=== PATIENT | female | born 1945 | race Caucasian/White ===

== ENCOUNTER → 2019-02-10 | Outpatient (CLI) | payer MEDICARE, BC ==
[2019-02-10 12:51] LABS: IRON(TIBC) 29.1 ug/dL (37-170); POTASSIUM 5.1 mmol/L (3.6-5.0)
== END ==
LOC: OD 11:41
PROVIDERS: ATTEND Physician Assistant Medical
DX: D64.9 Anemia, unspecified (principal)
CPT/HCPCS: 36415; 82728; 83540; 83550; 83735; 84132

== ENCOUNTER 2019-02-15 19:16 | Emergency (ER) | payer MEDICARE, BC ==
--- NOTE | 2019-02-15 19:48 | ER Document Report ---
ED Medical Screen (RME) - General Chief Complaint: Pain With Urination Stated Complaint: UTI, CHECK POTASSIUM Time Seen by Provider: 02/15/19 19:38 Primary Care Provider: CLARENCE PIERRE PA-C [Primary Care Provider] - Follow up as needed Mode of Arrival: Ambulatory Information source: Patient Notes: 73-year-old meat female presents to ED for abnormal labs as well as a UTI. She states she went to [facility] today to see her doctor because of her increase in symptoms from the UTI. States they kim some blood and before she got home they called and told her to come to the emergency room due to abnormal blood work. She has elevated calcium levels as well as increase UTI. She has a history of a aortic aneurysm with repair back surgeries coronary artery stents she has a history of reflux hypothyroid asthma kidney disease depression cholesterol blood pressure she is also been experiencing dizziness. She is on O2 at this time she does use oxygen at home. She is alert oriented respirations regular and unlabored just times. She does not smoke drink or do any drugs. She is on 3 L nasal cannula. She lives with her . I have greeted and performed a rapid initial assessment of this patient. A comprehensive ED assessment and evaluation of the patient, analysis of test results and completion of medical decision making process will be conducted by an additional ED providers. Dictation of this chart was performed using voice recognition software; therefore, there may be some unintended grammatical errors. TRAVEL OUTSIDE OF THE [place] IN LAST 30 DAYS: No - Related Data Allergies/Adverse Reactions: No Known Allergies Allergy (Unverified 02/15/19 19:20) Physical Exam - Vital signs Vitals: Temp Pulse Resp BP Pulse Ox 98.4 F 75 22 H 149/80 H 96 02/15/19 19:26 02/15/19 19:26 02/15/19 19:26 02/15/19 19:26 02/15/19 19:26 Course - Vital Signs Vital signs: Temp Pulse Resp BP Pulse Ox 98.4 F 75 22 H 149/80 H 96 02/15/19 19:26 02/15/19 19:26 02/15/19 19:26 02/15/19 19:26 02/15/19 19:26 Doctor's Discharge - Discharge Referrals: CLARENCE PIERRE PA-C [Primary Care Provider] - Follow up as needed
[2019-02-15 20:34] LABS: ABSOLUTE BASOPHILS # (AUTO) 0.1 10^3/uL (0.0-0.2); ABSOLUTE EOSINOPHILS # (AUTO) 0.2 10^3/uL (0.0-0.6); ABSOLUTE LYMPHOCYTES (AUTO) 0.8 10^3/uL (0.5-4.7); ABSOLUTE MONOCYTES (AUTO) 0.8 10^3/uL (0.1-1.4); ABSOLUTE NEUT (AUTO) 4.6 10^3/uL (1.7-8.2); BASOPHILS % (AUTO) 0.9 % (0-2); EOSINOPHILS % (AUTO) 3.6 % (0-6); HEMATOCRIT 34.4 % (36.0-47.0); HEMOGLOBIN 11.6 g/dL (12.0-15.5); LYMPHOCYTES % (AUTO) 11.7 % (13-45); MEAN CORPUSCULAR HEMOGLOBIN 33.2 pg (27.0-33.4); MEAN CORPUSCULAR HGB CONC 33.7 g/dL (32.0-36.0); MEAN CORPUSCULAR VOLUME 99 fl (80-97); MONOCYTES % (AUTO) 12.9 % (3-13); PLATELET COUNT 208 10^3/uL (150-450); RED BLOOD COUNT 3.49 10^6/uL (3.72-5.28); RED CELL DISTRIBUTION WIDTH 14.8 % (11.5-14.0); SEGMENTED NEUTROPHILS % (AUTO) 70.9 % (42-78); TOTAL CELLS COUNTED % (AUTO) 100 %; WHITE BLOOD COUNT 6.5 10^3/uL (4.0-10.5)
[2019-02-15 20:44] LABS: APPEARANCE,URINE SLIGHTLY-CLOUDY; BILIRUBIN,URINE NEGATIVE (NEGATIVE); CALCIUM OXALATE CRYSTALS,URINE FEW /HPF; COLOR,URINE YELLOW; GLUCOSE, URINE NEGATIVE (NEGATIVE); KETONES,URINE NEGATIVE (NEGATIVE); LEUKOCYTE ESTERASE,URINE MODERATE (NEGATIVE); NITRITE,URINE NEGATIVE (NEGATIVE); PROTEIN,URINE NEGATIVE (NEGATIVE); URINE SPECIFIC GRAVITY 1.016; UROBILINOGEN,URINE NEGATIVE mg/dL (<2.0)
[2019-02-15 20:47] LABS: ALANINE AMINOTRANSFERASE 26 U/L (9-52); ALBUMIN 3.7 g/dL (3.5-5.0); ALKALINE PHOSPHATASE 43 U/L (38-126); ANION GAP 9 (5-19); ASPARTATE AMINO TRANSFERASE 23 U/L (14-36); BILIRUBIN,DIRECT 0.2 mg/dL (0.0-0.4); BILIRUBIN,TOTAL 0.2 mg/dL (0.2-1.3); BLOOD UREA NITROGEN 44 mg/dL (7-20); CARBON DIOXIDE 31 mmol/L (22-30); CHLORIDE 99 mmol/L (98-107); GLUCOSE 76 mg/dL (75-110); POTASSIUM 4.1 mmol/L (3.6-5.0); SODIUM 138.5 mmol/L (137-145); TOTAL PROTEIN 6.3 g/dL (6.3-8.2)
[2019-02-15 21:09] LABS: CALCIUM 12.6 mg/dL (8.4-10.2)
[2019-02-16] MEDS ORDERED: LIDOCAINE 1% INJ-PF (10 MG/ML) 30 ML SDV INFIL ONE (00:22)
[2019-02-16] MEDS ORDERED: CEFTRIAXONE INJ 1000 MG VIAL IM ONE (00:22)
--- NOTE | 2019-02-16 00:27 | ER Document Report ---
ED General - General Chief Complaint: Pain With Urination Stated Complaint: PAINFUL URINATION Time Seen by Provider: 02/15/19 19:38 Primary Care Provider: ASHLEE ARREDONDO MD [Primary Care Provider] - 02/19/19 Mode of Arrival: Ambulatory Notes: Patient is a pleasant 73-year-old female who was sent here by her traveling plant operator from [facility]. She went to [facility] for her normal routine checkup. Her traveling plant operator: Went home and told her that she need to go to the ER because her calcium level was high and she is a little urine tract infection. Patient does have some history of renal insufficiency. She is followed by a legal specialist and Dr. Choudhury. 6 days ago she was placed on Cipro for UTI. She says since starting the Cipro to make her feel unwell is given her muscle aches and this made her feel unwell. She denies any nausea vomiting. No chest pain. No shortness of breath. She says she continues to have dysuria and urinary frequency despite being on the Cipro. She denies previous history of hypercalcemia. She does take calcium supplementation every day. Cipro is the only new medication. She has no other complaints at this time. TRAVEL OUTSIDE OF THE [place] IN LAST 30 DAYS: No - Related Data Allergies/Adverse Reactions: No Known Allergies Allergy (Unverified 02/15/19 19:20) Past Medical History - General Information source: Patient - Social History Smoking Status: Unknown if Ever Smoked Chew tobacco use (# tins/day): No Frequency of alcohol use: None Drug Abuse: None Family History: Reviewed & Not Pertinent Patient has suicidal ideation: No Patient has homicidal ideation: No - Past Medical History Cardiac Medical History: Reports: Hx Hypercholesterolemia, Hx Hypertension Pulmonary Medical History: Reports: Hx Asthma Renal/ Medical History: Denies: Hx Peritoneal Dialysis Psychiatric Medical History: Reports: Hx Depression Review of Systems - Review of Systems Notes: My Normal Review Basic REVIEW OF SYSTEMS: CONSTITUTIONAL : Denies fever, chills, or sweats. Denies recent illness. EENT: Denies eye, ear, throat, or mouth pain or symptoms. Denies nasal or sinus congestion. CARDIOVASCULAR: Denies chest pain. RESPIRATORY: Denies cough, cold, or chest congestion. Denies shortness of breath, difficulty breathing, or wheezing. GASTROINTESTINAL: Denies abdominal pain. Denies nausea, vomiting, or diarrhea. Denies constipation. Last BM: GENITOURINARY: Burning with urination. Urinary frequency. MUSCULOSKELETAL: Some muscle aches. SKIN: Denies rash or skin lesions. NEUROLOGICAL: Denies altered mental status or loss of consciousness. Denies headache. Denies weakness or paralysis or loss of use of either side. Denies problems with gait or speech. Denies sensory or motor loss. ALL OTHER SYSTEMS REVIEWED AND NEGATIVE. Physical Exam - Vital signs Vitals: Temp Pulse Resp BP Pulse Ox 98.4 F 75 22 H 149/80 H 96 02/15/19 19:26 02/15/19 19:26 02/15/19 19:26 02/15/19 19:02/15/19 19:26 - Notes Notes: General Appearance: Well nourished, alert, cooperative, no acute distress, no obvious discomfort. Vitals: reviewed, See vital signs table. Head: no swelling or tenderness to the head Eyes: PERRL, EOMI, Conjuctiva clear Mouth: No decreasd moisture Lungs: No wheezing, No rales, No rhonci, No accessory muscle use, good air exchange bilaterally. Heart: Normal rate, Regular rythm, No murmur, no rub Abdomen: Normal BS, soft, No rigidity, No abdominal tenderness, No guarding, no rebound, no abdominal masses, no organomegaly Extremities: strength 5/5 in all extremities, good pulses in all extremities, no swelling or tenderness in the extremities, no edema. Skin: warm, dry, appropriate color, no rash Neuro: speech clear, oriented x 3, normal affect, responds appropriately to questions. Cranial nerves II through XII are intact. Distal sensation intact. Patient moves all extremities without difficulty. Normal reflexes in both upper and lower extremities. Normal coordination of movement of fingers and hands. Course - Re-evaluation Re-evalutation: 02/16/19 00:41 Patient continues to have a UTI urinalysis as well as based on her symptoms. Cipro does not appear to be helping and according to her the Cipro is just made her feel worse and that is because body aches and made her feel unwell. Hypercalcemia is not a common reaction to the Cipro however patient says she is never had hypercalcemia in the past. She is on supplemental calcium which will help her stop. We will have her stop the Cipro and will start her on Keflex. I sent a urine for culture. She has no concerning symptoms and associate with hypercalcemia and therefore I feel she is safe to be discharged home however I informed her that she needs of a low threshold to return to ER if she has confusion, discoordination, fevers, or if she feels unwell. I did send off a parathyroid hormone level and informed her that she should talk to Dr. Arredondo and inform him to look at the results of this so he can continue the work-up of her hypercalcemia. Dictation of this chart was performed using voice recognition software; therefore, there may be some unintended grammatical errors. 02/16/19 00:44 - Vital Signs Vital signs: Temp Pulse Resp BP Pulse Ox 98.4 F 75 22 H 149/80 H 96 02/15/19 19:26 02/15/19 19:26 02/15/19 19:26 02/15/19 19:26 02/15/19 19:26 - Laboratory Result Diagrams: 02/15/19 20:00 02/15/19 20:00 Laboratory results interpreted by me: 02/15/19 02/15/19 02/15/19 20:00 20:00 20:00 RBC 3.49 L Hgb 11.6 L Hct 34.4 L MCV 99 H RDW 14.8 H Lymphocytes % 11.7 L Carbon Dioxide 31 H BUN 44 H Creatinine 2.43 H Est GFR ( Amer) 24 L Est GFR (Non-Af Amer) 20 L Calcium 12.6 H* Ur Leukocyte Esterase MODERATE H Discharge - Discharge Clinical Impression: Hypercalcemia UTI (urinary tract infection) Qualifiers: Urinary tract infection type: site unspecified Hematuria presence: without hematuria Qualified Code(s): N39.0 - Urinary tract infection, site not specified Condition: Good Disposition: HOME, SELF-CARE Additional Instructions: You do have a urinary tract infection. We have given you a dose of an antibiotic called Rocephin. We will then prescribe you an antibiotic called Keflex. Please continue take this antibiotic until the prescription is finished. Please stop taking the ciprofloxacin antibiotic. Your calcium level was high. Please stop taking your calcium pill. We are checking a hormone level called a parathyroid hormone level. Please follow-up with Dr. Arredondo this week and informed him that we have checked this level so that he can look up the results. Have him also recheck your calcium level to make sure that it is improving. Please return to the ER immediately if you have severe headache, muscle weakness or pain, tremors, fevers, confusion, or if you feel unwell. Prescriptions: Cephalexin Monohydrate [Keflex 500 mg Capsule] 500 mg PO BID 5 Days #10 capsule Referrals: ASHLEE ARREDONDO MD [Primary Care Provider] - 02/19/19
[2019-02-16 01:03] VITALS: BP 183/74
== END 2019-02-16 01:14 | disposition home or self-care (01) ==
LOC: ER 19:16
DX: N39.0 Urinary tract infection, site not specified (principal); E83.52 Hypercalcemia; Z79.899 Other long term (current) drug therapy; M79.10 Myalgia, unspecified site; I10 Essential (primary) hypertension; J45.909 Unspecified asthma, uncomplicated
CPT/HCPCS: 99283; 96372; 36415; 87086; 83735; 85025; 87088; 80053; 81001; 87186; 83970; J3490; J0696

== ENCOUNTER → 2019-02-24 | Outpatient (CLI) | payer MEDICARE, BC ==
[2019-02-24 13:00] LABS: APPEARANCE,URINE CLEAR; BILIRUBIN,URINE NEGATIVE (NEGATIVE); COLOR,URINE LIGHT YELLOW; GLUCOSE, URINE NEGATIVE (NEGATIVE); KETONES,URINE NEGATIVE (NEGATIVE); URINE SPECIFIC GRAVITY 1.009
[2019-02-24 13:01] LABS: LEUKOCYTE ESTERASE,URINE LARGE (NEGATIVE); NITRITE,URINE NEGATIVE (NEGATIVE); PROTEIN,URINE 30 mg/dL (NEGATIVE); UROBILINOGEN,URINE NEGATIVE mg/dL (<2.0)
[2019-02-24 13:02] LABS: ADD MANUAL MICROSCOPIC YES; BACTERIA,URINE 3+ /HPF
== END ==
LOC: OD 11:44
PROVIDERS: ATTEND Internal Medicine Nephrology
DX: E87.5 Hyperkalemia (principal)
CPT/HCPCS: 36415; 81001; 84132

== ENCOUNTER → 2019-08-06 | Outpatient (CLI) | payer MEDICARE, BC | LOC: OD 12:10 | PROVIDERS: ATTEND Physician Assistant Medical | DX: E87.5 Hyperkalemia (principal) | CPT/HCPCS: 36415; 84132 ==

== ENCOUNTER → 2019-11-08 | Outpatient (CLI) | payer MEDICARE, BC ==
[2019-11-08 12:45] LABS: ABSOLUTE EOSINOPHILS # (AUTO) 0.2 10^3/uL (0.0-0.6); ABSOLUTE LYMPHOCYTES (AUTO) 0.6 10^3/uL (0.5-4.7); ABSOLUTE MONOCYTES (AUTO) 0.5 10^3/uL (0.1-1.4); ABSOLUTE NEUT (AUTO) 5.1 10^3/uL (1.7-8.2); BASOPHILS % (AUTO) 0.7 % (0-2); EOSINOPHILS % (AUTO) 2.8 % (0-6); HEMATOCRIT 35.7 % (36.0-47.0); HEMOGLOBIN 12.1 g/dL (12.0-15.5); LYMPHOCYTES % (AUTO) 9.5 % (13-45); MEAN CORPUSCULAR HEMOGLOBIN 32.6 pg (27.0-33.4); MEAN CORPUSCULAR HGB CONC 33.9 g/dL (32.0-36.0); MEAN CORPUSCULAR VOLUME 96 fl (80-97); MONOCYTES % (AUTO) 7.7 % (3-13); PLATELET COUNT 229 10^3/uL (150-450); RED BLOOD COUNT 3.71 10^6/uL (3.72-5.28); RED CELL DISTRIBUTION WIDTH 14.7 % (11.5-14.0); SEGMENTED NEUTROPHILS % (AUTO) 79.3 % (42-78); TOTAL CELLS COUNTED % (AUTO) 100 %; WHITE BLOOD COUNT 6.4 10^3/uL (4.0-10.5)
[2019-11-08 13:15] LABS: ANION GAP 8 (5-19); BLOOD UREA NITROGEN 33 mg/dL (7-20); CALCIUM 9.8 mg/dL (8.4-10.2); CARBON DIOXIDE 29 mmol/L (22-30); CHLORIDE 102 mmol/L (98-107); GLUCOSE 91 mg/dL (75-110); PHOSPHORUS 4.3 mg/dL (2.5-4.5); POTASSIUM 5.5 mmol/L (3.6-5.0)
[2019-11-08 13:42] LABS: APPEARANCE,URINE CLOUDY; BILIRUBIN,URINE NEGATIVE (NEGATIVE); CALCIUM OXALATE CRYSTALS,URINE FEW /HPF; COLOR,URINE YELLOW; GLUCOSE, URINE NEGATIVE (NEGATIVE); KETONES,URINE NEGATIVE (NEGATIVE); LEUKOCYTE ESTERASE,URINE LARGE (NEGATIVE); NITRITE,URINE NEGATIVE (NEGATIVE); PROTEIN,URINE 30 mg/dL (NEGATIVE); TRIPLE PHOSPHATE CRYSTAL,URINE RARE /HPF; URINE SPECIFIC GRAVITY 1.013; UROBILINOGEN,URINE NEGATIVE mg/dL (<2.0)
== END ==
LOC: OD 12:11
PROVIDERS: ATTEND Physician Assistant Medical
DX: E87.5 Hyperkalemia (principal); E11.22 Type 2 diabetes mellitus with diabetic chronic kidney disease; I12.9 Hypertensive chronic kidney disease with stage 1 through stage 4 chronic kidney disease, or unspecified chronic kidney disease; N18.3 Chronic kidney disease, stage 3 (moderate); D63.1 Anemia in chronic kidney disease; E83.51 Hypocalcemia; N39.0 Urinary tract infection, site not specified
CPT/HCPCS: 36415; 80048; 81001; 83970; 84100; 84132; 85025; 87086; 87088; 87186

== ENCOUNTER 2019-12-27 23:12 | Inpatient (IN) | payer MEDICARE, BC ==
--- NOTE | 2019-12-27 23:24 | ER Document Report ---
ED General - General Stated Complaint: SHORTNESS OF BREATH Primary Care Provider: CLARENCE PIERRE PA-C [Primary Care Provider] - Follow up as needed Mode of Arrival: Medic Information source: Patient, Emergency Med Personnel TRAVEL OUTSIDE OF THE [place] IN LAST 30 DAYS: No - HPI Onset: Just prior to arrival Onset/Duration: Sudden Quality of pain: No pain Severity: Severe Pain Level: Denies Associated symptoms: Productive cough, Shortness of breath Exacerbated by: Denies Relieved by: Denies Similar symptoms previously: Yes - with CHF Recently seen / treated by doctor: No Notes: 74 year old female with a history of CHF on home O2 (3L), HTN, HLD, Asthma brought in by EMS for shortness of breath, hypoxia (sats were in the 60s on EMS arrival), sweating. The patient was placed on bipap by EMS and she was also given Enalapril due to hypertension. The patient felt better on ER arrival but she was still short of breath. The patient apparently had some nausea and vomiting earlier in the day. The patient denies recent fevers. - Related Data Allergies/Adverse Reactions: No Known Allergies Allergy (Unverified 02/15/19 19:20) Past Medical History - Social History Smoking Status: Unknown if Ever Smoked Frequency of alcohol use: None Drug Abuse: None Lives with: Family Family History: Reviewed & Not Pertinent - Past Medical History Cardiac Medical History: Reports: Hx Hypercholesterolemia, Hx Hypertension Pulmonary Medical History: Reports: Hx Asthma Renal/ Medical History: Denies: Hx Peritoneal Dialysis Psychiatric Medical History: Reports: Hx Depression Physical Exam - Vital signs Vitals: Temp Resp Pulse Ox 97.2 F 16 84 L 12/27/19 23:12 12/27/19 23:12 12/27/19 23:12 - Notes Notes: GENERAL: Patient arrived on Bipap, appears diaphoretic but otherwise fairly wel l-appearing, well-nourished. HEAD: Atraumatic, normocephalic. EYES: Pupils equal round and reactive to light, extraocular movements intact, sclera anicteric, conjunctiva are normal. ENT: Nares patent, oropharynx clear without exudates. Moist mucous membranes. NECK: Normal range of motion, supple without lymphadenopathy or JVD. LUNGS: Course breath sounds with mild wheezing. Overall decreased breath sounds. HEART: Regular rate and rhythm without murmurs, rubs or gallops. ABDOMEN: Soft, nontender, normoactive bowel sounds. No guarding, no rebound. No masses appreciated. EXTREMITIES: Normal range of motion, no pitting or edema. No clubbing or cyanosis. NEUROLOGICAL: Cranial nerves II through XII grossly intact. Normal speech, normal gait. PSYCH: Normal mood, normal affect. SKIN: Somewhat pale and diaphoretic. Normal turgor, no rashes or lesions noted. Course - Re-evaluation Re-evalutation: 12/28/19 00:25 The patient arrived by EMS for shortness of breath, hypoxemia, and sweating. Patient appears to be volume overloaded based on her presentation, Xray, and BNP. Patient treated in the ER with bipap, IV lasix, and IV morphine. Patient admitted to IMCU. Patient was feeling much better on ER arrival after having Bip ap and blood pressure medication in the field. Patient was re-evaluated several times in the ER during her stay. Patient understood the need for admission despite the current pandemic. - Vital Signs Vital signs: Temp Pulse Resp BP Pulse Ox 97.2 F 27 H 148/86 H 93 12/27/19 23:12 12/27/19 23:31 12/27/19 23:31 12/27/19 23:31 - Laboratory Result Diagrams: 12/27/19 23:14 12/27/19 23:14 Laboratory results interpreted by me: 12/27/19 12/27/19 12/27/19 23:14 23:14 23:14 WBC 21.1 H MCV 98 H RDW 14.9 H Seg Neuts % (Manual) 94 H Band Neutrophils % 1 L Lymphocytes % (Manual) 1 L Abs Neuts (Manual) 20.0 H Abs Lymphs (Manual) 0.2 L ABG pH ABG pO2 ABG O2 Saturation BUN 35 H Creatinine 1.46 H Est GFR ( Amer) 42 L Est GFR (MDRD) Non-Af 35 L Glucose 152 H Lactic Acid AST 40 H NT-Pro-B Natriuret Pep 63336 H 12/27/19 12/27/19 23:14 23:14 WBC MCV RDW Seg Neuts % (Manual) Band Neutrophils % Lymphocytes % (Manual) Abs Neuts (Manual) Abs Lymphs (Manual) ABG pH 7.34 L ABG pO2 53.7 L ABG O2 Saturation 86.0 L BUN Creatinine Est GFR ( Amer) Est GFR (MDRD) Non-Af Glucose Lactic Acid 3.2 H AST NT-Pro-B Natriuret Pep - Diagnostic Test Radiology reviewed: Image reviewed, Reports reviewed - EKG Interpretation by Me EKG shows normal: Sinus rhythm, [place], Intervals, QRS Complexes, ST-T Waves Rate: Normal Additional EKG results interpreted by me: 12/27/19 23:19 PVCs, T wave inversions in V4-V6 Critical Care Note - Critical Care Note Total time excluding time spent on procedures (mins): 32 Discharge - Discharge Clinical Impression: Hypoxemia Heart failure Qualifiers: Heart failure type: unspecified Heart failure chronicity: acute Qualified Code(s): I50.9 - Heart failure, unspecified Condition: Serious Disposition: ADMITTED INPATIENT Admitting Provider: Byron (Hospitalist) Unit Admitted: IMCU Referrals: CLARENCE PIERRE PA-C [Primary Care Provider] - Follow up as needed
[2019-12-27 23:42] LABS: HEMATOCRIT 42.5 % (36.0-47.0); HEMOGLOBIN 14.2 g/dL (12.0-15.5); MEAN CORPUSCULAR HEMOGLOBIN 32.8 pg (27.0-33.4); MEAN CORPUSCULAR HGB CONC 33.4 g/dL (32.0-36.0); MEAN CORPUSCULAR VOLUME 98 fl (80-97); PLATELET COUNT 199 10^3/uL (150-450); RED BLOOD COUNT 4.34 10^6/uL (3.72-5.28); RED CELL DISTRIBUTION WIDTH 14.9 % (11.5-14.0); WHITE BLOOD COUNT 21.1 10^3/uL (4.0-10.5)
[2019-12-27 23:44] LABS: ARTERIAL BLOOD BASE EXCESS -4.4 mmol/L; ARTERIAL BLOOD FIO2 100%; ARTERIAL BLOOD H2CO3 1.21 mmol/L (1.05-1.35); ARTERIAL BLOOD HCO3 21.1 mmol/L (20-24); ARTERIAL BLOOD PCO2 40.3 mmHg (35-45); ARTERIAL BLOOD PH 7.34 (7.35-7.45); ARTERIAL BLOOD PO2 53.7 mmHg (80-100); ARTERIAL BLOOD TOTAL CO2 22.3 mmol/L (21-25)
--- NOTE | 2019-12-27 23:45 | RADIOLOGY REPORT (SQ) ---
CLINICAL INDICATION: eval for SOB. Shortness of breath TECHNIQUE: A single portable AP view was obtained of the chest at 2326 hours. COMPARISON: None. FINDINGS: The cardiomediastinal silhouette is enlarged with postsurgical change. The lungs demonstrates interstitial changes in a patchy distribution bilaterally. These are seen mostly at the lung apices. No evidence of effusion or pneumothorax. The visualized bones are unremarkable. Neurostimulator projecting over lower thoracic spine IMPRESSION: Patchy interstitial changes particularly at the lung apices..
[2019-12-27 23:52] LABS: ALBUMIN 4.2 g/dL (3.5-5.0); ALKALINE PHOSPHATASE 45 U/L (38-126); ANION GAP 13 (5-19); ASPARTATE AMINO TRANSFERASE 40 U/L (14-36); BILIRUBIN,DIRECT 0.3 mg/dL (0.0-0.4); BILIRUBIN,TOTAL 1.3 mg/dL (0.2-1.3); BLOOD UREA NITROGEN 35 mg/dL (7-20); CALCIUM 9.1 mg/dL (8.4-10.2); CARBON DIOXIDE 25 mmol/L (22-30); CHLORIDE 100 mmol/L (98-107); GLUCOSE 152 mg/dL (75-110); POTASSIUM 4.7 mmol/L (3.6-5.0); TOTAL PROTEIN 7.1 g/dL (6.3-8.2)
[2019-12-28 00:05] LABS: ABSOLUTE LYMPHOCYTES# (MANUAL) 0.2 10^3/uL (0.5-4.7); ABSOLUTE MONOCYTES # (MANUAL) 0.8 10^3/uL (0.1-1.4); BAND NEUTROPHILS % (MANUAL) 1 % (3-5); BASOPHILS % (MANUAL) 0 % (0-2); EOSINOPHILS % (MANUAL) 0 % (0-6); LYMPHOCYTES % (MANUAL) 1 % (13-45); MONOCYTES % (MANUAL) 4 % (3-13); SEGMENTED NEUTROPHILS % (MAN) 94 % (42-78); TOTAL CELLS COUNTED 100
[2019-12-28 00:07] LABS: ANISOCYTOSIS SLIGHT; TOXIC GRANULATION SLIGHT
[2019-12-28 00:08] LABS: TROPONIN I 0.102 ng/mL
[2019-12-28 00:09] LABS: PLATELET COMMENT ADEQUATE
[2019-12-28] MEDS ORDERED: FUROSEMIDE INJ/PF 20 MG/2 ML SDV IV ONE ×2 (00:21→00:27)
[2019-12-28] MEDS ORDERED: MORPHINE SULFATE 10 MG/ML INJ IV ONE (00:28)
[2019-12-28] MEDS ORDERED: MAGNESIUM HYDROXIDE SUSP 30 ML UDCUP PO PRN (01:00)
[2019-12-28] MEDS ORDERED: LORAZEPAM INJ 2 MG/1 ML VIAL IV PRN (01:14)
[2019-12-28] MEDS ORDERED: HYDRALAZINE HCL INJ/PF 20 MG/1 ML SDV IV PRN (01:14)
[2019-12-28] MEDS: NITROGLYCERIN 2% OINTMENT 1 GM PACKET TP SCH ×5 (01:35→23:41)
[2019-12-28] MEDS: MORPHINE SULFATE 10 MG/ML INJ IV PRN ×2 (04:08→06:07)
[2019-12-28] MEDS ORDERED: INFLUENZA QUAD (6MOS+) 2019-20 VAC 0.5 ML SYR IM ONE (04:16)
--- NOTE | 2019-12-28 05:11 | PDOC H&P ---
History of Present Illness Admission Date/PCP: 12/28/2019 00:31 CLARENCE PIERRE PA-C Patient complains of: Dyspnea History of Present Illness: VERENA SILVA is a 74 year old female who presented emergency room with acute dyspnea. She admits developing severe acute dyspnea just prior to her arrival in the emergency room. She was sitting in her chair at home and suddenly developed severe dyspnea, associated with a cough productive of clear phlegm and accompanied by profound diaphoresis and air hunger. Her dyspnea was worsened on exertion or trying to recline (orthopnea). She denies other associated or accompanying signs and symptoms. She admits prior similar episodes with her co ngestive heart failure. She denies identification of any additional aggravating or ameliorating factors for her acute dyspnea. EMS arrived on the scene to find her emergently hypertensive and hypoxic with a O2 saturation of 60%. She was treated with IV enalaprilat and BiPAP by EMS. BiPAP was continued in the ER with a better mask seal. Patient was given morphine sulfate and furosemide IV in the ER at my request. Chest x-ray confirmed acute pulmonary edema and the patient was subsequently admitted to the hospital for further evaluation and treatment. It is noted that the patient is severely dyspneic and on BiPAP at the time my evaluation and is only able to speak in 2-3 word sentences this severely limiting her ability to communicate historical data. Past Medical History Cardiac Medical History: Reports: Congestive Heart Failure, Hyperlipidema, Hypertension Denies: Atrial Fibrillation, Coronary Artery Disease, Myocardial Infarction Pulmonary Medical History: Reports: Asthma, Respiratory Failure Denies: Chronic Obstructive Pulmonary Disease (COPD) EENT Medical History: Denies: Cataracts, Ears - Hearing aids Neurological Medical History: Denies: Hemorrhagic CVA, Ischemic CVA, Seizures Endocrine Medical History: Reports: Other - Male hypogonadism Denies: Diabetes Mellitus Type 1, Diabetes Mellitus Type 2, Hyperthyroidism, Hypothyroidism, Obesity Renal/ Medical History: Denies: Chronic Kidney Disease, Nephrolithiasis Malignancy Medical History: Reports: None GI Medical History: Denies: Cirrhosis, Crohn's Disease, Hepatitis, Ulcerative Colitis Musculoskeltal Medical History: Denies: Fibromyalgia, Gout Skin Medical History: Denies: Eczema, Psoriasis Psychiatric Medical History: Reports: Depression Denies: Alcohol Dependency, Substance Abuse, Tobacco Dependency Traumatic Medical History: Reports: None Hematology: Denies: Anemia, Bleeding Tendencies Infectious Medical History: Reports: None Past Surgical History Past Surgical History: Reports: Appendectomy, Other - Heart surgery Social History Information Source: Patient Lives with: Spouse/Significant other Smoking Status: Never Smoker Electronic Cigarette use?: No Frequency of Alcohol Use: None Hx Recreational Drug Use: No Drugs: None Hx Prescription Drug Abuse: No - Advance Directive Resuscitation Status: Full Code Surrogate healthcare decision maker:: Dipak Silva Family History Family History: CAD, DM, Hypertension. denies: Malignancy Parental Family History Reviewed: Yes Children Family History Reviewed: No Sibling(s) Family History Reviewed.: Yes Medication/Allergy Home Medications: Cephalexin Monohydrate [Keflex 500 mg Capsule] 500 mg PO BID 5 Days #10 capsule 02/16/19 Allergies/Adverse Reactions: No Known Allergies Allergy (Unverified 02/15/19 19:20) Review of Systems Constitutional: ABSENT: chills, fever(s) Eyes: ABSENT: visual disturbances, other - Eye pain Ears: ABSENT: hearing changes, other - Ear pain Nose, Mouth, and Throat: ABSENT: headache(s), sore throat Cardiovascular: PRESENT: as per HPI, dyspnea on exertion, orthropnea. ABSENT: chest pain, edema, palpitations Respiratory: PRESENT: as per HPI, cough, dyspnea, sputum - Clear phlegm Gastrointestinal: ABSENT: abdominal pain, constipation, diarrhea, nausea, vomiting Genitourinary: ABSENT: dysuria, hematuria Musculoskeletal: ABSENT: back pain, joint swelling, muscle weakness Integumentary: PRESENT: as per HPI, diaphoresis. ABSENT: pruritus, rash Neurological: ABSENT: confusion, convulsions, focal weakness, memory loss, syncope Psychiatric: ABSENT: anxiety, depression Endocrine: ABSENT: cold intolerance, heat intolerance Hematologic/Lymphatic: ABSENT: easy bleeding, easy bruising Allergic/Immunologic: ABSENT: seasonal rhinorrhea Physical Exam Vital Signs: Temp Pulse Resp BP Pulse Ox 97.2 F 27 H 148/86 H 93 12/27/19 23:12 12/27/19 23:31 12/27/19 23:31 12/27/19 23:31 Intake & Output 12/26/19 12/27/19 12/28/19 23:59 23:59 23:59 Weight 62.3 kg General appearance: PRESENT: cooperative, mild distress, other - On BiPAP at the time of my exam Head exam: PRESENT: atraumatic, normocephalic Eye exam: PRESENT: conjunctiva pink. ABSENT: conjunctival injection, scleral icterus Ear exam: PRESENT: normal external ear exam. ABSENT: bleeding, drainage Mouth exam: PRESENT: dry mucosa, neck supple Neck exam: PRESENT: JVD - Bilateral at 30 degrees elevation. ABSENT: thyromega ly, tracheal deviation Respiratory exam: PRESENT: rales - Fine rales bilaterally in the lower one half of both lung garcia, symmetrical, other - On BiPAP. ABSENT: wheezes Cardiovascular exam: PRESENT: gallop - S4 gallop, RRR. ABSENT: clicks, rubs, tachycardia Pulses: PRESENT: normal radial pulses, normal dorsalis pedis pul Vascular exam: PRESENT: normal capillary refill. ABSENT: pallor GI/Abdominal exam: PRESENT: normal bowel sounds, soft. ABSENT: tenderness Rectal exam: PRESENT: deferred Extremities exam: ABSENT: joint swelling, pedal edema Musculoskeletal exam: ABSENT: deformity, dislocation Neurological exam: PRESENT: alert, oriented to person, oriented to place, oriented to time, oriented to situation, CN II-XII grossly intact. ABSENT: motor sensory deficit Psychiatric exam: PRESENT: appropriate affect, normal mood Skin exam: PRESENT: dry, intact, warm. ABSENT: jaundice, rash, urticaria Results Laboratory Results: 12/27/19 23:14 12/27/19 23:14 12/27/19 12/27/19 12/27/19 23:14 23:14 23:14 WBC 21.1 H RBC 4.34 Hgb 14.2 Hct 42.5 MCV 98 H MCH 32.8 MCHC 33.4 RDW 14.9 H Plt Count 199 Seg Neutrophils % Not Reportable Carbonic Acid HCO3/H2CO3 Ratio ABG pH ABG pCO2 ABG pO2 ABG HCO3 ABG O2 Saturation ABG Base Excess FiO2 Sodium 137.5 Potassium 4.7 Chloride 100 Carbon Dioxide 25 Anion Gap 13 BUN 35 H Creatinine 1.46 H Est GFR ( Amer) 42 L Glucose 152 H Lactic Acid 3.2 H Calcium 9.1 Magnesium 2.0 Total Bilirubin 1.3 AST 40 H Alkaline Phosphatase 45 Total Protein 7.1 Albumin 4.2 12/27/19 23:14 WBC RBC Hgb Hct MCV MCH MCHC RDW Plt Count Seg Neutrophils % Carbonic Acid 1.21 HCO3/H2CO3 Ratio 17:1 ABG pH 7.34 L ABG pCO2 40.3 ABG pO2 53.7 L ABG HCO3 21.1 ABG O2 Saturation 86.0 L ABG Base Excess -4.4 FiO2 100% Sodium Potassium Chloride Carbon Dioxide Anion Gap BUN Creatinine Est GFR ( Amer) Glucose Lactic Acid Calcium Magnesium Total Bilirubin AST Alkaline Phosphatase Total Protein Albumin 12/27/19 23:14 Troponin I 0.102 NT-Pro-B Natriuret Pep 34049 H Impressions: Chest X-Ray 12/27/19 23:16 IMPRESSION: Patchy interstitial changes particularly at the lung apices.. Assessment and Plan - Diagnosis (1) Acute cardiogenic pulmonary edema Is this a current diagnosis for this admission?: Yes (2) Acute respiratory failure with hypoxia Is this a current diagnosis for this admission?: Yes (3) Acute on chronic congestive heart failure Qualifiers: Heart failure type: unspecified Qualified Code(s): I50.9 - Heart failure, unspecified Is this a current diagnosis for this admission?: Yes (4) Hypertension Qualifiers: Hypertension type: essential hypertension Qualified Code(s): I10 - Essential (primary) hypertension Is this a current diagnosis for this admission?: Yes (5) Hyperlipidemia Qualifiers: Hyperlipidemia type: unspecified Qualified Code(s): E78.5 - Hyperlipidemia, unspecified Is this a current diagnosis for this admission?: Yes (6) Asthma Qualifiers: Asthma severity: unspecified severity Asthma persistence: unspecified Asthma complication type: unspecified Qualified Code(s): J45.909 - Unspecified asthma, uncomplicated Is this a current diagnosis for this admission?: Yes (7) Depression Qualifiers: Depression Type: unspecified Qualified Code(s): F32.9 - Major depressive disorder, single episode, unspecified Is this a current diagnosis for this admission?: Yes - Plan Summary Summary: The patient will be admitted to the congestive heart failure protocol on [facility]. She will receive routine supportive and symptomatic cares. She will be treated with morphine sulfate 2 mg IV every hour as needed severe dyspnea. She will be treated with IV Bumex 1 mg IV every 6 hours x2 doses. 1 g of 2% Nitrol paste will be applied to the patient's chest and changed every 6 hours X 12 hours. Patient will be provided supplemental oxygen via nasal cannula and/or noninvasive airway pressure devices such as BiPAP to maintain an adequate oxygen saturation. Patient will be continued on her usual medical regiment as appropriate in light of her current situation once her medication list has been verified and reconciled. Patient will receive a cardiac diet. CBCs, metabolic profiles and magnesium levels will be obtained as appropriate. Serial troponins I and serial lactic acid levels will be obtained every 4 hours x3. A cardiology consultation with Dr. Underwood will be obtained. Medication and evaluation guidelines of the congestive heart failure profile will be observed. - Time Time Spent with patient: 25-34 minutes Medications reviewed and adjusted accordingly: Yes Anticipated discharge: Home with Homehealth - Inpatient Certification Based on my medical assessment, after consideration of the patient's comorbiditi es, presenting symptoms, or acuity I expect that the services needed warrant INPATIENT care.: Yes I certify that my determination is in accordance with my understanding of [facility]'s requirements for reasonable and necessary INPATIENT services [42 CFR 412.3e].: Yes Medical Necessity: Significant Comorbidiites Make Outpatient Treatment Too Risky, Need Close Monitoring Due to Risk of Patient Decompensation, Need For Continuous Telemetry Monitoring, Risk of Complication if Not Cared For in Hospital, Risk of Diagnosis Which Will Require Inpatient Eval/Care/Monitoring
[2019-12-28] MEDS ORDERED: PANTOPRAZOLE SODIUM 20 MG TABLET.DR PO SCH (06:00)
[2019-12-28] MEDS: BUMETANIDE INJ/PF 1 MG/4 ML SDV IV SCH ×2 (06:01→13:10)
[2019-12-28] MEDS: HEPARIN SOD (PORCINE) 5,000 UNIT/ML 1 ML VIAL SUBCUT SCH ×3 (06:02→23:40)
[2019-12-28 06:32] LABS: HEMATOCRIT 39.9 % (36.0-47.0); HEMOGLOBIN 13.2 g/dL (12.0-15.5); MEAN CORPUSCULAR HEMOGLOBIN 32.5 pg (27.0-33.4); MEAN CORPUSCULAR VOLUME 99 fl (80-97); PLATELET COUNT 172 10^3/uL (150-450); RED BLOOD COUNT 4.05 10^6/uL (3.72-5.28); RED CELL DISTRIBUTION WIDTH 15.4 % (11.5-14.0); WHITE BLOOD COUNT 17.4 10^3/uL (4.0-10.5)
[2019-12-28 06:47] LABS: ANION GAP 11 (5-19); BLOOD UREA NITROGEN 41 mg/dL (7-20); CALCIUM 8.5 mg/dL (8.4-10.2); CARBON DIOXIDE 24 mmol/L (22-30); CHLORIDE 102 mmol/L (98-107); CHOLESTEROL 157.53 mg/dL (0-200); GLUCOSE 148 mg/dL (75-110); TRIGLYCERIDES 89 mg/dL (<150)
[2019-12-28 06:51] LABS: ABSOLUTE LYMPHOCYTES# (MANUAL) 0.7 10^3/uL (0.5-4.7); ABSOLUTE MONOCYTES # (MANUAL) 0.9 10^3/uL (0.1-1.4); BASOPHILS % (MANUAL) 0 % (0-2); EOSINOPHILS % (MANUAL) 0 % (0-6); LYMPHOCYTES % (MANUAL) 4 % (13-45); MONOCYTES % (MANUAL) 5 % (3-13); SEGMENTED NEUTROPHILS % (MAN) 91 % (42-78); TOTAL CELLS COUNTED 100
[2019-12-28 06:56] LABS: ANISOCYTOSIS SLIGHT; PLATELET COMMENT ADEQUATE; POLYCHROMASIA SLIGHT; TOXIC GRANULATION SLIGHT; TOXIC VACUOLATION PRESENT
[2019-12-28 06:59] LABS: DIRECT LDL 64 mg/dL (<100)
--- NOTE | 2019-12-28 07:46 | EKG REPORT ---
SEVERITY:- ABNORMAL ECG - SINUS TACHYCARDIA CONSIDER ANTEROSEPTAL INFARCT NONSPECIFIC REPOL ABNORMALITY, DIFFUSE LEADS BORDERLINE PROLONGED QT INTERVAL PVC : Confirmed by: Holland Bautista MD 28-Dec-2019 07:45:25
[2019-12-28] MEDS: CLOPIDOGREL BISULFATE 75 MG TABLET PO SCH (10:14)
[2019-12-28] MEDS: DOCUSATE SODIUM 100 MG CAPSULE PO SCH (10:14)
[2019-12-28] MEDS: ACETAMINOPHEN 325 MG TABLET PO PRN (13:19)
--- NOTE | 2019-12-28 14:01 | PDOC CONSULTATION ---
Consultation Consult Date: 12/28/19 Provider Consulted: ARIANA JOYCE Consult reason:: Congestive heart failure History of Present Illness Admission Date/PCP: 12/28/19 00:53 CLARENCE PIERRE PA-C Patient complains of: Dyspnea History of Present Illness: VERENA MORRIS is a 74 year old female With the following active problems 1. Aortic dissection type a status post repair 08/25/2014-Dr. Isaias Hooper 2. Systemic hypertension 3. 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 Systemic hypertension 5. Congestive heart [id number] 6. Aortic regurgitation 7. Vocal cord healthy left 8. COPD 74-year-old lady with the above medical problems who presented with acute d ecompensated congestive heart failure. She is known to have moderate aortic insufficiency and probably significant diastolic heart failure for which she is being managed. Since admission to the hospital her respiratory status has improved tremendously. Her troponins have remained flat. She does not endorse any chest pain. Rhythm continues to be sinus. At the time of my evaluation she endorses good improvement in symptoms. Since Past Medical History Cardiac Medical History: Reports: Congestive Heart Failure, Hyperlipidema, Hypertension Denies: Atrial Fibrillation, Coronary Artery Disease, Myocardial Infarction Pulmonary Medical History: Reports: Asthma, Respiratory Failure Denies: Chronic Obstructive Pulmonary Disease (COPD) EENT Medical History: Denies: Cataracts, Ears - Hearing aids Neurological Medical History: Denies: Hemorrhagic CVA, Ischemic CVA, Seizures Endocrine Medical History: Reports: Other - Male hypogonadism Denies: Diabetes Mellitus Type 1, Diabetes Mellitus Type 2, Hyperthyroidism, Hypothyroidism, Obesity Renal/ Medical History: Denies: Chronic Kidney Disease, Nephrolithiasis Malignancy Medical History: Reports: None GI Medical History: Denies: Cirrhosis, Crohn's Disease, Hepatitis, Ulcerative Colitis Musculoskeltal Medical History: Denies: Fibromyalgia, Gout Skin Medical History: Denies: Eczema, Psoriasis Psychiatric Medical History: Reports: Depression Denies: Alcohol Dependency, Substance Abuse, Tobacco Dependency Traumatic Medical History: Reports: None Hematology: Denies: Anemia, Bleeding Tendencies Infectious Medical History: Reports: None Past Surgical History Past Surgical History: Reports: None, Appendectomy, Other - Heart surgery Social History Lives with: Spouse/Significant other Smoking Status: Never Smoker Electronic Cigarette use?: No Frequency of Alcohol Use: None Hx Recreational Drug Use: No Drugs: None Hx Prescription Drug Abuse: No - Advance Directive Resuscitation Status: Full Code Family History Family History: CAD, DM, Hypertension. denies: Malignancy Parental Family History Reviewed: Yes - No familial illnesses reported. Children Family History Reviewed: NA Sibling(s) Family History Reviewed.: NA Medication/Allergy Home Medications: Amlodipine Besylate [Norvasc 10 mg Tablet] 10 mg PO DAILY 12/28/19 Aspirin [Ecotrin 81 mg EC Tablet] 81 mg PO QAM 12/28/19 Atorvastatin Calcium [Lipitor 80 mg Tablet] 80 mg PO DAILY 12/28/19 Azelastine/Fluticasone [Dymista Nasal [place]] 1 spray NS BID 12/28/19 Budesonide/Formoterol Fumarate [Symbicort Hfa 80-4.5 Mcg Inhaler 6.9 gm] 1 puff IH QAM 12/28/19 Bumetanide 0.5 mg PO DAILY@0600 12/28/19 Calcitriol [Rocaltrol 0.25 Mcg Capsule] 0.25 mcg PO MOWEFR@1000 12/28/19 Carvedilol 12.5 mg PO QAM 12/28/19 Clopidogrel Bisulfate [Plavix 75 mg Tablet] 1 tab PO DAILY 12/28/19 Cyanocobalamin (Vitamin B-12) [B-12] 1 tab PO DAILY 12/28/19 Ergocalciferol (Vitamin D2) [Vitamin D2] 1 cap PO DAILY 12/28/19 Ferrous Sulfate [Feosol 325 mg Tablet] 1 tab PO TUTH@1000 12/28/19 Flaxseed Oil [Flaxseed] 1,000 mg PO DAILY 12/28/19 Fluoxetine HCl 1 cap PO DAILY 12/28/19 Fluticasone Propionate [Flovent Diskus] 2 spray NASL BID 12/28/19 Folic Acid 1 mg PO DAILY 12/28/19 Hydralazine HCl 1 tab PO BID 12/28/19 Hydrochlorothiazide 12.5 mg PO DAILY 12/28/19 Isosorbide Mononitrate [Imdur 60 mg Tablet.er] 2 tab PO QAM 12/28/19 Levothyroxine Sodium 137 mcg PO DAILY 12/28/19 Lidocaine [Lidoderm 5% (700 mg) Transdermal Patch] 1 patch TD Q12 12/28/19 Liraglutide [Victoza 2-Kapil] 0.6 mg SQ DAILY 12/28/19 Loratadine [Claritin 10 mg Tablet] 10 mg PO DAILY 12/28/19 Magnesium Oxide [Mag-Ox 400 mg Tablet] 400 mg PO DAILY 12/28/19 [place]-3/Dha/Epa/Fish Oil [Fish Oil 1,200 mg Softgel] 1 each PO DAILY 12/28/19 Omeprazole 1 cap PO QAM 12/28/19 Polyethylene Glycol 3350 [Miralax Powder 17 gm/Packet] 1 packet PO DAILY 12/28/19 Somatropin [Humatrope] 18 units SUBCUT QHS 12/28/19 Spironolactone [Aldactone 25 mg Tablet] 1 tab PO QAM 12/28/19 Tramadol HCl [Ultram 50 mg Tablet] 1 tab PO Q6HP PRN 12/28/19 Allergies/Adverse Reactions: No Known Allergies Allergy (Unverified 02/15/19 19:20) Review of Systems Constitutional: PRESENT: as per HPI Cardiovascular: PRESENT: dyspnea on exertion, orthropnea Respiratory: PRESENT: as per HPI, cough, dyspnea Physical Exam Vital Signs: Temp Pulse Resp BP Pulse Ox 97.4 F 114 H 15 114/55 L 92 12/28/19 11:13 12/28/19 11:13 12/28/19 11:13 12/28/19 11:13 12/28/19 11:13 Intake & Output 12/27/19 12/28/19 12/29/19 06:59 06:59 06:59 Intake Total 222 Output Total 0 Balance 222 Weight 60.5 kg 60.5 kg General appearance: PRESENT: no acute distress, cooperative, well-developed, well-nourished Head exam: PRESENT: atraumatic, normocephalic Eye exam: PRESENT: EOMI Mouth exam: PRESENT: moist Neck exam: PRESENT: JVD Respiratory exam: PRESENT: crackles, prolonged expiratory phas, rales, symmetrical, tachypnea, unlabored Cardiovascular exam: PRESENT: diastolic murmur, RRR, +S1, +S2, systolic murmur Pulses: PRESENT: normal radial pulses Rectal exam: PRESENT: deferred Musculoskeletal exam: PRESENT: normal inspection Neurological exam: PRESENT: alert, awake, oriented to person, oriented to place, oriented to time, oriented to situation Psychiatric exam: PRESENT: appropriate affect Skin exam: PRESENT: dry, intact Results Laboratory Results: 12/28/19 05:47 12/28/19 05:47 12/27/19 12/27/19 12/27/19 23:14 23:14 23:14 WBC 21.1 H RBC 4.34 Hgb 14.2 Hct 42.5 MCV 98 H MCH 32.8 MCHC 33.4 RDW 14.9 H Plt Count 199 Seg Neutrophils % Not Reportable Carbonic Acid HCO3/H2CO3 Ratio ABG pH ABG pCO2 ABG pO2 ABG HCO3 ABG O2 Saturation ABG Base Excess FiO2 Sodium 137.5 Potassium 4.7 Chloride 100 Carbon Dioxide 25 Anion Gap 13 BUN 35 H Creatinine 1.46 H Est GFR ( Amer) 42 L Glucose 152 H Lactic Acid 3.2 H Calcium 9.1 Magnesium 2.0 Total Bilirubin 1.3 AST 40 H Alkaline Phosphatase 45 Total Protein 7.1 Albumin 4.2 Triglycerides Cholesterol LDL Cholesterol Direct VLDL Cholesterol HDL Cholesterol TSH 12/27/19 12/28/19 12/28/19 23:14 00:18 02:10 WBC RBC Hgb Hct MCV MCH MCHC RDW Plt Count Seg Neutrophils % Carbonic Acid 1.21 HCO3/H2CO3 Ratio 17:1 ABG pH 7.34 L ABG pCO2 40.3 ABG pO2 53.7 L ABG HCO3 21.1 ABG O2 Saturation 86.0 L ABG Base Excess -4.4 FiO2 100% Sodium Potassium Chloride Carbon Dioxide Anion Gap BUN Creatinine Est GFR ( Amer) Glucose Lactic Acid 1.5 Calcium Magnesium Total Bilirubin AST Alkaline Phosphatase Total Protein Albumin Triglycerides Cholesterol LDL Cholesterol Direct VLDL Cholesterol HDL Cholesterol TSH 0.69 12/28/19 12/28/19 12/28/19 05:47 05:47 05:47 WBC 17.4 H RBC 4.05 Hgb 13.2 Hct 39.9 MCV 99 H MCH 32.5 MCHC 33.0 RDW 15.4 H Plt Count 172 Seg Neutrophils % Not Reportable Carbonic Acid HCO3/H2CO3 Ratio ABG pH ABG pCO2 ABG pO2 ABG HCO3 ABG O2 Saturation ABG Base Excess FiO2 Sodium 137.1 Potassium 4.0 Chloride 102 Carbon Dioxide 24 Anion Gap 11 BUN 41 H Creatinine 1.57 H Est GFR ( Amer) 39 L Glucose 148 H Lactic Acid 1.6 Calcium 8.5 Magnesium 2.1 Total Bilirubin AST Alkaline Phosphatase Total Protein Albumin Triglycerides 89 Cholesterol 157.53 LDL Cholesterol Direct 64 VLDL Cholesterol 18.0 HDL Cholesterol 58 TSH 12/28/19 11:52 WBC RBC Hgb Hct MCV MCH MCHC RDW Plt Count Seg Neutrophils % Carbonic Acid HCO3/H2CO3 Ratio ABG pH ABG pCO2 ABG pO2 ABG HCO3 ABG O2 Saturation ABG Base Excess FiO2 Sodium Potassium Chloride Carbon Dioxide Anion Gap BUN Creatinine Est GFR ( Amer) Glucose Lactic Acid 1.5 Calcium Magnesium Total Bilirubin AST Alkaline Phosphatase Total Protein Albumin Triglycerides Cholesterol LDL Cholesterol Direct VLDL Cholesterol HDL Cholesterol TSH 12/27/19 12/28/19 12/28/19 23:14 00:18 05:47 Troponin I 0.102 0.110 0.134 NT-Pro-B Natriuret Pep [id number] H 12/28/19 11:52 Troponin I 0.129 NT-Pro-B Natriuret Pep EKG Comments: Twelve-lead EKG. Independently viewed by me. Sinus tachycardia 104 bpm, normal AV conduction, PVCs, nonspecific ST-T abnormalities. Impressions: Chest X-Ray 12/27/19 23:16 IMPRESSION: Patchy interstitial changes particularly at the lung apices.. Assessment & Plan - Diagnosis (1) Acute on chronic congestive heart failure Qualifiers: Heart failure type: unspecified Qualified Code(s): I50.9 - Heart failure, unspecified Is this a current diagnosis for this admission?: Yes Plan: Seems to be improving. Agree with diuretic therapy Patient appears to have significant restrictive physiology on prior echocardiograms Have to avoid added salt in the diet She continues to be mildly volume overloaded and agree with continuing diuretics at the moment Can repeat echocardiogram. (2) Hypertension Qualifiers: Hypertension type: essential hypertension Qualified Code(s): I10 - Essential (primary) hypertension Is this a current diagnosis for this admission?: Yes Plan: Continue medications for hypertension Continue to watch blood pressure as we are diuresing. (3) Hyperlipidemia Qualifiers: Hyperlipidemia type: unspecified Qualified Code(s): E78.5 - Hyperlipidemia, unspecified Is this a current diagnosis for this admission?: Yes Plan: Statin therapy as feasible. - Notes Notes: Congestive heart failure and pulmonary edema. Appears to be improving Troponin level is flat. Unlikely to be acute coronary syndrome Endorses good symptomatic improvement. Persist with diuretic therapy We can repeat echocardiogram Known type B aortic dissection status post repair by Dr. Valentine and is on regular follow-up with them. Aortic insufficiency is also mentioned as well as pulmonary hypertension which may have played a role in her presentation. Will be most optimal to ensure euvolemia. Continue to diuretics.
[2019-12-28 15:35] LABS: ANION GAP 9 (5-19); BLOOD UREA NITROGEN 46 mg/dL (7-20); CALCIUM 8.1 mg/dL (8.4-10.2); CARBON DIOXIDE 26 mmol/L (22-30); CHLORIDE 99 mmol/L (98-107); GLUCOSE 101 mg/dL (75-110); POTASSIUM 4.3 mmol/L (3.6-5.0)
[2019-12-28] MEDS: CARVEDILOL 12.5 MG TABLET PO SCH (17:29)
[2019-12-28] MEDS: PANTOPRAZOLE SODIUM 40 MG TABLET.DR PO SCH (17:30)
[2019-12-28] MEDS: FLUTICASONE NASAL SPRAY 50 MCG/SPRY 120 SPRAY/16 GM NASL SCH (17:39)
[2019-12-28] MEDS: FLUTICASONE/VILANTEROL 100-25 MCG/DOSE IH SCH (17:39)
[2019-12-28] MEDS: FLUOXETINE HCL 20 MG CAPSULE PO SCH (17:41)
[2019-12-28] MEDS ORDERED: TRAMADOL HCL 50 MG TABLET PO SCH (18:00)
[2019-12-28] MEDS ORDERED: HYDRALAZINE HCL PO SCH (18:00)
[2019-12-28] MEDS ORDERED: FLUTICASONE PROPIONATE NASL SCH (18:00)
[2019-12-28] MEDS ORDERED: SOMATROPIN SUBCUT SCH (22:00)
[2019-12-28] MEDS: HYDRALAZINE HCL 50 MG TABLET PO SCH (23:40)
[2019-12-28] MEDS: LIDOCAINE 5% (700 MG) TRANSDERMAL ADH..PATCH TOP SCH (23:41)
[2019-12-29] MEDS: BUMETANIDE 1 MG TABLET PO SCH (05:17)
[2019-12-29] MEDS: LEVOTHYROXINE SODIUM 0.025 MG TABLET PO SCH (05:18)
[2019-12-29] MEDS: LEVOTHYROXINE SODIUM 0.112 MG TABLET PO SCH (05:18)
[2019-12-29] MEDS: HEPARIN SOD (PORCINE) 5,000 UNIT/ML 1 ML VIAL SUBCUT SCH ×3 (05:19→21:34)
[2019-12-29] MEDS: NITROGLYCERIN 2% OINTMENT 1 GM PACKET TP SCH (05:20)
[2019-12-29 05:59] LABS: HEMATOCRIT 31.4 % (36.0-47.0); MEAN CORPUSCULAR HEMOGLOBIN 33.1 pg (27.0-33.4); MEAN CORPUSCULAR HGB CONC 34.2 g/dL (32.0-36.0); MEAN CORPUSCULAR VOLUME 97 fl (80-97); PLATELET COUNT 118 10^3/uL (150-450); RED BLOOD COUNT 3.25 10^6/uL (3.72-5.28); RED CELL DISTRIBUTION WIDTH 15.1 % (11.5-14.0); WHITE BLOOD COUNT 10.4 10^3/uL (4.0-10.5)
[2019-12-29] MEDS ORDERED: BUMETANIDE 0.5 MG PO SCH (06:00)
[2019-12-29 06:18] LABS: ANION GAP 10 (5-19); BLOOD UREA NITROGEN 54 mg/dL (7-20); CALCIUM 8.5 mg/dL (8.4-10.2); CARBON DIOXIDE 25 mmol/L (22-30); CHLORIDE 101 mmol/L (98-107); GLUCOSE 138 mg/dL (75-110); POTASSIUM 4.1 mmol/L (3.6-5.0)
[2019-12-29 06:41] LABS: ABSOLUTE LYMPHOCYTES# (MANUAL) 0.3 10^3/uL (0.5-4.7); ABSOLUTE MONOCYTES # (MANUAL) 0.6 10^3/uL (0.1-1.4); BASOPHILS % (MANUAL) 0 % (0-2); EOSINOPHILS % (MANUAL) 0 % (0-6); LYMPHOCYTES % (MANUAL) 3 % (13-45); MONOCYTES % (MANUAL) 6 % (3-13); SEGMENTED NEUTROPHILS % (MAN) 91 % (42-78); TOTAL CELLS COUNTED 100
[2019-12-29 06:42] LABS: POLYCHROMASIA SLIGHT
[2019-12-29 06:43] LABS: ANISOCYTOSIS SLIGHT; OVALOCYTES SLIGHT; PLATELET COMMENT DECREASED; POIKILOCYTOSIS SLIGHT
[2019-12-29 06:44] LABS: HEMOGLOBIN 10.7 g/dL (12.0-15.5)
[2019-12-29] MEDS ORDERED: (PENDING PHARMACY ID) (Budesonide/Formoterol Fumarate 1 PUFF) IH SCH (08:00)
[2019-12-29] MEDS ORDERED: (PENDING PHARMACY ID) (Carvedilol [Carvedilol] 12.5 MG) PO SCH (08:00)
[2019-12-29] MEDS ORDERED: (PENDING PHARMACY ID) (Omeprazole [Omeprazole] 1 CAP) PO SCH (08:00)
[2019-12-29] MEDS: POLYETHYLENE GLYCOL 3350 POWDER 17 GM/1 PACKET PO SCH (09:25)
[2019-12-29] MEDS: ISOSORBIDE MONONITRATE 60 MG TAB.ER.24H PO SCH (09:25)
[2019-12-29] MEDS: HYDROCHLOROTHIAZIDE 12.5 MG TABLET PO SCH (09:26)
[2019-12-29] MEDS: ASPIRIN 81 MG TABLET, ENT COATED PO SCH (09:26)
[2019-12-29] MEDS: CLOPIDOGREL BISULFATE 75 MG TABLET PO SCH (09:26)
[2019-12-29] MEDS: FOLIC ACID 1 MG TABLET PO SCH (09:27)
[2019-12-29] MEDS: MAGNESIUM OXIDE 400 MG TABLET PO SCH (09:27)
[2019-12-29] MEDS: LIDOCAINE 5% (700 MG) TRANSDERMAL ADH..PATCH TOP SCH ×2 (09:27→23:04)
[2019-12-29] MEDS: ATORVASTATIN CALCIUM 80 MG TABLET PO SCH (09:27)
[2019-12-29] MEDS: FLUTICASONE/VILANTEROL 100-25 MCG/DOSE IH SCH (09:28)
[2019-12-29] MEDS: PANTOPRAZOLE SODIUM 40 MG TABLET.DR PO SCH (09:29)
[2019-12-29] MEDS: CALCITRIOL 0.25 MCG CAPSULE PO SCH (09:29)
[2019-12-29] MEDS: SPIRONOLACTONE 25 MG TABLET PO SCH (09:30)
[2019-12-29] MEDS: CARVEDILOL 12.5 MG TABLET PO SCH (09:31)
[2019-12-29] MEDS ORDERED: DHA PO SCH (10:00)
[2019-12-29] MEDS ORDERED: EPA PO SCH (10:00)
[2019-12-29] MEDS ORDERED: FISH OIL PO SCH (10:00)
[2019-12-29] MEDS ORDERED: FLUOXETINE HCL PO SCH (10:00)
[2019-12-29] MEDS ORDERED: OMEGA PO SCH (10:00)
[2019-12-29] MEDS ORDERED: (PENDING PHARMACY ID) (Levothyroxine Sodium [Levothyroxine Sodium] 137 MCG) PO SCH (10:00)
[2019-12-29] MEDS ORDERED: CYANOCOBALAMIN (VITAMIN B-12) 1,000 MCG TABLET PO SCH (10:00)
[2019-12-29] MEDS ORDERED: (PENDING PHARMACY ID) (Flaxseed Oil [Flaxseed] 1,000 MG) PO SCH (10:00)
[2019-12-29] MEDS ORDERED: CLOPIDOGREL BISULFATE 75 MG TABLET PO SCH (10:00)
--- NOTE | 2019-12-29 11:56 | PDOC PROGRESS REPORT ---
Subjective Progress Note for:: 12/29/19 Subjective:: Patient complains of: Dyspnea History of Present Illness: VERENA MORRIS is a 74 year old female who presented emergency room with acute dyspnea. She admits developing severe acute dyspnea just prior to her arrival in the emergency room. She was sitting in her chair at home and suddenly developed severe dyspnea, associated with a cough productive of clear phlegm and accompanied by profound diaphoresis and air hunger. Her dyspnea was worsened on exertion or trying to recline (orthopnea). She denies other associated or accompanying signs and symptoms. She admits prior similar episodes with her congestive heart failure. She denies identification of any additional aggravating or ameliorating factors for her acute dyspnea. EMS arrived on the scene to find her emergently hypertensive and hypoxic with a O2 saturation of 60%. She was treated with IV enalaprilat and BiPAP by EMS. BiPAP was continued in the ER with a better mask seal. Patient was given morphine sulfate and furosemide IV in the ER at my request. Chest x-ray confirmed acute pulmonary edema and the patient was subsequently admitted to the hospital for further evaluation and treatment. It is noted that the patient is severely dyspneic and on BiPAP at the time my evaluation and is only able to speak in 2-3 word sentences this severely limiting her ability to communicate historical data. Interval history: 12/29/2019: Patient was seen and examined. She states she is doing better today. She just came from x-ray. She is on nonrebreather mask but then switched to nasal cannula oxygen. Chest x-ray shows improvement of pulmonary edema. Official report is still pending. Physical examination: General appearance: cooperative, mild distress Head exam: atraumatic, normocephalic Eye exam: conjunctiva pink. No conjunctival injection, scleral icterus Ear exam: normal external ear exam. No bleeding, drainage Mouth exam: Normal mucosa, neck supple Neck exam: Mild JVD. No thyromegaly, tracheal deviation Respiratory exam: rales - Fine rales bilaterally in the lower one half of both lung gacria, symmetrical. No wheezes Cardiovascular exam: gallop - S4 gallop, RRR. Positive murmur. Pulses: normal radial pulses, normal dorsalis pedis pul Vascular exam: normal capillary refill. No pallor GI/Abdominal exam: normal bowel sounds, soft. No tenderness Rectal exam: deferred Extremities exam: No joint swelling, pedal edema Musculoskeletal exam: No deformity, dislocation Neurological exam: alert, oriented to person, oriented to place, oriented to time, oriented to situation, CN II-XII grossly intact. No motor sensory deficit Psychiatric exam: appropriate affect, normal mood Skin exam: dry, intact, warm. No jaundice, rash, urticaria Reason For Visit: ACUTE CARDIOGENIC PULMONARY EDEMA,ACUTE ON CHRONIC Physical Exam Vital Signs: Temp Pulse Resp BP Pulse Ox 98.1 F 84 22 H 136/84 H 100 12/29/19 07:12 12/29/19 07:12 12/29/19 08:00 12/29/19 07:12 12/29/19 08:00 Intake & Output 12/28/19 12/29/19 12/30/19 06:59 06:59 06:59 Intake Total 222 2400 Output Total 0 Balance 222 2400 Weight 133 lb 6.075 oz 136 lb 0.403 oz Results Laboratory Results: 12/29/19 05:04 12/29/19 05:04 12/28/19 12/28/19 12/29/19 11:52 14:48 05:04 WBC 10.4 RBC 3.25 L Hgb 10.7 L D Hct 31.4 L MCV 97 MCH 33.1 MCHC 34.2 RDW 15.1 H Plt Count 118 L Seg Neutrophils % Not Reportable Sodium 134.2 L Potassium 4.3 Chloride 99 Carbon Dioxide 26 Anion Gap 9 BUN 46 H Creatinine 1.81 H Est GFR ( Amer) 33 L Glucose 101 Lactic Acid 1.5 Calcium 8.1 L Magnesium 12/29/19 05:04 WBC RBC Hgb Hct MCV MCH MCHC RDW Plt Count Seg Neutrophils % Sodium 135.7 L Potassium 4.1 Chloride 101 Carbon Dioxide 25 Anion Gap 10 BUN 54 H Creatinine 1.95 H Est GFR ( Amer) 30 L Glucose 138 H Lactic Acid Calcium 8.5 Magnesium 2.2 12/27/19 12/28/19 12/28/19 23:14 00:18 05:47 Troponin I 0.102 0.110 0.134 NT-Pro-B Natriuret Pep [id number] H 12/28/19 11:52 Troponin I 0.129 NT-Pro-B Natriuret Pep Assessment and Plan - Plan Summary Summary: (1) Acute cardiogenic pulmonary edema Is this a current diagnosis for this admission?: Yes Continue IV Lasix. Strict I&O. Daily weight. Monitor renal function. Echocardiogram per cardiology. Repeat chest x-ray shows improvement. Official reading is pending. (2) Acute respiratory failure with hypoxia Is this a current diagnosis for this admission?: Yes Continue oxygen as needed. Wean down as tolerated. Was initially on BiPAP. Now on nasal cannula oxygen. (3) Acute on chronic congestive heart failure Qualifiers: Heart failure type: unspecified Qualified Code(s): I50.9 - Heart failure, unspecified Is this a current diagnosis for this admission?: Yes As above (4) Hypertension Qualifiers: Hypertension type: essential hypertension Qualified Code(s): I10 - Essential (primary) hypertension Is this a current diagnosis for this admission?: Yes Continue current medications. Monitor blood pressure. (5) Hyperlipidemia Qualifiers: Hyperlipidemia type: unspecified Qualified Code(s): E78.5 - Hyperlipidemia, unspecified Is this a current diagnosis for this admission?: Yes Continue home medications (6) Asthma Qualifiers: Asthma severity: unspecified severity Asthma persistence: unspecified Asthma complication type: unspecified Qualified Code(s): J45.909 - Unspecified asthma, uncomplicated Is this a current diagnosis for this admission?: Yes Continue home medications (7) Depression Qualifiers: Depression Type: unspecified Qualified Code(s): F32.9 - Major depressive disorder, single episode, unspecified Is this a current diagnosis for this admission?: Yes Continue home medications
--- NOTE | 2019-12-29 12:21 | RADIOLOGY REPORT (SQ) ---
EXAM DESCRIPTION: CHEST 2 VIEWS COMPLETED DATE/TIME: 12/29/2019 9:49 am REASON FOR STUDY: chf COMPARISON: 12/27/2019 NUMBER OF VIEWS: Two view TECHNIQUE: Frontal and lateral radiographic images of the chest acquired. LIMITATIONS: None. FINDINGS: LUNGS AND PLEURA: Improved aeration in both lungs with residual interstitial edema, left g reater than right. MEDIASTINUM AND HILAR STRUCTURES: Stable heart size and mediastinal structures. HEART AND VASCULAR STRUCTURES: Stable appearance. BONES: No acute findings. HARDWARE: CABG. Thoracic neurostimulator. OTHER: No other significant finding. IMPRESSION: Improving CHF. TECHNICAL DOCUMENTATION: JOB ID: [id number] 2010 [employer]- All Rights Reserved [place] location - IP/workstation name: [email or web address]
--- NOTE | 2019-12-29 13:00 | PDOC PROGRESS REPORT ---
Subjective Progress Note for:: 12/29/19 Subjective:: Resting better. RN reports good improvement in symptoms Reason For Visit: ACUTE CARDIOGENIC PULMONARY EDEMA,ACUTE ON CHRONIC Physical Exam Vital Signs: Temp Pulse Resp BP Pulse Ox 98.2 F 72 20 112/66 97 12/29/19 11:47 12/29/19 11:47 12/29/19 11:47 12/29/19 11:47 12/29/19 11:47 Intake & Output 12/28/19 12/29/19 12/30/19 06:59 06:59 06:59 Intake Total 222 2400 375 Output Total 0 Balance 222 2400 375 Weight 60.5 kg 61.7 kg General appearance: PRESENT: no acute distress, well-developed, well-nourished Head exam: PRESENT: atraumatic, normocephalic Respiratory exam: PRESENT: symmetrical, unlabored Cardiovascular exam: PRESENT: RRR Rectal exam: PRESENT: deferred Musculoskeletal exam: PRESENT: normal inspection Skin exam: PRESENT: dry, normal color Results Laboratory Results: 12/29/19 05:04 12/29/19 05:04 12/28/19 12/28/19 12/29/19 11:52 14:48 05:04 WBC 10.4 RBC 3.25 L Hgb 10.7 L D Hct 31.4 L MCV 97 MCH 33.1 MCHC 34.2 RDW 15.1 H Plt Count 118 L Seg Neutrophils % Not Reportable Sodium 134.2 L Potassium 4.3 Chloride 99 Carbon Dioxide 26 Anion Gap 9 BUN 46 H Creatinine 1.81 H Est GFR ( Amer) 33 L Glucose 101 Lactic Acid 1.5 Calcium 8.1 L Magnesium 12/29/19 05:04 WBC RBC Hgb Hct MCV MCH MCHC RDW Plt Count Seg Neutrophils % Sodium 135.7 L Potassium 4.1 Chloride 101 Carbon Dioxide 25 Anion Gap 10 BUN 54 H Creatinine 1.95 H Est GFR ( Amer) 30 L Glucose 138 H Lactic Acid Calcium 8.5 Magnesium 2.2 12/27/19 12/28/19 12/28/19 23:14 00:18 05:47 Troponin I 0.102 0.110 0.134 NT-Pro-B Natriuret Pep 91410 H 12/28/19 11:52 Troponin I 0.129 NT-Pro-B Natriuret Pep Impressions: Chest X-Ray 12/29/19 00:00 IMPRESSION: Improving CHF. Assessment & Plan - Diagnosis (1) Acute on chronic congestive heart failure Qualifiers: Heart failure type: unspecified Qualified Code(s): I50.9 - Heart failure, unspecified Is this a current diagnosis for this admission?: Yes Plan: Improved CHF likely diastolic Volume status is improved Have to continue maintenance diuretic No added salt Watch for next 24 hours to decide diuretic dosing (2) Hypertension Qualifiers: Hypertension type: essential hypertension Qualified Code(s): I10 - Essential (primary) hypertension Is this a current diagnosis for this admission?: Yes Plan: Stable Continue present regimen No changes made No salt in diet (3) Hyperlipidemia Qualifiers: Hyperlipidemia type: unspecified Qualified Code(s): E78.5 - Hyperlipidemia, unspecified Is this a current diagnosis for this admission?: Yes
[2019-12-29] MEDS: HYDRALAZINE HCL 50 MG TABLET PO SCH ×2 (13:01→23:15)
[2019-12-29] MEDS: AMLODIPINE BESYLATE 10 MG TABLET PO SCH (13:02)
[2019-12-29] MEDS: ERGOCALCIFEROL (VITAMIN D2) 50000 UNIT (1.25 MG) CAPSULE PO SCH (13:04)
[2019-12-29] MEDS: FLUTICASONE NASAL SPRAY 50 MCG/SPRY 120 SPRAY/16 GM NASL SCH ×2 (13:04→17:31)
[2019-12-29] MEDS: OMEGA-3 ACID ETHYL ESTERS 1 GM CAPSULE PO SCH (13:04)
[2019-12-29] MEDS: LORATADINE 10 MG TABLET PO SCH (13:05)
[2019-12-29] MEDS: DOCUSATE SODIUM 100 MG CAPSULE PO SCH (13:11)
[2019-12-29 13:32] LABS: ANION GAP 8 (5-19); BLOOD UREA NITROGEN 56 mg/dL (7-20); CALCIUM 8.2 mg/dL (8.4-10.2); CARBON DIOXIDE 25 mmol/L (22-30); CHLORIDE 101 mmol/L (98-107); GLUCOSE 108 mg/dL (75-110); POTASSIUM 4.3 mmol/L (3.6-5.0)
--- NOTE | 2019-12-29 14:50 | CDI QUERY ---
CDI Query CDI Review: Dear Provider: To better reflect your patients severity of illness, morbidity, and resource utilization Please specify and document in the Progress Notes and Discharge Summary if you are monitoring / treating / evaluating any of the following conditions: Query Clinical indicators If you agree with the Cardiology Consult, please include the type of CHF in your Progress Note as well as the Discharge Summary: Acute on chronic diastolic Heart Failure Per Cardiology Consult Note: 74-year-old lady with the above medical problems who presented with acute decompensated congestive heart failure. She is known to have moderate aortic insufficiency and probably significant diastolic heart failure for which she is being managed. Per Hospitalist Progress Note: Acute on chronic congestive heart failure Qualifiers: Heart failure type: unspecified Qualified Code(s): I50.9 - Heart failure, unspecified Is this a current diagnosis for this admission?: Yes The terms probable, suspected, likely, possible or still to be ruled out may be used if you are unable to determine the exact nature of a condition. Thank you for your consideration, Clinical Documentation Physician Advisors PLACIDO Tejeda RN, BSN RN Office [phone] Office [phone]
[2019-12-29] MEDS: FLUOXETINE HCL 20 MG CAPSULE PO SCH (17:30)
[2019-12-29] MEDS: MAG HYDROX/AL HYDROX/SIMETH SUSP 30 ML UDCUP PO PRN (17:34)
[2019-12-29] MEDS: ACETAMINOPHEN 325 MG TABLET PO PRN (20:37)
[2019-12-30] MEDS: HEPARIN SOD (PORCINE) 5,000 UNIT/ML 1 ML VIAL SUBCUT SCH ×3 (05:13→21:40)
[2019-12-30 05:26] LABS: HEMATOCRIT 27.8 % (36.0-47.0); HEMOGLOBIN 9.7 g/dL (12.0-15.5); MEAN CORPUSCULAR HEMOGLOBIN 33.7 pg (27.0-33.4); MEAN CORPUSCULAR HGB CONC 34.9 g/dL (32.0-36.0); MEAN CORPUSCULAR VOLUME 97 fl (80-97); PLATELET COUNT 108 10^3/uL (150-450); RED BLOOD COUNT 2.88 10^6/uL (3.72-5.28); WHITE BLOOD COUNT 7.8 10^3/uL (4.0-10.5)
[2019-12-30] MEDS: LEVOTHYROXINE SODIUM 0.112 MG TABLET PO SCH (06:39)
[2019-12-30] MEDS: BUMETANIDE 1 MG TABLET PO SCH (06:39)
[2019-12-30] MEDS: LEVOTHYROXINE SODIUM 0.025 MG TABLET PO SCH (06:39)
--- NOTE | 2019-12-30 08:36 | EKG REPORT ---
SEVERITY:- ABNORMAL ECG - SINUS RHYTHM PROBABLE LVH WITH SECONDARY REPOL ABNRM ANTERIOR Q WAVES, POSSIBLY DUE TO LVH : Confirmed by: Holland Bautista MD 30-Dec-2019 08:34:52
[2019-12-30] MEDS: ERGOCALCIFEROL (VITAMIN D2) 50000 UNIT (1.25 MG) CAPSULE PO SCH (09:16)
[2019-12-30] MEDS: MAGNESIUM OXIDE 400 MG TABLET PO SCH (09:19)
[2019-12-30] MEDS: ASPIRIN 81 MG TABLET, ENT COATED PO SCH (09:19)
[2019-12-30] MEDS: ATORVASTATIN CALCIUM 80 MG TABLET PO SCH (09:19)
[2019-12-30] MEDS: PANTOPRAZOLE SODIUM 40 MG TABLET.DR PO SCH (09:19)
[2019-12-30] MEDS: SPIRONOLACTONE 25 MG TABLET PO SCH (09:19)
[2019-12-30] MEDS: ISOSORBIDE MONONITRATE 60 MG TAB.ER.24H PO SCH (09:19)
[2019-12-30] MEDS: DOCUSATE SODIUM 100 MG CAPSULE PO SCH (09:19)
[2019-12-30] MEDS: OMEGA-3 ACID ETHYL ESTERS 1 GM CAPSULE PO SCH (09:19)
[2019-12-30] MEDS: CLOPIDOGREL BISULFATE 75 MG TABLET PO SCH (09:20)
[2019-12-30] MEDS: FOLIC ACID 1 MG TABLET PO SCH (09:20)
[2019-12-30] MEDS: AMLODIPINE BESYLATE 10 MG TABLET PO SCH (09:20)
[2019-12-30] MEDS: CARVEDILOL 12.5 MG TABLET PO SCH (09:20)
[2019-12-30] MEDS: HYDRALAZINE HCL 50 MG TABLET PO SCH ×2 (09:20→21:45)
[2019-12-30] MEDS: LORATADINE 10 MG TABLET PO SCH (09:21)
[2019-12-30] MEDS: POLYETHYLENE GLYCOL 3350 POWDER 17 GM/1 PACKET PO SCH (09:21)
[2019-12-30] MEDS: HYDROCHLOROTHIAZIDE 12.5 MG TABLET PO SCH (09:22)
[2019-12-30] MEDS: LIDOCAINE 5% (700 MG) TRANSDERMAL ADH..PATCH TOP SCH (09:23)
[2019-12-30] MEDS: FERROUS SULFATE 325 MG TABLET PO SCH (09:24)
[2019-12-30] MEDS: FLUTICASONE/VILANTEROL 100-25 MCG/DOSE IH SCH (09:35)
[2019-12-30] MEDS: FLUTICASONE NASAL SPRAY 50 MCG/SPRY 120 SPRAY/16 GM NASL SCH ×2 (09:35→17:08)
[2019-12-30] MEDS ORDERED: FLUTICASONE NASAL SPRAY 50 MCG/SPRY 120 SPRAY/16 GM NASL SCH (10:00)
--- NOTE | 2019-12-30 10:45 | PDOC PROGRESS REPORT ---
Subjective Progress Note for:: 12/30/19 Subjective:: Patient complains of: Dyspnea History of Present Illness: VERENA MORRIS is a 74 year old female who presented emergency room with acute dyspnea. She admits developing severe acute dyspnea just prior to her arrival in the emergency room. She was sitting in her chair at home and suddenly developed severe dyspnea, associated with a cough productive of clear phlegm and accompanied by profound diaphoresis and air hunger. Her dyspnea was worsened on exertion or trying to recline (orthopnea). She denies other associated or accompanying signs and symptoms. She admits prior similar episodes with her congestive heart failure. She denies identification of any additional aggravating or ameliorating factors for her acute dyspnea. EMS arrived on the scene to find her emergently hypertensive and hypoxic with a O2 saturation of 60%. She was treated with IV enalaprilat and BiPAP by EMS. BiPAP was continued in the ER with a better mask seal. Patient was given morphine sulfate and furosemide IV in the ER at my request. Chest x-ray confirmed acute pulmonary edema and the patient was subsequently admitted to the hospital for further evaluation and treatment. It is noted that the patient is severely dyspneic and on BiPAP at the time my evaluation and is only able to speak in 2-3 word sentences this severely limiting her ability to communicate historical data. Interval history: 12/29/2019: Patient was seen and examined. She states she is doing better today. She just came from x-ray. She is on nonrebreather mask but then switched to nasal cannula oxygen. Chest x-ray shows improvement of pulmonary edema. Official report is still pending. 12/30/2019: Patient seen and examined. She was on BiPAP. She says she is not feeling well. She complains of generalized abdominal pain. Physical examination: General appearance: cooperative, mild distress Head exam: atraumatic, normocephalic Eye exam: conjunctiva pink. No conjunctival injection, scleral icterus Ear exam: normal external ear exam. No bleeding, drainage Mouth exam: Normal mucosa, neck supple Neck exam: Mild JVD. No thyromegaly, tracheal deviation Respiratory exam: rales - Fine rales bilaterally in the lower one half of both lung garcia, symmetrical. No wheezes Cardiovascular exam: gallop - S4 gallop, RRR. Positive murmur. Pulses: normal radial pulses, normal dorsalis pedis pul Vascular exam: normal capillary refill. No pallor GI/Abdominal exam: normal bowel sounds, soft. Mild diffuse tenderness Rectal exam: deferred Extremities exam: No joint swelling, pedal edema Musculoskeletal exam: No deformity, dislocation Neurological exam: alert, oriented to person, oriented to place, oriented to time, oriented to situation, CN II-XII grossly intact. No motor sensory deficit Psychiatric exam: appropriate affect, normal mood Skin exam: dry, intact, warm. No jaundice, rash, urticaria Reason For Visit: ACUTE CARDIOGENIC PULMONARY EDEMA,ACUTE ON CHRONIC Physical Exam Vital Signs: Temp Pulse Resp BP Pulse Ox 98.0 F 75 18 147/79 H 99 12/30/19 07:26 12/30/19 07:26 12/30/19 07:48 12/30/19 07:26 12/30/19 07:48 Intake & Output 12/29/19 12/30/19 12/31/19 06:59 06:59 06:59 Intake Total 2400 2065 Balance 2400 2065 Weight 136 lb 0.403 oz 134 lb 14.766 oz Results Laboratory Results: 12/30/19 04:39 12/29/19 12:47 12/29/19 12/30/19 12:47 04:39 WBC 7.8 RBC 2.88 L Hgb 9.7 L Hct 27.8 L MCV 97 MCH 33.7 H MCHC 34.9 RDW 15.0 H Plt Count 108 L Sodium 133.8 L Potassium 4.3 Chloride 101 Carbon Dioxide 25 Anion Gap 8 BUN 56 H Creatinine 1.81 H Est GFR ( Amer) 33 L Glucose 108 Calcium 8.2 L 12/27/19 12/28/19 12/28/19 23:14 00:18 05:47 Troponin I 0.102 0.110 0.134 NT-Pro-B Natriuret Pep 32266 H 12/28/19 12/29/19 11:52 21:57 Troponin I 0.129 0.190 NT-Pro-B Natriuret Pep Impressions: Chest X-Ray 12/29/19 00:00 IMPRESSION: Improving CHF. Assessment and Plan - Plan Summary Summary: (1) Acute cardiogenic pulmonary edema Is this a current diagnosis for this admission?: Yes Continue IV Lasix. Strict I&O. Daily weight. Monitor renal function. Echocardiogram per cardiology. Repeat chest x-ray shows improvement. (2) Acute respiratory failure with hypoxia Is this a current diagnosis for this admission?: Yes Continue oxygen as needed. Wean down as tolerated. Was initially on BiPAP. Now on nasal cannula oxygen. (3) Acute on chronic congestive heart failure Qualifiers: Heart failure type: unspecified Qualified Code(s): I50.9 - Heart failure, unspecified Is this a current diagnosis for this admission?: Yes As above (4) Hypertension Qualifiers: Hypertension type: essential hypertension Qualified Code(s): I10 - Essential (primary) hypertension Is this a current diagnosis for this admission?: Yes Continue current medications. Monitor blood pressure. (5) Hyperlipidemia Qualifiers: Hyperlipidemia type: unspecified Qualified Code(s): E78.5 - Hyperlipidemia, unspecified Is this a current diagnosis for this admission?: Yes Continue home medications (6) Asthma Qualifiers: Asthma severity: unspecified severity Asthma persistence: unspecified Asthma complication type: unspecified Qualified Code(s): J45.909 - Unspecified asthma, uncomplicated Is this a current diagnosis for this admission?: Yes Continue home medications (7) Depression Qualifiers: Depression Type: unspecified Qualified Code(s): F32.9 - Major depressive disorder, single episode, unspecified Is this a current diagnosis for this admission?: Yes Continue home medications (8) abdominal pain We will get get a CT scan
[2019-12-30] MEDS: TRAMADOL HCL 50 MG TABLET PO PRN ×2 (10:57→21:45)
[2019-12-30 11:13] LABS: ANION GAP 7 (5-19); BLOOD UREA NITROGEN 70 mg/dL (7-20); CALCIUM 9.2 mg/dL (8.4-10.2); CARBON DIOXIDE 29 mmol/L (22-30); CHLORIDE 100 mmol/L (98-107); GLUCOSE 125 mg/dL (75-110); POTASSIUM 4.9 mmol/L (3.6-5.0)
--- NOTE | 2019-12-30 13:58 | RADIOLOGY REPORT (SQ) ---
EXAM DESCRIPTION: CT ABD/PELVIS ORAL ONLY COMPLETED DATE/TIME: 12/30/2019 1:37 pm REASON FOR STUDY: abd pain COMPARISON: None. TECHNIQUE: CT scan of the abdomen and pelvis performed without intravenous or oral contrast. Images reviewed with lung, soft tissue, and bone windows. Reconstructed coronal and sagittal MPR images revi ewed. All images stored on PACS. All CT scanners at this facility use dose modulation, iterative reconstruction, and/or weight based d osing when appropriate to reduce radiation dose to as low as reasonably achievable (ALARA). [facility]: Dose Right [facility]: CareDose [facility]: Dose Right [facility]: Teradose 4D [facility]: [employer] RADIATION DOSE: CT Rad equipment meets quality standard of care and radiation dose reduction techniq ues were employed. CTDIvol: 4.9 mGy. DLP: 280 mGy-cm.mGy. LIMITATIONS: None. FINDINGS: LOWER CHEST: There are patchy bibasilar infiltrates. There is right-sided pleural thicken ing. NON-CONTRASTED LIVER, SPLEEN, ADRENALS: Evaluation limited by lack of IV contrast. No identified sign ificant masses. Biliary stent is in place. PANCREAS: No masses. No peripancreatic inflammatory changes. GALLBLADDER: Surgically absent. RIGHT KIDNEY AND URETER: No suspicious masses. Assessment limited by lack of IV contrast. No signif icant calcifications. No hydronephrosis or hydroureter. LEFT KIDNEY AND URETER: The left kidney is small and atrophic. No significant calcifications. No hydronephrosis or hydroureter. AORTA AND RETROPERITONEUM: No aneurysm. No retroperitoneal masses or adenopathy. BOWEL AND PERITONEAL CAVITY: No obvious masses or inflammatory changes. No free fluid. APPENDIX: Not visualized. PELVIS, BLADDER, AND ABDOMINAL WALL:2.3 cm subcutaneous fluid collection best demonstrated on series 3, image 57. Possibly sebaceous cyst. BONES: Degenerative changes throughout the lumbar spine. Prior T11 kyphoplasty. OTHER: No other significant finding. IMPRESSION: Small right effusion with patchy basilar airspace disease right greater than left. Prior cholecystectomy. Internal biliary drainage catheter is in place. Small atrophic left kidney. COMMENT: Quality ID # [id number]: Final reports with documentation of one or more dose reduction techniques (e.g., Automated exposure control, adjustment of the mA and/or kV according to patient size, use of iterative reconstruction technique) TECHNICAL DOCUMENTATION: JOB ID: [id number] 2010 [employer]- All Rights Reserved [place] location - IP/workstation name: [email or web address]
--- NOTE | 2019-12-30 16:43 | XCELERA REPORT ---
[address] [address] Transthoracic Echocardiogram Report Name: VERENA MORRIS Age: 74 yrs Gender: Female : 1945 Patient Status: Inpatient Patient Location: [address] [place] [address] Study Date: 12/29/2019 07:19 PM History: CHF Height: 64 in Weight: 136 lb BSA: 1.7 m2 Procedure: A complete two-dimensional transthoracic echocardiogram was performed (2D, M-mode, spectral and color flow Doppler). The study was technically difficult with many images being suboptimal in quality. Reason For Study: chf Previous Evaluation: No previous studies were available. History: CHF. CAD. Vascular surgeries/interventions: CABG, Type A Aortic dissection repair. Ordering Physician: CIRILO SHARP Performed By: Jane Bailon Interpretation Summary Left ventricular systolic function is low normal. The Ejection Fraction estimate is 50-55% The right ventricular systolic function is mild to moderately reduced. There is a moderate to severe amount of mitral regurgitation There is a mild to moderate amount of aortic regurgitation There is a mild amount of tricuspid regurgitation There is no pericardial effusion. MMode/2D Measurements & Calculations RVDd: 2.9 cm LVIDd: 5.0 cm FS: 26.3 % Ao root diam: 2.9 cm IVSd: 1.2 cm LVIDs: 3.6 cm EDV(Teich): 115.6 ml Ao root area: 6.7 cm2 LVPWd: 1.1 cm ESV(Teich): 56.2 ml LA dimension: 4.9 cm EF(Teich): 51.4 % LVOT diam: 2.1 cm LVOT area: 3.6 cm2 Doppler Measurements & Calculations MV E max radha: MV V2 max: MV P1/2t max radha: Ao V2 max: 202.0 cm/sec 210.5 cm/sec 220.8 cm/sec 153.6 cm/sec MV A max radha: MV max PG: MV P1/2t: 62.2 msec Ao max P.5 cm/sec 17.7 mmHg MVA(P1/2t): 3.5 cm2 9.4 mmHg MV E/A: 2.3 MV V2 mean: MV dec slope: ORION(V,D): 2.5 cm2 130.4 cm/sec MV mean P cm/sec2 7.9 mmHg MV dec time: MV V2 VTI: 30.3 cm 0.26 sec AI max radha: LV V1 max PG: PA V2 max: PI end-d radha: 314.9 cm/sec 4.6 mmHg 79.2 cm/sec 274.2 cm/sec AI max PG: LV V1 max: PA max P.5 mmHg 39.7 mmHg 106.7 cm/sec AI dec slope: 224.8 cm/sec2 AI P1/2t: 410.3 msec TR max radha: AV P1/2t-pr_phl: MV P1/2t-pr_phl: 310.1 cm/sec 410.3 msec 62.2 msec TR max P.5 mmHg Left Ventricle The left ventricle is borderline dilated. There is moderate concentric left ventricular hypertrophy. The Ejection Fraction estimate is 50-55%. Left ventricular systolic function is low normal. Spectral Doppler of the mitral valve is consistant with restriction, with an E/A wave ratio > 2.0. No regional wall motion abnormalities noted. Right Ventricle The right ventricle is mildly dilated. The right ventricular systolic function is mild to moderately reduced. Atria The right atrium is mildly dilated. The left atrium is borderline dilated. Mitral Valve Calcified mitral apparatus. There is a moderate to severe amount of mitral regurgitation. Aortic Valve The aortic valve is trileaflet. The aortic valve opens well. The aortic valve is sclerotic and shows some degree of functional abnormality. The aortic valve is moderately calcified. There is no aortic valve stenosis. There is a mild to moderate amount of aortic regurgitation. Tricuspid Valve The tricuspid valve is normal in structure and function. There is a mild amount of tricuspid regurgitation. Right ventricular systolic pressure is estimated to be elevated at 40-50mmHg. There is mild to moderate pulmonary hypertension by echo. Pulmonic Valve The pulmonic valve is normal in structure and function. There is a mild to moderate amount of pulmonic regurgitation. Great Vessels The aortic root is normal size. The inferior vena cava appeared normal and decreased < 50% with respiration (RAP 10-15 mmHg). Effusions There is no pericardial effusion. : CIRILO SHARP Anil
[2019-12-30] MEDS: FLUOXETINE HCL 20 MG CAPSULE PO SCH (17:08)
[2019-12-30] MEDS ORDERED: LACTULOSE SYRUP 20 GM/30 ML UDCUP PO ONE (18:30)
[2019-12-30] MEDS: ACETAMINOPHEN 325 MG TABLET PO PRN (18:54)
[2019-12-31 00:40] LABS: CREATINE KINASE MB 0.45 ng/mL (<4.55)
[2019-12-31 00:47] LABS: TROPONIN I 0.154 ng/mL
[2019-12-31] MEDS ORDERED: LIDOCAINE 5% (700 MG) TRANSDERMAL ADH..PATCH ONE (03:14)
[2019-12-31] MEDS: LIDOCAINE 5% (700 MG) TRANSDERMAL ADH..PATCH TOP SCH ×3 (03:19→23:10)
[2019-12-31] MEDS: LEVOTHYROXINE SODIUM 0.112 MG TABLET PO SCH (05:09)
[2019-12-31] MEDS: ACETAMINOPHEN 325 MG TABLET PO PRN (05:10)
[2019-12-31] MEDS: LEVOTHYROXINE SODIUM 0.025 MG TABLET PO SCH (05:10)
[2019-12-31] MEDS: HEPARIN SOD (PORCINE) 5,000 UNIT/ML 1 ML VIAL SUBCUT SCH ×3 (05:11→21:50)
[2019-12-31] MEDS: BUMETANIDE 1 MG TABLET PO SCH (05:20)
[2019-12-31 06:28] LABS: HEMATOCRIT 26.7 % (36.0-47.0); HEMOGLOBIN 9.3 g/dL (12.0-15.5); MEAN CORPUSCULAR HEMOGLOBIN 33.6 pg (27.0-33.4); MEAN CORPUSCULAR HGB CONC 34.8 g/dL (32.0-36.0); MEAN CORPUSCULAR VOLUME 97 fl (80-97); PLATELET COUNT 128 10^3/uL (150-450); RED BLOOD COUNT 2.76 10^6/uL (3.72-5.28); RED CELL DISTRIBUTION WIDTH 14.8 % (11.5-14.0)
[2019-12-31 07:03] LABS: CREATINE KINASE MB 0.47 ng/mL (<4.55); TROPONIN I 0.145 ng/mL
[2019-12-31] MEDS: ASPIRIN 81 MG TABLET, ENT COATED PO SCH (09:21)
[2019-12-31] MEDS: SPIRONOLACTONE 25 MG TABLET PO SCH (09:21)
[2019-12-31] MEDS: ISOSORBIDE MONONITRATE 60 MG TAB.ER.24H PO SCH (09:21)
[2019-12-31] MEDS: CARVEDILOL 12.5 MG TABLET PO SCH (09:21)
[2019-12-31] MEDS ORDERED: MAGNESIUM CITRATE 296 ML BOTTLE PO ONE (11:29)
--- NOTE | 2019-12-31 11:30 | EKG REPORT ---
SEVERITY:- ABNORMAL ECG - SINUS RHYTHM LVH WITH SECONDARY REPOLARIZATION ABNORMALITY ANTERIOR Q WAVES, POSSIBLY DUE TO LVH : Confirmed by: Holland Bautista MD 31-Dec-2019 11:29:41
[2019-12-31] MEDS: ERGOCALCIFEROL (VITAMIN D2) 50000 UNIT (1.25 MG) CAPSULE PO SCH (11:33)
[2019-12-31] MEDS: AMLODIPINE BESYLATE 10 MG TABLET PO SCH (11:33)
[2019-12-31] MEDS: HYDRALAZINE HCL 50 MG TABLET PO SCH ×2 (11:33→21:49)
[2019-12-31] MEDS: LORATADINE 10 MG TABLET PO SCH (11:34)
[2019-12-31] MEDS: CALCITRIOL 0.25 MCG CAPSULE PO SCH (11:34)
[2019-12-31] MEDS: ATORVASTATIN CALCIUM 80 MG TABLET PO SCH (11:34)
[2019-12-31] MEDS: OMEGA-3 ACID ETHYL ESTERS 1 GM CAPSULE PO SCH (11:35)
[2019-12-31] MEDS: POLYETHYLENE GLYCOL 3350 POWDER 17 GM/1 PACKET PO SCH ×3 (11:35→17:45)
[2019-12-31] MEDS: CLOPIDOGREL BISULFATE 75 MG TABLET PO SCH (11:35)
[2019-12-31] MEDS: TRAMADOL HCL 50 MG TABLET PO PRN (11:35)
[2019-12-31] MEDS: HYDROCHLOROTHIAZIDE 12.5 MG TABLET PO SCH (11:35)
[2019-12-31] MEDS: FOLIC ACID 1 MG TABLET PO SCH (11:35)
[2019-12-31] MEDS: MAGNESIUM OXIDE 400 MG TABLET PO SCH (11:42)
--- NOTE | 2019-12-31 11:44 | PDOC PROGRESS REPORT ---
Subjective Progress Note for:: 12/31/19 Subjective:: Patient complains of: Dyspnea History of Present Illness: VERENA MORRIS is a 74 year old female who presented emergency room with acute dyspnea. She admits developing severe acute dyspnea just prior to her arrival in the emergency room. She was sitting in her chair at home and suddenly developed severe dyspnea, associated with a cough productive of clear phlegm and accompanied by profound diaphoresis and air hunger. Her dyspnea was worsened on exertion or trying to recline (orthopnea). She denies other associated or accompanying signs and symptoms. She admits prior similar episodes with her congestive heart failure. She denies identification of any additional aggravating or ameliorating factors for her acute dyspnea. EMS arrived on the scene to find her emergently hypertensive and hypoxic with a O2 saturation of 60%. She was treated with IV enalaprilat and BiPAP by EMS. BiPAP was continued in the ER with a better mask seal. Patient was given morphine sulfate and furosemide IV in the ER at my request. Chest x-ray confirmed acute pulmonary edema and the patient was subsequently admitted to the hospital for further evaluation and treatment. It is noted that the patient is severely dyspneic and on BiPAP at the time my evaluation and is only able to speak in 2-3 word sentences this severely limiting her ability to communicate historical data. Interval history: 12/29/2019: Patient was seen and examined. She states she is doing better today. She just came from x-ray. She is on nonrebreather mask but then switched to nasal cannula oxygen. Chest x-ray shows improvement of pulmonary edema. Official report is still pending. 12/30/2019: Patient seen and examined. She was on BiPAP. She says she is not feeling well. She complains of generalized abdominal pain. 12/31/2019: Patient was seen and examined. She is on nasal cannula oxygen now. She said his her breathing is better but complains of pain inher upper abdomen. She is constipated. She had enema last night with some small stool out. Physical examination: General appearance: cooperative, mild distress Head exam: atraumatic, normocephalic Eye exam: conjunctiva pink. No conjunctival injection, scleral icterus Ear exam: normal external ear exam. No bleeding, drainage Mouth exam: Normal mucosa, neck supple Neck exam: Mild JVD. No thyromegaly, tracheal deviation Respiratory exam: rales - Fine rales bilaterally in the lower one half of both lung garcia, symmetrical. No wheezes Cardiovascular exam: gallop - S4 gallop, RRR. Positive murmur. Pulses: normal radial pulses, normal dorsalis pedis pul Vascular exam: normal capillary refill. No pallor GI/Abdominal exam: normal bowel sounds, soft. Mild diffuse tenderness Rectal exam: deferred Extremities exam: No joint swelling, pedal edema Musculoskeletal exam: No deformity, dislocation Neurological exam: alert, oriented to person, oriented to place, oriented to time, oriented to situation, CN II-XII grossly intact. No motor sensory deficit Psychiatric exam: appropriate affect, normal mood Skin exam: dry, intact, warm. No jaundice, rash, urticaria Reason For Visit: ACUTE CARDIOGENIC PULMONARY EDEMA,ACUTE ON CHRONIC Physical Exam Vital Signs: Temp Pulse Resp BP Pulse Ox 98.0 F 86 18 147/90 H 93 12/31/19 07:42 12/31/19 07:42 12/31/19 07:42 12/31/19 07:42 12/31/19 07:42 Intake & Output 12/30/19 12/31/19 01/01/20 06:59 06:59 06:59 Intake Total 2065 960 Balance 2065 960 Weight 134 lb 14.766 oz 138 lb 0.15 oz Results Laboratory Results: 12/31/19 05:46 12/30/19 04:39 12/31/19 05:46 WBC 8.0 RBC 2.76 L Hgb 9.3 L Hct 26.7 L MCV 97 MCH 33.6 H MCHC 34.8 RDW 14.8 H Plt Count 128 L 12/27/19 12/28/19 12/28/19 23:14 00:18 05:47 Creatine Kinase CK-MB (CK-2) Troponin I 0.102 0.110 0.134 NT-Pro-B Natriuret Pep 40350 H 12/28/19 12/29/19 12/31/19 11:52 21:57 00:00 Creatine Kinase 40 CK-MB (CK-2) Troponin I 0.129 0.190 NT-Pro-B Natriuret Pep 12/31/19 12/31/19 12/31/19 00:00 05:46 05:46 Creatine Kinase 35 CK-MB (CK-2) 0.45 0.47 Troponin I 0.154 0.145 NT-Pro-B Natriuret Pep Impressions: Chest X-Ray 12/29/19 00:00 IMPRESSION: Improving CHF. Abdomen/Pelvis CT 12/30/19 00:00 IMPRESSION: Small right effusion with patchy basilar airspace disease right greater than left. Prior cholecystectomy. Internal biliary drainage catheter is in place. Small atrophic left kidney. Assessment and Plan - Plan Summary Summary: (1) Acute cardiogenic pulmonary edema Is this a current diagnosis for this admission?: Yes Was initially started on IV Lasix. Now she is on oral Bumex. Strict I&O. Daily weight. Monitor renal function. Echocardiogram shows normal EF and moderate to severe MR. Repeat chest x-ray shows improvement. Discussed with Dr. Underwood yesterday. (2) Acute respiratory failure with hypoxia Is this a current diagnosis for this admission?: Yes Continue oxygen as needed. Wean down as tolerated. Was initially on BiPAP. Now on nasal cannula oxygen. (3) Acute on chronic congestive heart failure Qualifiers: Heart failure type: unspecified Qualified Code(s): I50.9 - Heart failure, unspecified Is this a current diagnosis for this admission?: Yes As above (4) Hypertension Qualifiers: Hypertension type: essential hypertension Qualified Code(s): I10 - Essential (primary) hypertension Is this a current diagnosis for this admission?: Yes Continue current medications. Monitor blood pressure. (5) Hyperlipidemia Qualifiers: Hyperlipidemia type: unspecified Qualified Code(s): E78.5 - Hyperlipidemia, unspecified Is this a current diagnosis for this admission?: Yes Continue home medications (6) Asthma Qualifiers: Asthma severity: unspecified severity Asthma persistence: unspecified Asthma complication type: unspecified Qualified Code(s): J45.909 - Unspecified asthma, uncomplicated Is this a current diagnosis for this admission?: Yes Continue home medications (7) Depression Qualifiers: Depression Type: unspecified Qualified Code(s): F32.9 - Major depressive disorder, single episode, unspecified Is this a current diagnosis for this admission?: Yes Continue home medications (8) abdominal pain Low risk CT scan of the abdomen. Will increase Protonix to 40 mg twice daily. We will try glycerin suppository and mag citrate
--- NOTE | 2019-12-31 12:36 | CDI QUERY ---
CDI Query CDI Review: CDI Query CDI Review: Dear Provider: To better reflect your patients severity of illness, morbidity, and resource utilization Please specify and document in the Progress Notes and Discharge Summary if you are monitoring / treating / evaluating any of the following conditions: Query Clinical indicators If you agree with the Cardiology Consult, please include the type of CHF in your Progress Note as well as the Discharge Summary: Acute on chronic diastolic Heart Failure Per Cardiology Consult Note: 74-year-old lady with the above medical problems who presented with acute decompensated congestive heart failure. She is known to have moderate aortic insufficiency and probably significant diastolic heart failure for which she is being managed. Per Hospitalist Progress Note: Acute on chronic congestive heart failure Qualifiers: Heart failure type: unspecified Qualified Code(s): I50.9 - Heart failure, unspecified Is this a current diagnosis for this admission?: Yes The terms probable, suspected, likely, possible or still to be ruled out may be used if you are unable to determine the exact nature of a condition. Thank you for your consideration, Clinical Documentation [facility] PLACIDO Tejeda RN, BSN RN Office [phone] Office [phone]
[2019-12-31] MEDS: FLUTICASONE NASAL SPRAY 50 MCG/SPRY 120 SPRAY/16 GM NASL SCH ×2 (12:40→17:45)
[2019-12-31] MEDS: FLUTICASONE/VILANTEROL 100-25 MCG/DOSE IH SCH (12:40)
[2019-12-31] MEDS ORDERED: GLYCERIN (ADULT) SUPP.RECT PR ONE (13:00)
[2019-12-31 13:08] LABS: ANION GAP 9 (5-19); BLOOD UREA NITROGEN 67 mg/dL (7-20); CALCIUM 9.6 mg/dL (8.4-10.2); CARBON DIOXIDE 29 mmol/L (22-30); CHLORIDE 94 mmol/L (98-107); GLUCOSE 155 mg/dL (75-110); POTASSIUM 4.4 mmol/L (3.6-5.0)
[2019-12-31 13:17] LABS: CREATINE KINASE MB 0.56 ng/mL (<4.55); TROPONIN I 0.125 ng/mL
[2019-12-31] MEDS: DOCUSATE SODIUM 100 MG CAPSULE PO SCH ×2 (16:11→17:45)
[2019-12-31] MEDS: PANTOPRAZOLE SODIUM 40 MG TABLET.DR PO SCH ×2 (16:11→17:45)
[2019-12-31] MEDS: FLUOXETINE HCL 20 MG CAPSULE PO SCH (17:45)
[2020-01-01 05:08] LABS: HEMATOCRIT 28.6 % (36.0-47.0); HEMOGLOBIN 9.9 g/dL (12.0-15.5); MEAN CORPUSCULAR HEMOGLOBIN 33.1 pg (27.0-33.4); MEAN CORPUSCULAR HGB CONC 34.5 g/dL (32.0-36.0); MEAN CORPUSCULAR VOLUME 96 fl (80-97); PLATELET COUNT 154 10^3/uL (150-450); RED BLOOD COUNT 2.98 10^6/uL (3.72-5.28); RED CELL DISTRIBUTION WIDTH 14.7 % (11.5-14.0); WHITE BLOOD COUNT 9.2 10^3/uL (4.0-10.5)
[2020-01-01] MEDS: LEVOTHYROXINE SODIUM 0.025 MG TABLET PO SCH (05:35)
[2020-01-01] MEDS: BUMETANIDE 1 MG TABLET PO SCH (05:35)
[2020-01-01] MEDS: LEVOTHYROXINE SODIUM 0.112 MG TABLET PO SCH (05:35)
[2020-01-01] MEDS: HEPARIN SOD (PORCINE) 5,000 UNIT/ML 1 ML VIAL SUBCUT SCH ×3 (07:11→21:39)
[2020-01-01] MEDS: CARVEDILOL 12.5 MG TABLET PO SCH (08:29)
[2020-01-01] MEDS: ASPIRIN 81 MG TABLET, ENT COATED PO SCH (08:29)
[2020-01-01] MEDS: ISOSORBIDE MONONITRATE 60 MG TAB.ER.24H PO SCH (08:29)
[2020-01-01] MEDS: SPIRONOLACTONE 25 MG TABLET PO SCH (08:29)
[2020-01-01] MEDS: FLUTICASONE NASAL SPRAY 50 MCG/SPRY 120 SPRAY/16 GM NASL SCH ×2 (10:08→18:07)
[2020-01-01] MEDS: POLYETHYLENE GLYCOL 3350 POWDER 17 GM/1 PACKET PO SCH ×3 (10:08→18:06)
[2020-01-01] MEDS: FLUTICASONE/VILANTEROL 100-25 MCG/DOSE IH SCH (10:08)
[2020-01-01] MEDS: LORATADINE 10 MG TABLET PO SCH (10:09)
[2020-01-01] MEDS: ATORVASTATIN CALCIUM 80 MG TABLET PO SCH (10:09)
[2020-01-01] MEDS: HYDRALAZINE HCL 50 MG TABLET PO SCH ×2 (10:09→21:46)
[2020-01-01] MEDS: ERGOCALCIFEROL (VITAMIN D2) 50000 UNIT (1.25 MG) CAPSULE PO SCH (10:09)
[2020-01-01] MEDS: PANTOPRAZOLE SODIUM 40 MG TABLET.DR PO SCH ×2 (10:09→18:06)
[2020-01-01] MEDS: HYDROCHLOROTHIAZIDE 12.5 MG TABLET PO SCH (10:09)
[2020-01-01] MEDS: OMEGA-3 ACID ETHYL ESTERS 1 GM CAPSULE PO SCH (10:09)
[2020-01-01] MEDS: MAGNESIUM OXIDE 400 MG TABLET PO SCH (10:09)
[2020-01-01] MEDS: DOCUSATE SODIUM 100 MG CAPSULE PO SCH ×2 (10:09→18:06)
[2020-01-01] MEDS: CLOPIDOGREL BISULFATE 75 MG TABLET PO SCH (10:09)
[2020-01-01] MEDS: AMLODIPINE BESYLATE 10 MG TABLET PO SCH (10:09)
[2020-01-01] MEDS: FOLIC ACID 1 MG TABLET PO SCH (10:09)
--- NOTE | 2020-01-01 12:06 | PDOC PROGRESS REPORT ---
Subjective Progress Note for:: 01/01/20 Subjective:: Patient complains of: Dyspnea History of Present Illness: VERENA MORRIS is a 74 year old female who presented emergency room with acute dyspnea. She admits developing severe acute dyspnea just prior to her arrival in the emergency room. She was sitting in her chair at home and suddenly developed severe dyspnea, associated with a cough productive of clear phlegm and accompanied by profound diaphoresis and air hunger. Her dyspnea was worsened on exertion or trying to recline (orthopnea). She denies other associated or accompanying signs and symptoms. She admits prior similar episodes with her congestive heart failure. She denies identification of any additional aggravating or ameliorating factors for her acute dyspnea. EMS arrived on the scene to find her emergently hypertensive and hypoxic with a O2 saturation of 60%. She was treated with IV enalaprilat and BiPAP by EMS. BiPAP was continued in the ER with a better mask seal. Patient was given morphine sulfate and furosemide IV in the ER at my request. Chest x-ray confirmed acute pulmonary edema and the patient was subsequently admitted to the hospital for further evaluation and treatment. It is noted that the patient is severely dyspneic and on BiPAP at the time my evaluation and is only able to speak in 2-3 word sentences this severely limiting her ability to communicate historical data. Interval history: 12/29/2019: Patient was seen and examined. She states she is doing better today. She just came from x-ray. She is on nonrebreather mask but then switched to nasal cannula oxygen. Chest x-ray shows improvement of pulmonary edema. Official report is still pending. 12/30/2019: Patient seen and examined. She was on BiPAP. She says she is not feeling well. She complains of generalized abdominal pain. 12/31/2019: Patient was seen and examined. She is on nasal cannula oxygen now. She said his her breathing is better but complains of pain inher upper abdomen. She is constipated. She had enema last night with some small stool out. 01/01/2020: Patient was seen and examined. She is alternating between nasal cannula and BiPAP. She still have some abdominal discomfort. She has small bowel movement yesterday but still thinks she is constipated. Physical examination: General appearance: cooperative, mild distress Head exam: atraumatic, normocephalic Eye exam: conjunctiva pink. No conjunctival injection, scleral icterus Ear exam: normal external ear exam. No bleeding, drainage Mouth exam: Normal mucosa, neck supple Neck exam: Mild JVD. No thyromegaly, tracheal deviation Respiratory exam: rales - Fine rales bilaterally in the lower one half of both lung garcia, symmetrical. No wheezes Cardiovascular exam: gallop - S4 gallop, RRR. Positive murmur. Pulses: normal radial pulses, normal dorsalis pedis pul Vascular exam: normal capillary refill. No pallor GI/Abdominal exam: normal bowel sounds, soft. Mild diffuse tenderness Rectal exam: deferred Extremities exam: No joint swelling, pedal edema Musculoskeletal exam: No deformity, dislocation Neurological exam: alert, oriented to person, oriented to place, oriented to time, oriented to situation, CN II-XII grossly intact. No motor sensory deficit Psychiatric exam: appropriate affect, normal mood Skin exam: dry, intact, warm. No jaundice, rash, urticaria Reason For Visit: ACUTE CARDIOGENIC PULMONARY EDEMA,ACUTE ON CHRONIC Physical Exam Vital Signs: Temp Pulse Resp BP Pulse Ox 98.2 F 93 31 H 135/82 H 95 01/01/20 07:40 01/01/20 07:40 01/01/20 09:15 01/01/20 07:40 01/01/20 09:15 Intake & Output 12/31/19 01/01/20 01/02/20 06:59 06:59 06:59 Intake Total 960 1422 Output Total 200 Balance 960 1222 Weight 138 lb 0.15 oz 138 lb 3.677 oz Results Laboratory Results: 01/01/20 04:35 12/31/19 12:17 12/31/19 01/01/20 12:17 04:35 WBC 9.2 RBC 2.98 L Hgb 9.9 L Hct 28.6 L MCV 96 MCH 33.1 MCHC 34.5 RDW 14.7 H Plt Count 154 Sodium 132.1 L Potassium 4.4 Chloride 94 L Carbon Dioxide 29 Anion Gap 9 BUN 67 H Creatinine 1.77 H Est GFR ( Amer) 34 L Glucose 155 H Calcium 9.6 12/27/19 12/28/19 12/28/19 23:14 00:18 05:47 Creatine Kinase CK-MB (CK-2) Troponin I 0.102 0.110 0.134 NT-Pro-B Natriuret Pep 76009 H 12/28/19 12/29/19 12/31/19 11:52 21:57 00:00 Creatine Kinase 40 CK-MB (CK-2) Troponin I 0.129 0.190 NT-Pro-B Natriuret Pep 12/31/19 12/31/19 12/31/19 00:00 05:46 05:46 Creatine Kinase 35 CK-MB (CK-2) 0.45 0.47 Troponin I 0.154 0.145 NT-Pro-B Natriuret Pep 12/31/19 12/31/19 12:17 12:17 Creatine Kinase 39 CK-MB (CK-2) 0.56 Troponin I 0.125 NT-Pro-B Natriuret Pep Impressions: Chest X-Ray 12/29/19 00:00 IMPRESSION: Improving CHF. Abdomen/Pelvis CT 12/30/19 00:00 IMPRESSION: Small right effusion with patchy basilar airspace disease right greater than left. Prior cholecystectomy. Internal biliary drainage catheter is in place. Small atrophic left kidney. Assessment and Plan - Plan Summary Summary: (1) Acute cardiogenic pulmonary edema Is this a current diagnosis for this admission?: Yes Was initially started on IV Lasix. Now she is on oral Bumex. Strict I&O. Daily weight. Monitor renal function. Echocardiogram shows normal EF and moderate to severe MR. Repeat chest x-ray shows improvement. Discussed with Dr. Underwood yesterday. (2) Acute respiratory failure with hypoxia Is this a current diagnosis for this admission?: Yes Continue oxygen as needed. Wean down as tolerated. Was initially on BiPAP. Now on nasal cannula oxygen. (3) Acute on chronic congestive heart failure Qualifiers: Heart failure type: unspecified Qualified Code(s): I50.9 - Heart failure, unspecified Is this a current diagnosis for this admission?: Yes As above (4) Hypertension Qualifiers: Hypertension type: essential hypertension Qualified Code(s): I10 - Essential (primary) hypertension Is this a current diagnosis for this admission?: Yes Continue current medications. Monitor blood pressure. (5) Hyperlipidemia Qualifiers: Hyperlipidemia type: unspecified Qualified Code(s): E78.5 - Hyperlipidemia, unspecified Is this a current diagnosis for this admission?: Yes Continue home medications (6) Asthma Qualifiers: Asthma severity: unspecified severity Asthma persistence: unspecified Asthma complication type: unspecified Qualified Code(s): J45.909 - Unspecified asthma, uncomplicated Is this a current diagnosis for this admission?: Yes Continue home medications (7) Depression Qualifiers: Depression Type: unspecified Qualified Code(s): F32.9 - Major depressive disorder, single episode, unspecified Is this a current diagnosis for this admission?: Yes Continue home medications (8) abdominal pain Low risk CT scan of the abdomen. Continue Protonix to 40 mg twice daily. We will try again glycerin suppository and mag citrate
[2020-01-01] MEDS: LIDOCAINE 5% (700 MG) TRANSDERMAL ADH..PATCH TOP SCH ×2 (12:19→21:45)
[2020-01-01] MEDS ORDERED: GLYCERIN (ADULT) SUPP.RECT PR ONE (13:00)
[2020-01-01] MEDS ORDERED: MAGNESIUM CITRATE 296 ML BOTTLE PO ONE (13:00)
[2020-01-01 13:01] LABS: ANION GAP 6 (5-19); BLOOD UREA NITROGEN 76 mg/dL (7-20); CALCIUM 10.8 mg/dL (8.4-10.2); CARBON DIOXIDE 32 mmol/L (22-30); CHLORIDE 94 mmol/L (98-107); GLUCOSE 136 mg/dL (75-110)
[2020-01-01] MEDS: ACETAMINOPHEN 325 MG TABLET PO PRN (14:00)
[2020-01-01] MEDS: FLUOXETINE HCL 20 MG CAPSULE PO SCH (18:06)
[2020-01-01] MEDS: TRAMADOL HCL 50 MG TABLET PO PRN (20:48)
[2020-01-02] MEDS: HEPARIN SOD (PORCINE) 5,000 UNIT/ML 1 ML VIAL SUBCUT SCH ×3 (06:07→22:15)
[2020-01-02] MEDS: LEVOTHYROXINE SODIUM 0.112 MG TABLET PO SCH (06:19)
[2020-01-02] MEDS: LEVOTHYROXINE SODIUM 0.025 MG TABLET PO SCH (06:19)
[2020-01-02] MEDS: BUMETANIDE 1 MG TABLET PO SCH (06:19)
[2020-01-02] MEDS: SPIRONOLACTONE 25 MG TABLET PO SCH (08:11)
[2020-01-02] MEDS: ASPIRIN 81 MG TABLET, ENT COATED PO SCH (08:11)
[2020-01-02] MEDS: ISOSORBIDE MONONITRATE 60 MG TAB.ER.24H PO SCH (08:11)
[2020-01-02] MEDS: CARVEDILOL 12.5 MG TABLET PO SCH (08:11)
--- NOTE | 2020-01-02 10:09 | PDOC PROGRESS REPORT ---
Subjective Progress Note for:: 01/02/20 Subjective:: Patient complains of: Dyspnea History of Present Illness: VERENA MORRIS is a 74 year old female who presented emergency room with acute dyspnea. She admits developing severe acute dyspnea just prior to her arrival in the emergency room. She was sitting in her chair at home and suddenly developed severe dyspnea, associated with a cough productive of clear phlegm and accompanied by profound diaphoresis and air hunger. Her dyspnea was worsened on exertion or trying to recline (orthopnea). She denies other associated or accompanying signs and symptoms. She admits prior similar episodes with her congestive heart failure. She denies identification of any additional aggravating or ameliorating factors for her acute dyspnea. EMS arrived on the scene to find her emergently hypertensive and hypoxic with a O2 saturation of 60%. She was treated with IV enalaprilat and BiPAP by EMS. BiPAP was continued in the ER with a better mask seal. Patient was given morphine sulfate and furosemide IV in the ER at my request. Chest x-ray confirmed acute pulmonary edema and the patient was subsequently admitted to the hospital for further evaluation and treatment. It is noted that the patient is severely dyspneic and on BiPAP at the time my evaluation and is only able to speak in 2-3 word sentences this severely limiting her ability to communicate historical data. Interval history: 12/29/2019: Patient was seen and examined. She states she is doing better today. She just came from x-ray. She is on nonrebreather mask but then switched to nasal cannula oxygen. Chest x-ray shows improvement of pulmonary edema. Official report is still pending. 12/30/2019: Patient seen and examined. She was on BiPAP. She says she is not feeling well. She complains of generalized abdominal pain. 12/31/2019: Patient was seen and examined. She is on nasal cannula oxygen now. She said his her breathing is better but complains of pain inher upper abdomen. She is constipated. She had enema last night with some small stool out. 01/01/2020: Patient was seen and examined. She is alternating between nasal cannula and BiPAP. She still have some abdominal discomfort. She has small bowel movement yesterday but still thinks she is constipated. 01/02/2020: Patient seen and examined. She is to alternate between nasal cannula and BiPAP. She had a bowel movement yesterday and denies any abdominal pain. She is weak and deconditioned. Physical examination: General appearance: cooperative, mild distress Head exam: atraumatic, normocephalic Eye exam: conjunctiva pink. No conjunctival injection, scleral icterus Ear exam: normal external ear exam. No bleeding, drainage Mouth exam: Normal mucosa, neck supple Neck exam: Mild JVD. No thyromegaly, tracheal deviation Respiratory exam: rales - Fine rales bilaterally in the lower one half of both lung garcia, symmetrical. No wheezes Cardiovascular exam: gallop - S4 gallop, RRR. Positive murmur. Pulses: normal radial pulses, normal dorsalis pedis pul Vascular exam: normal capillary refill. No pallor GI/Abdominal exam: normal bowel sounds, soft. No tenderness Rectal exam: deferred Extremities exam: No joint swelling, pedal edema Musculoskeletal exam: No deformity, dislocation Neurological exam: alert, oriented to person, oriented to place, oriented to time, oriented to situation, CN II-XII grossly intact. No motor sensory deficit Psychiatric exam: appropriate affect, normal mood Skin exam: dry, intact, warm. No jaundice, rash, urticaria Reason For Visit: ACUTE CARDIOGENIC PULMONARY EDEMA,ACUTE ON CHRONIC Physical Exam Vital Signs: Temp Pulse Resp BP Pulse Ox 98.3 F 81 19 137/72 H 100 01/02/20 07:27 01/02/20 07:27 01/02/20 08:31 01/02/20 07:27 01/02/20 08:31 Intake & Output 01/01/20 01/02/20 01/03/20 06:59 06:59 06:59 Intake Total 1422 480 Output Total 200 400 Balance 1222 80 Weight 138 lb 3.677 oz 135 lb 12.876 oz Results Laboratory Results: 01/01/20 04:35 01/01/20 04:35 01/01/20 04:35 Sodium 131.5 L Potassium 5.0 Chloride 94 L Carbon Dioxide 32 H Anion Gap 6 BUN 76 H Creatinine 1.67 H Est GFR ( Amer) 36 L Glucose 136 H Calcium 10.8 H 12/28/19 00:18 Blood Blood Culture - Final NO GROWTH IN 5 DAYS 12/27/19 23:14 Blood Blood Culture - Final NO GROWTH IN 5 DAYS 12/27/19 12/28/19 12/28/19 23:14 00:18 05:47 Creatine Kinase CK-MB (CK-2) Troponin I 0.102 0.110 0.134 NT-Pro-B Natriuret Pep 49034 H 12/28/19 12/29/19 12/31/19 11:52 21:57 00:00 Creatine Kinase 40 CK-MB (CK-2) Troponin I 0.129 0.190 NT-Pro-B Natriuret Pep 12/31/19 12/31/19 12/31/19 00:00 05:46 05:46 Creatine Kinase 35 CK-MB (CK-2) 0.45 0.47 Troponin I 0.154 0.145 NT-Pro-B Natriuret Pep 12/31/19 12/31/19 12:17 12:17 Creatine Kinase 39 CK-MB (CK-2) 0.56 Troponin I 0.125 NT-Pro-B Natriuret Pep Impressions: Chest X-Ray 12/29/19 00:00 IMPRESSION: Improving CHF. Abdomen/Pelvis CT 12/30/19 00:00 IMPRESSION: Small right effusion with patchy basilar airspace disease right greater than left. Prior cholecystectomy. Internal biliary drainage catheter is in place. Small atrophic left kidney. Assessment and Plan - Plan Summary Summary: (1) Acute cardiogenic pulmonary edema Is this a current diagnosis for this admission?: Yes Was initially started on IV Lasix. Now she is on oral Bumex. Strict I&O. Daily weight. Monitor renal function. Echocardiogram shows normal EF and moderate to severe MR. Repeat chest x-ray shows improvement. (2) Acute respiratory failure with hypoxia Is this a current diagnosis for this admission?: Yes Continue oxygen as needed. Wean down as tolerated. Was initially on BiPAP. Now on nasal cannula oxygen. (3) Acute on chronic congestive heart failure Qualifiers: Heart failure type: unspecified Qualified Code(s): I50.9 - Heart failure, unspecified Is this a current diagnosis for this admission?: Yes As above (4) Hypertension Qualifiers: Hypertension type: essential hypertension Qualified Code(s): I10 - Essential (primary) hypertension Is this a current diagnosis for this admission?: Yes Continue current medications. Monitor blood pressure. (5) Hyperlipidemia Qualifiers: Hyperlipidemia type: unspecified Qualified Code(s): E78.5 - Hyperlipidemia, unspecified Is this a current diagnosis for this admission?: Yes Continue home medications (6) Asthma Qualifiers: Asthma severity: unspecified severity Asthma persistence: unspecified Asthma complication type: unspecified Qualified Code(s): J45.909 - Unspecified asthma, uncomplicated Is this a current diagnosis for this admission?: Yes Continue home medications (7) Depression Qualifiers: Depression Type: unspecified Qualified Code(s): F32.9 - Major depressive disorder, single episode, unspecified Is this a current diagnosis for this admission?: Yes Continue home medications (8) abdominal pain Low risk CT scan of the abdomen. Continue Protonix daily. Improved since constipation resolved. PT/OT evaluation. Possible discharge tomorrow.
[2020-01-02] MEDS: ERGOCALCIFEROL (VITAMIN D2) 50000 UNIT (1.25 MG) CAPSULE PO SCH (10:57)
[2020-01-02] MEDS: OMEGA-3 ACID ETHYL ESTERS 1 GM CAPSULE PO SCH (10:57)
[2020-01-02] MEDS: HYDRALAZINE HCL 50 MG TABLET PO SCH ×2 (10:57→22:17)
[2020-01-02] MEDS: FOLIC ACID 1 MG TABLET PO SCH (10:58)
[2020-01-02] MEDS: POLYETHYLENE GLYCOL 3350 POWDER 17 GM/1 PACKET PO SCH ×3 (10:58→17:53)
[2020-01-02] MEDS: LORATADINE 10 MG TABLET PO SCH (10:58)
[2020-01-02] MEDS: ATORVASTATIN CALCIUM 80 MG TABLET PO SCH (10:58)
[2020-01-02] MEDS: HYDROCHLOROTHIAZIDE 12.5 MG TABLET PO SCH (10:58)
[2020-01-02] MEDS: DOCUSATE SODIUM 100 MG CAPSULE PO SCH ×2 (10:58→17:53)
[2020-01-02] MEDS: MAGNESIUM OXIDE 400 MG TABLET PO SCH (10:58)
[2020-01-02] MEDS: LIDOCAINE 5% (700 MG) TRANSDERMAL ADH..PATCH TOP SCH ×2 (10:58→22:17)
[2020-01-02] MEDS: AMLODIPINE BESYLATE 10 MG TABLET PO SCH (10:58)
[2020-01-02] MEDS: FLUTICASONE/VILANTEROL 100-25 MCG/DOSE IH SCH (10:58)
[2020-01-02] MEDS: CLOPIDOGREL BISULFATE 75 MG TABLET PO SCH (10:58)
[2020-01-02] MEDS: FLUTICASONE NASAL SPRAY 50 MCG/SPRY 120 SPRAY/16 GM NASL SCH ×2 (10:59→17:53)
[2020-01-02] MEDS: PANTOPRAZOLE SODIUM 40 MG TABLET.DR PO SCH (14:46)
[2020-01-02] MEDS: FLUOXETINE HCL 20 MG CAPSULE PO SCH (17:53)
[2020-01-02] MEDS: TRAMADOL HCL 50 MG TABLET PO PRN (20:46)
[2020-01-03] MEDS: HEPARIN SOD (PORCINE) 5,000 UNIT/ML 1 ML VIAL SUBCUT SCH ×3 (05:32→21:25)
[2020-01-03] MEDS: BUMETANIDE 1 MG TABLET PO SCH (06:03)
[2020-01-03] MEDS: LEVOTHYROXINE SODIUM 0.112 MG TABLET PO SCH (06:04)
[2020-01-03] MEDS: LEVOTHYROXINE SODIUM 0.025 MG TABLET PO SCH (06:04)
[2020-01-03 07:54] LABS: ABSOLUTE EOSINOPHILS # (AUTO) 0.3 10^3/uL (0.0-0.6); ABSOLUTE LYMPHOCYTES (AUTO) 0.6 10^3/uL (0.5-4.7); ABSOLUTE MONOCYTES (AUTO) 0.6 10^3/uL (0.1-1.4); ABSOLUTE NEUT (AUTO) 6.3 10^3/uL (1.7-8.2); BASOPHILS % (AUTO) 0.6 % (0-2); EOSINOPHILS % (AUTO) 4.3 % (0-6); HEMATOCRIT 26.4 % (36.0-47.0); HEMOGLOBIN 9.1 g/dL (12.0-15.5); LYMPHOCYTES % (AUTO) 8.2 % (13-45); MEAN CORPUSCULAR HEMOGLOBIN 33.2 pg (27.0-33.4); MEAN CORPUSCULAR HGB CONC 34.7 g/dL (32.0-36.0); MEAN CORPUSCULAR VOLUME 96 fl (80-97); MONOCYTES % (AUTO) 7.3 % (3-13); PLATELET COUNT 194 10^3/uL (150-450); RED BLOOD COUNT 2.75 10^6/uL (3.72-5.28); RED CELL DISTRIBUTION WIDTH 14.5 % (11.5-14.0); SEGMENTED NEUTROPHILS % (AUTO) 79.6 % (42-78); TOTAL CELLS COUNTED % (AUTO) 100 %; WHITE BLOOD COUNT 7.9 10^3/uL (4.0-10.5)
[2020-01-03] MEDS: ASPIRIN 81 MG TABLET, ENT COATED PO SCH (08:02)
[2020-01-03] MEDS: SPIRONOLACTONE 25 MG TABLET PO SCH (08:02)
[2020-01-03] MEDS: CARVEDILOL 12.5 MG TABLET PO SCH (08:02)
[2020-01-03] MEDS: ISOSORBIDE MONONITRATE 60 MG TAB.ER.24H PO SCH (08:03)
[2020-01-03 08:08] LABS: ALBUMIN 3.5 g/dL (3.5-5.0); ALKALINE PHOSPHATASE 44 U/L (38-126); ANION GAP 9 (5-19); ASPARTATE AMINO TRANSFERASE 21 U/L (14-36); BILIRUBIN,TOTAL 0.9 mg/dL (0.2-1.3); BLOOD UREA NITROGEN 70 mg/dL (7-20); CALCIUM 9.9 mg/dL (8.4-10.2); CARBON DIOXIDE 33 mmol/L (22-30); CHLORIDE 93 mmol/L (98-107); GLUCOSE 108 mg/dL (75-110); POTASSIUM 4.8 mmol/L (3.6-5.0); TOTAL PROTEIN 6.1 g/dL (6.3-8.2)
--- NOTE | 2020-01-03 08:51 | PDOC PROGRESS REPORT ---
Subjective Progress Note for:: 01/03/20 Subjective:: 74 year old female who presented emergency room with acute dyspnea. She admits developing severe acute dyspnea just prior to her arrival in the emergency room. She was sitting in her chair at home and suddenly developed severe dyspnea, associated with a cough productive of clear phlegm and accompanied by profound diaphoresis and air hunger. Her dyspnea was worsened on exertion or trying to recline (orthopnea). She denies other associated or accompanying signs and symptoms. She admits prior similar episodes with her congestive heart failure. She denies identification of any additional aggravating or ameliorating factors for her acute dyspnea. EMS arrived on the scene to find her emergently hypertensive and hypoxic with a O2 saturation of 60%. She was treated with IV enalaprilat and BiPAP by EMS. BiPAP was continued in the ER with a better mask seal. Patient was given morphine sulfate and furosemide IV in the ER at my request. Chest x-ray confirmed acute pulmonary edema and the patient was subsequently admitted to the hospital for further evaluation and treatment. It is noted that the patient is severely dyspneic and on BiPAP at the time my evaluation and is only able to speak in 2-3 word sentences this severely limiting her ability to communicate historical data. Interval history: 12/29/2019: Patient was seen and examined. She states she is doing better today. She just came from x-ray. She is on nonrebreather mask but then switched to nasal cannula oxygen. Chest x-ray shows improvement of pulmonary edema. Official report is still pending. 12/30/2019: Patient seen and examined. She was on BiPAP. She says she is not feeling well. She complains of generalized abdominal pain. 12/31/2019: Patient was seen and examined. She is on nasal cannula oxygen now. She said his her breathing is better but complains of pain inher upper abdomen. She is constipated. She had enema last night with some small stool out. 01/01/2020: Patient was seen and examined. She is alternating between nasal cannula and BiPAP. She still have some abdominal discomfort. She has small bowel movement yesterday but still thinks she is constipated. 01/02/2020: Patient seen and examined. She is to alternate between nasal cannula and BiPAP. She had a bowel movement yesterday and denies any abdominal pain. She is weak and deconditioned. 01/03/2020-no acute events in the last 24 hours. Afebrile. Pulse ox is 91% on 3.5 L. Patient is receiving BiPAP on and off. Plan is to keep her another day for close monitoring. Reason For Visit: ACUTE CARDIOGENIC PULMONARY EDEMA,ACUTE ON CHRONIC Physical Exam Vital Signs: Temp Pulse Resp BP Pulse Ox 98.1 F 84 19 138/66 H 91 L 01/03/20 07:47 01/03/20 07:47 01/03/20 07:47 01/03/20 07:47 01/03/20 07:47 Intake & Output 01/02/20 01/03/20 01/04/20 06:59 06:59 06:59 Intake Total 480 1096 Output Total 400 Balance 80 1096 Weight 61.6 kg 61.2 kg General appearance: PRESENT: no acute distress Head exam: PRESENT: atraumatic Eye exam: PRESENT: PERRLA Mouth exam: PRESENT: neck supple Teeth exam: PRESENT: poor dentation Neck exam: ABSENT: carotid bruit, JVD, lymphadenopathy, thyromegaly Respiratory exam: PRESENT: decreased breath sounds Cardiovascular exam: PRESENT: RRR. ABSENT: diastolic murmur, rubs, systolic murmur Pulses: PRESENT: normal dorsalis pedis pul GI/Abdominal exam: PRESENT: normal bowel sounds, soft. ABSENT: distended, guarding, mass, organolmegaly, rebound, tenderness Rectal exam: PRESENT: deferred Extremities exam: PRESENT: full ROM. ABSENT: calf tenderness, clubbing, pedal edema Neurological exam: PRESENT: alert, awake, oriented to person, oriented to place, oriented to time, oriented to situation, CN II-XII grossly intact. ABSENT: motor sensory deficit Psychiatric exam: PRESENT: appropriate affect, normal mood. ABSENT: homicidal ideation, suicidal ideation Results Laboratory Results: 01/03/20 07:41 01/03/20 07:41 01/03/20 01/03/20 07:41 07:41 WBC 7.9 RBC 2.75 L Hgb 9.1 L Hct 26.4 L MCV 96 MCH 33.2 MCHC 34.7 RDW 14.5 H Plt Count 194 Seg Neutrophils % 79.6 H Sodium 134.8 L Potassium 4.8 Chloride 93 L Carbon Dioxide 33 H Anion Gap 9 BUN 70 H Creatinine 2.02 H Est GFR ( Amer) 29 L Glucose 108 Calcium 9.9 Magnesium 2.9 H Total Bilirubin 0.9 AST 21 Alkaline Phosphatase 44 Total Protein 6.1 L Albumin 3.5 12/27/19 12/28/19 12/28/19 23:14 00:18 05:47 Creatine Kinase CK-MB (CK-2) Troponin I 0.102 0.110 0.134 NT-Pro-B Natriuret Pep 28879 H 12/28/19 12/29/19 12/31/19 11:52 21:57 00:00 Creatine Kinase 40 CK-MB (CK-2) Troponin I 0.129 0.190 NT-Pro-B Natriuret Pep 12/31/19 12/31/19 12/31/19 00:00 05:46 05:46 Creatine Kinase 35 CK-MB (CK-2) 0.45 0.47 Troponin I 0.154 0.145 NT-Pro-B Natriuret Pep 12/31/19 12/31/19 12:17 12:17 Creatine Kinase 39 CK-MB (CK-2) 0.56 Troponin I 0.125 NT-Pro-B Natriuret Pep Impressions: Chest X-Ray 12/29/19 00:00 IMPRESSION: Improving CHF. Abdomen/Pelvis CT 12/30/19 00:00 IMPRESSION: Small right effusion with patchy basilar airspace disease right greater than left. Prior cholecystectomy. Internal biliary drainage catheter is in place. Small atrophic left kidney. Assessment and Plan - Diagnosis (1) Acute cardiogenic pulmonary edema Is this a current diagnosis for this admission?: Yes Plan: Was initially started on IV Lasix. Now she is on oral Bumex. Strict I&O. Da cheo weight. Monitor renal function. Echocardiogram shows normal EF and moderate to severe MR. Repeat chest x-ray shows improvement. 01/03/2020-patient is presently on p.o. Bumex. Test creatinine is 2.02 with GFR of 29. Patient is presently on p.o. Bumex. Echocardiogram shows normal EF with moderate to severe mitral regurgitation. Patient is presently on Bumex 0.5 mg in the morning, spironolactone 25 mg in the morning. Patient is also on Coreg 12.5 mg p.o. in the morning, isosorbide mononitrate 120 mg daily, amlodipine 10 mg daily. And is to discontinue spironolactone from today. To recheck the labs tomorrow. (2) Acute on chronic congestive heart failure Qualifiers: Heart failure type: unspecified Qualified Code(s): I50.9 - Heart failure, unspecified Is this a current diagnosis for this admission?: Yes Plan: 01/03/2020-echocardiogram shows normal EF with moderate to severe MR. Presently on Bumex 0.5 mg in the morning plan is to continue the present management. To repeat the chest x-ray. On examination patient is euvolemic. Creatinine bumped up from 1.6 to 2.02 today. (3) Hypertension Qualifiers: Hypertension type: essential hypertension Qualified Code(s): I10 - Essent ial (primary) hypertension Is this a current diagnosis for this admission?: No Plan: 01/03/2020-patient has history of chronic essential hypertension blood pressure today is 110/88. Patient is presently on amlodipine, isosorbide, Bumex, Coreg. (4) Depression Qualifiers: Depression Type: unspecified Qualified Code(s): F32.9 - Major depressive disorder, single episode, unspecified Is this a current diagnosis for this admission?: No Plan: Denies any depression issues this morning. Plan is to continue the present management. (5) Abdominal pain Is this a current diagnosis for this admission?: Yes Plan: 01/03/20-patient denies any abdominal pain today. Examination abdomen is soft nontender. (6) Asthma Qualifiers: Asthma severity: unspecified severity Asthma persistence: unspecified Asthma complication type: unspecified Qualified Code(s): J45.909 - Unspecified asthma, uncomplicated Is this a current diagnosis for this admission?: No Plan: 01/03/2020 on examination chest bilateral entry was decreased no wheezing present. Plan is to continue home medications. - Plan Summary Summary: (1) Acute cardiogenic pulmonary edema Is this a current diagnosis for this admission?: Yes Was initially started on IV Lasix. Now she is on oral Bumex. Strict I&O. Daily weight. Monitor renal function. Echocardiogram shows normal EF and moderate to severe MR. Repeat chest x-ray shows improvement. (2) Acute respiratory failure with hypoxia Is this a current diagnosis for this admission?: Yes Continue oxygen as needed. Wean down as tolerated. Was initially on BiPAP. Now on nasal cannula oxygen. (3) Acute on chronic congestive heart failure Qualifiers: Heart failure type: unspecified Qualified Code(s): I50.9 - Heart failure, unspecified Is this a current diagnosis for this admission?: Yes As above (4) Hypertension Qualifiers: Hypertension type: essential hypertension Qualified Code(s): I10 - Essential (primary) hypertension Is this a current diagnosis for this admission?: Yes Continue current medications. Monitor blood pressure. (5) Hyperlipidemia Qualifiers: Hyperlipidemia type: unspecified Qualified Code(s): E78.5 - Hyperlipidemia, unspecified Is this a current diagnosis for this admission?: Yes Continue home medications (6) Asthma Qualifiers: Asthma severity: unspecified severity Asthma persistence: unspecified Asthma complication type: unspecified Qualified Code(s): J45.909 - Unspecified asthma, uncomplicated Is this a current diagnosis for this admission?: Yes Continue home medications (7) Depression Qualifiers: Depression Type: unspecified Qualified Code(s): F32.9 - Major depressive disorder, single episode, unspecified Is this a current diagnosis for this admission?: Yes Continue home medications (8) abdominal pain Low risk CT scan of the abdomen. Continue Protonix daily. Improved since constipation resolved. PT/OT evaluation. Possible discharge tomorrow.
[2020-01-03] MEDS ORDERED: TRAMADOL HCL 50 MG TABLET PO PRN (09:00)
[2020-01-03] MEDS: OMEGA-3 ACID ETHYL ESTERS 1 GM CAPSULE PO SCH (10:14)
[2020-01-03] MEDS: CALCITRIOL 0.25 MCG CAPSULE PO SCH (10:14)
[2020-01-03] MEDS: AMLODIPINE BESYLATE 10 MG TABLET PO SCH (10:14)
[2020-01-03] MEDS: ATORVASTATIN CALCIUM 80 MG TABLET PO SCH (10:15)
[2020-01-03] MEDS: HYDROCHLOROTHIAZIDE 12.5 MG TABLET PO SCH (10:15)
[2020-01-03] MEDS: DOCUSATE SODIUM 100 MG CAPSULE PO SCH ×2 (10:16→17:15)
[2020-01-03] MEDS: HYDRALAZINE HCL 50 MG TABLET PO SCH ×2 (10:16→21:24)
[2020-01-03] MEDS: LORATADINE 10 MG TABLET PO SCH (10:16)
[2020-01-03] MEDS: FOLIC ACID 1 MG TABLET PO SCH (10:16)
[2020-01-03] MEDS: MAGNESIUM OXIDE 400 MG TABLET PO SCH (10:17)
[2020-01-03] MEDS: CLOPIDOGREL BISULFATE 75 MG TABLET PO SCH (10:17)
[2020-01-03] MEDS: POLYETHYLENE GLYCOL 3350 POWDER 17 GM/1 PACKET PO SCH ×3 (10:24→17:16)
[2020-01-03] MEDS: FLUTICASONE NASAL SPRAY 50 MCG/SPRY 120 SPRAY/16 GM NASL SCH ×2 (10:24→17:16)
[2020-01-03] MEDS: LIDOCAINE 5% (700 MG) TRANSDERMAL ADH..PATCH TOP SCH ×2 (10:25→21:26)
[2020-01-03] MEDS: FLUTICASONE/VILANTEROL 100-25 MCG/DOSE IH SCH (10:25)
[2020-01-03] MEDS: PANTOPRAZOLE SODIUM 40 MG TABLET.DR PO SCH (10:48)
--- NOTE | 2020-01-03 11:37 | RADIOLOGY REPORT (SQ) ---
EXAM DESCRIPTION: CHEST 2 VIEWS IMAGES COMPLETED DATE/TIME: 01/03/2020 9:39 am REASON FOR STUDY: chf COMPARISON: 12/29/2019 NUMBER OF VIEWS: Two views. TECHNIQUE: Frontal and lateral radiographic views of the chest acquired. LIMITATIONS: None. FINDINGS: LUNGS AND PLEURA: Worsening mixed interstitial and alveolar pattern in both lungs. No eff usions. MEDIASTINUM AND HILAR STRUCTURES: Stable. HEART AND VASCULAR STRUCTURES: Cardiac enlargement. Vascular congestion. BONES: No acute findings. HARDWARE: CABG. Thoracic neurostimulator. OTHER: No other significant finding. IMPRESSION: Worsening CHF. TECHNICAL DOCUMENTATION: JOB ID: [id number] 2010 [employer]- All Rights Reserved Reading location - IP/workstation name: [email or web address]
[2020-01-03] MEDS: ACETAMINOPHEN 325 MG TABLET PO PRN (16:08)
[2020-01-03] MEDS: FLUOXETINE HCL 20 MG CAPSULE PO SCH (17:15)
[2020-01-04 05:09] LABS: ABSOLUTE EOSINOPHILS # (AUTO) 0.3 10^3/uL (0.0-0.6); ABSOLUTE LYMPHOCYTES (AUTO) 0.7 10^3/uL (0.5-4.7); ABSOLUTE MONOCYTES (AUTO) 0.6 10^3/uL (0.1-1.4); ABSOLUTE NEUT (AUTO) 8.2 10^3/uL (1.7-8.2); BASOPHILS % (AUTO) 0.4 % (0-2); EOSINOPHILS % (AUTO) 2.7 % (0-6); HEMATOCRIT 26.5 % (36.0-47.0); LYMPHOCYTES % (AUTO) 7.5 % (13-45); MEAN CORPUSCULAR HEMOGLOBIN 32.6 pg (27.0-33.4); MEAN CORPUSCULAR HGB CONC 34.2 g/dL (32.0-36.0); MEAN CORPUSCULAR VOLUME 96 fl (80-97); MONOCYTES % (AUTO) 6.5 % (3-13); PLATELET COUNT 239 10^3/uL (150-450); RED BLOOD COUNT 2.77 10^6/uL (3.72-5.28); RED CELL DISTRIBUTION WIDTH 14.7 % (11.5-14.0); SEGMENTED NEUTROPHILS % (AUTO) 82.9 % (42-78); TOTAL CELLS COUNTED % (AUTO) 100 %; WHITE BLOOD COUNT 9.9 10^3/uL (4.0-10.5)
[2020-01-04] MEDS: HEPARIN SOD (PORCINE) 5,000 UNIT/ML 1 ML VIAL SUBCUT SCH ×3 (05:25→22:14)
[2020-01-04] MEDS: LEVOTHYROXINE SODIUM 0.112 MG TABLET PO SCH (05:25)
[2020-01-04] MEDS: LEVOTHYROXINE SODIUM 0.025 MG TABLET PO SCH (05:25)
[2020-01-04] MEDS: BUMETANIDE 1 MG TABLET PO SCH (05:25)
[2020-01-04 05:38] LABS: ALBUMIN 3.4 g/dL (3.5-5.0); ALKALINE PHOSPHATASE 44 U/L (38-126); ANION GAP 10 (5-19); ASPARTATE AMINO TRANSFERASE 20 U/L (14-36); BILIRUBIN,TOTAL 0.9 mg/dL (0.2-1.3); BLOOD UREA NITROGEN 74 mg/dL (7-20); CALCIUM 9.9 mg/dL (8.4-10.2); CARBON DIOXIDE 30 mmol/L (22-30); CHLORIDE 93 mmol/L (98-107); GLUCOSE 121 mg/dL (75-110); POTASSIUM 4.6 mmol/L (3.6-5.0); TOTAL PROTEIN 5.9 g/dL (6.3-8.2)
[2020-01-04] MEDS: ATORVASTATIN CALCIUM 80 MG TABLET PO SCH (10:32)
[2020-01-04] MEDS: CARVEDILOL 12.5 MG TABLET PO SCH (10:32)
[2020-01-04] MEDS: CLOPIDOGREL BISULFATE 75 MG TABLET PO SCH (10:32)
[2020-01-04] MEDS: ISOSORBIDE MONONITRATE 60 MG TAB.ER.24H PO SCH (10:32)
[2020-01-04] MEDS: AMLODIPINE BESYLATE 10 MG TABLET PO SCH (10:32)
[2020-01-04] MEDS: ASPIRIN 81 MG TABLET, ENT COATED PO SCH (10:33)
[2020-01-04] MEDS: MAGNESIUM OXIDE 400 MG TABLET PO SCH (11:13)
[2020-01-04] MEDS: HYDRALAZINE HCL 50 MG TABLET PO SCH ×2 (11:13→22:13)
[2020-01-04] MEDS: HYDROCHLOROTHIAZIDE 12.5 MG TABLET PO SCH (11:13)
[2020-01-04] MEDS: OMEGA-3 ACID ETHYL ESTERS 1 GM CAPSULE PO SCH (11:13)
[2020-01-04] MEDS: PANTOPRAZOLE SODIUM 40 MG TABLET.DR PO SCH (11:13)
[2020-01-04] MEDS: LORATADINE 10 MG TABLET PO SCH (11:13)
[2020-01-04] MEDS: FOLIC ACID 1 MG TABLET PO SCH (11:13)
[2020-01-04] MEDS: POLYETHYLENE GLYCOL 3350 POWDER 17 GM/1 PACKET PO SCH ×3 (11:13→17:22)
[2020-01-04] MEDS: DOCUSATE SODIUM 100 MG CAPSULE PO SCH ×2 (11:13→17:21)
--- NOTE | 2020-01-04 11:13 | RADIOLOGY REPORT (SQ) ---
EXAM DESCRIPTION: CT CHEST WITHOUT IMAGES COMPLETED DATE/TIME: 01/04/2020 10:47 am REASON FOR STUDY: WORSENING CHF COMPARISON: Chest x-ray dated 01/03/2020 TECHNIQUE: CT scan performed of the chest without intravenous contrast. Images reviewed with lung, soft tissue and bone windows. Reconstructed coronal and sagittal MPR images reviewed. All images st ored on PACS. All CT scanners at this facility use dose modulation, iterative reconstruction, and/or weight based d osing when appropriate to reduce radiation dose to as low as reasonably achievable (ALARA). [facility]: Dose Right [facility]: CareDose [facility]: Dose Right [facility]: Teradose 4D [facility]: [employer] RADIATION DOSE: CT Rad equipment meets quality standard of care and radiation dose reduction techniq ues were employed. CTDIvol: 4.1 mGy. DLP: 172 mGy-cm. mGy. LIMITATIONS: No technical limitations. FINDINGS: LUNGS AND PLEURA: There are small symmetric bilateral pleural effusions. Bilateral ground -glass opacities with focal areas of consolidation. Findings are consistent with a history of conges tive heart failure. HILAR AND MEDIASTINAL STRUCTURES: Small pretracheal nodes most likely reactive. HEART AND VASCULAR STRUCTURES: No aneurysm. No pericardial effusion. UPPER ABDOMEN: No significant findings. Limited exam. THYROID AND OTHER SOFT TISSUES: No masses. No adenopathy. BONES: No significant finding. HARDWARE: Sternotomy wires are in place. OTHER: No other significant findings. IMPRESSION: Bilateral ground-glass opacities with focal areas of consolidation findings are consiste nt with a history of congestive heart failure. There are small bilateral pleural effusions. Probabl e reactive mediastinal adenopathy. Findings can be seen with infectious or inflammatory processes as well. Clinical correlation is needed. TECHNICAL DOCUMENTATION: JOB ID: [id number] Quality ID # [id number]: Final reports with documentation of one or more dose reduction techniques (e.g., Au tomated exposure control, adjustment of the mA and/or kV according to patient size, use of iterative reconstruction technique) 2010 [employer]- All Rights Reserved Reading location - IP/workstation name: [email or web address]-
[2020-01-04] MEDS: FLUTICASONE NASAL SPRAY 50 MCG/SPRY 120 SPRAY/16 GM NASL SCH ×2 (11:14→17:48)
[2020-01-04] MEDS: FLUTICASONE/VILANTEROL 100-25 MCG/DOSE IH SCH (11:15)
[2020-01-04] MEDS: FERROUS SULFATE 325 MG TABLET PO SCH (11:16)
[2020-01-04] MEDS: LIDOCAINE 5% (700 MG) TRANSDERMAL ADH..PATCH TOP SCH ×2 (11:20→22:13)
--- NOTE | 2020-01-04 12:44 | PDOC PROGRESS REPORT ---
Subjective Progress Note for:: 01/04/20 Reason For Visit: ACUTE CARDIOGENIC PULMONARY EDEMA,ACUTE ON CHRONIC 01/04/2020 She was admitted with CHF, hypertensive. Physical Exam Vital Signs: Temp Pulse Resp BP Pulse Ox 98.0 F 74 21 H 135/72 H 93 01/04/20 11:22 01/04/20 11:22 01/04/20 11:22 01/04/20 11:22 01/04/20 11:22 Intake & Output 01/03/20 01/04/20 01/05/20 06:59 06:59 06:59 Intake Total 1096 1689 Output Total 350 Balance 1096 1339 Weight 61.2 kg 61.9 kg General appearance: PRESENT: mild distress Respiratory exam: PRESENT: rales Cardiovascular exam: PRESENT: RRR. ABSENT: diastolic murmur, rubs, systolic murmur Neurological exam: PRESENT: alert, awake, oriented to person, oriented to place, oriented to time, oriented to situation, CN II-XII grossly intact. ABSENT: motor sensory deficit Psychiatric exam: PRESENT: appropriate affect, normal mood. ABSENT: homicidal ideation, suicidal ideation Results Laboratory Results: 01/04/20 04:55 01/04/20 04:55 01/04/20 01/04/20 04:55 04:55 WBC 9.9 RBC 2.77 L Hgb 9.0 L Hct 26.5 L MCV 96 MCH 32.6 MCHC 34.2 RDW 14.7 H Plt Count 239 Seg Neutrophils % 82.9 H Sodium 132.8 L Potassium 4.6 Chloride 93 L Carbon Dioxide 30 Anion Gap 10 BUN 74 H Creatinine 1.98 H Est GFR ( Amer) 30 L Glucose 121 H Calcium 9.9 Magnesium 2.7 H Total Bilirubin 0.9 AST 20 Alkaline Phosphatase 44 Total Protein 5.9 L Albumin 3.4 L 12/27/19 12/28/19 12/28/19 23:14 00:18 05:47 Creatine Kinase CK-MB (CK-2) Troponin I 0.102 0.110 0.134 NT-Pro-B Natriuret Pep 13318 H 12/28/19 12/29/19 12/31/19 11:52 21:57 00:00 Creatine Kinase 40 CK-MB (CK-2) Troponin I 0.129 0.190 NT-Pro-B Natriuret Pep 12/31/19 12/31/19 12/31/19 00:00 05:46 05:46 Creatine Kinase 35 CK-MB (CK-2) 0.45 0.47 Troponin I 0.154 0.145 NT-Pro-B Natriuret Pep 12/31/19 12/31/19 12:17 12:17 Creatine Kinase 39 CK-MB (CK-2) 0.56 Troponin I 0.125 NT-Pro-B Natriuret Pep Impressions: Abdomen/Pelvis CT 12/30/19 00:00 IMPRESSION: Small right effusion with patchy basilar airspace disease right greater than left. Prior cholecystectomy. Internal biliary drainage catheter is in place. Small atrophic left kidney. Chest X-Ray 01/03/20 00:00 IMPRESSION: Worsening CHF. Chest CT 01/04/20 00:00 IMPRESSION: Bilateral ground-glass opacities with focal areas of consolidation findings are consistent with a history of congestive heart failure. There are small bilateral pleural effusions. Probable reactive mediastinal adenopathy. Findings can be seen with infectious or inflammatory processes as well. Clinical correlation is needed. Assessment and Plan - Diagnosis (1) Diastolic heart failure Is this a current diagnosis for this admission?: Yes (2) Acute cardiogenic pulmonary edema Is this a current diagnosis for this admission?: Yes (3) Hypertension Qualifiers: Hypertension type: essential hypertension Qualified Code(s): I10 - Essential (primary) hypertension Is this a current diagnosis for this admission?: Yes (4) Hypoxemia Is this a current diagnosis for this admission?: Yes - Plan Summary Summary: (1) Acute cardiogenic pulmonary edema Is this a current diagnosis for this admission?: Yes Was initially started on IV Lasix. Now she is on oral Bumex. Strict I&O. Daily weight. Monitor renal function. Echocardiogram shows normal EF and moderate to severe MR. Repeat chest x-ray shows improvement. (2) Acute respiratory failure with hypoxia Is this a current diagnosis for this admission?: Yes Continue oxygen as needed. Wean down as tolerated. Was initially on BiPAP. Now on nasal cannula oxygen. (3) Acute on chronic congestive heart failure Qualifiers: Heart failure type: unspecified Qualified Code(s): I50.9 - Heart failure, unspecified Is this a current diagnosis for this admission?: Yes As above (4) Hypertension Qualifiers: Hypertension type: essential hypertension Qualified Code(s): I10 - Essential (primary) hypertension Is this a current diagnosis for this admission?: Yes Continue current medications. Monitor blood pressure. (5) Hyperlipidemia Qualifiers: Hyperlipidemia type: unspecified Qualified Code(s): E78.5 - Hyperlipidemia, unspecified Is this a current diagnosis for this admission?: Yes Continue home medications (6) Asthma Qualifiers: Asthma severity: unspecified severity Asthma persistence: unspecified Asthma complication type: unspecified Qualified Code(s): J45.909 - Unspecified asthma, uncomplicated Is this a current diagnosis for this admission?: Yes Continue home medications (7) Depression Qualifiers: Depression Type: unspecified Qualified Code(s): F32.9 - Major depressive disorder, single episode, unspecified Is this a current diagnosis for this admission?: Yes Continue home medications (8) abdominal pain Low risk CT scan of the abdomen. Continue Protonix daily. Improved since constipation resolved. PT/OT evaluation. Possible discharge tomorrow. 01/04/2020 Per cardiology's original note patient was admitted with acute decompensated congestive heart failure probably diastolic. Ashleigh patient's renal functions are going up BUN is now 74, creatinine is up to 2 Held patient's Bumex 0.5 mg and HCTZ 12.5 mg for tomorrow morning. Patient's Aldactone 25 mg was held this morning already CT scan of the chest today showed probable CHF. Will repeat chest x-ray again 48 hours. Continue to monitor daily labs This morning temperature is 98 pulse 83 and regular blood pressure 140/67 and O2 sat is between 90 and 100% on 3-1/2 L Patient tells me she does use oxygen at home usually 3 L Patient also tells me that she is much less short of breath now than on admission I have discussed patient with Dr. Bryant. - Time Time Spent with patient: 25-34 minutes
[2020-01-04] MEDS: FLUOXETINE HCL 20 MG CAPSULE PO SCH (17:48)
[2020-01-05 05:50] LABS: ABSOLUTE EOSINOPHILS # (AUTO) 0.2 10^3/uL (0.0-0.6); ABSOLUTE LYMPHOCYTES (AUTO) 0.7 10^3/uL (0.5-4.7); ABSOLUTE MONOCYTES (AUTO) 0.8 10^3/uL (0.1-1.4); BASOPHILS % (AUTO) 0.4 % (0-2); EOSINOPHILS % (AUTO) 1.7 % (0-6); HEMATOCRIT 25.7 % (36.0-47.0); HEMOGLOBIN 8.7 g/dL (12.0-15.5); LYMPHOCYTES % (AUTO) 5.2 % (13-45); MEAN CORPUSCULAR HEMOGLOBIN 32.3 pg (27.0-33.4); MEAN CORPUSCULAR VOLUME 95 fl (80-97); MONOCYTES % (AUTO) 6.5 % (3-13); PLATELET COUNT 279 10^3/uL (150-450); RED CELL DISTRIBUTION WIDTH 14.5 % (11.5-14.0); SEGMENTED NEUTROPHILS % (AUTO) 86.2 % (42-78); TOTAL CELLS COUNTED % (AUTO) 100 %; WHITE BLOOD COUNT 12.7 10^3/uL (4.0-10.5)
[2020-01-05 06:07] LABS: ALBUMIN 3.5 g/dL (3.5-5.0); ALKALINE PHOSPHATASE 47 U/L (38-126); ANION GAP 9 (5-19); ASPARTATE AMINO TRANSFERASE 21 U/L (14-36); BILIRUBIN,TOTAL 1.1 mg/dL (0.2-1.3); BLOOD UREA NITROGEN 69 mg/dL (7-20); CALCIUM 9.9 mg/dL (8.4-10.2); CARBON DIOXIDE 30 mmol/L (22-30); CHLORIDE 94 mmol/L (98-107); GLUCOSE 106 mg/dL (75-110); POTASSIUM 4.7 mmol/L (3.6-5.0)
[2020-01-05] MEDS: HEPARIN SOD (PORCINE) 5,000 UNIT/ML 1 ML VIAL SUBCUT SCH ×3 (07:05→21:50)
[2020-01-05] MEDS: LEVOTHYROXINE SODIUM 0.112 MG TABLET PO SCH (07:05)
[2020-01-05] MEDS: LEVOTHYROXINE SODIUM 0.025 MG TABLET PO SCH (07:07)
[2020-01-05] MEDS: MAGNESIUM OXIDE 400 MG TABLET PO SCH (10:08)
[2020-01-05] MEDS: CALCITRIOL 0.25 MCG CAPSULE PO SCH (10:08)
[2020-01-05] MEDS: ASPIRIN 81 MG TABLET, ENT COATED PO SCH (10:09)
[2020-01-05] MEDS: HYDRALAZINE HCL 50 MG TABLET PO SCH ×2 (10:09→21:49)
[2020-01-05] MEDS: PANTOPRAZOLE SODIUM 40 MG TABLET.DR PO SCH (10:09)
[2020-01-05] MEDS: ATORVASTATIN CALCIUM 80 MG TABLET PO SCH (10:09)
[2020-01-05] MEDS: DOCUSATE SODIUM 100 MG CAPSULE PO SCH ×2 (10:09→17:25)
[2020-01-05] MEDS: CARVEDILOL 12.5 MG TABLET PO SCH (10:09)
[2020-01-05] MEDS: LORATADINE 10 MG TABLET PO SCH (10:09)
[2020-01-05] MEDS: POLYETHYLENE GLYCOL 3350 POWDER 17 GM/1 PACKET PO SCH ×3 (10:09→17:25)
[2020-01-05] MEDS: FOLIC ACID 1 MG TABLET PO SCH (10:09)
[2020-01-05] MEDS: OMEGA-3 ACID ETHYL ESTERS 1 GM CAPSULE PO SCH (10:09)
[2020-01-05] MEDS: AMLODIPINE BESYLATE 10 MG TABLET PO SCH (10:09)
[2020-01-05] MEDS: CLOPIDOGREL BISULFATE 75 MG TABLET PO SCH (10:09)
[2020-01-05] MEDS: FLUTICASONE NASAL SPRAY 50 MCG/SPRY 120 SPRAY/16 GM NASL SCH ×2 (10:10→17:27)
[2020-01-05] MEDS: FLUTICASONE/VILANTEROL 100-25 MCG/DOSE IH SCH (10:11)
[2020-01-05] MEDS: LIDOCAINE 5% (700 MG) TRANSDERMAL ADH..PATCH TOP SCH ×2 (10:11→21:50)
[2020-01-05] MEDS: ISOSORBIDE MONONITRATE 60 MG TAB.ER.24H PO SCH (10:11)
--- NOTE | 2020-01-05 11:14 | PDOC PROGRESS REPORT ---
Subjective Progress Note for:: 01/05/20 Reason For Visit: ACUTE CARDIOGENIC PULMONARY EDEMA,ACUTE ON CHRONIC January 04 Admitted with CHF, hypertension acute decompensated congestive heart failure probably diastolic Physical Exam Vital Signs: Temp Pulse Resp BP Pulse Ox 98.8 F 92 12 153/83 H 100 01/05/20 07:12 01/05/20 07:12 01/05/20 07:12 01/05/20 07:12 01/05/20 07:12 Intake & Output 01/04/20 01/05/20 01/06/20 06:59 06:59 06:59 Intake Total 1689 938 Output Total 350 Balance 1339 938 Weight 61.9 kg 61 kg General appearance: PRESENT: mild distress, other - Respiratory Respiratory exam: PRESENT: rales Cardiovascular exam: PRESENT: diastolic murmur, systolic murmur Neurological exam: PRESENT: alert, awake, oriented to person, oriented to place, oriented to time, oriented to situation, CN II-XII grossly intact. ABSENT: motor sensory deficit Psychiatric exam: PRESENT: appropriate affect, normal mood. ABSENT: homicidal ideation, suicidal ideation Results Laboratory Results: 01/05/20 05:00 01/05/20 05:00 01/05/20 01/05/20 05:00 05:00 WBC 12.7 H RBC 2.70 L Hgb 8.7 L Hct 25.7 L MCV 95 MCH 32.3 MCHC 34.0 RDW 14.5 H Plt Count 279 Seg Neutrophils % 86.2 H Sodium 133.3 L Potassium 4.7 Chloride 94 L Carbon Dioxide 30 Anion Gap 9 BUN 69 H Creatinine 2.29 H Est GFR ( Amer) 25 L Glucose 106 Calcium 9.9 Total Bilirubin 1.1 AST 21 Alkaline Phosphatase 47 Total Protein 6.0 L Albumin 3.5 12/27/19 12/28/19 12/28/19 23:14 00:18 05:47 Creatine Kinase CK-MB (CK-2) Troponin I 0.102 0.110 0.134 NT-Pro-B Natriuret Pep 03404 H 12/28/19 12/29/19 12/31/19 11:52 21:57 00:00 Creatine Kinase 40 CK-MB (CK-2) Troponin I 0.129 0.190 NT-Pro-B Natriuret Pep 12/31/19 12/31/19 12/31/19 00:00 05:46 05:46 Creatine Kinase 35 CK-MB (CK-2) 0.45 0.47 Troponin I 0.154 0.145 NT-Pro-B Natriuret Pep 12/31/19 12/31/19 01/05/20 12:17 12:17 05:00 Creatine Kinase 39 CK-MB (CK-2) 0.56 Troponin I 0.125 NT-Pro-B Natriuret Pep 5790 H Impressions: Abdomen/Pelvis CT 12/30/19 00:00 IMPRESSION: Small right effusion with patchy basilar airspace disease right greater than left. Prior cholecystectomy. Internal biliary drainage catheter is in place. Small atrophic left kidney. Chest X-Ray 01/03/20 00:00 IMPRESSION: Worsening CHF. Chest CT 01/04/20 00:00 IMPRESSION: Bilateral ground-glass opacities with focal areas of consolidation findings are consistent with a history of congestive heart failure. There are small bilateral pleural effusions. Probable reactive mediastinal adenopathy. Findings can be seen with infectious or inflammatory processes as well. Clinical correlation is needed. Assessment and Plan - Diagnosis (1) Diastolic heart failure Is this a current diagnosis for this admission?: Yes (2) Acute cardiogenic pulmonary edema Is this a current diagnosis for this admission?: Yes (3) Hypertension Qualifiers: Hypertension type: essential hypertension Qualified Code(s): I10 - Essential (primary) hypertension Is this a current diagnosis for this admission?: Yes (4) Hypoxemia Is this a current diagnosis for this admission?: Yes - Plan Summary Summary: (1) Acute cardiogenic pulmonary edema Is this a current diagnosis for this admission?: Yes Was initially started on IV Lasix. Now she is on oral Bumex. Strict I&O. Daily weight. Monitor renal function. Echocardiogram shows normal EF and moderate to severe MR. Repeat chest x-ray shows improvement. (2) Acute respiratory failure with hypoxia Is this a current diagnosis for this admission?: Yes Continue oxygen as needed. Wean down as tolerated. Was initially on BiPAP. Now on nasal cannula oxygen. (3) Acute on chronic congestive heart failure Qualifiers: Heart failure type: unspecified Qualified Code(s): I50.9 - Heart failure, unspecified Is this a current diagnosis for this admission?: Yes As above (4) Hypertension Qualifiers: Hypertension type: essential hypertension Qualified Code(s): I10 - Essential (primary) hypertension Is this a current diagnosis for this admission?: Yes Continue current medications. Monitor blood pressure. (5) Hyperlipidemia Qualifiers: Hyperlipidemia type: unspecified Qualified Code(s): E78.5 - Hyperlipidemia, unspecified Is this a current diagnosis for this admission?: Yes Continue home medications (6) Asthma Qualifiers: Asthma severity: unspecified severity Asthma persistence: unspecified Asthma complication type: unspecified Qualified Code(s): J45.909 - Unspecified asthma, uncomplicated Is this a current diagnosis for this admission?: Yes Continue home medications (7) Depression Qualifiers: Depression Type: unspecified Qualified Code(s): F32.9 - Major depressive disorder, single episode, unspecified Is this a current diagnosis for this admission?: Yes Continue home medications (8) abdominal pain Low risk CT scan of the abdomen. Continue Protonix daily. Improved since constipation resolved. PT/OT evaluation. Possible discharge tomorrow. 01/04/2020 Per cardiology's original note patient was admitted with acute decompensated congestive heart failure probably diastolic. Ashleigh patient's renal functions are going up BUN is now 74, creatinine is up to 2 Held patient's Bumex 0.5 mg and HCTZ 12.5 mg for tomorrow morning. Patient's Aldactone 25 mg was held this morning already CT scan of the chest today showed probable CHF. Will repeat chest x-ray again 48 hours. Continue to monitor daily labs This morning temperature is 98 pulse 83 and regular blood pressure 140/67 and O2 sat is between 90 and 100% on 3-1/2 L Patient tells me she does use oxygen at home usually 3 L Patient also tells me that she is much less short of breath now than on admission I have discussed patient with Dr. Bryant. January 05, 2020 Temperature 98.4 pulse 90 blood pressure 144/70 respirations are anywhere from 17-27 and averaging about 22 Oxygen saturations are between 90 and 94% either on BiPAP or nasal cannula with a flow of 5 to 6 L and FiO2 of 40% BUN and creatinine continue to slowly rise. I have held her diuretics today for this reason, rather than give her fluids Patient was originally admitted for CHF.. She is currently on no steroids and no antibiotics Have gone down to radiology today and gone over her chest x-rays and CT scans with the radiologist. He states that he thinks this is a combination of some sort of infection or inflammation on top of her CHF. She does have a somewhat groundglass appearance on CT. Risk and suspicion of Covid 19 is low I am going to reconsult cardiology. BNP is 5790 today, whereas on admission it was 06728. Patient has rales scattered about as well as loud murmurs. She tells me at home she uses 3 L of oxygen, and I get the impression she is very limited even on a good day and she is not sick. I will resume her diuretics tomorrow, going to add antibiotics today as well as a short course of Solu-Medrol. I have told patient we are looking at a couple more days at least. She has currently been here 8 days so far - Time Time Spent with patient: 35 or more minutes
[2020-01-05] MEDS ORDERED: LEVOFLOXACIN 750 MG/D5W RTU 750 MG/150 ML RTUPB IV SCH (12:00)
[2020-01-05] MEDS: METHYLPREDNISOLONE INJ 40 MG/1 ML SDV IV SCH ×2 (14:36→21:49)
[2020-01-05] MEDS: FLUOXETINE HCL 20 MG CAPSULE PO SCH (17:25)
[2020-01-06] MEDS: HEPARIN SOD (PORCINE) 5,000 UNIT/ML 1 ML VIAL SUBCUT SCH ×3 (06:36→22:05)
[2020-01-06] MEDS: LEVOTHYROXINE SODIUM 0.112 MG TABLET PO SCH (06:36)
[2020-01-06] MEDS: LEVOTHYROXINE SODIUM 0.025 MG TABLET PO SCH (06:36)
[2020-01-06 08:01] LABS: HEMATOCRIT 24.9 % (36.0-47.0); HEMOGLOBIN 8.6 g/dL (12.0-15.5); MEAN CORPUSCULAR HEMOGLOBIN 32.9 pg (27.0-33.4); MEAN CORPUSCULAR HGB CONC 34.7 g/dL (32.0-36.0); MEAN CORPUSCULAR VOLUME 95 fl (80-97); PLATELET COUNT 325 10^3/uL (150-450); RED BLOOD COUNT 2.63 10^6/uL (3.72-5.28); RED CELL DISTRIBUTION WIDTH 14.6 % (11.5-14.0); WHITE BLOOD COUNT 18.9 10^3/uL (4.0-10.5)
[2020-01-06 08:20] LABS: ABSOLUTE MONOCYTES # (MANUAL) 0.4 10^3/uL (0.1-1.4); BAND NEUTROPHILS % (MANUAL) 2 % (3-5); BASOPHILS % (MANUAL) 0 % (0-2); EOSINOPHILS % (MANUAL) 0 % (0-6); LYMPHOCYTES % (MANUAL) 0 % (13-45); MONOCYTES % (MANUAL) 2 % (3-13); SEGMENTED NEUTROPHILS % (MAN) 96 % (42-78); TOTAL CELLS COUNTED 100
[2020-01-06 08:21] LABS: PLATELET COMMENT ADEQUATE; RBC MORPHOLOGY COMMENT NORMO-CYTIC/CHROMIC; TOXIC GRANULATION SLIGHT
[2020-01-06 09:55] LABS: ARTERIAL BLOOD H2CO3 1.16 mmol/L (1.05-1.35); ARTERIAL BLOOD HCO3 28.7 mmol/L (20-24); ARTERIAL BLOOD O2 SATURATION 95.8 % (94-98); ARTERIAL BLOOD PCO2 38.7 mmHg (35-45); ARTERIAL BLOOD PH 7.49 (7.35-7.45); ARTERIAL BLOOD PO2 73.5 mmHg (80-100); ARTERIAL BLOOD TOTAL CO2 29.9 mmol/L (21-25)
[2020-01-06 09:58] LABS: ARTERIAL BLOOD FIO2 40%
[2020-01-06] MEDS: ACETAMINOPHEN 325 MG TABLET PO PRN (12:32)
[2020-01-06] MEDS: METHYLPREDNISOLONE INJ 40 MG/1 ML SDV IV SCH ×2 (12:32→22:01)
--- NOTE | 2020-01-06 14:59 | PDOC PROGRESS REPORT ---
Subjective Progress Note for:: 01/06/20 Subjective:: Reconsulted on account of persistent oxygen requirement and increased work of breathing. Continues to require noninvasive respiratory support. Has been adequately diuresed over the past few days with bump in renal function as well. Reason For Visit: ACUTE CARDIOGENIC PULMONARY EDEMA,ACUTE ON CHRONIC Physical Exam Vital Signs: Temp Pulse Resp BP Pulse Ox 97.9 F 100 17 149/96 H 96 01/06/20 07:17 01/06/20 07:17 01/06/20 09:19 01/06/20 07:17 01/06/20 09:19 Intake & Output 01/05/20 01/06/20 01/07/20 06:59 06:59 06:59 Intake Total 938 510 0 Output Total 2 Balance 938 510 -2 Weight 61 kg 60.7 kg 60.7 kg General appearance: PRESENT: no acute distress, cooperative Head exam: PRESENT: atraumatic, normocephalic Eye exam: PRESENT: conjunctiva pink, EOMI Mouth exam: PRESENT: moist Respiratory exam: PRESENT: crackles, decreased breath sounds, prolonged expiratory phas, symmetrical, unlabored Cardiovascular exam: PRESENT: RRR, +S1, +S2 GI/Abdominal exam: PRESENT: soft Rectal exam: PRESENT: deferred Neurological exam: PRESENT: alert, awake, oriented to person, oriented to place, oriented to time, oriented to situation Skin exam: PRESENT: dry, intact, normal color Results Laboratory Results: 01/06/20 07:32 01/05/20 05:00 01/06/20 01/06/20 07:32 09:31 WBC 18.9 H RBC 2.63 L Hgb 8.6 L Hct 24.9 L MCV 95 MCH 32.9 MCHC 34.7 RDW 14.6 H Plt Count 325 Seg Neutrophils % Not Reportable Carbonic Acid 1.16 HCO3/H2CO3 Ratio 24:1 ABG pH 7.49 H ABG pCO2 38.7 ABG pO2 73.5 L ABG HCO3 28.7 H ABG O2 Saturation 95.8 ABG Base Excess 5.0 FiO2 40% 12/27/19 12/28/19 12/28/19 23:14 00:18 05:47 Creatine Kinase CK-MB (CK-2) Troponin I 0.102 0.110 0.134 NT-Pro-B Natriuret Pep 61345 H 12/28/19 12/29/19 12/31/19 11:52 21:57 00:00 Creatine Kinase 40 CK-MB (CK-2) Troponin I 0.129 0.190 NT-Pro-B Natriuret Pep 12/31/19 12/31/19 12/31/19 00:00 05:46 05:46 Creatine Kinase 35 CK-MB (CK-2) 0.45 0.47 Troponin I 0.154 0.145 NT-Pro-B Natriuret Pep 12/31/19 12/31/19 01/05/20 12:17 12:17 05:00 Creatine Kinase 39 CK-MB (CK-2) 0.56 Troponin I 0.125 NT-Pro-B Natriuret Pep 5790 H 01/06/20 07:32 Creatine Kinase CK-MB (CK-2) Troponin I NT-Pro-B Natriuret Pep 6760 H Impressions: Abdomen/Pelvis CT 12/30/19 00:00 IMPRESSION: Small right effusion with patchy basilar airspace disease right gr eater than left. Prior cholecystectomy. Internal biliary drainage catheter is in place. Small atrophic left kidney. Chest X-Ray 01/03/20 00:00 IMPRESSION: Worsening CHF. Chest CT 01/04/20 00:00 IMPRESSION: Bilateral ground-glass opacities with focal areas of consolidation findings are consistent with a history of congestive heart failure. There are small bilateral pleural effusions. Probable reactive mediastinal adenopathy. Findings can be seen with infectious or inflammatory processes as well. Clinical correlation is needed. Assessment & Plan - Diagnosis (1) Acute on chronic congestive heart failure Qualifiers: Heart failure type: unspecified Qualified Code(s): I50.9 - Heart failure, unspecified Is this a current diagnosis for this admission?: Yes Plan: Overall heart failure symptoms have improved. There has been elevation in renal function indicating adequate diuresis. There has been drop in BNP as well. CT scan of the chest shows minimal pleural effusion probably reactive changes for the most part. Overall she has improved tremendously in terms of heart failure but continues to have an oxygen requirement which may be chronic. Would recommend continue maintenance diuretic perhaps at higher dose to decrease her filling pressures. Can alternate on full dose with half dose every other day. Can continue to use bumetanide. (2) Hypertension Qualifiers: Hypertension type: essential hypertension Qualified Code(s): I10 - Essential (primary) hypertension Is this a current diagnosis for this admission?: Yes Plan: Stable Continue amlodipine Continue carvedilol No dose changes Watch blood pressure as we diurese. (3) Hyperlipidemia Qualifiers: Hyperlipidemia type: unspecified Qualified Code(s): E78.5 - Hyperlipidemia, unspecified Is this a current diagnosis for this admission?: Yes Plan: Continue atorvastatin - Notes Notes: From a heart failure standpoint she is improved. Recommend continuing maintenance diuretic. Slow wean in terms of oxygen and respiratory support which complicates care. Echocardiogram done this admission shows low normal ejection fraction estimated at 50 to 55% with significant diastolic dysfunction.
[2020-01-06] MEDS: CARVEDILOL 12.5 MG TABLET PO SCH (15:42)
[2020-01-06] MEDS: ASPIRIN 81 MG TABLET, ENT COATED PO SCH (15:42)
[2020-01-06] MEDS: ISOSORBIDE MONONITRATE 60 MG TAB.ER.24H PO SCH (15:47)
[2020-01-06] MEDS: HYDRALAZINE HCL 50 MG TABLET PO SCH ×2 (15:49→22:01)
[2020-01-06] MEDS: FLUTICASONE/VILANTEROL 100-25 MCG/DOSE IH SCH (15:50)
[2020-01-06] MEDS: LORATADINE 10 MG TABLET PO SCH (15:53)
[2020-01-06] MEDS: DOCUSATE SODIUM 100 MG CAPSULE PO SCH (15:56)
[2020-01-06] MEDS: FERROUS SULFATE 325 MG TABLET PO SCH (15:57)
[2020-01-06] MEDS: FLUTICASONE NASAL SPRAY 50 MCG/SPRY 120 SPRAY/16 GM NASL SCH ×2 (15:59→22:01)
[2020-01-06] MEDS: FOLIC ACID 1 MG TABLET PO SCH (15:59)
[2020-01-06] MEDS: ATORVASTATIN CALCIUM 80 MG TABLET PO SCH (16:07)
[2020-01-06] MEDS: LIDOCAINE 5% (700 MG) TRANSDERMAL ADH..PATCH TOP SCH ×2 (16:07→22:05)
[2020-01-06] MEDS: OMEGA-3 ACID ETHYL ESTERS 1 GM CAPSULE PO SCH (16:09)
[2020-01-06] MEDS: POLYETHYLENE GLYCOL 3350 POWDER 17 GM/1 PACKET PO SCH ×2 (16:09→16:30)
[2020-01-06] MEDS: AMLODIPINE BESYLATE 10 MG TABLET PO SCH (16:09)
[2020-01-06] MEDS: MAGNESIUM OXIDE 400 MG TABLET PO SCH (16:09)
[2020-01-06] MEDS: PANTOPRAZOLE SODIUM 40 MG TABLET.DR PO SCH (16:10)
[2020-01-06] MEDS: CLOPIDOGREL BISULFATE 75 MG TABLET PO SCH (16:10)
[2020-01-06] MEDS: ONDANSETRON HCL INJ/PF 4 MG/2 ML SDV IV PRN (16:23)
[2020-01-06] MEDS ORDERED: BUMETANIDE 1 MG TABLET PO ONE (17:41)
--- NOTE | 2020-01-06 17:54 | PDOC PROGRESS REPORT ---
Subjective Progress Note for:: 01/06/20 Reason For Visit: ACUTE CARDIOGENIC PULMONARY EDEMA,ACUTE ON CHRONIC January Patient was admitted to the hospital acute CHF with decompensated congestive heart failure probably diastolic, and hypertension Physical Exam Vital Signs: Temp Pulse Resp BP Pulse Ox 97.9 F 88 17 149/96 H 96 01/06/20 07:17 01/06/20 14:00 01/06/20 09:19 01/06/20 07:17 01/06/20 09:19 Intake & Output 01/05/20 01/06/20 01/07/20 06:59 06:59 06:59 Intake Total 938 510 0 Output Total 2 Balance 938 510 -2 Weight 61 kg 60.7 kg 60.7 kg General appearance: PRESENT: mild distress - As per Gay Respiratory exam: PRESENT: decreased breath sounds, wheezes Cardiovascular exam: PRESENT: diastolic murmur, RRR, systolic murmur. ABSENT: rubs Neurological exam: PRESENT: alert, awake, oriented to person, oriented to place, oriented to time, oriented to situation, CN II-XII grossly intact. ABSENT: motor sensory deficit Psychiatric exam: PRESENT: anxious, depressed, unusual affect - Patient feels as though she is not improving and seems depressed over this Results Laboratory Results: 01/06/20 07:32 01/05/20 05:00 01/06/20 01/06/20 07:32 09:31 WBC 18.9 H RBC 2.63 L Hgb 8.6 L Hct 24.9 L MCV 95 MCH 32.9 MCHC 34.7 RDW 14.6 H Plt Count 325 Seg Neutrophils % Not Reportable Carbonic Acid 1.16 HCO3/H2CO3 Ratio 24:1 ABG pH 7.49 H ABG pCO2 38.7 ABG pO2 73.5 L ABG HCO3 28.7 H ABG O2 Saturation 95.8 ABG Base Excess 5.0 FiO2 40% 12/27/19 12/28/19 12/28/19 23:14 00:18 05:47 Creatine Kinase CK-MB (CK-2) Troponin I 0.102 0.110 0.134 NT-Pro-B Natriuret Pep 35094 H 12/28/19 12/29/19 12/31/19 11:52 21:57 00:00 Creatine Kinase 40 CK-MB (CK-2) Troponin I 0.129 0.190 NT-Pro-B Natriuret Pep 12/31/19 12/31/19 12/31/19 00:00 05:46 05:46 Creatine Kinase 35 CK-MB (CK-2) 0.45 0.47 Troponin I 0.154 0.145 NT-Pro-B Natriuret Pep 12/31/19 12/31/19 01/05/20 12:17 12:17 05:00 Creatine Kinase 39 CK-MB (CK-2) 0.56 Troponin I 0.125 NT-Pro-B Natriuret Pep 5790 H 01/06/20 07:32 Creatine Kinase CK-MB (CK-2) Troponin I NT-Pro-B Natriuret Pep 6760 H Impressions: Abdomen/Pelvis CT 12/30/19 00:00 IMPRESSION: Small right effusion with patchy basilar airspace disease right greater than left. Prior cholecystectomy. Internal biliary drainage catheter is in place. Small atrophic left kidney. Chest X-Ray 01/03/20 00:00 IMPRESSION: Worsening CHF. Chest CT 01/04/20 00:00 IMPRESSION: Bilateral ground-glass opacities with focal areas of consolidation findings are consistent with a history of congestive heart failure. There are small bilateral pleural effusions. Probable reactive mediastinal adenopathy. Findings can be seen with infectious or inflammatory processes as well. Clinical correlation is needed. Assessment and Plan - Diagnosis (1) Diastolic heart failure Is this a current diagnosis for this admission?: Yes (2) Acute cardiogenic pulmonary edema Is this a current diagnosis for this admission?: Yes (3) Hypertension Qualifiers: Hypertension type: essential hypertension Qualified Code(s): I10 - Essen tial (primary) hypertension Is this a current diagnosis for this admission?: Yes (4) Hypoxemia Is this a current diagnosis for this admission?: Yes (5) Chronic asthmatic changes Is this a current diagnosis for this admission?: Yes (6) Oxygen dependency at home Is this a current diagnosis for this admission?: Yes - Plan Summary Summary: (1) Acute cardiogenic pulmonary edema Is this a current diagnosis for this admission?: Yes Was initially started on IV Lasix. Now she is on oral Bumex. Strict I&O. Daily weight. Monitor renal function. Echocardiogram shows normal EF and moderate to severe MR. Repeat chest x-ray shows improvement. (2) Acute respiratory failure with hypoxia Is this a current diagnosis for this admission?: Yes Continue oxygen as needed. Wean down as tolerated. Was initially on BiPAP. Now on nasal cannula oxygen. (3) Acute on chronic congestive heart failure Qualifiers: Heart failure type: unspecified Qualified Code(s): I50.9 - Heart failure, unspecified Is this a current diagnosis for this admission?: Yes As above (4) Hypertension Qualifiers: Hypertension type: essential hypertension Qualified Code(s): I10 - Essential (primary) hypertension Is this a current diagnosis for this admission?: Yes Continue current medications. Monitor blood pressure. (5) Hyperlipidemia Qualifiers: Hyperlipidemia type: unspecified Qualified Code(s): E78.5 - Hyperlipidemia, unspecified Is this a current diagnosis for this admission?: Yes Continue home medications (6) Asthma Qualifiers: Asthma severity: unspecified severity Asthma persistence: unspecified Asthma complication type: unspecified Qualified Code(s): J45.909 - Unspecified asthma, uncomplicated Is this a current diagnosis for this admission?: Yes Continue home medications (7) Depression Qualifiers: Depression Type: unspecified Qualified Code(s): F32.9 - Major depressive disorder, single episode, unspecified Is this a current diagnosis for this admission?: Yes Continue home medications (8) abdominal pain Low risk CT scan of the abdomen. Continue Protonix daily. Improved since constipation resolved. PT/OT evaluation. Possible discharge tomorrow. 01/04/2020 Per cardiology's original note patient was admitted with acute decompensated congestive heart failure probably diastolic. Ashleigh patient's renal functions are going up BUN is now 74, creatinine is up to 2 Held patient's Bumex 0.5 mg and HCTZ 12.5 mg for tomorrow morning. Patient's Aldactone 25 mg was held this morning already CT scan of the chest today showed probable CHF. Will repeat chest x-ray again 48 hours. Continue to monitor daily labs This morning temperature is 98 pulse 83 and regular blood pressure 140/67 and O2 sat is between 90 and 100% on 3-1/2 L Patient tells me she does use oxygen at home usually 3 L Patient also tells me that she is much less short of breath now than on admission I have discussed patient with Dr. Bryant. January 05, 2020 Temperature 98.4 pulse 90 blood pressure 144/70 respirations are anywhere from 17-27 and averaging about 22 Oxygen saturations are between 90 and 94% either on BiPAP or nasal cannula with a flow of 5 to 6 L and FiO2 of 40% BUN and creatinine continue to slowly rise. I have held her diuretics today for this reason, rather than give her fluids Patient was originally admitted for CHF.. She is currently on no steroids and no antibiotics Have gone down to radiology today and gone over her chest x-rays and CT scans with the radiologist. He states that he thinks this is a combination of some sort of infection or inflammation on top of her CHF. She does have a somewhat groundglass appearance on CT. Risk and suspicion of Covid 19 is low I am going to reconsult cardiology. BNP is 5790 today, whereas on admission it was 55613. Patient has rales scattered about as well as loud murmurs. She tells me at home she uses 3 L of oxygen, and I get the impression she is very limited even on a good day and she is not sick. I will resume her diuretics tomorrow, going to add antibiotics today as well as a short course of Solu-Medrol. I have told patient we are looking at a couple more days at least. She has currently been here 8 days so far Patient's slow improvement could also be based on her poor cardiac function. 01/06/2020 I have spoken to her on the phone since there is no visitation rights. Tells me that she has had this "groundglass appearance" on her x-rays for 20 years. 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 Patient tells me that she uses 3 L of oxygen at home always, that most of the time she is able to walk to the bathroom or the other side of the house without getting short of breath but no further than that. Patient has seen excellent faucets assembler in the past including Edgar, has maxed out on her surgical options and is now only a medicine treatment only. Patient originally came to the hospital for florid pulmonary edema however this is been corrected and patient is probably back at her baseline from a cardiac standpoint. Cardiology reconsulted on the patient today and pretty much agreed with this and did make us few suggestions concerning possibly diuretics either every other day, basically as a maintenance therapy. This would be so we do not hurt her kidneys any worse than they already are. Also one has to keep in mind that patient is a set up for pulmonary emboli she has been at bedrest now here in the hospital for 9 days, however she is on prophylactic heparin therapy. Yesterday I started her on IV Levaquin and IV steroids with the hopes that this may improve her pulmonary functions. I have consulted pulmonology today for their advice and opinion concerning treatment options. This morning her temperature was 97.9 her pulse rate was 100 her blood pressure was 149/96 respiratory rate was 21 and oxygen saturation was 99% on BiPAP, the flow of 5 L and FiO2 of 40%. Patient becomes anxious when the BiPAP is removed. Morning's blood gas shows pH 7.49 PCO2 down slightly at 38 PO2 up slightly at 73 bicarb 28 total CO2 of 29. Did ask for her flow to be decreased to 4 L foll owing ABG which I think would help with her retaining CO2. - Time Time Spent with patient: 35 or more minutes
[2020-01-06] MEDS: MONTELUKAST SODIUM 10 MG TABLET PO SCH (22:02)
[2020-01-06] MEDS: FLUOXETINE HCL 20 MG CAPSULE PO SCH (22:05)
[2020-01-07] MEDS: POLYETHYLENE GLYCOL 3350 POWDER 17 GM/1 PACKET PO SCH ×4 (00:57→18:57)
[2020-01-07] MEDS: DOCUSATE SODIUM 100 MG CAPSULE PO SCH ×3 (00:59→18:50)
[2020-01-07] MEDS: LEVOTHYROXINE SODIUM 0.025 MG TABLET PO SCH (06:18)
[2020-01-07] MEDS: HEPARIN SOD (PORCINE) 5,000 UNIT/ML 1 ML VIAL SUBCUT SCH ×3 (06:19→21:15)
[2020-01-07] MEDS: LEVOTHYROXINE SODIUM 0.112 MG TABLET PO SCH (06:19)
[2020-01-07] MEDS: METHYLPREDNISOLONE INJ 40 MG/1 ML SDV IV SCH ×3 (06:22→21:15)
[2020-01-07 08:54] LABS: HEMATOCRIT 19.6 % (36.0-47.0); MEAN CORPUSCULAR HEMOGLOBIN 32.2 pg (27.0-33.4); MEAN CORPUSCULAR HGB CONC 33.7 g/dL (32.0-36.0); MEAN CORPUSCULAR VOLUME 96 fl (80-97); PLATELET COUNT 386 10^3/uL (150-450); RED BLOOD COUNT 2.05 10^6/uL (3.72-5.28); RED CELL DISTRIBUTION WIDTH 14.7 % (11.5-14.0); WHITE BLOOD COUNT 18.3 10^3/uL (4.0-10.5)
[2020-01-07 08:57] LABS: ANION GAP 8 (5-19); BLOOD UREA NITROGEN 79 mg/dL (7-20); CALCIUM 9.3 mg/dL (8.4-10.2); CARBON DIOXIDE 30 mmol/L (22-30); CHLORIDE 99 mmol/L (98-107); GLUCOSE 144 mg/dL (75-110)
[2020-01-07 09:03] LABS: HEMOGLOBIN 6.6 g/dL (12.0-15.5)
[2020-01-07 09:07] LABS: ABSOLUTE LYMPHOCYTES# (MANUAL) 0.4 10^3/uL (0.5-4.7); ABSOLUTE MONOCYTES # (MANUAL) 0.7 10^3/uL (0.1-1.4); BASOPHILS % (MANUAL) 0 % (0-2); EOSINOPHILS % (MANUAL) 0 % (0-6); LYMPHOCYTES % (MANUAL) 2 % (13-45); MONOCYTES % (MANUAL) 4 % (3-13); PLATELET COMMENT ADEQUATE; SEGMENTED NEUTROPHILS % (MAN) 94 % (42-78); TOTAL CELLS COUNTED 100
[2020-01-07 09:09] LABS: HYPOCHROMASIA SLIGHT; POLYCHROMASIA SLIGHT
[2020-01-07] MEDS ORDERED: FUROSEMIDE 20 MG TABLET PO PRN (09:28)
[2020-01-07] MEDS ORDERED: NORMAL SALINE 250 ML IV PRN ×2 (09:28)
--- NOTE | 2020-01-07 10:00 | PDOC PROGRESS REPORT ---
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 January 07, 2020 Patient originally admitted for congestive heart failure, hypoxia, respiratory distress, hypertension Physical Exam Vital Signs: Temp Pulse Resp BP Pulse Ox 98.4 F 71 16 130/68 H 95 01/07/20 07:41 01/07/20 07:41 01/07/20 08:00 01/07/20 07:41 01/07/20 08:00 Intake & Output 01/06/20 01/07/20 01/08/20 06:59 06:59 06:59 Intake Total 510 0 Output Total 752 Balance 510 -752 Weight 60.7 kg 59.2 kg General appearance: PRESENT: mild distress Respiratory exam: PRESENT: rhonchi Cardiovascular exam: PRESENT: diastolic murmur, systolic murmur Neurological exam: PRESENT: alert, awake, oriented to person, oriented to place, oriented to time, oriented to situation, CN II-XII grossly intact, other - Patient much more talkative this morning and more alert. ABSENT: motor sensory deficit Psychiatric exam: PRESENT: appropriate affect, normal mood. ABSENT: homicidal ideation, suicidal ideation Results Laboratory Results: 01/07/20 08:27 01/07/20 08:27 01/06/20 01/07/20 01/07/20 09:31 08:27 08:27 WBC 18.3 H RBC 2.05 L Hgb 6.6 L Hct 19.6 L MCV 96 MCH 32.2 MCHC 33.7 RDW 14.7 H Plt Count 386 Seg Neutrophils % Not Reportable Carbonic Acid 1.16 HCO3/H2CO3 Ratio 24:1 ABG pH 7.49 H ABG pCO2 38.7 ABG pO2 73.5 L ABG HCO3 28.7 H ABG O2 Saturation 95.8 ABG Base Excess 5.0 FiO2 40% Sodium 137.2 Potassium 5.0 Chloride 99 Carbon Dioxide 30 Anion Gap 8 BUN 79 H Creatinine 2.18 H Est GFR ( Amer) 27 L Glucose 144 H Calcium 9.3 12/27/19 12/28/19 12/28/19 23:14 00:18 05:47 Creatine Kinase CK-MB (CK-2) Troponin I 0.102 0.110 0.134 NT-Pro-B Natriuret Pep 88727 H 12/28/19 12/29/19 12/31/19 11:52 21:57 00:00 Creatine Kinase 40 CK-MB (CK-2) Troponin I 0.129 0.190 NT-Pro-B Natriuret Pep 12/31/19 12/31/19 12/31/19 00:00 05:46 05:46 Creatine Kinase 35 CK-MB (CK-2) 0.45 0.47 Troponin I 0.154 0.145 NT-Pro-B Natriuret Pep 12/31/19 12/31/19 01/05/20 12:17 12:17 05:00 Creatine Kinase 39 CK-MB (CK-2) 0.56 Troponin I 0.125 NT-Pro-B Natriuret Pep 5790 H 01/06/20 07:32 Creatine Kinase CK-MB (CK-2) Troponin I NT-Pro-B Natriuret Pep 6760 H Impressions: Abdomen/Pelvis CT 12/30/19 00:00 IMPRESSION: Small right effusion with patchy basilar airspace disease right greater than left. Prior cholecystectomy. Internal biliary drainage catheter is in place. Small atrophic left kidney. Chest X-Ray 01/03/20 00:00 IMPRESSION: Worsening CHF. Chest CT 01/04/20 00:00 IMPRESSION: Bilateral ground-glass opacities with focal areas of consolidation findings are consistent with a history of congestive heart failure. There are small bilateral pleural effusions. Probable reactive mediastinal adenopathy. Findings can be seen with infectious or inflammatory processes as well. Clinical correlation is needed. Assessment and Plan - Diagnosis (1) Diastolic heart failure Is this a current diagnosis for this admission?: Yes (2) Acute cardiogenic pulmonary edema Is this a current diagnosis for this admission?: Yes (3) Hypertension Qualifiers: Hypertension type: essential hypertension Qualified Code(s): I10 - Essential (primary) hypertension Is this a current diagnosis for this admission?: Yes (4) Hypoxemia Is this a current diagnosis for this admission?: Yes (5) Chronic asthmatic changes Is this a current diagnosis for this admission?: Yes (6) Oxygen dependency at home Is this a current diagnosis for this admission?: Yes - Plan Summary Summary: (1) Acute cardiogenic pulmonary edema Is this a current diagnosis for this admission?: Yes Was initially started on IV Lasix. Now she is on oral Bumex. Strict I&O. Daily weight. Monitor renal function. Echocardiogram shows normal EF and moderate to severe MR. Repeat chest x-ray shows improvement. (2) Acute respiratory failure with hypoxia Is this a current diagnosis for this admission?: Yes Continue oxygen as needed. Wean down as tolerated. Was initially on BiPAP. Now on nasal cannula oxygen. (3) Acute on chronic congestive heart failure Qualifiers: Heart failure type: unspecified Qualified Code(s): I50.9 - Heart failure, unspecified Is this a current diagnosis for this admission?: Yes As above (4) Hypertension Qualifiers: Hypertension type: essential hypertension Qualified Code(s): I10 - Essential (primary) hypertension Is this a current diagnosis for this admission?: Yes Continue current medications. Monitor blood pressure. (5) Hyperlipidemia Qualifiers: Hyperlipidemia type: unspecified Qualified Code(s): E78.5 - Hyperlipidemia, unspecified Is this a current diagnosis for this admission?: Yes Continue home medications (6) Asthma Qualifiers: Asthma severity: unspecified severity Asthma persistence: unspecified Asthma complication type: unspecified Qualified Code(s): J45.909 - Unspecified asthma, uncomplicated Is this a current diagnosis for this admission?: Yes Continue home medications (7) Depression Qualifiers: Depression Type: unspecified Qualified Code(s): F32.9 - Major depressive disorder, single episode, unspecified Is this a current diagnosis for this admission?: Yes Continue home medications (8) abdominal pain Low risk CT scan of the abdomen. Continue Protonix daily. Improved since con stipation resolved. PT/OT evaluation. Possible discharge tomorrow. 01/04/2020 Per cardiology's original note patient was admitted with acute decompensated congestive heart failure probably diastolic. Ashleigh patient's renal functions are going up BUN is now 74, creatinine is up to 2 Held patient's Bumex 0.5 mg and HCTZ 12.5 mg for tomorrow morning. Patient's Aldactone 25 mg was held this morning already CT scan of the chest today showed probable CHF. Will repeat chest x-ray again 48 hours. Continue to monitor daily labs This morning temperature is 98 pulse 83 and regular blood pressure 140/67 and O2 sat is between 90 and 100% on 3-1/2 L Patient tells me she does use oxygen at home usually 3 L Patient also tells me that she is much less short of breath now than on admission I have discussed patient with Dr. Bryant. January 05, 2020 Temperature 98.4 pulse 90 blood pressure 144/70 respirations are anywhere from 17-27 and averaging about 22 Oxygen saturations are between 90 and 94% either on BiPAP or nasal cannula with a flow of 5 to 6 L and FiO2 of 40% BUN and creatinine continue to slowly rise. I have held her diuretics today for this reason, rather than give her fluids Patient was originally admitted for CHF.. She is currently on no steroids and no antibiotics Have gone down to radiology today and gone over her chest x-rays and CT scans with the radiologist. He states that he thinks this is a combination of some sort of infection or inflammation on top of her CHF. She does have a somewhat groundglass appearance on CT. Risk and suspicion of Covid 19 is low I am going to reconsult cardiology. BNP is 5790 today, whereas on admission it was 25469. Patient has rales scattered about as well as loud murmurs. She tells me at home she uses 3 L of oxygen, and I get the impression she is very limited even on a good day and she is not sick. I will resume her diuretics tomorrow, going to add antibiotics today as well as a short course of Solu-Medrol. I have told patient we are looking at a couple more days at least. She has currently been here 8 days so far Patient's slow improvement could also be based on her poor cardiac function. 01/06/2020 I have spoken to her on the phone since there is no visitation rights. Tells me that she has had this "groundglass appearance" on her x-rays for 20 years. Also tells me that they have been to see for 5 different graphite disk assembler and seemed to get a different story each time. Patient tells me that she uses 3 L of oxygen at home always, that most of the time she is able to walk to the bathroom or the other side of the house without getting short of breath but no further than that. 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 Patient originally came to the hospital for florid pulmonary edema however this is been corrected and patient is probably back at her baseline from a cardiac standpoint. Cardiology reconsulted on the patient today and pretty much agreed with this and did make us few suggestions concerning possibly diuretics either every other day, basically as a maintenance therapy. This would be so we do not hurt her kidneys any worse than they already are. Also one has to keep in mind that patient is a set up for pulmonary emboli she has been at bedrest now here in the hospital for 9 days, however she is on prophylactic heparin therapy. Yesterday I started her on IV Levaquin and IV steroids with the hopes that this may improve her pulmonary functions. I have consulted pulmonology today for their advice and opinion concerning treatment options. This morning her temperature was 97.9 her pulse rate was 100 her blood pressure was 149/96 respiratory rate was 21 and oxygen saturation was 99% on BiPAP, the flow of 5 L and FiO2 of 40%. Patient becomes anxious when the BiPAP is removed. Morning's blood gas shows pH 7.49 PCO2 down slightly at 38 PO2 up slightly at 73 bicarb 28 total CO2 of 29. Did ask for her flow to be decreased to 4 L following ABG which I think would help with her retaining CO2. 01/07/2020 Patient remains afebrile 98 4, blood pressure 130/68, pulse 71 patient's oxygen saturation is between 96 and 100% FiO2 40% 5 L flow BiPAP settings have been slightly increased by pulmonary, also steroids have gone from every 12 to every 8, Singulair has been added Audiology states that the patient does not appear to be in congestive heart failure, edema. Will need to monitor renal functions closely concerning diuretics I spoke to patient's yesterday and today to bring him up-to-date. Patient does not appear to need to be transferred due to acuity and even if this was necessary it would probably be very difficult to get anyone to accept her in the midst of this pandemic. Cardiology did not make this recommendation. Did put patient back on a low-dose of Bumex 0.5 mg daily Yesterday patient's hemoglobin was 8.6 today it is 6.6. Will transfuse 2 units to guaiac stool check. This is probably anemia due to chronic disease and hospitalization. No obvious active signs of bleeding. White count is up slightly secondary to steroids Arterial blood gas done yesterday is actually improved Creatinine appears stable at 2.18 I have told patient she needs to get up out of bed some today sitting in a chair and we need to try to take her off the BiPAP at least temporarily. Patient was supposed to be using BiPAP at home for some time now and is evidently noncompliant. Patient appears medically stable will monitor her H&H, try to encourage her to be out of bed more and off of BiPAP more often - Time Time Spent with patient: 35 or more minutes
[2020-01-07] MEDS: FLUTICASONE NASAL SPRAY 50 MCG/SPRY 120 SPRAY/16 GM NASL SCH ×2 (11:49→18:50)
[2020-01-07] MEDS: ISOSORBIDE MONONITRATE 60 MG TAB.ER.24H PO SCH (11:52)
[2020-01-07] MEDS: FLUTICASONE/VILANTEROL 100-25 MCG/DOSE IH SCH (11:53)
[2020-01-07] MEDS: ATORVASTATIN CALCIUM 80 MG TABLET PO SCH (11:53)
[2020-01-07] MEDS: FOLIC ACID 1 MG TABLET PO SCH (11:54)
[2020-01-07] MEDS: CARVEDILOL 12.5 MG TABLET PO SCH (11:54)
[2020-01-07] MEDS: CALCITRIOL 0.25 MCG CAPSULE PO SCH (11:54)
[2020-01-07] MEDS: OMEGA-3 ACID ETHYL ESTERS 1 GM CAPSULE PO SCH (11:54)
[2020-01-07] MEDS: MAGNESIUM OXIDE 400 MG TABLET PO SCH (11:55)
[2020-01-07] MEDS: HYDRALAZINE HCL 50 MG TABLET PO SCH ×2 (11:55→21:35)
[2020-01-07] MEDS: LORATADINE 10 MG TABLET PO SCH (11:56)
[2020-01-07] MEDS: ASPIRIN 81 MG TABLET, ENT COATED PO SCH (11:56)
[2020-01-07] MEDS: PANTOPRAZOLE SODIUM 40 MG TABLET.DR PO SCH (11:56)
[2020-01-07] MEDS: AMLODIPINE BESYLATE 10 MG TABLET PO SCH (11:57)
[2020-01-07] MEDS: LIDOCAINE 5% (700 MG) TRANSDERMAL ADH..PATCH TOP SCH ×2 (11:57→21:56)
[2020-01-07] MEDS: CLOPIDOGREL BISULFATE 75 MG TABLET PO SCH (11:57)
--- NOTE | 2020-01-07 15:41 | Progress Note ---
Provider Note Provider Note: 01/07/2020 1500 hrs. I decrease patient's oxygen flow down from 5 L to 4 L. At 5 L patient was running between 98 and 100% O2 saturation. After 15 minutes at 4 L patient was still running between 96 and 98 saturation. Blood pressure 103/58. Patient is receiving her first unit of packed red cells, to receive 20 of Lasix between first and second unit. Rotation of her lungs reveals some coarse rhonchi in the right lung base. She is awake and alert tells me that she has had 6 previous back operations. Myself and the nurse that she takes Ultram for her back pain. explained to me this morning on the phone that she has "chronic pain" and always hurts. Try to keep patient's oxygen flow at 4 to keep her from retaining CO2. Long as patient maintains a oxygen saturation in the low 90s or higher she will do fine.
[2020-01-07 18:17] LABS: HEMATOCRIT 23.9 % (36.0-47.0); HEMOGLOBIN 8.2 g/dL (12.0-15.5); MEAN CORPUSCULAR HEMOGLOBIN 31.9 pg (27.0-33.4); MEAN CORPUSCULAR HGB CONC 34.2 g/dL (32.0-36.0); MEAN CORPUSCULAR VOLUME 93 fl (80-97); PLATELET COUNT 318 10^3/uL (150-450); RED BLOOD COUNT 2.57 10^6/uL (3.72-5.28); RED CELL DISTRIBUTION WIDTH 17.3 % (11.5-14.0); WHITE BLOOD COUNT 15.7 10^3/uL (4.0-10.5)
[2020-01-07 18:49] LABS: ABSOLUTE LYMPHOCYTES# (MANUAL) 0.9 10^3/uL (0.5-4.7); ABSOLUTE MONOCYTES # (MANUAL) 0.6 10^3/uL (0.1-1.4); ANISOCYTOSIS 1+; BAND NEUTROPHILS % (MANUAL) 1 % (3-5); BASOPHILS % (MANUAL) 0 % (0-2); EOSINOPHILS % (MANUAL) 0 % (0-6); LYMPHOCYTES % (MANUAL) 6 % (13-45); METAMYELOCYTES % (MANUAL) 1 % (0-1); MONOCYTES % (MANUAL) 4 % (3-13); OVALOCYTES SLIGHT; PLATELET COMMENT ADEQUATE; POIKILOCYTOSIS SLIGHT; POLYCHROMASIA SLIGHT; SEGMENTED NEUTROPHILS % (MAN) 88 % (42-78); TOTAL CELLS COUNTED 100
[2020-01-07] MEDS: FLUOXETINE HCL 20 MG CAPSULE PO SCH (19:36)
[2020-01-07] MEDS: LEVOFLOXACIN 750 MG TABLET PO SCH (19:36)
[2020-01-07] MEDS: ACETAMINOPHEN 325 MG TABLET PO PRN (21:14)
[2020-01-07] MEDS: MONTELUKAST SODIUM 10 MG TABLET PO SCH (21:15)
[2020-01-08] MEDS ORDERED: LORAZEPAM INJ 2 MG/1 ML VIAL IV ONE (03:15)
[2020-01-08 05:05] LABS: HEMATOCRIT 24.7 % (36.0-47.0); HEMOGLOBIN 8.5 g/dL (12.0-15.5); MEAN CORPUSCULAR HEMOGLOBIN 31.5 pg (27.0-33.4); MEAN CORPUSCULAR HGB CONC 34.5 g/dL (32.0-36.0); MEAN CORPUSCULAR VOLUME 91 fl (80-97); PLATELET COUNT 319 10^3/uL (150-450); RED CELL DISTRIBUTION WIDTH 17.5 % (11.5-14.0); WHITE BLOOD COUNT 17.5 10^3/uL (4.0-10.5)
[2020-01-08] MEDS: HEPARIN SOD (PORCINE) 5,000 UNIT/ML 1 ML VIAL SUBCUT SCH ×3 (05:20→21:20)
[2020-01-08 05:27] LABS: ABSOLUTE LYMPHOCYTES# (MANUAL) 0.4 10^3/uL (0.5-4.7); ABSOLUTE MONOCYTES # (MANUAL) 0.2 10^3/uL (0.1-1.4); BASOPHILS % (MANUAL) 0 % (0-2); EOSINOPHILS % (MANUAL) 0 % (0-6); LYMPHOCYTES % (MANUAL) 2 % (13-45); MONOCYTES % (MANUAL) 1 % (3-13); NUCLEATED RED BLOOD CELLS 1 /100 WBC (0); SEGMENTED NEUTROPHILS % (MAN) 97 % (42-78); TOTAL CELLS COUNTED 100
[2020-01-08 05:28] LABS: ANISOCYTOSIS 2+; PLATELET COMMENT ADEQUATE; POLYCHROMASIA 1+; TOXIC GRANULATION 1+
[2020-01-08] MEDS: LEVOTHYROXINE SODIUM 0.025 MG TABLET PO SCH (05:44)
[2020-01-08] MEDS: METHYLPREDNISOLONE INJ 40 MG/1 ML SDV IV SCH ×3 (05:44→21:20)
[2020-01-08] MEDS: LEVOTHYROXINE SODIUM 0.112 MG TABLET PO SCH (05:44)
[2020-01-08] MEDS: ISOSORBIDE MONONITRATE 60 MG TAB.ER.24H PO SCH (08:36)
[2020-01-08] MEDS: CARVEDILOL 12.5 MG TABLET PO SCH (08:36)
[2020-01-08] MEDS: ASPIRIN 81 MG TABLET, ENT COATED PO SCH ×2 (08:47→10:18)
[2020-01-08 09:40] LABS: ANION GAP 9 (5-19); BLOOD UREA NITROGEN 91 mg/dL (7-20); CALCIUM 9.3 mg/dL (8.4-10.2); CARBON DIOXIDE 29 mmol/L (22-30); CHLORIDE 97 mmol/L (98-107); GLUCOSE 152 mg/dL (75-110); POTASSIUM 5.2 mmol/L (3.6-5.0)
[2020-01-08] MEDS: POLYETHYLENE GLYCOL 3350 POWDER 17 GM/1 PACKET PO SCH ×3 (10:13→17:58)
[2020-01-08] MEDS: OMEGA-3 ACID ETHYL ESTERS 1 GM CAPSULE PO SCH (10:14)
[2020-01-08] MEDS: HYDRALAZINE HCL 50 MG TABLET PO SCH ×2 (10:14→21:20)
[2020-01-08] MEDS: ATORVASTATIN CALCIUM 80 MG TABLET PO SCH (10:14)
[2020-01-08] MEDS: DOCUSATE SODIUM 100 MG CAPSULE PO SCH ×2 (10:14→17:58)
[2020-01-08] MEDS: LORATADINE 10 MG TABLET PO SCH (10:14)
[2020-01-08] MEDS: FOLIC ACID 1 MG TABLET PO SCH (10:14)
[2020-01-08] MEDS: PANTOPRAZOLE SODIUM 40 MG TABLET.DR PO SCH (10:14)
[2020-01-08] MEDS: AMLODIPINE BESYLATE 10 MG TABLET PO SCH (10:15)
[2020-01-08] MEDS: CLOPIDOGREL BISULFATE 75 MG TABLET PO SCH (10:15)
[2020-01-08] MEDS: MAGNESIUM OXIDE 400 MG TABLET PO SCH (10:16)
[2020-01-08] MEDS: FLUTICASONE/VILANTEROL 100-25 MCG/DOSE IH SCH (10:16)
[2020-01-08] MEDS: FLUTICASONE NASAL SPRAY 50 MCG/SPRY 120 SPRAY/16 GM NASL SCH ×2 (10:16→17:59)
[2020-01-08] MEDS: LIDOCAINE 5% (700 MG) TRANSDERMAL ADH..PATCH TOP SCH ×2 (10:17→21:25)
[2020-01-08] MEDS: ONDANSETRON HCL INJ/PF 4 MG/2 ML SDV IV PRN (13:15)
--- NOTE | 2020-01-08 14:15 | PDOC PROGRESS REPORT ---
Subjective Progress Note for:: 01/08/20 Reason For Visit: ACUTE CARDIOGENIC PULMONARY EDEMA,ACUTE ON CHRONIC 01/08/2020 Congestive heart failure, hypoxia, respiratory distress, hypertension Physical Exam Vital Signs: Temp Pulse Resp BP Pulse Ox 97.7 F 101 H 17 131/83 H 94 01/08/20 10:56 01/08/20 10:56 01/08/20 10:56 01/08/20 10:56 01/08/20 10:56 Intake & Output 01/07/20 01/08/20 01/09/20 06:59 06:59 06:59 Intake Total 0 1574 357 Output Total 752 800 200 Balance -752 774 157 Weight 59.2 kg 57.8 kg General appearance: PRESENT: mild distress Respiratory exam: PRESENT: rhonchi - Right lower lobe Cardiovascular exam: PRESENT: RRR. ABSENT: diastolic murmur, rubs, systolic murmur Neurological exam: PRESENT: alert, awake, oriented to person, oriented to place, oriented to time, oriented to situation, CN II-XII grossly intact. ABSENT: motor sensory deficit Psychiatric exam: PRESENT: appropriate affect, normal mood, other - Patient asking to go home. States she feels better. ABSENT: homicidal ideation, suicidal ideation Results Laboratory Results: 01/08/20 04:32 01/08/20 08:54 01/07/20 01/08/20 01/08/20 18:04 04:32 08:54 WBC 15.7 H 17.5 H RBC 2.57 L 2.70 L Hgb 8.2 L 8.5 L Hct 23.9 L 24.7 L MCV 93 91 MCH 31.9 31.5 MCHC 34.2 34.5 RDW 17.3 H 17.5 H Plt Count 318 319 Seg Neutrophils % Not Reportable Not Reportable Sodium 135.0 L Potassium 5.2 H Chloride 97 L Carbon Dioxide 29 Anion Gap 9 BUN 91 H Creatinine 2.40 H Est GFR ( Amer) 24 L Glucose 152 H Calcium 9.3 12/27/19 12/28/19 12/28/19 23:14 00:18 05:47 Creatine Kinase CK-MB (CK-2) Troponin I 0.102 0.110 0.134 NT-Pro-B Natriuret Pep 66601 H 12/28/19 12/29/19 12/31/19 11:52 21:57 00:00 Creatine Kinase 40 CK-MB (CK-2) Troponin I 0.129 0.190 NT-Pro-B Natriuret Pep 12/31/19 12/31/19 12/31/19 00:00 05:46 05:46 Creatine Kinase 35 CK-MB (CK-2) 0.45 0.47 Troponin I 0.154 0.145 NT-Pro-B Natriuret Pep 12/31/19 12/31/19 01/05/20 12:17 12:17 05:00 Creatine Kinase 39 CK-MB (CK-2) 0.56 Troponin I 0.125 NT-Pro-B Natriuret Pep 5790 H 01/06/20 01/07/20 01/08/20 07:32 08:27 08:54 Creatine Kinase CK-MB (CK-2) Troponin I NT-Pro-B Natriuret Pep 6760 H 6690 H 6090 H Impressions: Abdomen/Pelvis CT 12/30/19 00:00 IMPRESSION: Small right effusion with patchy basilar airspace disease right greater than left. Prior cholecystectomy. Internal biliary drainage catheter is in place. Small atrophic left kidney. Chest X-Ray 01/03/20 00:00 IMPRESSION: Worsening CHF. Chest CT 01/04/20 00:00 IMPRESSION: Bilateral ground-glass opacities with focal areas of consolidation findings are consistent with a history of congestive heart failure. There are small bilateral pleural effusions. Probable reactive mediastinal adenopathy. Findings can be seen with infectious or inflammatory processes as well. Clinical correlation is needed. Assessment and Plan - Diagnosis (1) Diastolic heart failure Is this a current diagnosis for this admission?: Yes (2) Acute cardiogenic pulmonary edema Is this a current diagnosis for this admission?: Yes (3) Hypertension Qualifiers: Hypertension type: essential hypertension Qualified Code(s): I10 - Essential (primary) hypertension Is this a current diagnosis for this admission?: Yes (4) Hypoxemia Is this a current diagnosis for this admission?: Yes (5) Chronic asthmatic changes Is this a current diagnosis for this admission?: Yes (6) Oxygen dependency at home Is this a current diagnosis for this admission?: Yes (7) Anemia Is this a current diagnosis for this admission?: Yes - Plan Summary Summary: (1) Acute cardiogenic pulmonary edema Is this a current diagnosis for this admission?: Yes Was initially started on IV Lasix. Now she is on oral Bumex. Strict I&O. Daily weight. Monitor renal function. Echocardiogram shows normal EF and moderate to severe MR. Repeat chest x-ray shows improvement. (2) Acute respiratory failure with hypoxia Is this a current diagnosis for this admission?: Yes Continue oxygen as needed. Wean down as tolerated. Was initially on BiPAP. Now on nasal cannula oxygen. (3) Acute on chronic congestive heart failure Qualifiers: Heart failure type: unspecified Qualified Code(s): I50.9 - Heart failure, unspecified Is this a current diagnosis for this admission?: Yes As above (4) Hypertension Qualifiers: Hypertension type: essential hypertension Qualified Code(s): I10 - Essential (primary) hypertension Is this a current diagnosis for this admission?: Yes Continue current medications. Monitor blood pressure. (5) Hyperlipidemia Qualifiers: Hyperlipidemia type: unspecified Qualified Code(s): E78.5 - Hyperlipidemia, unspecified Is this a current diagnosis for this admission?: Yes Continue home medications (6) Asthma Qualifiers: Asthma severity: unspecified severity Asthma persistence: unspecified Asthma complication type: unspecified Qualified Code(s): J45.909 - Unspecified asthma, uncomplicated Is this a current diagnosis for this admission?: Yes Continue home medications (7) Depression Qualifiers: Depression Type: unspecified Qualified Code(s): F32.9 - Major depressive disorder, single episode, unspecified Is this a current diagnosis for this admission?: Yes Continue home medications (8) abdominal pain Low risk CT scan of the abdomen. Continue Protonix daily. Improved since constipation resolved. PT/OT evaluation. Possible discharge tomorrow. 01/04/2020 Per cardiology's original note patient was admitted with acute decompensated congestive heart failure probably diastolic. Ashleigh patient's renal functions are going up BUN is now 74, creatinine is up to 2 Held patient's Bumex 0.5 mg and HCTZ 12.5 mg for tomorrow morning. Patient's Aldactone 25 mg was held this morning already CT scan of the chest today showed probable CHF. Will repeat chest x-ray again 48 hours. Continue to monitor daily labs This morning temperature is 98 pulse 83 and regular blood pressure 140/67 and O2 sat is between 90 and 100% on 3 L Patient tells me she does use oxygen at home usually 3 L Patient also tells me that she is much less short of breath now than on admission I have discussed patient with Dr. Bryant. January 05, 2020 Temperature 98.4 pulse 90 blood pressure 144/70 respirations are anywhere from 17-27 and averaging about 22 Oxygen saturations are between 90 and 94% either on BiPAP or nasal cannula with a flow of 5 to 6 L and FiO2 of 40% BUN and creatinine continue to slowly rise. I have held her diuretics today for this reason, rather than give her fluids Patient was originally admitted for CHF.. She is currently on no steroids and no antibiotics Have gone down to radiology today and gone over her chest x-rays and CT scans with the radiologist. He states that he thinks this is a combination of some sort of infection or inflammation on top of her CHF. She does have a somewhat groundglass appearance on CT. Risk and suspicion of Covid 19 is low I am going to reconsult cardiology. BNP is 5790 today, whereas on admission it was 12495. Patient has rales scattered about as well as loud murmurs. She tells me at home she uses 3 L of oxygen, and I get the impression she is very limited even on a good day and she is not sick. I will resume her diuretics tomorrow, going to add antibiotics today as well as a short course of Solu-Medrol. I have told patient we are looking at a couple more days at least. She has currently been here 8 days so far Patient's slow improvement could also be based on her poor cardiac function. 01/06/2020 I have spoken to her on the phone since there is no visitation rights. Tells me that she has had this "groundglass appearance" on her x-rays for 20 years. Also tells me that they have been to see for 5 different digital strategist senior manager and seemed to get a different story each time. Patient tells me that she uses 3 L of oxygen at home always, that most of the time she is able to walk to the bathroom or the other side of the house without getting short of breath but no further than that. 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 Patient originally came to the hospital for florid pulmonary edema however this is been corrected and patient is probably back at her baseline from a cardiac standpoint. Cardiology reconsulted on the patient today and pretty much agreed with this and did make us few suggestions concerning possibly diuretics either every other day, basically as a maintenance therapy. This would be so we do not hurt her kidneys any worse than they already are. Also one has to keep in mind that patient is a set up for pulmonary emboli she has been at bedrest now here in the hospital for 9 days, however she is on prophylactic heparin therapy. Yesterday I started her on IV Levaquin and IV steroids with the hopes that this may improve her pulmonary functions. I have consulted pulmonology today for their advice and opinion concerning treatment options. This morning her temperature was 97.9 her pulse rate was 100 her blood pressure was 149/96 respiratory rate was 21 and oxygen saturation was 99% on BiPAP, the flow of 5 L and FiO2 of 40%. Patient becomes anxious when the BiPAP is removed. Morning's blood gas shows pH 7.49 PCO2 down slightly at 38 PO2 up slightly at 73 bicarb 28 total CO2 of 29. Did ask for her flow to be decreased to 4 L following ABG which I think would help with her retaining CO2. 01/07/2020 Patient remains afebrile 98 4, blood pressure 130/68, pulse 71 patient's oxygen saturation is between 96 and 100% FiO2 40% 5 L flow BiPAP settings have been slightly increased by pulmonary, also steroids have gone from every 12 to every 8, Singulair has been added Audiology states that the patient does not appear to be in congestive heart failure, edema. Will need to monitor renal functions closely concerning diuretics I spoke to patient's yesterday and today to bring him up-to-date. Patient does not appear to need to be transferred due to acuity and even if this was necessary it would probably be very difficult to get anyone to accept her in the midst of this pandemic. Cardiology did not make this recommendation. Did put patient back on a low-dose of Bumex 0.5 mg daily Yesterday patient's hemoglobin was 8.6 today it is 6.6. Will transfuse 2 units to guaiac stool check. This is probably anemia due to chronic disease and hospitalization. No obvious active signs of bleeding. White count is up slightly secondary to steroids Arterial blood gas done yesterday is actually improved Creatinine appears stable at 2.18 I have told patient she needs to get up out of bed some today sitting in a chair and we need to try to take her off the BiPAP at least temporarily. Patient was supposed to be using BiPAP at home for some time now and is evidently noncompliant. Patient appears medically stable will monitor her H&H, try to encourage her to be out of bed more and off of BiPAP more often 01/08/2020 Called patient's today and gave him a briefing. Told him that she was doing better clinically Temperature 98.2 pulse 74 blood pressure 124/67 O2 sat 95% but either on 4 or 5 L of BiPAP White count 17,500 hemoglobin has gone up to 8.5 from 1 L transfusion at 6.6 Blood culture negative x5 days BNP stable at 6090 BUN is up slightly at 91 creatinine up slightly 2.4. Patient is on no diuretics at this time Currently on Solu-Medrol 40 IV every 8 and Levaquin 750 daily Patient is also on Protonix 40 mg p.o. daily - Time Time Spent with patient: 35 or more minutes
[2020-01-08] MEDS: MAG HYDROX/AL HYDROX/SIMETH SUSP 30 ML UDCUP PO PRN (15:54)
[2020-01-08] MEDS: FLUOXETINE HCL 20 MG CAPSULE PO SCH (17:58)
[2020-01-08] MEDS: MONTELUKAST SODIUM 10 MG TABLET PO SCH (21:20)
[2020-01-08] MEDS ORDERED: DIPHENHYDRAMINE HCL 50 MG/ML VIAL IV PRN (23:08)
[2020-01-09] MEDS: LORAZEPAM INJ 2 MG/1 ML VIAL IV PRN ×2 (03:00→23:56)
[2020-01-09] MEDS: HEPARIN SOD (PORCINE) 5,000 UNIT/ML 1 ML VIAL SUBCUT SCH ×3 (08:28→21:29)
[2020-01-09] MEDS: ISOSORBIDE MONONITRATE 60 MG TAB.ER.24H PO SCH (08:28)
[2020-01-09] MEDS: LEVOTHYROXINE SODIUM 0.025 MG TABLET PO SCH (08:29)
[2020-01-09] MEDS: METHYLPREDNISOLONE INJ 40 MG/1 ML SDV IV SCH ×3 (08:29→21:31)
[2020-01-09] MEDS: CARVEDILOL 12.5 MG TABLET PO SCH (08:29)
[2020-01-09] MEDS: LEVOTHYROXINE SODIUM 0.112 MG TABLET PO SCH (08:30)
[2020-01-09] MEDS: ASPIRIN 81 MG TABLET, ENT COATED PO SCH (08:30)
--- NOTE | 2020-01-09 09:05 | RADIOLOGY REPORT (SQ) ---
EXAM DESCRIPTION: CHEST SINGLE VIEW IMAGES COMPLETED DATE/TIME: 01/09/2020 8:15 am REASON FOR STUDY: pneumonia COMPARISON: Chest films 01/03/2020, 12/29/2019, 12/27/2019 EXAM PARAMETERS: NUMBER OF VIEWS: One view. TECHNIQUE: Single frontal radiographic view of the chest acquired. RADIATION DOSE: NA LIMITATIONS: None. FINDINGS: LUNGS AND PLEURA: Diffuse bilateral alveolar and interstitial infiltrates are present, wit h partial clearing since 01/03/2020. No pleural effusion. No pneumothorax. MEDIASTINUM AND HILAR STRUCTURES: No masses. Contour normal. HEART AND VASCULAR STRUCTURES: Borderline cardiomegaly. Old sternotomy for CABG BONES: No acute findings. HARDWARE: Neurostimulator leads over the thoracic spine OTHER: No other significant finding. IMPRESSION: Partial clearing of the diffuse bilateral alveolar and interstitial infiltrates compared to 01/03/2020 TECHNICAL DOCUMENTATION: JOB ID: [id number] 2010 [employer]- All Rights Reserved Reading location - IP/workstation name: [email or web address]
[2020-01-09 09:27] LABS: ANION GAP 9 (5-19); BLOOD UREA NITROGEN 92 mg/dL (7-20); CALCIUM 8.5 mg/dL (8.4-10.2); CARBON DIOXIDE 26 mmol/L (22-30); CHLORIDE 97 mmol/L (98-107); GLUCOSE 205 mg/dL (75-110); POTASSIUM 4.6 mmol/L (3.6-5.0)
[2020-01-09 09:59] LABS: HEMATOCRIT 23.4 % (36.0-47.0); MEAN CORPUSCULAR HEMOGLOBIN 31.9 pg (27.0-33.4); MEAN CORPUSCULAR HGB CONC 34.4 g/dL (32.0-36.0); MEAN CORPUSCULAR VOLUME 93 fl (80-97); PLATELET COUNT 336 10^3/uL (150-450); RED BLOOD COUNT 2.52 10^6/uL (3.72-5.28); RED CELL DISTRIBUTION WIDTH 17.4 % (11.5-14.0); WHITE BLOOD COUNT 18.5 10^3/uL (4.0-10.5)
[2020-01-09 10:19] LABS: ABSOLUTE LYMPHOCYTES# (MANUAL) 0.4 10^3/uL (0.5-4.7); ABSOLUTE MONOCYTES # (MANUAL) 0.4 10^3/uL (0.1-1.4); BASOPHILS % (MANUAL) 0 % (0-2); EOSINOPHILS % (MANUAL) 0 % (0-6); LYMPHOCYTES % (MANUAL) 2 % (13-45); MONOCYTES % (MANUAL) 2 % (3-13); SEGMENTED NEUTROPHILS % (MAN) 96 % (42-78); TOTAL CELLS COUNTED 100
[2020-01-09 10:20] LABS: ANISOCYTOSIS 1+; PLATELET COMMENT ADEQUATE; PLATELET LARGE PRESENT; POLYCHROMASIA SLIGHT
[2020-01-09] MEDS: PANTOPRAZOLE SODIUM 40 MG TABLET.DR PO SCH (10:39)
[2020-01-09] MEDS: ATORVASTATIN CALCIUM 80 MG TABLET PO SCH (10:39)
[2020-01-09] MEDS: LIDOCAINE 5% (700 MG) TRANSDERMAL ADH..PATCH TOP SCH ×2 (10:39→21:31)
[2020-01-09] MEDS: FLUTICASONE/VILANTEROL 100-25 MCG/DOSE IH SCH (10:39)
[2020-01-09] MEDS: OMEGA-3 ACID ETHYL ESTERS 1 GM CAPSULE PO SCH (10:39)
[2020-01-09] MEDS: AMLODIPINE BESYLATE 10 MG TABLET PO SCH (10:39)
[2020-01-09] MEDS: FLUTICASONE NASAL SPRAY 50 MCG/SPRY 120 SPRAY/16 GM NASL SCH ×2 (10:39→17:38)
[2020-01-09] MEDS: POLYETHYLENE GLYCOL 3350 POWDER 17 GM/1 PACKET PO SCH ×3 (10:39→17:30)
[2020-01-09] MEDS: MAGNESIUM OXIDE 400 MG TABLET PO SCH (10:39)
[2020-01-09] MEDS: CLOPIDOGREL BISULFATE 75 MG TABLET PO SCH (10:39)
[2020-01-09] MEDS: DOCUSATE SODIUM 100 MG CAPSULE PO SCH ×2 (10:40→17:30)
[2020-01-09] MEDS: FOLIC ACID 1 MG TABLET PO SCH (10:40)
[2020-01-09] MEDS: LORATADINE 10 MG TABLET PO SCH (10:40)
[2020-01-09] MEDS: HYDRALAZINE HCL 50 MG TABLET PO SCH ×2 (10:40→21:30)
--- NOTE | 2020-01-09 11:46 | PDOC PROGRESS REPORT ---
Subjective Progress Note for:: 01/09/20 Reason For Visit: ACUTE CARDIOGENIC PULMONARY EDEMA,ACUTE ON CHRONIC 01/09/2020 Patient was admitted with congestive heart failure, respiratory distress, hypoxia, hypertension Physical Exam Vital Signs: Temp Pulse Resp BP Pulse Ox 98.7 F 98 22 H 134/68 H 96 01/09/20 09:04 01/09/20 09:04 01/09/20 09:04 01/09/20 09:04 01/09/20 09:04 Intake & Output 01/08/20 01/09/20 01/10/20 06:59 06:59 06:59 Intake Total 1574 757 Output Total 800 1000 Balance 774 -243 Weight 57.8 kg 58.1 kg General appearance: PRESENT: mild distress, other - Patient was actually sleeping without the BiPAP on this morning during rounds Respiratory exam: PRESENT: decreased breath sounds Cardiovascular exam: PRESENT: diastolic murmur, systolic murmur Neurological exam: PRESENT: alert, awake, oriented to person, oriented to place, oriented to time, oriented to situation, CN II-XII grossly intact. ABSENT: motor sensory deficit Psychiatric exam: PRESENT: anxious - Less anxious than usual, other - Patient is asking to go home Results Laboratory Results: 01/09/20 09:00 01/09/20 09:00 01/09/20 01/09/20 09:00 09:00 WBC 18.5 H RBC 2.52 L Hgb 8.0 L Hct 23.4 L MCV 93 MCH 31.9 MCHC 34.4 RDW 17.4 H Plt Count 336 Seg Neutrophils % Not Reportable Sodium 132.2 L Potassium 4.6 Chloride 97 L Carbon Dioxide 26 Anion Gap 9 BUN 92 H Creatinine 2.24 H Est GFR ( Amer) 26 L Glucose 205 H Calcium 8.5 12/27/19 12/28/19 12/28/19 23:14 00:18 05:47 Creatine Kinase CK-MB (CK-2) Troponin I 0.102 0.110 0.134 NT-Pro-B Natriuret Pep 30783 H 12/28/19 12/29/19 12/31/19 11:52 21:57 00:00 Creatine Kinase 40 CK-MB (CK-2) Troponin I 0.129 0.190 NT-Pro-B Natriuret Pep 12/31/19 12/31/19 12/31/19 00:00 05:46 05:46 Creatine Kinase 35 CK-MB (CK-2) 0.45 0.47 Troponin I 0.154 0.145 NT-Pro-B Natriuret Pep 12/31/19 12/31/19 01/05/20 12:17 12:17 05:00 Creatine Kinase 39 CK-MB (CK-2) 0.56 Troponin I 0.125 NT-Pro-B Natriuret Pep 5790 H 01/06/20 01/07/20 01/08/20 07:32 08:27 08:54 Creatine Kinase CK-MB (CK-2) Troponin I NT-Pro-B Natriuret Pep 6760 H 6690 H 6090 H Impressions: Abdomen/Pelvis CT 12/30/19 00:00 IMPRESSION: Small right effusion with patchy basilar airspace disease right greater than left. Prior cholecystectomy. Internal biliary drainage catheter is in place. Small atrophic left kidney. Chest CT 01/04/20 00:00 IMPRESSION: Bilateral ground-glass opacities with focal areas of consolidation findings are consistent with a history of congestive heart failure. There are small bilateral pleural effusions. Probable reactive mediastinal adenopathy. Findings can be seen with infectious or inflammatory processes as well. Clinical correlation is needed. Chest X-Ray 01/09/20 00:00 IMPRESSION: Partial clearing of the diffuse bilateral alveolar and interstitial infiltrates compared to 01/03/2020 Assessment and Plan - Diagnosis (1) Diastolic heart failure Is this a current diagnosis for this admission?: Yes (2) Acute cardiogenic pulmonary edema Is this a current diagnosis for this admission?: Yes (3) Hypertension Qualifiers: Hypertension type: essential hypertension Qualified Code(s): I10 - Essential (primary) hypertension Is this a current diagnosis for this admission?: Yes (4) Hypoxemia Is this a current diagnosis for this admission?: Yes (5) Chronic asthmatic changes Is this a current diagnosis for this admission?: Yes (6) Oxygen dependency at home Is this a current diagnosis for this admission?: Yes (7) Anemia Is this a current diagnosis for this admission?: Yes - Plan Summary Summary: (1) Acute cardiogenic pulmonary edema Is this a current diagnosis for this admission?: Yes Was initially started on IV Lasix. Now she is on oral Bumex. Strict I&O. Daily weight. Monitor renal function. Echocardiogram shows normal EF and moderate to severe MR. Repeat chest x-ray shows improvement. (2) Acute respiratory failure with hypoxia Is this a current diagnosis for this admission?: Yes Continue oxygen as needed. Wean down as tolerated. Was initially on BiPAP. Now on nasal cannula oxygen. (3) Acute on chronic congestive heart failure Qualifiers: Heart failure type: unspecified Qualified Code(s): I50.9 - Heart failure, unspecified Is this a current diagnosis for this admission?: Yes As above (4) Hypertension Qualifiers: Hypertension type: essential hypertension Qualified Code(s): I10 - Essential (primary) hypertension Is this a current diagnosis for this admission?: Yes Continue current medications. Monitor blood pressure. (5) Hyperlipidemia Qualifiers: Hyperlipidemia type: unspecified Qualified Code(s): E78.5 - Hyperlipidemia, unspecified Is this a current diagnosis for this admission?: Yes Continue home medications (6) Asthma Qualifiers: Asthma severity: unspecified severity Asthma persistence: unspecified Asthma complication type: unspecified Qualified Code(s): J45.909 - Unspecified asthma, uncomplicated Is this a current diagnosis for this admission?: Yes Continue home medications (7) Depression Qualifiers: Depression Type: unspecified Qualified Code(s): F32.9 - Major depressive disorder, single episode, unspecified Is this a current diagnosis for this admission?: Yes Continue home medications (8) abdominal pain Low risk CT scan of the abdomen. Continue Protonix daily. Improved since constipation resolved. PT/OT evaluation. Possible discharge tomorrow. 01/04/2020 Per cardiology's original note patient was admitted with acute decompensated congestive heart failure probably diastolic. Ashleigh patient's renal functions are going up BUN is now 74, creatinine is up to 2 Held patient's Bumex 0.5 mg and HCTZ 12.5 mg for tomorrow morning. Patient's Aldactone 25 mg was held this morning already CT scan of the chest today showed probable CHF. Will repeat chest x-ray again 48 hours. Continue to monitor daily labs This morning temperature is 98 pulse 83 and regular blood pressure 140/67 and O2 sat is between 90 and 100% on 3-1/2 L Patient tells me she does use oxygen at home usually 3 L Patient also tells me that she is much less short of breath now than on admission I have discussed patient with Dr. Bryant. January 05, 2020 Temperature 98.4 pulse 90 blood pressure 144/70 respirations are anywhere from 17-27 and averaging about 22 Oxygen saturations are between 90 and 94% either on BiPAP or nasal cannula with a flow of 5 to 6 L and FiO2 of 40% BUN and creatinine continue to slowly rise. I have held her diuretics today for this reason, rather than give her fluids Patient was originally admitted for CHF.. She is currently on no steroids and no antibiotics Have gone down to radiology today and gone over her chest x-rays and CT scans with the radiologist. He states that he thinks this is a combination of some sort of infection or inflammation on top of her CHF. She does have a somewhat groundglass appearance on CT. Risk and suspicion of Covid 19 is low I am going to reconsult cardiology. BNP is 5790 today, whereas on admission it was 51944. Patient has rales scattered about as well as loud murmurs. She tells me at home she uses 3 L of oxygen, and I get the impression she is very limited even on a good day and she is not sick. I will resume her diuretics tomorrow, going to add antibiotics today as well as a short course of Solu-Medrol. I have told patient we are looking at a couple more days at least. She has currently been here 8 days so far Patient's slow improvement could also be based on her poor cardiac function. 01/06/2020 I have spoken to her on the phone since there is no visitation rights. Tells me that she has had this "groundglass appearance" on her x-rays for 20 years. Also tells me that they have been to see for 5 different flag car driver and seemed to get a different story each time. Patient tells me that she uses 3 L of oxygen at home always, that most of the time she is able to walk to the bathroom or the other side of the house without getting short of breath but no further than that. Patient has seen excellent side door worker in the past including Edgar, has maxed out on her surgical options and is now only a medicine treatment only. Patient originally came to the hospital for florid pulmonary edema however this is been corrected and patient is probably back at her baseline from a cardiac standpoint. Cardiology reconsulted on the patient today and pretty much agreed with this and did make us few suggestions concerning possibly diuretics either every other day, basically as a maintenance therapy. This would be so we do not hurt her kidneys any worse than they already are. Also one has to keep in mind that patient is a set up for pulmonary emboli she has been at bedrest now here in the hospital for 9 days, however she is on prophylactic heparin therapy. Yesterday I started her on IV Levaquin and IV steroids with the hopes that this may improve her pulmonary functions. I have consulted pulmonology today for their advice and opinion concerning treatment options. This morning her temperature was 97.9 her pulse rate was 100 her blood pressure was 149/96 respiratory rate was 21 and oxygen saturation was 99% on BiPAP, the flow of 5 L and FiO2 of 40%. Patient becomes anxious when the BiPAP is removed. Morning's blood gas shows pH 7.49 PCO2 down slightly at 38 PO2 up slightly at 73 bicarb 28 total CO2 of 29. Did ask for her flow to be decreased to 4 L following ABG which I think would help with her retaining CO2. 01/07/2020 Patient remains afebrile 98 4, blood pressure 130/68, pulse 71 patient's oxygen saturation is between 96 and 100% FiO2 40% 5 L flow BiPAP settings have been slightly increased by pulmonary, also steroids have go ne from every 12 to every 8, Singulair has been added Audiology states that the patient does not appear to be in congestive heart failure, edema. Will need to monitor renal functions closely concerning diuretics I spoke to patient's yesterday and today to bring him up-to-date. Patient does not appear to need to be transferred due to acuity and even if this was necessary it would probably be very difficult to get anyone to accept her in the midst of this pandemic. Cardiology did not make this recommendation. Did put patient back on a low-dose of Bumex 0.5 mg daily Yesterday patient's hemoglobin was 8.6 today it is 6.6. Will transfuse 2 units to guaiac stool check. This is probably anemia due to chronic disease and hospitalization. No obvious active signs of bleeding. White count is up slightly secondary to steroids Arterial blood gas done yesterday is actually improved Creatinine appears stable at 2.18 I have told patient she needs to get up out of bed some today sitting in a chair and we need to try to take her off the BiPAP at least temporarily. Patient was supposed to be using BiPAP at home for some time now and is evidently noncompliant. Patient appears medically stable will monitor her H&H, try to encourage her to be out of bed more and off of BiPAP more often 01/08/2020 Called patient's today and gave him a briefing. Told him that she was doing better clinically Temperature 98.2 pulse 74 blood pressure 124/67 O2 sat 95% but either on 4 or 5 L of BiPAP White count 17,500 hemoglobin has gone up to 8.5 from 1 L transfusion at 6.6 Blood culture negative x5 days BNP stable at 6090 BUN is up slightly at 91 creatinine up slightly 2.4. Patient is on no diuretics at this time Currently on Solu-Medrol 40 IV every 8 and Levaquin 750 daily Patient is also on Protonix 40 mg p.o. daily 01/09/2020 Patient's BiPAP was off this morning and her O2 sats were being maintained in the low 90s but then after about 30 minutes when she was asleep her saturations dropped down into the 70s. This seems to be a recurrent theme where she will desaturate with sleeping. Chest x-ray done today shows clearing and resolution of her CHF. However looking back at previous films and even her admission chest x-ray She has chronic pulmonary radiographic changes which will not clear even at the time of discharge or ever. Her tells me that for 20 years she has had a "groundglass" appearance on her radiographs. She is on 3 L of nasal cannula oxygen at home. I am going to have a discussion concerning reality and her pulmonary function, with both the patient and her Zoë her CHF that was a factor when she came in has resolved and this is something that we can treat on a as needed basis but her pulmonary status per se is never going to be normal. White count is stable 18,500 elevated due to steroids Hemoglobin has drifted down slightly from 8.5-8.0 Electrolytes also reveal sodium 132, potassium 4.6 BUN 92 creatinine 2.24 We will hold off on any diuretics at this time I think patient is going to be disabled from a pulmonary function status - Time Time Spent with patient: 35 or more minutes
[2020-01-09] MEDS: FLUOXETINE HCL 20 MG CAPSULE PO SCH (17:30)
[2020-01-09] MEDS: LEVOFLOXACIN 750 MG TABLET PO SCH (17:33)
[2020-01-09] MEDS: MONTELUKAST SODIUM 10 MG TABLET PO SCH (21:30)
[2020-01-10 01:53] LABS: APPEARANCE,URINE SLIGHTLY-CLOUDY; BILIRUBIN,URINE NEGATIVE (NEGATIVE); COLOR,URINE YELLOW; GLUCOSE, URINE NEGATIVE (NEGATIVE); KETONES,URINE NEGATIVE (NEGATIVE); LEUKOCYTE ESTERASE,URINE MODERATE (NEGATIVE); NITRITE,URINE NEGATIVE (NEGATIVE); PROTEIN,URINE NEGATIVE (NEGATIVE); URINE SPECIFIC GRAVITY 1.014; UROBILINOGEN,URINE NEGATIVE mg/dL (<2.0)
[2020-01-10] MEDS: LORAZEPAM INJ 2 MG/1 ML VIAL IV PRN (04:33)
[2020-01-10] MEDS: METHYLPREDNISOLONE INJ 40 MG/1 ML SDV IV SCH ×3 (05:29→22:02)
[2020-01-10] MEDS: LEVOTHYROXINE SODIUM 0.112 MG TABLET PO SCH (05:30)
[2020-01-10] MEDS: LEVOTHYROXINE SODIUM 0.025 MG TABLET PO SCH (05:30)
[2020-01-10] MEDS: HEPARIN SOD (PORCINE) 5,000 UNIT/ML 1 ML VIAL SUBCUT SCH ×3 (05:30→22:02)
[2020-01-10] MEDS: ASPIRIN 81 MG TABLET, ENT COATED PO SCH (08:23)
[2020-01-10] MEDS: ISOSORBIDE MONONITRATE 60 MG TAB.ER.24H PO SCH (08:23)
[2020-01-10] MEDS: ACETAMINOPHEN 325 MG TABLET PO PRN ×2 (08:24→17:58)
[2020-01-10] MEDS: CARVEDILOL 12.5 MG TABLET PO SCH (08:25)
[2020-01-10] MEDS: ONDANSETRON HCL INJ/PF 4 MG/2 ML SDV IV PRN (08:40)
[2020-01-10 10:35] LABS: ABSOLUTE RETICS # 0.104 10^6/uL (0.028-0.122); HEMATOCRIT 20.3 % (36.0-47.0); MEAN CORPUSCULAR HEMOGLOBIN 31.4 pg (27.0-33.4); MEAN CORPUSCULAR HGB CONC 34.1 g/dL (32.0-36.0); MEAN CORPUSCULAR VOLUME 92 fl (80-97); PLATELET COUNT 322 10^3/uL (150-450); RED CELL DISTRIBUTION WIDTH 16.7 % (11.5-14.0); RETICULOCYTE COUNT (AUTO) 4.72 % (0.66-2.85); WHITE BLOOD COUNT 22.3 10^3/uL (4.0-10.5)
--- NOTE | 2020-01-10 10:41 | PDOC PROGRESS REPORT ---
Subjective Progress Note for:: 01/10/20 Reason For Visit: ACUTE CARDIOGENIC PULMONARY EDEMA,ACUTE ON CHRONIC January 10, 2020 Patient was admitted to the hospital almost 2 weeks ago for acute on chronic CHF, end-stage COPD, respiratory distress, hypoxia, hypertension Physical Exam Vital Signs: Temp Pulse Resp BP Pulse Ox 97.6 F 76 32 H 140/63 H 89 L 01/10/20 07:14 01/10/20 07:14 01/10/20 07:14 01/10/20 07:14 01/10/20 07:14 Intake & Output 01/09/20 01/10/20 01/11/20 06:59 06:59 06:59 Intake Total 757 1164 Output Total 1000 1070 Balance -243 94 Weight 58.1 kg 61.6 kg General appearance: PRESENT: mild distress, other - Patient seems to be almost immediately anxious when discontinuing BiPAP Respiratory exam: PRESENT: rhonchi Cardiovascular exam: PRESENT: RRR. ABSENT: diastolic murmur, rubs, systolic murmur Neurological exam: PRESENT: alert, awake, oriented to person, oriented to place, oriented to time, oriented to situation, CN II-XII grossly intact. ABSENT: motor sensory deficit Psychiatric exam: PRESENT: anxious, other - Asking to go home Results Laboratory Results: 01/09/20 23:53 Urine Color YELLOW Urine Appearance SLIGHTLY-CLOUDY Urine pH 6.0 Ur Specific [place] 1.014 Urine Protein NEGATIVE Urine Glucose (UA) NEGATIVE Urine Ketones NEGATIVE Urine Blood NEGATIVE Urine Nitrite NEGATIVE Ur Leukocyte Esterase MODERATE H Urine WBC (Auto) 36 Urine RBC (Auto) 3 12/27/19 12/28/19 12/28/19 23:14 00:18 05:47 Creatine Kinase CK-MB (CK-2) Troponin I 0.102 0.110 0.134 NT-Pro-B Natriuret Pep 23796 H 12/28/19 12/29/19 12/31/19 11:52 21:57 00:00 Creatine Kinase 40 CK-MB (CK-2) Troponin I 0.129 0.190 NT-Pro-B Natriuret Pep 12/31/19 12/31/19 12/31/19 00:00 05:46 05:46 Creatine Kinase 35 CK-MB (CK-2) 0.45 0.47 Troponin I 0.154 0.145 NT-Pro-B Natriuret Pep 12/31/19 12/31/19 01/05/20 12:17 12:17 05:00 Creatine Kinase 39 CK-MB (CK-2) 0.56 Troponin I 0.125 NT-Pro-B Natriuret Pep 5790 H 01/06/20 01/07/20 01/08/20 07:32 08:27 08:54 Creatine Kinase CK-MB (CK-2) Troponin I NT-Pro-B Natriuret Pep 6760 H 6690 H 6090 H Impressions: Abdomen/Pelvis CT 12/30/19 00:00 IMPRESSION: Small right effusion with patchy basilar airspace disease right greater than left. Prior cholecystectomy. Internal biliary drainage catheter is in place. Small atrophic left kidney. Chest CT 01/04/20 00:00 IMPRESSION: Bilateral ground-glass opacities with focal areas of consolidation findings are consistent with a history of congestive heart failure. There are small bilateral pleural effusions. Probable reactive mediastinal adenopathy. Findings can be seen with infectious or inflammatory processes as well. Clinical correlation is needed. Chest X-Ray 01/09/20 00:00 IMPRESSION: Partial clearing of the diffuse bilateral alveolar and interstitial infiltrates compared to 01/03/2020 Assessment and Plan - Diagnosis (1) Diastolic heart failure Is this a current diagnosis for this admission?: Yes (2) Acute cardiogenic pulmonary edema Is this a current diagnosis for this admission?: Yes (3) Hypertension Qualifiers: Qualified Code(s): I10 - Essential (primary) hypertension Is this a current diagnosis for this admission?: Yes (4) Hypoxemia Is this a current diagnosis for this admission?: Yes (5) Chronic asthmatic changes Is this a current diagnosis for this admission?: Yes (6) Oxygen dependency at home Is this a current diagnosis for this admission?: Yes (7) Anemia Is this a current diagnosis for this admission?: Yes - Plan Summary Summary: (1) Acute cardiogenic pulmonary edema Is this a current diagnosis for this admission?: Yes Was initially started on IV Lasix. Now she is on oral Bumex. Strict I&O. Daily weight. Monitor renal function. Echocardiogram shows normal EF and moderate to severe MR. Repeat chest x-ray shows improvement. (2) Acute respiratory failure with hypoxia Is this a current diagnosis for this admission?: Yes Continue oxygen as needed. Wean down as tolerated. Was initially on BiPAP. Now on nasal cannula oxygen. (3) Acute on chronic congestive heart failure Qualifiers: Heart failure type: unspecified Qualified Code(s): I50.9 - Heart failure, unspecified Is this a current diagnosis for this admission?: Yes As above (4) Hypertension Qualifiers: Hypertension type: essential hypertension Qualified Code(s): I10 - Essential (primary) hypertension Is this a current diagnosis for this admission?: Yes Continue current medications. Monitor blood pressure. (5) Hyperlipidemia Qualifiers: Hyperlipidemia type: unspecified Qualified Code(s): E78.5 - Hyperlipidemia, unspecified Is this a current diagnosis for this admission?: Yes Continue home medications (6) Asthma Qualifiers: Asthma severity: unspecified severity Asthma persistence: unspecified Asthma complication type: unspecified Qualified Code(s): J45.909 - Unspecified asthma, uncomplicated Is this a current diagnosis for this admission?: Yes Continue home medications (7) Depression Qualifiers: Depression Type: unspecified Qualified Code(s): F32.9 - Major depressive disorder, single episode, unspecified Is this a current diagnosis for this admission?: Yes Continue home medications (8) abdominal pain Low risk CT scan of the abdomen. Continue Protonix daily. Improved since constipation resolved. PT/OT evaluation. Possible discharge tomorrow. 01/04/2020 Per cardiology's original note patient was admitted with acute decompensated congestive heart failure probably diastolic. Ashleigh patient's renal functions are going up BUN is now 74, creatinine is up to 2 Held patient's Bumex 0.5 mg and HCTZ 12.5 mg for tomorrow morning. Patient's Aldactone 25 mg was held this morning already CT scan of the chest today showed probable CHF. Will repeat chest x-ray again 48 hours. Continue to monitor daily labs This morning temperature is 98 pulse 83 and regular blood pressure 140/67 and O2 sat is between 90 and 100% on 3-1/2 L Patient tells me she does use oxygen at home usually 3 L Patient also tells me that she is much less short of breath now than on admission I have discussed patient with Dr. Bryant. January 05, 2020 Temperature 98.4 pulse 90 blood pressure 144/70 respirations are anywhere from 17-27 and averaging about 22 Oxygen saturations are between 90 and 94% either on BiPAP or nasal cannula with a flow of 5 to 6 L and FiO2 of 40% BUN and creatinine continue to slowly rise. I have held her diuretics today for this reason, rather than give her fluids Patient was originally admitted for CHF.. She is currently on no steroids and no antibiotics Have gone down to radiology today and gone over her chest x-rays and CT scans with the radiologist. He states that he thinks this is a combination of some sort of infection or inflammation on top of her CHF. She does have a somewhat groundglass appearance on CT. Risk and suspicion of Covid 19 is low I am going to reconsult cardiology. BNP is 5790 today, whereas on admission it was 48518. Patient has rales scattered about as well as loud murmurs. She tells me at home she uses 3 L of oxygen, and I get the impression she is very limited even on a good day and she is not sick. I will resume her diuretics tomorrow, going to add antibiotics today as well as a short course of Solu-Medrol. I have told patient we are looking at a couple more days at least. She has currently been here 8 days so far Patient's slow improvement could also be based on her poor cardiac function. 01/06/2020 I have spoken to her on the phone since there is no visitation rights. Tells me that she has had this "groundglass appearance" on her x-rays for 20 years. Also tells me that they have been to see for 5 different canceling and cutting control clerk and seemed to get a different story each time. Patient tells me that she uses 3 L of oxygen at home always, that most of the time she is able to walk to the bathroom or the other side of the house without getting short of breath but no further than that. Patient has seen excellent executive personal assistant in the past including Edgar, has maxed out on her surgical options and is now only a medicine treatment only. Patient originally came to the hospital for florid pulmonary edema however this is been corrected and patient is probably back at her baseline from a cardiac standpoint. Cardiology reconsulted on the patient today and pretty much agreed with this and did make us few suggestions concerning possibly diuretics either every other day, basically as a maintenance therapy. This would be so we do not hurt her kidneys any worse than they already are. Also one has to keep in mind that patient is a set up for pulmonary emboli she has been at bedrest now here in the hospital for 9 days, however she is on prophylactic heparin therapy. Yesterday I started her on IV Levaquin and IV steroids with the hopes that this may improve her pulmonary functions. I have consulted pulmonology today for their advice and opinion concerning treatment options. This morning her temperature was 97.9 her pulse rate was 100 her blood pressure was 149/96 respiratory rate was 21 and oxygen saturation was 99% on BiPAP, the flow of 5 L and FiO2 of 40%. Patient becomes anxious when the BiPAP is removed. Morning's blood gas shows pH 7.49 PCO2 down slightly at 38 PO2 up slightly at 73 bicarb 28 total CO2 of 29. Did ask for her flow to be decreased to 4 L following ABG which I think would help with her retaining CO2. 01/07/2020 Patient remains afebrile 98 4, blood pressure 130/68, pulse 71 patient's oxygen saturation is between 96 and 100% FiO2 40% 5 L flow BiPAP settings have been slightly increased by pulmonary, also steroids have gone from every 12 to every 8, Singulair has been added Audiology states that the patient does not appear to be in congestive heart fail ure, edema. Will need to monitor renal functions closely concerning diuretics I spoke to patient's yesterday and today to bring him up-to-date. Patient does not appear to need to be transferred due to acuity and even if this was necessary it would probably be very difficult to get anyone to accept her in the midst of this pandemic. Cardiology did not make this recommendation. Did put patient back on a low-dose of Bumex 0.5 mg daily Yesterday patient's hemoglobin was 8.6 today it is 6.6. Will transfuse 2 units to guaiac stool check. This is probably anemia due to chronic disease and hospitalization. No obvious active signs of bleeding. White count is up slightly secondary to steroids Arterial blood gas done yesterday is actually improved Creatinine appears stable at 2.18 I have told patient she needs to get up out of bed some today sitting in a chair and we need to try to take her off the BiPAP at least temporarily. Patient was supposed to be using BiPAP at home for some time now and is evidently noncompliant. Patient appears medically stable will monitor her H&H, try to encourage her to be out of bed more and off of BiPAP more often 01/08/2020 Called patient's today and gave him a briefing. Told him that she was doing better clinically Temperature 98.2 pulse 74 blood pressure 124/67 O2 sat 95% but either on 4 or 5 L of BiPAP White count 17,500 hemoglobin has gone up to 8.5 from 1 L transfusion at 6.6 Blood culture negative x5 days BNP stable at 6090 BUN is up slightly at 91 creatinine up slightly 2.4. Patient is on no diuretics at this time Currently on Solu-Medrol 40 IV every 8 and Levaquin 750 daily Patient is also on Protonix 40 mg p.o. daily 01/09/2020 Patient's BiPAP was off this morning and her O2 sats were being maintained in the low 90s but then after about 30 minutes when she was asleep her saturations dropped down into the 70s. This seems to be a recurrent theme where she will desaturate with sleeping. Chest x-ray done today shows clearing and resolution of her CHF. However looking back at previous films and even her admission chest x-ray She has chronic pulmonary radiographic changes which will not clear even at the time of discharge or ever. Her tells me that for 20 years she has had a "groundglass" appearance on her radiographs. She is on 3 L of nasal cannula oxygen at home. I am going to have a discussion concerning reality and her pulmonary function, with both the patient and her Concerning her CHF that was a factor when she came in has resolved and this is something that we can treat on a as needed basis but her pulmonary status per se is never going to be normal. White count is stable 18,500 elevated due to steroids Hemoglobin has drifted down slightly from 8.5-8.0 Electrolytes also reveal sodium 132, potassium 4.6 BUN 92 creatinine 2.24 We will hold off on any diuretics at this time I think patient is disabled from a pulmonary function status 01/10/2020 Temperature 97.8 pulse is between 70 and 90 blood pressure 127/67 oxygen saturation is anywhere from 93 to 96% on 5 to 6 L and BiPAP Patient is mostly on BiPAP but occasionally goes on nasal cannula or room air. During that time patient seems to desat into the upper 90s Patient appears to be anxious Blood cultures negative x5 days X-ray done yesterday shows actual clearing of lateral alveolar and interstitial infiltrates compared to previous chest x-ray Labs from today are pending I had a long discussion with the yesterday about her poor pulmonary status. I have corrected her pulmonary edema, cardiology and pulmonology have no further suggestions. Continue Singulair 10 mg nightly, Solu-Medrol 40 mg IV every 8 hours, Levaquin 750 mg Patient may be a candidate for palliative care and/or hospice at home I did add a low-dose of Ativan today 0.25 mg every 6 hours scheduled - Time Time Spent with patient: 35 or more minutes
[2020-01-10 11:03] LABS: ALBUMIN 2.8 g/dL (3.5-5.0); ALKALINE PHOSPHATASE 34 U/L (38-126); ANION GAP 5 (5-19); ASPARTATE AMINO TRANSFERASE 21 U/L (14-36); BILIRUBIN,TOTAL 0.7 mg/dL (0.2-1.3); BLOOD UREA NITROGEN 94 mg/dL (7-20); CALCIUM 8.2 mg/dL (8.4-10.2); CARBON DIOXIDE 31 mmol/L (22-30); CHLORIDE 97 mmol/L (98-107); GLUCOSE 129 mg/dL (75-110); IRON(TIBC) 51.5 ug/dL (37-170); POTASSIUM 4.6 mmol/L (3.6-5.0); TOTAL PROTEIN 5.1 g/dL (6.3-8.2)
[2020-01-10 11:13] LABS: HEMOGLOBIN 6.9 g/dL (12.0-15.5)
--- NOTE | 2020-01-10 11:19 | PDOC CONSULTATION ---
Consultation Consult Date: 01/10/20 Attending physician:: Margarito PHILLIPS Provider Consulted: CLARENCE PIERRE Consult reason:: renal failure History of Present Illness Admission Date/PCP: 12/28/19 00:53 CLARENCE PIERRE PA-C History of Present Illness: VERENA MORRIS is a 74 year old female with a history of diastolic CHF, COPD, CAD, CKD3 came to the hospital for increased sob and clear sputum production. She was sitting at home when her breathing started to worsen. It had been worsen with exertion and she was having orthopnea. EMS arrived to her house to find that her O2 sats were in the 60s. She was placed on bipap and transported to the ER. In the ER she remained on bipap, was given IV furosemide and morphine. Creatinine at the time was with in her baseline. She was diagnosed with CHF, which was confirmed on chest x-ray and she admitted for further evaluation. In the hospital cardiology was consulted and they preformed an echocardiogram. LV EF was at the low end of normal at 55% with some diastolic dysfunction likely. RV showed mild to moderate decrease function. Mild to moderate pulmonary HTN. She was continued on IV furosemide and normal home medications for her COPD. On 12/[address] of her abdomen was due to abdominal pain. CT showed pulmonary edema and a left atrophic kidney (which was previously seen on ultrasound in 2018). On 12/30 she was switched to PO bumex and has remained off bipap. Due to persistently elevated creatinine and BUN her diuretics were held. He chest x-ray showed that the fluid had cleared up more. On 01/04 she was placed on IV Levofloxacin and IV steroids for concern of infection and inflammation in the lungs. On 01/05 she was started back on PO bumex at a low dose of 0.5mg a day. 01/06 she required to be transfused two units of blood. Chest x-ray on 01/08 showed mild cardiomegaly, other downs fluid overload had just about resolved. Diuretics were held. At that time sodium was 132, creatinine was 2.24, bun of 92. Today she is requiring continuous bipap. When taken off she de-sats and requires to be placed back on bipap. She claims to have improved SOB when on bipap. She denies any chest pain. She denies s/s of uremia. Denies decreased appetite, nausea/vomiting. Past Medical History Cardiac Medical History: Reports: Hyperlipidemia Denies: Atrial Fibrillation, Coronary Artery Disease, Myocardial Infarction Pulmonary Medical History: Reports: Asthma, Respiratory Failure Denies: Chronic Obstructive Pulmonary Disease (COPD) EENT Medical History: Denies: Cataracts, Ears - Hearing aids Neurological Medical History: Denies: Hemorrhagic CVA, Ischemic CVA, Seizures Endocrine Medical History: Reports: Other - Male hypogonadism Denies: Diabetes Mellitus Type 1, Diabetes Mellitus Type 2, Hyperthyroidism, Hypothyroidism, Obesity Complications of Diabetes: Reports: None Renal/ Medical History: Denies: Nephrolithiasis Malignancy Medical History: Reports: None GI Medical History: Denies: Cirrhosis, Crohn's Disease, Hepatitis, Ulcerative Colitis Musculoskeltal Medical History: Denies: Fibromyalgia, Gout Skin Medical History: Denies: Eczema, Psoriasis Psychiatric Medical History: Reports: Depression Denies: Alcohol Dependency, Substance Abuse, Tobacco Dependency Traumatic Medical History: Reports: None Infectious Medical History: Reports: None Past Surgical History Past Surgical History: Reports: None, Appendectomy, Other - Heart surgery Social History Lives with: Spouse/Significant other Smoking Status: Never Smoker Electronic Cigarette use?: No Frequency of Alcohol Use: None Hx Recreational Drug Use: No Drugs: None Hx Prescription Drug Abuse: No - Advance Directive Resuscitation Status: Full Code Family History Parental Family History Reviewed: Yes Children Family History Reviewed: Unknown Sibling(s) Family History Reviewed.: Unknown Medication/Allergy Home Medications: Amlodipine Besylate [Norvasc 10 mg Tablet] 10 mg PO DAILY 12/28/19 Aspirin [Ecotrin 81 mg EC Tablet] 81 mg PO QAM 12/28/19 Atorvastatin Calcium [Lipitor 80 mg Tablet] 80 mg PO DAILY 12/28/19 Azelastine/Fluticasone [Dymista Nasal [place]] 1 spray NS BID 12/28/19 Budesonide/Formoterol Fumarate [Symbicort Hfa 80-4.5 Mcg Inhaler 6.9 gm] 1 puff IH QAM 12/28/19 Bumetanide 0.5 mg PO DAILY@0600 12/28/19 Calcitriol [Rocaltrol 0.25 Mcg Capsule] 0.25 mcg PO MOWEFR@1000 12/28/19 Carvedilol 12.5 mg PO QAM 12/28/19 Clopidogrel Bisulfate [Plavix 75 mg Tablet] 1 tab PO DAILY 12/28/19 Cyanocobalamin (Vitamin B-12) [B-12] 1 tab PO DAILY 12/28/19 Ergocalciferol (Vitamin D2) [Vitamin D2] 1 cap PO [id number] 12/28/19 Ferrous Sulfate [Feosol 325 mg Tablet] 1 tab PO TUTH@1000 12/28/19 Flaxseed Oil [Flaxseed] 1,000 mg PO DAILY 12/28/19 Fluoxetine HCl 1 cap PO DAILY 12/28/19 Fluticasone Propionate [Flovent Diskus] 2 spray NASL BID 12/28/19 Folic Acid 1 mg PO DAILY 12/28/19 Hydralazine HCl 1 tab PO BID 12/28/19 Hydrochlorothiazide 12.5 mg PO DAILY 12/28/19 Isosorbide Mononitrate [Imdur 60 mg Tablet.er] 2 tab PO QAM 12/28/19 Levothyroxine Sodium 137 mcg PO DAILY 12/28/19 Lidocaine [Lidoderm 5% (700 mg) Transdermal Patch] 1 patch TD Q12 12/28/19 Liraglutide [Victoza 2-Kapil] 0.6 mg SQ DAILY 12/28/19 Loratadine [Claritin 10 mg Tablet] 10 mg PO DAILY 12/28/19 Magnesium Oxide [Mag-Ox 400 mg Tablet] 400 mg PO DAILY 12/28/19 Erbacon-3/Dha/Epa/Fish Oil [Fish Oil 1,200 mg Softgel] 1 each PO DAILY 12/28/19 Omeprazole 1 cap PO QAM 12/28/19 Polyethylene Glycol 3350 [Miralax Powder 17 gm/Packet] 1 packet PO DAILY 12/28/19 Somatropin [Humatrope] 18 units SUBCUT QHS 12/28/19 Spironolactone [Aldactone 25 mg Tablet] 1 tab PO QAM 12/28/19 Tramadol HCl [Ultram 50 mg Tablet] 1 tab PO Q6HP PRN 12/28/19 Allergies/Adverse Reactions: No Known Allergies Allergy (Unverified 02/15/19 19:20) Review of Systems Constitutional: PRESENT: fatigue, weakness. ABSENT: anorexia, chills, fever(s) Eyes: ABSENT: visual disturbances Ears: ABSENT: hearing changes Cardiovascular: PRESENT: dyspnea on exertion, edema - -prior to admission, orthropnea Respiratory: PRESENT: cough, dyspnea, sputum. ABSENT: hemoptysis Gastrointestinal: PRESENT: abdominal pain, constipation. ABSENT: diarrhea, nausea, vomiting Genitourinary: ABSENT: difficulty urinating, dysuria Integumentary: PRESENT: diaphoresis - -prior to admission Neurological: PRESENT: weakness. ABSENT: confusion, dizziness, focal weakness Endocrine: ABSENT: polydipsia Physical Exam Vital Signs: Temp Pulse Resp BP Pulse Ox 97.6 F 76 32 H 140/63 H 89 L 01/10/20 07:14 01/10/20 07:14 01/10/20 07:14 01/10/20 07:14 01/10/20 07:14 Intake & Output 01/09/20 01/10/20 01/11/20 06:59 06:59 06:59 Intake Total 757 1164 Output Total 1000 1070 Balance -243 94 Weight 58.1 kg 61.6 kg General appearance: PRESENT: no acute distress - -on bipap, cooperative, well-developed, well-nourished. ABSENT: disheveled Mouth exam: PRESENT: neck supple. ABSENT: dry mucosa Respiratory exam: PRESENT: crackles - -diffuse through out. ABSENT: accessory muscle use, clear to auscultation rodney, wheezes Cardiovascular exam: PRESENT: +S1, +S2 GI/Abdominal exam: PRESENT: soft. ABSENT: tenderness Extremities exam: ABSENT: pedal edema, tenderness, +1 edema, +2 edema Musculoskeletal exam: PRESENT: normal inspection. ABSENT: tenderness Neurological exam: PRESENT: alert, awake, oriented to person, oriented to place, oriented to time, oriented to situation Psychiatric exam: ABSENT: anxious, depressed Skin exam: PRESENT: dry, intact, warm. ABSENT: cyanosis Results Laboratory Results: 01/09/20 09:00 01/09/20 09:00 01/09/20 01/09/20 09:00 23:53 WBC 18.5 H RBC 2.52 L Hgb 8.0 L Hct 23.4 L MCV 93 MCH 31.9 MCHC 34.4 RDW 17.4 H Plt Count 336 Seg Neutrophils % Not Reportable Urine Color YELLOW Urine Appearance SLIGHTLY-CLOUDY Urine pH 6.0 Ur Specific [place] 1.014 Urine Protein NEGATIVE Urine Glucose (UA) NEGATIVE Urine Ketones NEGATIVE Urine Blood NEGATIVE Urine Nitrite NEGATIVE Ur Leukocyte Esterase MODERATE H Urine WBC (Auto) 36 Urine RBC (Auto) 3 12/27/19 12/28/19 12/28/19 23:14 00:18 05:47 Creatine Kinase CK-MB (CK-2) Troponin I 0.102 0.110 0.134 NT-Pro-B Natriuret Pep [id number] H 12/28/19 12/29/19 12/31/19 11:52 21:57 00:00 Creatine Kinase 40 CK-MB (CK-2) Troponin I 0.129 0.190 NT-Pro-B Natriuret Pep 12/31/19 12/31/19 12/31/19 00:00 05:46 05:46 Creatine Kinase 35 CK-MB (CK-2) 0.45 0.47 Troponin I 0.154 0.145 NT-Pro-B Natriuret Pep 12/31/19 12/31/19 01/05/20 12:17 12:17 05:00 Creatine Kinase 39 CK-MB (CK-2) 0.56 Troponin I 0.125 NT-Pro-B Natriuret Pep 5790 H 01/06/20 01/07/20 01/08/20 07:32 08:27 08:54 Creatine Kinase CK-MB (CK-2) Troponin I NT-Pro-B Natriuret Pep 6760 H 6690 H 6090 H Impressions: Abdomen/Pelvis CT 12/30/19 00:00 IMPRESSION: Small right effusion with patchy basilar airspace disease right greater than left. Prior cholecystectomy. Internal biliary drainage catheter is in place. Small atrophic left kidney. Chest CT 01/04/20 00:00 IMPRESSION: Bilateral ground-glass opacities with focal areas of consolidation findings are consistent with a history of congestive heart failure. There are small bilateral pleural effusions. Probable reactive mediastinal adenopathy. Findings can be seen with infectious or inflammatory processes as well. Clinical correlation is needed. Chest X-Ray 01/09/20 00:00 IMPRESSION: Partial clearing of the diffuse bilateral alveolar and interstitial infiltrates compared to 01/03/2020 Assessment & Plan - Diagnosis (1) Acute kidney injury superimposed on chronic kidney disease Plan: Nonoliguric, looks to be prerenal from possible overdiuresis. Other factors include possible ATN from recent infection and antibiotic use. Getting updated bmp, continue to hold bumex. Will look to give her a light amount of saline to help rehydrate but not push her back into CHF. Starting normal saline at 50mL per an hour, no more than 500mL for right now. Will look to then reassess. (2) CKD (chronic kidney disease) stage 3, GFR 30-59 ml/min Plan: base line is 1.4 to 1.7 (3) Acute on chronic congestive heart failure Qualifiers: Heart failure type: unspecified Qualified Code(s): I50.9 - Heart failure, unspecified Is this a current diagnosis for this admission?: Yes Plan: holding bumex for now, will follow up with labs and gentle hydration. (4) Acute respiratory failure with hypoxia Is this a current diagnosis for this admission?: Yes Plan: combination of COPD, recent pneumonia, anemia and CHF, which has resolved. (5) Anemia Is this a current diagnosis for this admission?: Yes Plan: getting labs, pending labs patient may need retacrit. Discussed IV injectofer and retacrit. Will decide which is needed pending labs. Hemoglobin came back at 6.9, will look to transfuse one unit of packed red blood cells and give a low dose of furosemide to 10mg to help prevent from fluid overloading her. Also looking to start retacrit 20,000 units weekly for now. (6) Asthma Qualifiers: Asthma severity: unspecified severity Asthma persistence: unspecified Asthma complication type: unspecified Qualified Code(s): J45.909 - Unspecified asthma, uncomplicated Is this a current diagnosis for this admission?: No Plan: per hopsitalist (7) Hypertension Qualifiers: Hypertension type: essential hypertension Qualified Code(s): I10 - Essential (primary) hypertension Is this a current diagnosis for this admission?: Yes Plan: mostly controlled - Notes Notes: case was discussed with Dr. Phillips
[2020-01-10] MEDS: DOCUSATE SODIUM 100 MG CAPSULE PO SCH ×2 (11:20→17:57)
[2020-01-10] MEDS: HYDRALAZINE HCL 50 MG TABLET PO SCH ×2 (11:20→22:02)
[2020-01-10] MEDS: CLOPIDOGREL BISULFATE 75 MG TABLET PO SCH (11:20)
[2020-01-10] MEDS: CALCITRIOL 0.25 MCG CAPSULE PO SCH (11:20)
[2020-01-10] MEDS: FOLIC ACID 1 MG TABLET PO SCH (11:20)
[2020-01-10] MEDS: ATORVASTATIN CALCIUM 80 MG TABLET PO SCH (11:20)
[2020-01-10] MEDS: MAGNESIUM OXIDE 400 MG TABLET PO SCH (11:21)
[2020-01-10] MEDS: LORATADINE 10 MG TABLET PO SCH (11:21)
[2020-01-10] MEDS: LORAZEPAM 0.5 MG TABLET PO SCH ×3 (11:21→23:03)
[2020-01-10] MEDS: OMEGA-3 ACID ETHYL ESTERS 1 GM CAPSULE PO SCH (11:21)
[2020-01-10] MEDS: AMLODIPINE BESYLATE 10 MG TABLET PO SCH (11:21)
[2020-01-10] MEDS: FLUTICASONE/VILANTEROL 100-25 MCG/DOSE IH SCH (11:24)
[2020-01-10] MEDS: FLUTICASONE NASAL SPRAY 50 MCG/SPRY 120 SPRAY/16 GM NASL SCH ×2 (11:24→18:04)
[2020-01-10] MEDS: LIDOCAINE 5% (700 MG) TRANSDERMAL ADH..PATCH TOP SCH (11:24)
[2020-01-10 11:25] LABS: ABSOLUTE MONOCYTES # (MANUAL) 1.8 10^3/uL (0.1-1.4); BASOPHILS % (MANUAL) 0 % (0-2); EOSINOPHILS % (MANUAL) 0 % (0-6); LYMPHOCYTES % (MANUAL) 0 % (13-45); MONOCYTES % (MANUAL) 8 % (3-13); SEGMENTED NEUTROPHILS % (MAN) 92 % (42-78); TOTAL CELLS COUNTED 100
[2020-01-10] MEDS: POLYETHYLENE GLYCOL 3350 POWDER 17 GM/1 PACKET PO SCH ×3 (11:25→17:57)
[2020-01-10] MEDS: PANTOPRAZOLE SODIUM 40 MG TABLET.DR PO SCH (11:28)
[2020-01-10 11:35] LABS: ANISOCYTOSIS 1+
[2020-01-10 11:36] LABS: PLATELET COMMENT ADEQUATE
[2020-01-10 11:42] LABS: BURR CELLS SLIGHT; OVALOCYTES SLIGHT; POIKILOCYTOSIS 1+; POLYCHROMASIA SLIGHT; SCHISTOCYTES SLIGHT; STOMATOCYTES SLIGHT; TEAR DROP CELLS SLIGHT
[2020-01-10 12:27] LABS: FOLATE > 20.00 ng/mL (>2.76)
[2020-01-10] MEDS ORDERED: NORMAL SALINE 1000 ML 500 ML IV PRN (12:39)
--- NOTE | 2020-01-10 12:49 | PDOC PROGRESS REPORT ---
Subjective Progress Note for:: 01/10/20 Subjective:: Continues to require noninvasive ventilation. Does not appear to be in heart failure. Endorses dyspnea. Reason For Visit: ACUTE CARDIOGENIC PULMONARY EDEMA,ACUTE ON CHRONIC Physical Exam Vital Signs: Temp Pulse Resp BP Pulse Ox 97.6 F 76 32 H 140/63 H 89 L 01/10/20 07:14 01/10/20 07:14 01/10/20 07:14 01/10/20 07:14 01/10/20 07:14 Intake & Output 01/09/20 01/10/20 01/11/20 06:59 06:59 06:59 Intake Total 757 1164 Output Total 1000 1070 Balance -243 94 Weight 58.1 kg 61.6 kg General appearance: PRESENT: no acute distress, cooperative, thin, well- developed, well-nourished Head exam: PRESENT: atraumatic, normocephalic Eye exam: PRESENT: conjunctiva pink, EOMI Mouth exam: PRESENT: dry mucosa Rectal exam: PRESENT: deferred Musculoskeletal exam: PRESENT: normal inspection Neurological exam: PRESENT: alert, awake, oriented to person Results Laboratory Results: 01/09/20 09:00 01/09/20 09:00 01/09/20 01/09/20 09:00 23:53 WBC 18.5 H RBC 2.52 L Hgb 8.0 L Hct 23.4 L MCV 93 MCH 31.9 MCHC 34.4 RDW 17.4 H Plt Count 336 Seg Neutrophils % Not Reportable Urine Color YELLOW Urine Appearance SLIGHTLY-CLOUDY Urine pH 6.0 Ur Specific [place] 1.014 Urine Protein NEGATIVE Urine Glucose (UA) NEGATIVE Urine Ketones NEGATIVE Urine Blood NEGATIVE Urine Nitrite NEGATIVE Ur Leukocyte Esterase MODERATE H Urine WBC (Auto) 36 Urine RBC (Auto) 3 12/27/19 12/28/19 12/28/19 23:14 00:18 05:47 Creatine Kinase CK-MB (CK-2) Troponin I 0.102 0.110 0.134 NT-Pro-B Natriuret Pep [id number] H 12/28/19 12/29/19 12/31/19 11:52 21:57 00:00 Creatine Kinase 40 CK-MB (CK-2) Troponin I 0.129 0.190 NT-Pro-B Natriuret Pep 12/31/19 12/31/19 12/31/19 00:00 05:46 05:46 Creatine Kinase 35 CK-MB (CK-2) 0.45 0.47 Troponin I 0.154 0.145 NT-Pro-B Natriuret Pep 12/31/19 12/31/19 01/05/20 12:17 12:17 05:00 Creatine Kinase 39 CK-MB (CK-2) 0.56 Troponin I 0.125 NT-Pro-B Natriuret Pep 5790 H 01/06/20 01/07/20 01/08/20 07:32 08:27 08:54 Creatine Kinase CK-MB (CK-2) Troponin I NT-Pro-B Natriuret Pep 6760 H 6690 H 6090 H Impressions: Abdomen/Pelvis CT 12/30/19 00:00 IMPRESSION: Small right effusion with patchy basilar airspace disease right greater than left. Prior cholecystectomy. Internal biliary drainage catheter is in place. Small atrophic left kidney. Chest CT 01/04/20 00:00 IMPRESSION: Bilateral ground-glass opacities with focal areas of consolidation findings are consistent with a history of congestive heart failure. There are small bilateral pleural effusions. Probable reactive mediastinal adenopathy. Findings can be seen with infectious or inflammatory processes as well. Clinical correlation is needed. Chest X-Ray 01/09/20 00:00 IMPRESSION: Partial clearing of the diffuse bilateral alveolar and interstitial infiltrates compared to 01/03/2020 Assessment & Plan - Diagnosis (1) Acute on chronic congestive heart failure Qualifiers: Heart failure type: unspecified Qualified Code(s): I50.9 - Heart failure, unspecified Is this a current diagnosis for this admission?: Yes Plan: Overall heart failure symptoms have improved. There has been elevation in renal function indicating adequate diuresis. There has been drop in BNP as well. CT scan of the chest shows minimal pleural effusion probably reactive changes for the most part. Probably chronic lung changes. May require maintenance diuretic (2) Hypertension Qualifiers: Hypertension type: essential hypertension Qualified Code(s): I10 - Essential (primary) hypertension Is this a current diagnosis for this admission?: Yes Plan: Stable Continue amlodipine Continue carvedilol No dose changes Watch blood pressure as we diurese. (3) Hyperlipidemia Qualifiers: Hyperlipidemia type: unspecified Qualified Code(s): E78.5 - Hyperlipidemia, unspecified Is this a current diagnosis for this admission?: Yes Plan: Continue atorvastatin - Notes Notes: In her present state she does not appear to be volume overloaded. She may have a pulmonary component that is driving her dyspnea and oxygen requirement. Appreciate nephrology consultation
[2020-01-10] MEDS ORDERED: NORMAL SALINE 250 ML IV PRN (12:51)
[2020-01-10] MEDS ORDERED: FUROSEMIDE INJ/PF 20 MG/2 ML SDV IV ONE ×2 (12:54→20:30)
[2020-01-10] MEDS ORDERED: ACETAMINOPHEN 325 MG TABLET PO ONE (12:55)
[2020-01-10] MEDS ORDERED: EPOETIN ALFA-EPBX 10,000 UNIT/ML VIAL (NON-ESRD) SUBCUT ONE ×2 (14:00)
[2020-01-10] MEDS: FLUOXETINE HCL 20 MG CAPSULE PO SCH (17:57)
[2020-01-10] MEDS ORDERED: FUROSEMIDE INJ/PF 20 MG/2 ML SDV ONE (18:56)
[2020-01-10] MEDS: MONTELUKAST SODIUM 10 MG TABLET PO SCH (22:05)
[2020-01-10] MEDS: PHARMACY COMMUNICATION ORDER MC SCH (22:05)
[2020-01-10 22:37] LABS: HEMATOCRIT 23.8 % (36.0-47.0); HEMOGLOBIN 8.2 g/dL (12.0-15.5); MEAN CORPUSCULAR HEMOGLOBIN 30.9 pg (27.0-33.4); MEAN CORPUSCULAR HGB CONC 34.4 g/dL (32.0-36.0); MEAN CORPUSCULAR VOLUME 90 fl (80-97); PLATELET COUNT 291 10^3/uL (150-450); RED BLOOD COUNT 2.65 10^6/uL (3.72-5.28); WHITE BLOOD COUNT 20.3 10^3/uL (4.0-10.5)
[2020-01-10 23:00] LABS: ABSOLUTE LYMPHOCYTES# (MANUAL) 1.2 10^3/uL (0.5-4.7); ABSOLUTE MONOCYTES # (MANUAL) 1.4 10^3/uL (0.1-1.4); BASOPHILS % (MANUAL) 0 % (0-2); EOSINOPHILS % (MANUAL) 0 % (0-6); LYMPHOCYTES % (MANUAL) 3 % (13-45); METAMYELOCYTES % (MANUAL) 1 % (0-1); MONOCYTES % (MANUAL) 7 % (3-13); SEGMENTED NEUTROPHILS % (MAN) 86 % (42-78); TOTAL CELLS COUNTED 100
[2020-01-10 23:02] LABS: ANISOCYTOSIS 1+; PLATELET COMMENT ADEQUATE; POLYCHROMASIA SLIGHT
[2020-01-10 23:03] LABS: OVALOCYTES SLIGHT; POIKILOCYTOSIS SLIGHT; TEAR DROP CELLS SLIGHT
[2020-01-11] MEDS: LORAZEPAM INJ 2 MG/1 ML VIAL IV PRN (03:13)
[2020-01-11] MEDS: HEPARIN SOD (PORCINE) 5,000 UNIT/ML 1 ML VIAL SUBCUT SCH ×3 (05:34→21:51)
[2020-01-11] MEDS: LEVOTHYROXINE SODIUM 0.112 MG TABLET PO SCH (05:34)
[2020-01-11] MEDS: LEVOTHYROXINE SODIUM 0.025 MG TABLET PO SCH (05:35)
[2020-01-11] MEDS: METHYLPREDNISOLONE INJ 40 MG/1 ML SDV IV SCH (05:35)
[2020-01-11] MEDS: LORAZEPAM 0.5 MG TABLET PO SCH (05:35)
[2020-01-11] MEDS: PANTOPRAZOLE SODIUM 40 MG TABLET.DR PO SCH (05:36)
[2020-01-11 06:49] LABS: HEMATOCRIT 24.3 % (36.0-47.0); HEMOGLOBIN 8.4 g/dL (12.0-15.5); MEAN CORPUSCULAR HEMOGLOBIN 31.2 pg (27.0-33.4); MEAN CORPUSCULAR HGB CONC 34.6 g/dL (32.0-36.0); MEAN CORPUSCULAR VOLUME 90 fl (80-97); PLATELET COUNT 302 10^3/uL (150-450); RED CELL DISTRIBUTION WIDTH 17.8 % (11.5-14.0)
[2020-01-11 06:57] LABS: ANION GAP 8 (5-19); BLOOD UREA NITROGEN 94 mg/dL (7-20); CALCIUM 7.8 mg/dL (8.4-10.2); CARBON DIOXIDE 27 mmol/L (22-30); CHLORIDE 99 mmol/L (98-107); GLUCOSE 139 mg/dL (75-110); POTASSIUM 4.5 mmol/L (3.6-5.0)
[2020-01-11 07:06] LABS: ABSOLUTE LYMPHOCYTES# (MANUAL) 0.2 10^3/uL (0.5-4.7); ABSOLUTE MONOCYTES # (MANUAL) 0.6 10^3/uL (0.1-1.4); BASOPHILS % (MANUAL) 0 % (0-2); EOSINOPHILS % (MANUAL) 0 % (0-6); LYMPHOCYTES % (MANUAL) 1 % (13-45); MONOCYTES % (MANUAL) 3 % (3-13); SEGMENTED NEUTROPHILS % (MAN) 96 % (42-78); TOTAL CELLS COUNTED 100
[2020-01-11 07:09] LABS: ANISOCYTOSIS 1+
[2020-01-11 07:10] LABS: OVALOCYTES SLIGHT; PLATELET COMMENT ADEQUATE; POLYCHROMASIA SLIGHT; TEAR DROP CELLS SLIGHT
[2020-01-11] MEDS: ACETAMINOPHEN 325 MG TABLET PO PRN (08:52)
--- NOTE | 2020-01-11 09:43 | RADIOLOGY REPORT (SQ) ---
EXAM DESCRIPTION: CHEST SINGLE VIEW IMAGES COMPLETED DATE/TIME: 01/11/2020 9:15 am REASON FOR STUDY: increased sob COMPARISON: 01/09/2020 EXAM PARAMETERS: NUMBER OF VIEWS: One view. TECHNIQUE: Single frontal radiographic view of the chest acquired. RADIATION DOSE: NA LIMITATIONS: None. FINDINGS: LUNGS AND PLEURA: Diffuse bilateral alveolar airspace disease which is increased from prio r study. MEDIASTINUM AND HILAR STRUCTURES: No masses. Contour normal. HEART AND VASCULAR STRUCTURES: Heart normal in size. Normal vasculature. BONES: No acute findings. HARDWARE: Sternotomy wires are in place. OTHER: No other significant finding. IMPRESSION: There is been a significant increase in bilateral alveolar airspace disease involving laura th the upper and lower lobes. TECHNICAL DOCUMENTATION: JOB ID: [id number] 2010 [employer]- All Rights Reserved Reading location - IP/workstation name: [email or web address]
[2020-01-11] MEDS: DOCUSATE SODIUM 100 MG CAPSULE PO SCH ×2 (10:26→18:27)
[2020-01-11] MEDS: ASPIRIN 81 MG TABLET, ENT COATED PO SCH (10:26)
[2020-01-11] MEDS: FOLIC ACID 1 MG TABLET PO SCH (10:26)
[2020-01-11] MEDS: AMLODIPINE BESYLATE 10 MG TABLET PO SCH (10:26)
[2020-01-11] MEDS: OMEGA-3 ACID ETHYL ESTERS 1 GM CAPSULE PO SCH (10:27)
[2020-01-11] MEDS: LORATADINE 10 MG TABLET PO SCH (10:27)
[2020-01-11] MEDS: CARVEDILOL 12.5 MG TABLET PO SCH (10:27)
[2020-01-11] MEDS: MAGNESIUM OXIDE 400 MG TABLET PO SCH (10:27)
[2020-01-11] MEDS: ISOSORBIDE MONONITRATE 60 MG TAB.ER.24H PO SCH (10:27)
[2020-01-11] MEDS: CLOPIDOGREL BISULFATE 75 MG TABLET PO SCH (10:27)
--- NOTE | 2020-01-11 10:30 | PDOC PROGRESS REPORT ---
Subjective Progress Note for:: 01/11/20 Subjective:: Patient was laying in bed with the bipap on at the time. Apparently FiO2 had to be increased from 50 to 65%. Chest x-ray showed worsening airspace disease diffusely all over. She had no fluid on her at the time. She was also transfused 1 unit of blood yesterday and received a retocrit shot. Reason For Visit: ACUTE CARDIOGENIC PULMONARY EDEMA,ACUTE ON CHRONIC Physical Exam Vital Signs: Temp Pulse Resp BP Pulse Ox 97.8 F 74 28 H 138/73 H 90 L 01/11/20 07:28 01/11/20 07:28 01/11/20 08:05 01/11/20 07:28 01/11/20 08:05 Intake & Output 01/10/20 01/11/20 01/12/20 06:59 06:59 06:59 Intake Total 1164 1032 Output Total 1070 1450 Balance 94 -418 Weight 61.6 kg 61.8 kg General appearance: PRESENT: no acute distress - -on bipap, cooperative, well- developed. ABSENT: well-nourished Mouth exam: PRESENT: dry mucosa, neck supple Neck exam: ABSENT: JVD, tracheal deviation Respiratory exam: PRESENT: crackles - -through out the lungs. ABSENT: accessory muscle use, clear to auscultation rodney, wheezes Cardiovascular exam: PRESENT: +S1, +S2 GI/Abdominal exam: PRESENT: soft. ABSENT: tenderness Extremities exam: ABSENT: pedal edema, +1 edema, +2 edema Musculoskeletal exam: PRESENT: normal inspection. ABSENT: tenderness Neurological exam: PRESENT: alert, awake, oriented to person, oriented to place, oriented to time, oriented to situation Skin exam: PRESENT: dry, intact, rash. ABSENT: cyanosis Results Laboratory Results: 01/11/20 06:24 01/11/20 06:24 01/10/20 01/10/20 01/10/20 10:15 10:15 12:58 WBC 22.3 H RBC 2.20 L Hgb 6.9 L Hct 20.3 L MCV 92 MCH 31.4 MCHC 34.1 RDW 16.7 H Plt Count 322 Seg Neutrophils % Not Reportable Retic Count (auto) 4.72 H Sodium 133.0 L Potassium 4.6 Chloride 97 L Carbon Dioxide 31 H Anion Gap 5 BUN 94 H Creatinine 2.22 H Est GFR ( Amer) 26 L Glucose 129 H Calcium 8.2 L Iron 51.5 TIBC 254 % Saturation 20 Ferritin 578.00 H Total Bilirubin 0.7 AST 21 Alkaline Phosphatase 34 L Total Protein 5.1 L Albumin 2.8 L Vitamin B12 908.0 Folate > 20.00 Blood Type A POSITIVE Antibody Screen NEGATIVE 01/10/20 01/11/20 01/11/20 22:16 06:24 06:24 WBC 20.3 H 21.0 H RBC 2.65 L 2.70 L Hgb 8.2 L 8.4 L Hct 23.8 L 24.3 L MCV 90 90 MCH 30.9 31.2 MCHC 34.4 34.6 RDW 18.0 H 17.8 H Plt Count 291 302 Seg Neutrophils % Not Reportable Not Reportable Retic Count (auto) Sodium 134.0 L Potassium 4.5 Chloride 99 Carbon Dioxide 27 Anion Gap 8 BUN 94 H Creatinine 1.92 H Est GFR ( Amer) 31 L Glucose 139 H Calcium 7.8 L Iron TIBC % Saturation Ferritin Total Bilirubin AST Alkaline Phosphatase Total Protein Albumin Vitamin B12 Folate Blood Type Antibody Screen 12/27/19 12/28/19 12/28/19 23:14 00:18 05:47 Creatine Kinase CK-MB (CK-2) Troponin I 0.102 0.110 0.134 NT-Pro-B Natriuret Pep 69118 H 12/28/19 12/29/19 12/31/19 11:52 21:57 00:00 Creatine Kinase 40 CK-MB (CK-2) Troponin I 0.129 0.190 NT-Pro-B Natriuret Pep 12/31/19 12/31/19 12/31/19 00:00 05:46 05:46 Creatine Kinase 35 CK-MB (CK-2) 0.45 0.47 Troponin I 0.154 0.145 NT-Pro-B Natriuret Pep 12/31/19 12/31/19 01/05/20 12:17 12:17 05:00 Creatine Kinase 39 CK-MB (CK-2) 0.56 Troponin I 0.125 NT-Pro-B Natriuret Pep 5790 H 01/06/20 01/07/20 01/08/20 07:32 08:27 08:54 Creatine Kinase CK-MB (CK-2) Troponin I NT-Pro-B Natriuret Pep 6760 H 6690 H 6090 H Impressions: Abdomen/Pelvis CT 12/30/19 00:00 IMPRESSION: Small right effusion with patchy basilar airspace disease right greater than left. Prior cholecystectomy. Internal biliary drainage catheter is in place. Small atrophic left kidney. Chest CT 01/04/20 00:00 IMPRESSION: Bilateral ground-glass opacities with focal areas of consolidation findings are consistent with a history of congestive heart failure. There are small bilateral pleural effusions. Probable reactive mediastinal adenopathy. Findings can be seen with infectious or inflammatory processes as well. Clinical correlation is needed. Chest X-Ray 01/11/20 08:26 IMPRESSION: There is been a significant increase in bilateral alveolar airspace disease involving both the upper and lower lobes. Assessment & Plan - Diagnosis (1) Acute kidney injury superimposed on chronic kidney disease Plan: creatinine slightly improved but BUN did not. With recent chest x-ray, stopping normal saline. Possible flash pulmonary edema from the blood given yesterday. Normal saline was stopped. Will look to give furosemide. no s/s of uremia, no indication for OUTBOUND SALES REPRESENTATIVE. (2) CKD (chronic kidney disease) stage 3, GFR 30-59 ml/min Plan: baseline is 1.4 to 1.7 (3) Acute on chronic congestive heart failure Qualifiers: Heart failure type: unspecified Qualified Code(s): I50.9 - Heart failure, unspecified Is this a current diagnosis for this admission?: Yes Plan: will look to start furosemide (4) Acute respiratory failure with hypoxia Is this a current diagnosis for this admission?: Yes Plan: looks to be getting worse, at this point pulmonology needs to be involved. Possible intubation needed. Chest x-ray is atypical of CHF. (5) Anemia Is this a current diagnosis for this admission?: Yes Plan: received a unit of blood and was given a retacrit shot yesterday. (6) Asthma Qualifiers: Asthma severity: unspecified severity Asthma persistence: unspecified Asthma complication type: unspecified Qualified Code(s): J45.909 - Unspecified asthma, uncomplicated Is this a current diagnosis for this admission?: No (7) Hypertension Qualifiers: Hypertension type: essential hypertension Qualified Code(s): I10 - Essential (primary) hypertension Is this a current diagnosis for this admission?: Yes Plan: controlled
[2020-01-11] MEDS: HYDRALAZINE HCL 50 MG TABLET PO SCH (10:38)
[2020-01-11] MEDS: ATORVASTATIN CALCIUM 80 MG TABLET PO SCH (10:38)
[2020-01-11] MEDS: FERROUS SULFATE 325 MG TABLET PO SCH (10:39)
[2020-01-11] MEDS ORDERED: ETOMIDATE INJ/PF 20 MG/10 ML SDV IV ONE ×2 (11:00→14:33)
[2020-01-11] MEDS ORDERED: ROCURONIUM BROMIDE INJ 50 MG/5 ML VIAL IV ONE (11:00)
[2020-01-11] MEDS ORDERED: FENTANYL CITRATE INJ/PF 100 MCG/2 ML AMPUL IV ONE (11:00)
[2020-01-11] MEDS ORDERED: PHARMACY COMMUNICATION ORDER MC NR (11:15)
[2020-01-11] MEDS: POLYETHYLENE GLYCOL 3350 POWDER 17 GM/1 PACKET PO SCH ×3 (11:35→18:27)
[2020-01-11 11:43] LABS: ARTERIAL BLOOD BASE EXCESS 1.6 mmol/L; ARTERIAL BLOOD HCO3 25.3 mmol/L (20-24); ARTERIAL BLOOD O2 SATURATION 91.6 % (94-98); ARTERIAL BLOOD PCO2 36.4 mmHg (35-45); ARTERIAL BLOOD PH 7.46 (7.35-7.45); ARTERIAL BLOOD PO2 57.8 mmHg (80-100); ARTERIAL BLOOD TOTAL CO2 26.4 mmol/L (21-25)
[2020-01-11 11:44] LABS: ARTERIAL BLOOD FIO2 70%
--- NOTE | 2020-01-11 12:09 | PDOC PROGRESS REPORT ---
Subjective Progress Note for:: 01/11/20 Subjective:: This morning patient noted increased difficulty breathing. Became more hypoxic into the low 80s on 50% FiO2 required increase of FiO2 to 70%. Denies any chest pain. Noted that patient did receive 1 unit of PRBCs yesterday. However notably patient has been net negative. Still requiring BiPAP therapy. Reason For Visit: ACUTE CARDIOGENIC PULMONARY EDEMA,ACUTE ON CHRONIC Physical Exam Vital Signs: Temp Pulse Resp BP Pulse Ox 97.8 F 74 28 H 138/73 H 90 L 01/11/20 07:28 01/11/20 07:28 01/11/20 08:05 01/11/20 07:28 01/11/20 08:05 Intake & Output 01/10/20 01/11/20 01/12/20 06:59 06:59 06:59 Intake Total 1164 1032 Output Total 1070 1450 Balance 94 -418 Weight 61.6 kg 61.8 kg General appearance: PRESENT: cooperative, mild distress Neck exam: ABSENT: JVD Respiratory exam: PRESENT: crackles, rhonchi, unlabored. ABSENT: tachypnea, wheezes Cardiovascular exam: PRESENT: +S1, +S2. ABSENT: RRR, tachycardia GI/Abdominal exam: PRESENT: soft. ABSENT: rebound, rigid, tenderness Extremities exam: ABSENT: pedal edema Neurological exam: PRESENT: alert, awake Psychiatric exam: ABSENT: agitated, anxious Focused psych exam: ABSENT: pressured speech Skin exam: ABSENT: jaundice Results Laboratory Results: 01/11/20 06:24 01/11/20 06:24 01/10/20 01/10/20 01/10/20 10:15 12:58 22:16 WBC 20.3 H RBC 2.65 L Hgb 8.2 L Hct 23.8 L MCV 90 MCH 30.9 MCHC 34.4 RDW 18.0 H Plt Count 291 Seg Neutrophils % Not Reportable Carbonic Acid HCO3/H2CO3 Ratio ABG pH ABG pCO2 ABG pO2 ABG HCO3 ABG O2 Saturation ABG Base Excess FiO2 Sodium 133.0 L Potassium 4.6 Chloride 97 L Carbon Dioxide 31 H Anion Gap 5 BUN 94 H Creatinine 2.22 H Est GFR ( Amer) 26 L Glucose 129 H Calcium 8.2 L Iron 51.5 TIBC 254 % Saturation 20 Ferritin 578.00 H Total Bilirubin 0.7 AST 21 Alkaline Phosphatase 34 L Total Protein 5.1 L Albumin 2.8 L Vitamin B12 908.0 Folate > 20.00 Blood Type A POSITIVE Antibody Screen NEGATIVE 01/11/20 01/11/20 01/11/20 06:24 06:24 10:30 WBC 21.0 H RBC 2.70 L Hgb 8.4 L Hct 24.3 L MCV 90 MCH 31.2 MCHC 34.6 RDW 17.8 H Plt Count 302 Seg Neutrophils % Not Reportable Carbonic Acid 1.10 HCO3/H2CO3 Ratio 23:1 ABG pH 7.46 H ABG pCO2 36.4 ABG pO2 57.8 L ABG HCO3 25.3 H ABG O2 Saturation 91.6 L ABG Base Excess 1.6 FiO2 70% Sodium 134.0 L Potassium 4.5 Chloride 99 Carbon Dioxide 27 Anion Gap 8 BUN 94 H Creatinine 1.92 H Est GFR ( Amer) 31 L Glucose 139 H Calcium 7.8 L Iron TIBC % Saturation Ferritin Total Bilirubin AST Alkaline Phosphatase Total Protein Albumin Vitamin B12 Folate Blood Type Antibody Screen 12/27/19 12/28/19 12/28/19 23:14 00:18 05:47 Creatine Kinase CK-MB (CK-2) Troponin I 0.102 0.110 0.134 NT-Pro-B Natriuret Pep 85591 H 12/28/19 12/29/19 12/31/19 11:52 21:57 00:00 Creatine Kinase 40 CK-MB (CK-2) Troponin I 0.129 0.190 NT-Pro-B Natriuret Pep 12/31/19 12/31/19 12/31/19 00:00 05:46 05:46 Creatine Kinase 35 CK-MB (CK-2) 0.45 0.47 Troponin I 0.154 0.145 NT-Pro-B Natriuret Pep 12/31/19 12/31/19 01/05/20 12:17 12:17 05:00 Creatine Kinase 39 CK-MB (CK-2) 0.56 Troponin I 0.125 NT-Pro-B Natriuret Pep 5790 H 01/06/20 01/07/20 01/08/20 07:32 08:27 08:54 Creatine Kinase CK-MB (CK-2) Troponin I NT-Pro-B Natriuret Pep 6760 H 6690 H 6090 H Impressions: Abdomen/Pelvis CT 12/30/19 00:00 IMPRESSION: Small right effusion with patchy basilar airspace disease right greater than left. Prior cholecystectomy. Internal biliary drainage catheter is in place. Small atrophic left kidney. Chest CT 01/04/20 00:00 IMPRESSION: Bilateral ground-glass opacities with focal areas of consolidation findings are consistent with a history of congestive heart failure. There are small bilateral pleural effusions. Probable reactive mediastinal adenopathy. Findings can be seen with infectious or inflammatory processes as well. Clinical correlation is needed. Chest X-Ray 01/11/20 08:26 IMPRESSION: There is been a significant increase in bilateral alveolar airspace disease involving both the upper and lower lobes. Assessment and Plan - Diagnosis (1) Acute respiratory failure with hypoxia Is this a current diagnosis for this admission?: Yes (2) Pulmonary edema, acute Is this a current diagnosis for this admission?: Yes (3) Acute kidney injury superimposed on chronic kidney disease Is this a current diagnosis for this admission?: Yes (4) Diastolic heart failure Qualifiers: Heart failure chronicity: acute on chronic Qualified Code(s): I50.33 - Acute on chronic diastolic (congestive) heart failure Is this a current diagnosis for this admission?: Yes (5) Suspected COVID-19 virus infection Is this a current diagnosis for this admission?: Yes - Plan Summary Summary: Patient continues to remain hypoxic severely. Today her chest x-ray showing significantly worsened bilateral airspace disease with fluffy appearance. Patient did notably receive only 1 unit of PRBC yesterday but however stayed net negative in terms of fluid balance. Also BNP has been dropping since admission but patient still having worsening airspace disease and hypoxia. ABG on 70% FiO2 on BiPAP shows PO2 of 57 mmHg suggesting significant Aa gradient. Echo done on this hospitalization shows moderate to severe MR, moderate AR, 50 to 55% EF, RVSP 40 to 50 mmHg on admission Given that patient's hypoxia and chest x-ray findings have severely worsened since admission despite diuresis and improvement of BNP, I am not fully convinced that CHF is the only factor playing a role in patient's respiratory symptoms. Possible this could be of noncardiogenic pulmonary edema from ARDS Patient receiving Levaquin Continue diuresis Will swab for influenza and COVID-19. Lab documentation filled by me. Discussed with customer project manager and patient will be upgraded to the ICU for further care. - Time Time Spent with patient: 25-34 minutes
[2020-01-11 12:10] LABS: A TYPE INFLUENZA AG NEGATIVE (NEGATIVE); B INFLUENZA AG NEGATIVE (NEGATIVE)
[2020-01-11 12:43] LABS: CREATINE KINASE < 20 U/L (30-135)
[2020-01-11] MEDS: FUROSEMIDE INJ/PF 20 MG/2 ML SDV IV SCH ×2 (13:16→21:52)
[2020-01-11] MEDS ORDERED: FENTANYL CITRATE INJ/PF 100 MCG/2 ML AMPUL ONE (14:39)
[2020-01-11] MEDS ORDERED: NOREPINEPHRINE BITARTRATE INJ/PF 4 MG/4 ML SDV IV ONE (14:57)
[2020-01-11] MEDS: PROPOFOL 1,000 MG/100 ML INFUS..BTL IV PRN (15:15)
[2020-01-11] MEDS: MEROPENEM 1 GM in NORMAL SALINE 50 ML IV SCH ×2 (16:19→21:51)
[2020-01-11] MEDS: MINERAL OIL/PETROLATUM,WHITE OPH OINT 3.5 GM OU SCH ×2 (16:20→21:57)
[2020-01-11] MEDS: LINEZOLID 600 MG/300 ML RTUPB IV SCH ×2 (16:20→21:51)
--- NOTE | 2020-01-11 17:29 | RADIOLOGY REPORT (SQ) ---
EXAM DESCRIPTION: CHEST SINGLE VIEW IMAGES COMPLETED DATE/TIME: 01/11/2020 4:58 pm REASON FOR STUDY: ET Tube Placement and Central Line Placement COMPARISON: Multiple chest films since 12/27/2019, most recently 01/11/2020 EXAM PARAMETERS: NUMBER OF VIEWS: One view. TECHNIQUE: Single frontal radiographic view of the chest acquired. RADIATION DOSE: NA LIMITATIONS: None. FINDINGS: LUNGS AND PLEURA: Unchanged diffuse alveolar infiltrates. No pleural effusions. No pneumothorax MEDIASTINUM AND HILAR STRUCTURES: No masses. Contour normal. HEART AND VASCULAR STRUCTURES: Old sternotomy for CABG. No cardiomegaly BONES: No acute findings. HARDWARE: Right jugular central line tip superior vena cava. Right PICC line in the right subclavian vein. Endotracheal tube tip 3 cm above the lindsay. Nasogastric tube tip and side port stomach. Ri ght heart pressure monitor from inferior vena cava approach in the right atrium. Nasogastric tube ti p and side port in the stomach. OTHER: No other significant finding. IMPRESSION: Tubes and lines in good positioning. No change in appearance of the lungs. No pleural effusion or pneumothorax. TECHNICAL DOCUMENTATION: JOB ID: [id number] [employer]- All Rights Reserved Reading location - IP/workstation name: [email or web address]
--- NOTE | 2020-01-11 18:07 | Operative Report ---
Bedside Procedure - History of Present Illness History of Present Illness: VERENA MORRIS is a 74 year old female with a history of diastolic CHF, COPD, CAD, CKD3 came to the hospital for increased sob and clear sputum production. She was sitting at home when her breathing started to worsen. It had been worsen with exertion and she was having orthopnea. EMS arrived to her house to find that her O2 sats were in the 60s. She was placed on bipap and transported to the ER. She had been treated for heart failure but has continued to worsen. She is required BiPAP. CT scan of chest x-ray show interstitial changes that are concerning for SARS, 2-CoViD19. Requiring escalating FiO2 requirements she was transferred to the ICU. Indication for Procedure: Acute respiratory failure with possible SARS, 2- CoViD19 Date: 01/11/20 Provider: JUNIOR MICHAELS - Central Line Right Internal jugular Time completed: 15:50 Central line pre-insertion: Sterile PPE donned, Chloraprep applied, Sterile drapes applied Central line lumen type: Triple Ultrasound guided: Yes CM at insertion site: 15 Line secured with sutures: Yes Central line post-insertion: Blood return from lumens, Biopatch applied, Sutured, Sterile dressing applied, Position confirmed w/ CXR, Other - Wire seen in the lumen of the internal jugular. Central line placed to 15 cm. Chest x- ray shows tip at the RA SVC junction no pneumothorax. Number of attempts: 1 Complications: No Notes: 01/11/20 18:07 Done under urgent conditions secondary to the suspicion for SARS, 2-CoViD19. No pneumothorax on ultrasound of the lungs.
--- NOTE | 2020-01-11 18:12 | Operative Report ---
Bedside Procedure - History of Present Illness History of Present Illness: VERENA MORRIS is a 74 year old female with a history of diastolic CHF, COPD, CAD, CKD3 came to the hospital for increased sob and clear sputum production. She was sitting at home when her breathing started to worsen. It had been worsen with exertion and she was having orthopnea. EMS arrived to her house to find that her O2 sats were in the 60s. She was placed on bipap and transported to the ER. She had been treated for heart failure but has continued to worsen. She is required BiPAP. CT scan of chest x-ray show interstitial changes that are concerning for SARS, 2-CoViD19. Requiring escalating FiO2 requirements she was transferred to the ICU. Indication for Procedure: Acute hypoxic respiratory failure with concern for SARS, 2-CoViD19 Date: 01/11/20 Provider: JUNIOR MICHAELS - Additional Procedures Arterial Line Time performed: 16:50 Notes: Consent was waived secondary to patient's urgent situation. The right axillary region was prepped and draped in sterile fashion with chlorhexidine and allowed to dry. Using full sterile Regalia and precautions attempts were made with ultrasound but were unsuccessful. The arm was repositioned by abducting more and the artery was able to be both access and palpated using anatomical landmarks and ultrasound guidance. The pulsatile blood flow was noted and a wire was placed through the needle at this point using typical Seldinger technique. The needle was removed and a long 18-gauge catheter was placed without difficulty. Pulsatile blood flow was noted and was allowed to occur to clear any debris. Next in extension transducer tubing was applied catheter was sutured in place. A final transducer tubing was then inserted into the extension tubing. There is reprepped with chlorhexidine allowed to dry and a sterile dressing was applied. Patient tolerated procedure well there were no complications this procedure excludes critical care time
--- NOTE | 2020-01-11 18:19 | Operative Report ---
Bedside Procedure - History of Present Illness History of Present Illness: VERENA MORRIS is a 74 year old female with a history of diastolic CHF, COPD, CAD, CKD3 came to the hospital for increased sob and clear sputum production. She was sitting at home when her breathing started to worsen. It had been worsen with exertion and she was having orthopnea. EMS arrived to her house to find that her O2 sats were in the 60s. She was placed on bipap and transported to the ER. She had been treated for heart failure but has continued to worsen. She is required BiPAP. CT scan of chest x-ray show interstitial changes that are concerning for SARS, 2-CoViD19. Requiring escalating FiO2 requirements she was transferred to the ICU. Procedure Procedure: Emergent intubation Preprocedure diagnosis: Acute hypoxic respiratory failure with concern for SARS, 2-CoViD19 Postprocedure diagnosis: Same Findings: Grade 1 airway using glide scope; dry mucous membranes with slight swelling of aryetenoids. Loss none Complications: None Patient was identified secondary to critical care admission, chart check and name bracelet. She was in moderate respiratory distress but did agree to intubation. Concern for SARS, 2-CoViD19 required the use of extensive PPE and glide scope. All available equipment patient was given rapid sequence intubation using rocuronium.(Fentanyl 100 mcg followed by etomidate 20 mg followed by rocuronium 75 mg) Using glide scope the intubating bougie was placed first. After this was placed the ET tube was placed over the bougie and the balloon was seen going through the tracheal airway. The ET tube was secured at 24 cm. In accordance with SARS, 2-CoViD19 technique guidelines the balloon was dilated first. The first insufflation of bag mask valve showed end-tidal CO2 exchange. Ballottement of the ET tube was able to be felt at the sternal junction. Auscul tation was difficult using a disposable stethoscope. Patient had hypoxia during the preprocedure period which was the reason for her intubation. This improved when she was intubated. She did have approximately 2 to 3 minutes of hypoxia but not as bad as her presentation prior to intubation. Because this was a potential SARS, 2-CoViD19 patient bag mask valve was not used in accordance with guidelines Patient tolerated the procedure well there were no complications. Seizure excludes critical care time Indication for Procedure: Acute hypoxic respiratory failure concern for SARS, 2- CoViD19 Date: 01/11/20 Provider: JUNIOR MICHAELS
[2020-01-11] MEDS: THIAMINE HCL 250 MG in NORMAL SALINE 250 ML IV SCH (18:45)
--- NOTE | 2020-01-11 20:43 | CRITICAL CARE ADMISSION REPORT ---
HPI Date:: 01/11/20 Time:: 15:00 Reason for ICU Reason:: Hypoxic respiratory failure HPI: VERENA MORRIS is a 74 year old female with a history of diastolic CHF, COPD, CAD, CKD3 came to the hospital for increased sob and clear sputum production. She was sitting at home when her breathing started to worsen. It had been worsen with exertion and she was having orthopnea. EMS arrived to her house to find that her O2 sats were in the 60s. She was placed on bipap and transported to the ER. She had been treated for heart failure but has continued to worsen. She requir ed BiPAP. CT scan of chest x-ray show interstitial changes that are concerning for SARS, 2-CoViD19. Requiring escalating FiO2 requirements she was transferred to the ICU. I was unable to obtain any significant information from the patient given her extreme respiratory compromise. In chronological perusal since her admission she has had chest x-rays which have continually shown groundglass appearance and today's chest x-ray is far more advanced. She has leukocytosis and renal failure. There has been no evidence for fever. No history or noted evidence of hemoptysis. She has what appears to be chronic lung disease and is on home oxygen therapy. Echocardiogram admission showed an intact ejection fraction with what appears to be moderate mitral regurgitation. Despite vigilant diuresis patient situation has worsened. She was given 1 unit of packed red blood cells for hemoglobin of 8.9. Notably her neutrophil to lymphocyte ratio is 101. Age 74 History obtained from:: EHR, Hospitalist staff, - Diagnosis/Plan (1) Acute respiratory failure with hypoxia Is this a current diagnosis for this admission?: Yes (2) Suspected COVID-19 virus infection Is this a current diagnosis for this admission?: Yes (3) Acute kidney injury superimposed on chronic kidney disease Is this a current diagnosis for this admission?: Yes (4) CKD (chronic kidney disease) stage 3, GFR 30-59 ml/min Is this a current diagnosis for this admission?: Yes (5) Oxygen dependency at home Is this a current diagnosis for this admission?: Yes (6) Mitral valve regurgitation Qualifiers: Cardiac valve disease etiology: etiology unspecified Qualified Code(s): I34.0 - Nonrheumatic mitral (valve) insufficiency Is this a current diagnosis for this admission?: Yes - . Plan Summary: Patient's chest x-ray shows abnormal interstitial changes with mixed alveolar pattern. Her ultrasound shows significant B-lines with an ejection fraction that is not diminished. Although mitral regurgitation can present like this this appears to be an infectious source. Have sent SARS, 2-CoViD19 panel as well as respiratory viral panel. Influenza screen is negative however these tests are extremely insensitive. I have placed her on broad-spectrum antibiotics. Continue to follow indirect parameters such as ferritin, d-dimer and CRP. Have sent procalcitonin but the levels are not returning in a timely fashion to de- escalate therapy. His hypoxia necessitated prone positioning. Due diligence was maintained to protect pressure areas as well as to protect the confines of the ET tube with a surgical based head cushion. We will start Plaquenil and have started meropenem and Linezolid in case this is an infectious etiology from bacteria. We will need to follow QT interval. 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 Given the pandemic's unknown lab characteristics as far as ANCA I am not sure how testing will help. That being said she may be a candidate for steroid therapy. Supportively, her ferritin is not excessively elevated which I would expect at this point. We will follow the trend. The elevation albeit not significantly high may portend a better prognosis. We will need to provide vigilance for protection during pronating. Is been ineffective treatment for SARS, 2-CoViD19. I also had a discussion with the patient regarding her goals of care. She did agree to intubation but declined resuscitation if she had a cardiac arrest. Has been was updated and notified as well. Unfortunately he is unable to be here secondary to the confines of the SARS, 2-CoViD19 pandemic. Significant amount time was spent with the patient because of her hypoxia after intubation. She was placed on 100% FiO2 and PEEP increased to 16 to recruit. This was quite successful and FiO2 has been now weaning. Given the complex nature of her case and the constant requirement for airway management during pronating patient's care required a significant amount of critical care time. Bedside ultrasound of her heart lungs were done as well Past Medical History Cardiac Medical History: Reports: Congestive Heart Failure, Hyperlipidema, Hypertension Denies: Atrial Fibrillation, Coronary Artery Disease, Myocardial Infarction Pulmonary Medical History: Reports: Asthma, Respiratory Failure Denies: Chronic Obstructive Pulmonary Disease (COPD) EENT Medical History: Denies: Cataracts, Ears - Hearing aids Neurological Medical History: Denies: Hemorrhagic CVA, Ischemic CVA, Seizures Endocrine Medical History: Reports: Other - Male hypogonadism Denies: Diabetes Mellitus Type 1, Diabetes Mellitus Type 2, Hyperthyroidism, Hypothyroidism, Obesity Renal/ Medical History: Denies: Chronic Kidney Disease, Nephrolithiasis Malignancy Medical History: Reports: None GI Medical History: Denies: Cirrhosis, Crohn's Disease, Hepatitis, Ulcerative Colitis Musculoskeltal Medical History: Denies: Fibromyalgia, Gout Skin Medical History: Denies: Eczema, Psoriasis Psychiatric Medical History: Reports: Depression Denies: Alcohol Dependency, Substance Abuse, Tobacco Dependency Traumatic Medical History: Reports: None Hematology: Denies: Anemia, Bleeding Tendencies Infectious Medical History: Reports: None Past Surgical History Past Surgical History: Reports: None, Appendectomy, Other - Heart surgery Social/Family History - Social History Lives with: Spouse/Significant other Smoking Status: Never Smoker Frequency of Alcohol Use: None Hx Recreational Drug Use: No Drugs: None Hx Prescription Drug Abuse: No - Medication/Allergies Home Medications: Amlodipine Besylate [Norvasc 10 mg Tablet] 10 mg PO DAILY 12/28/19 Aspirin [Ecotrin 81 mg EC Tablet] 81 mg PO QAM 12/28/19 Atorvastatin Calcium [Lipitor 80 mg Tablet] 80 mg PO DAILY 12/28/19 Azelastine/Fluticasone [Dymista Nasal [place]] 1 spray NS BID 12/28/19 Budesonide/Formoterol Fumarate [Symbicort Hfa 80-4.5 Mcg Inhaler 6.9 gm] 1 puff IH QA 12/28/19 Bumetanide 0.5 mg PO DAILY@0600 12/28/19 Calcitriol [Rocaltrol 0.25 Mcg Capsule] 0.25 mcg PO MOWEFR@1000 12/28/19 Carvedilol 12.5 mg PO QAM 12/28/19 Clopidogrel Bisulfate [Plavix 75 mg Tablet] 1 tab PO DAILY 12/28/19 Cyanocobalamin (Vitamin B-12) [B-12] 1 tab PO DAILY 12/28/19 Ergocalciferol (Vitamin D2) [Vitamin D2] 1 cap PO [id number] 12/28/19 Ferrous Sulfate [Feosol 325 mg Tablet] 1 tab PO TUTH@1000 12/28/19 Flaxseed Oil [Flaxseed] 1,000 mg PO DAILY 12/28/19 Fluoxetine HCl 1 cap PO DAILY 12/28/19 Fluticasone Propionate [Flovent Diskus] 2 spray NASL BID 12/28/19 Folic Acid 1 mg PO DAILY 12/28/19 Hydralazine HCl 1 tab PO BID 12/28/19 Hydrochlorothiazide 12.5 mg PO DAILY 12/28/19 Isosorbide Mononitrate [Imdur 60 mg Tablet.er] 2 tab PO QAM 12/28/19 Levothyroxine Sodium 137 mcg PO DAILY 12/28/19 Lidocaine [Lidoderm 5% (700 mg) Transdermal Patch] 1 patch TD Q12 12/28/19 Liraglutide [Victoza 2-Kapil] 0.6 mg SQ DAILY 12/28/19 Loratadine [Claritin 10 mg Tablet] 10 mg PO DAILY 12/28/19 Magnesium Oxide [Mag-Ox 400 mg Tablet] 400 mg PO DAILY 12/28/19 Vermilion-3/Dha/Epa/Fish Oil [Fish Oil 1,200 mg Softgel] 1 each PO DAILY 12/28/19 Omeprazole 1 cap PO QAM 12/28/19 Polyethylene Glycol 3350 [Miralax Powder 17 gm/Packet] 1 packet PO DAILY 12/28/19 Somatropin [Humatrope] 18 units SUBCUT QHS 12/28/19 Spironolactone [Aldactone 25 mg Tablet] 1 tab PO QAM 12/28/19 Tramadol HCl [Ultram 50 mg Tablet] 1 tab PO Q6HP PRN 12/28/19 Allergies/Adverse Reactions: No Known Allergies Allergy (Unverified 02/15/19 19:20) Review of Systems ROS unobtainable: Due to mental status, Other - Extreme respiratory distress Physical Exam Vital Signs: Temp Pulse Resp BP Pulse Ox 97.8 F 82 20 106/78 100 01/11/20 07:28 01/11/20 18:00 01/11/20 18:00 01/11/20 18:00 01/11/20 18:00 Intake & Output 01/10/20 01/11/20 01/12/20 06:59 06:59 06:59 Intake Total 1164 1032 24 Output Total 1070 1450 600 Balance 94 -418 -576 Weight 61.6 kg 61.8 kg 61.8 kg Weight/Height Weight 61.8 kg Height 4 ft 6 in General appearance: PRESENT: severe distress, thin Exam: Ill toxic appearing 74-year-old female in severe respiratory distress barely able to speak 1-2 words. Head exam: PRESENT: atraumatic, normocephalic Eye exam: PRESENT: conjunctival injection, conjunctiva pink, EOMI, PERRLA. ABSENT: nystagmus, scleral icterus Ear exam: PRESENT: normal external ear exam Mouth exam: PRESENT: dry mucosa, neck supple Neck exam: ABSENT: JVD, lymphadenopathy, tenderness, thyromegaly, tracheal deviation Respiratory exam: PRESENT: accessory muscle use, tachypnea, other - Lung sounds not auscultated secondary to the confines of PPE and poor auditory capability of disposable stethoscope.. ABSENT: unlabored Cardiovascular exam: PRESENT: RRR, tachycardia. ABSENT: irregular rhythm Pulses: PRESENT: +1 pedal pulses bilateral Vascular exam: PRESENT: other - Capillary refill increased to 3 to 4 seconds. ABSENT: normal capillary refill GI/Abdominal exam: PRESENT: soft, tenderness, other - Gastric sounds auscultated during OGT placement. Sounds heard in stomach. ABSENT: ascites, distended, firm, guarding, rigid Rectal exam: PRESENT: deferred Gentrourinary exam: PRESENT: indwelling catheter Extremities exam: ABSENT: pedal edema Musculoskeletal exam: ABSENT: deformity, dislocation Neurological exam: PRESENT: altered, other - Patient extremely restless and acute respiratory distress. She was awake enough to be oriented to person and place.. ABSENT: motor sensory deficit Focused psych exam: PRESENT: psychomotor agitation, restlessness Skin exam: PRESENT: dry, pallor. ABSENT: erythema, jaundice, mottled, petechiae Tubes/Lines: PRESENT: Other - Urinary catheter Laboratory/Radiographs Laboratory Results: 01/11/20 06:24 01/11/20 06:24 01/10/20 01/11/20 01/11/20 22:16 06:24 06:24 WBC 20.3 H 21.0 H RBC 2.65 L 2.70 L Hgb 8.2 L 8.4 L Hct 23.8 L 24.3 L MCV 90 90 MCH 30.9 31.2 MCHC 34.4 34.6 RDW 18.0 H 17.8 H Plt Count 291 302 Seg Neutrophils % Not Reportable Not Reportable Carbonic Acid HCO3/H2CO3 Ratio ABG pH ABG pCO2 ABG pO2 ABG HCO3 ABG O2 Saturation ABG Base Excess FiO2 Sodium 134.0 L Potassium 4.5 Chloride 99 Carbon Dioxide 27 Anion Gap 8 BUN 94 H Creatinine 1.92 H Est GFR ( Amer) 31 L Glucose 139 H Lactic Acid Calcium 7.8 L Ferritin Triglycerides 01/11/20 01/11/20 01/11/20 06:24 06:24 10:30 WBC RBC Hgb Hct MCV MCH MCHC RDW Plt Count Seg Neutrophils % Carbonic Acid 1.10 HCO3/H2CO3 Ratio 23:1 ABG pH 7.46 H ABG pCO2 36.4 ABG pO2 57.8 L ABG HCO3 25.3 H ABG O2 Saturation 91.6 L ABG Base Excess 1.6 FiO2 70% Sodium Potassium Chloride Carbon Dioxide Anion Gap BUN Creatinine Est GFR ( Amer) Glucose Lactic Acid Calcium Ferritin 787.00 H Triglycerides 95 01/11/20 12:06 WBC RBC Hgb Hct MCV MCH MCHC RDW Plt Count Seg Neutrophils % Carbonic Acid HCO3/H2CO3 Ratio ABG pH ABG pCO2 ABG pO2 ABG HCO3 ABG O2 Saturation ABG Base Excess FiO2 Sodium Potassium Chloride Carbon Dioxide Anion Gap BUN Creatinine Est GFR ( Amer) Glucose Lactic Acid 1.4 Calcium Ferritin Triglycerides 12/27/19 12/28/19 12/28/19 23:14 00:18 05:47 Creatine Kinase CK-MB (CK-2) Troponin I 0.102 0.110 0.134 NT-Pro-B Natriuret Pep 15112 H 12/28/19 12/29/19 12/31/19 11:52 21:57 00:00 Creatine Kinase 40 CK-MB (CK-2) Troponin I 0.129 0.190 NT-Pro-B Natriuret Pep 12/31/19 12/31/19 12/31/19 00:00 05:46 05:46 Creatine Kinase 35 CK-MB (CK-2) 0.45 0.47 Troponin I 0.154 0.145 NT-Pro-B Natriuret Pep 12/31/19 12/31/19 01/05/20 12:17 12:17 05:00 Creatine Kinase 39 CK-MB (CK-2) 0.56 Troponin I 0.125 NT-Pro-B Natriuret Pep 5790 H 01/06/20 01/07/20 01/08/20 07:32 08:27 08:54 Creatine Kinase CK-MB (CK-2) Troponin I NT-Pro-B Natriuret Pep 6760 H 6690 H 6090 H 01/11/20 06:24 Creatine Kinase < 20 L CK-MB (CK-2) Troponin I NT-Pro-B Natriuret Pep Impressions: Abdomen/Pelvis CT 12/30/19 00:00 IMPRESSION: Small right effusion with patchy basilar airspace disease right greater than left. Prior cholecystectomy. Internal biliary drainage catheter is in place. Small atrophic left kidney. Chest CT 01/04/20 00:00 IMPRESSION: Bilateral ground-glass opacities with focal areas of consolidation findings are consistent with a history of congestive heart failure. There are small bilateral pleural effusions. Probable reactive mediastinal adenopathy. Findings can be seen with infectious or inflammatory processes as well. Clin ical correlation is needed. Chest X-Ray 01/11/20 16:33 IMPRESSION: Tubes and lines in good positioning. No change in appearance of the lungs. No pleural effusion or pneumothorax. All labs, radiographs, diagnostic studies and EKGs were personally reviewed: Yes In addition, reports of radiographic and diagnostic studies were read: Yes Critical Time Critical Time (minutes): 180 - Excludes procedures -: The care of a critically ill patient is dynamic. This note represents a static moment in the admission process. Orders and treatments may be given simultaneously and urgently, and time is not personnel representative of the treatment process. This patient requires Critical Care secondary to life threatening organ or limb dysfunction. Without Critical Care services, the patient is at risk for increased mortality and morbidity.
[2020-01-11] MEDS ORDERED: NORMAL SALINE INJ/PF 0.9% 10 ML SDV IV PRN (21:32)
[2020-01-11] MEDS: MONTELUKAST SODIUM 10 MG TABLET PO SCH (21:52)
[2020-01-11] MEDS: PHARMACY COMMUNICATION ORDER MC SCH (21:57)
[2020-01-12] MEDS: PROPOFOL 1,000 MG/100 ML INFUS..BTL IV PRN ×4 (02:23→22:30)
[2020-01-12 04:26] LABS: INTERNATIONAL RATION (INR) 1.52; PROTHROMBIN TIME 18.4 SEC (11.4-15.4)
[2020-01-12 04:26] LABS: HEMATOCRIT 22.6 % (36.0-47.0); MEAN CORPUSCULAR HEMOGLOBIN 30.9 pg (27.0-33.4); MEAN CORPUSCULAR VOLUME 91 fl (80-97); PLATELET COUNT 292 10^3/uL (150-450); RED BLOOD COUNT 2.48 10^6/uL (3.72-5.28); RED CELL DISTRIBUTION WIDTH 18.7 % (11.5-14.0); WHITE BLOOD COUNT 21.7 10^3/uL (4.0-10.5)
[2020-01-12 04:28] LABS: D-DIMER 3.46 ug/mL (0.00-0.50)
[2020-01-12 04:37] LABS: ARTERIAL BLOOD BASE EXCESS 2.6 mmol/L; ARTERIAL BLOOD H2CO3 1.12 mmol/L (1.05-1.35); ARTERIAL BLOOD HCO3 26.2 mmol/L (20-24); ARTERIAL BLOOD O2 SATURATION 97.6 % (94-98); ARTERIAL BLOOD PCO2 37.3 mmHg (35-45); ARTERIAL BLOOD PH 7.46 (7.35-7.45); ARTERIAL BLOOD PO2 94.9 mmHg (80-100); ARTERIAL BLOOD TOTAL CO2 27.3 mmol/L (21-25)
[2020-01-12 04:39] LABS: ARTERIAL BLOOD FIO2 50%; PHOSPHORUS 4.5 mg/dL (2.5-4.5)
[2020-01-12 04:46] LABS: ABSOLUTE LYMPHOCYTES# (MANUAL) 0.2 10^3/uL (0.5-4.7); ABSOLUTE MONOCYTES # (MANUAL) 0.9 10^3/uL (0.1-1.4); ANISOCYTOSIS 2+; BASOPHILS % (MANUAL) 0 % (0-2); EOSINOPHILS % (MANUAL) 0 % (0-6); LYMPHOCYTES % (MANUAL) 1 % (13-45); MONOCYTES % (MANUAL) 4 % (3-13); PLATELET COMMENT ADEQUATE; SEGMENTED NEUTROPHILS % (MAN) 95 % (42-78); TOTAL CELLS COUNTED 100
[2020-01-12 04:48] LABS: HEMOGLOBIN 7.7 g/dL (12.0-15.5)
[2020-01-12] MEDS: MINERAL OIL/PETROLATUM,WHITE OPH OINT 3.5 GM OU SCH ×2 (05:09→18:20)
[2020-01-12] MEDS: LEVOTHYROXINE SODIUM 0.025 MG TABLET PO SCH (05:26)
[2020-01-12] MEDS: THIAMINE HCL 250 MG in NORMAL SALINE 250 ML IV SCH ×2 (05:26→18:19)
[2020-01-12] MEDS ORDERED: LEVOTHYROXINE SODIUM 0.112 MG TABLET ONE (05:40)
[2020-01-12] MEDS ORDERED: HEPARIN SOD (PORCINE) 5,000 UNIT/ML 1 ML VIAL ONE (05:43)
[2020-01-12] MEDS: LEVOTHYROXINE SODIUM 0.112 MG TABLET PO SCH (05:50)
[2020-01-12] MEDS: HEPARIN SOD (PORCINE) 5,000 UNIT/ML 1 ML VIAL SUBCUT SCH ×3 (05:50→23:45)
[2020-01-12 08:28] LABS: ALKALINE PHOSPHATASE 39 U/L (38-126); ANION GAP 10 (5-19); ASPARTATE AMINO TRANSFERASE 23 U/L (14-36); BILIRUBIN,DIRECT 0.3 mg/dL (0.0-0.4); BILIRUBIN,TOTAL 0.8 mg/dL (0.2-1.3); BLOOD UREA NITROGEN 97 mg/dL (7-20); CALCIUM 7.6 mg/dL (8.4-10.2); CARBON DIOXIDE 24 mmol/L (22-30); CHLORIDE 103 mmol/L (98-107); GLUCOSE 151 mg/dL (75-110); POTASSIUM 4.2 mmol/L (3.6-5.0); TOTAL PROTEIN 5.1 g/dL (6.3-8.2)
[2020-01-12] MEDS ORDERED: ROCURONIUM BROMIDE INJ 50 MG/5 ML VIAL IV ONE (09:58)
[2020-01-12] MEDS: ASPIRIN 81 MG TABLET, ENT COATED PO SCH (13:24)
[2020-01-12] MEDS: FOLIC ACID 1 MG TABLET PO SCH (13:25)
[2020-01-12] MEDS: FUROSEMIDE INJ/PF 20 MG/2 ML SDV IV SCH (13:25)
[2020-01-12] MEDS: MEROPENEM 1 GM in NORMAL SALINE 50 ML IV SCH ×2 (13:25→23:45)
[2020-01-12] MEDS: DOCUSATE SODIUM 100 MG CAPSULE PO SCH ×2 (13:25→18:21)
[2020-01-12] MEDS: CLOPIDOGREL BISULFATE 75 MG TABLET PO SCH (13:26)
[2020-01-12] MEDS: CALCITRIOL 0.25 MCG CAPSULE PO SCH (13:26)
[2020-01-12] MEDS: POLYETHYLENE GLYCOL 3350 POWDER 17 GM/1 PACKET PO SCH ×3 (13:26→18:21)
[2020-01-12] MEDS: LINEZOLID 600 MG/300 ML RTUPB IV SCH ×2 (13:48→23:45)
[2020-01-12] MEDS ORDERED: DEXMEDETOMIDINE IN 0.9 % NACL 0 MCG/0 ML RTUPB IV ONE (18:49)
--- NOTE | 2020-01-12 21:29 | PDOC CRITICAL CARE PROG REPORT ---
General Date:: 01/12/20 ICU Day:: 2 Ventilator Day:: 2 Hospital Day:: 15 Resuscitation Status: Do Not Resuscitate Medical Power of Branding Specialist: Events in the past 12 to 24 Hours:: 01.12.2020: Patient was admitted yesterday and had significant hypoxia. She was placed in prone position with significant improvement in her overall condition. Urgent elevation has not been significantly elevated but it is high. She was placed in supine position this afternoon with mild hypoxia. Review of systems relevant to events:: 01.12.2020: Patient's hemodynamics have stabilized and she is not on vasopressor therapy. She is appropriately sedated. He had frequent bowel movements yesterday but has improved. A bowel management tube had been placed. No significant peak or plateau pressure elevations. She currently is on 50% and 10 of PEEP. Reason for ICU Addmission:: Hypoxic respiratory failure - Medications: Medications reviewed and adjusted accordingly: Yes Physical Exam Vital Signs: Temp Pulse Resp BP Pulse Ox 99.3 F 91 26 H 154/67 H 94 01/12/20 20:00 01/12/20 16:00 01/12/20 16:00 01/12/20 16:00 01/12/20 16:00 Intake & Output 01/11/20 01/12/20 01/13/20 06:59 06:59 06:59 Intake Total 1032 849.5 702.5 Output Total 1450 1325 947 Balance -418 -475.5 -244.5 Weight 61.8 kg 59.4 kg Weight/Height Weight 59.4 kg Height 4 ft 6 in General appearance: PRESENT: no acute distress, obese Exam: Intubated proned 74-year-old female appropriately sedated. All pressure points regions have active skin covering. She will area is intact and on a soft cushion. She is maintained in neutral position. Head exam: PRESENT: atraumatic, normocephalic Eye exam: PRESENT: conjunctival injection Mouth exam: PRESENT: dry mucosa Teeth exam: PRESENT: edentulous Neck exam: ABSENT: JVD, lymphadenopathy, tracheal deviation Respiratory exam: PRESENT: unlabored, other - lung sounds not auscultated secondary to the confines of PPE and poor auditory capability of disposable stethoscope. ABSENT: accessory muscle use, tachypnea Cardiovascular exam: PRESENT: RRR. ABSENT: bradycardia, irregular rhythm, tachycardia Pulses: PRESENT: +1 pedal pulses bilateral Vascular exam: PRESENT: normal capillary refill. ABSENT: pallor GI/Abdominal exam: PRESENT: soft. ABSENT: ascites, distended, guarding, rebound, rigid Rectal exam: PRESENT: other - No sacral decubiti. ABSENT: black stool, bloody stool Gentrourinary exam: PRESENT: indwelling catheter Extremities exam: ABSENT: pedal edema Musculoskeletal exam: PRESENT: normal inspection. ABSENT: deformity, dislocation Neurological exam: PRESENT: altered - Sedated heavily secondary to prone position Psychiatric exam: ABSENT: agitated Skin exam: PRESENT: dry, intact, warm. ABSENT: cyanosis, mottled, rash Tubes/Lines: PRESENT: Endotracheal Tube, Central Line, Arterial Catheter - Taylor type urinary catheter, Oral gastric Tube Laboratory/Radiographs Laboratory Results: 01/12/20 04:02 01/12/20 03:42 01/11/20 01/12/20 01/12/20 22:40 03:42 03:42 WBC RBC Hgb Hct MCV MCH MCHC RDW Plt Count Seg Neutrophils % Carbonic Acid HCO3/H2CO3 Ratio ABG pH ABG pCO2 ABG pO2 ABG HCO3 ABG O2 Saturation ABG Base Excess FiO2 Sodium Potassium Chloride Carbon Dioxide Anion Gap BUN Creatinine Est GFR ( Amer) Glucose Calcium Phosphorus 4.5 Magnesium 3.4 H Ferritin 936.00 H Total Bilirubin AST Alkaline Phosphatase Ammonia 11.4 Total Protein Albumin Triglycerides Stool Occult Blood NEGATIVE 01/12/20 01/12/20 01/12/20 03:42 03:42 04:02 WBC 21.7 H RBC 2.48 L Hgb 7.7 L Hct 22.6 L MCV 91 MCH 30.9 MCHC 34.0 RDW 18.7 H Plt Count 292 Seg Neutrophils % Not Reportable Carbonic Acid 1.12 HCO3/H2CO3 Ratio 23:1 ABG pH 7.46 H ABG pCO2 37.3 ABG pO2 94.9 ABG HCO3 26.2 H ABG O2 Saturation 97.6 ABG Base Excess 2.6 FiO2 50% Sodium 136.8 L Potassium 4.2 Chloride 103 Carbon Dioxide 24 Anion Gap 10 BUN 97 H Creatinine 2.23 H Est GFR ( Amer) 26 L Glucose 151 H Calcium 7.6 L Phosphorus Magnesium Ferritin Total Bilirubin 0.8 AST 23 Alkaline Phosphatase 39 Ammonia Total Protein 5.1 L Albumin 3.0 L Triglycerides Stool Occult Blood 04/08/20 04:16 WBC RBC Hgb Hct MCV MCH MCHC RDW Plt Count Seg Neutrophils % Carbonic Acid HCO3/H2CO3 Ratio ABG pH ABG pCO2 ABG pO2 ABG HCO3 ABG O2 Saturation ABG Base Excess FiO2 Sodium Potassium Chloride Carbon Dioxide Anion Gap BUN Creatinine Est GFR ( Amer) Glucose Calcium Phosphorus Magnesium Ferritin Total Bilirubin AST Alkaline Phosphatase Ammonia Total Protein Albumin Triglycerides 156 H Stool Occult Blood 12/27/19 12/28/19 12/28/19 23:14 00:18 05:47 Creatine Kinase CK-MB (CK-2) Troponin I 0.102 0.110 0.134 NT-Pro-B Natriuret Pep 17093 H 12/28/19 12/29/19 12/31/19 11:52 21:57 00:00 Creatine Kinase 40 CK-MB (CK-2) Troponin I 0.129 0.190 NT-Pro-B Natriuret Pep 12/31/19 12/31/19 12/31/19 00:00 05:46 05:46 Creatine Kinase 35 CK-MB (CK-2) 0.45 0.47 Troponin I 0.154 0.145 NT-Pro-B Natriuret Pep 12/31/19 12/31/19 01/05/20 12:17 12:17 05:00 Creatine Kinase 39 CK-MB (CK-2) 0.56 Troponin I 0.125 NT-Pro-B Natriuret Pep 5790 H 01/06/20 01/07/20 01/08/20 07:32 08:27 08:54 Creatine Kinase CK-MB (CK-2) Troponin I NT-Pro-B Natriuret Pep 6760 H 6690 H 6090 H 01/11/20 06:24 Creatine Kinase < 20 L CK-MB (CK-2) Troponin I NT-Pro-B Natriuret Pep Impressions: Abdomen/Pelvis CT 12/30/19 00:00 IMPRESSION: Small right effusion with patchy basilar airspace disease right greater than left. Prior cholecystectomy. Internal biliary drainage catheter is in place. Small atrophic left kidney. Chest CT 01/04/20 00:00 IMPRESSION: Bilateral ground-glass opacities with focal areas of consolidation findings are consistent with a history of congestive heart failure. There are small bilateral pleural effusions. Probable reactive mediastinal adenopathy. Findings can be seen with infectious or inflammatory processes as well. Clinical correlation is needed. Chest X-Ray 01/11/20 16:33 IMPRESSION: Tubes and lines in good positioning. No change in appearance of the lungs. No pleural effusion or pneumothorax. All labs, radiographs, diagnostic studies and EKGs were personally reviewed: Yes In addition, reports of radiographic and diagnostic studies were read: Yes Assessment and Plan - Diagnosis (1) Acute respiratory failure with hypoxia Is this a current diagnosis for this admission?: Yes (2) Suspected COVID-19 virus infection Is this a current diagnosis for this admission?: Yes (3) Acute kidney injury superimposed on chronic kidney disease Is this a current diagnosis for this admission?: Yes (4) CKD (chronic kidney disease) stage 3, GFR 30-59 ml/min Is this a current diagnosis for this admission?: Yes (5) Oxygen dependency at home Is this a current diagnosis for this admission?: Yes (6) Mitral valve regurgitation Qualifiers: Cardiac valve disease etiology: etiology unspecified Qualified Code(s): I34.0 - Nonrheumatic mitral (valve) insufficiency Is this a current diagnosis for this admission?: Yes Plan Summary: 01.12.2020: Patient has had no bleeding from her endotracheal tube. We will continue subcutaneous heparin. If her d-dimer continues to increase then we will be forced to strongly consider anticoagulation. We will place the patient supine and if she continues to worsen will need to re- pronate her. We will continue supportive care including nutritional support. Continue to follow ferritin, CRP and d-dimer. Follow vent settings to prevent elevated alveolar pressures Appears to have responded to PEEP recruitment making her a "H" type genotype for this lung disease. Still awaiting respiratory pathogen profile and SARS, 2-CoViD19 Patient continues to be DNR but intubation acceptable. To new antibiotics we are unable to de-escalate therapy secondary to the inability to obtain procalcitonin Will review chest x-rays as needed but for the time being are limiting chest x- ray secondary to reducing exposure to healthcare providers 01.11.2020:Patient's chest x-ray shows abnormal interstitial changes with mixed alveolar pattern. Her ultrasound shows significant B-lines with an ejection fraction that is not diminished. Although mitral regurgitation can present like this this appears to be an infectious source. Have sent SARS, 2-CoViD19 panel as well as respiratory viral panel. Influenza screen is negative however these tests are extremely insensitive. I have placed her on broad-spectrum antibiotics. Continue to follow indirect parameters such as ferritin, d-dimer and CRP. Have sent procalcitonin but the levels are not returning in a timely fashion to de- escalate therapy. His hypoxia necessitated prone positioning. Due diligence was maintained to protect pressure areas as well as to protect the confines of the ET tube with a surgical based head cushion. We will start Plaquenil and have started meropenem and Linezolid in case this is an infectious etiology from bacteria. We will need to follow QT interval. 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 Given the pandemic's unknown lab characteristics as far as ANCA I am not sure how testing will help. That being said she may be a candidate for steroid therapy. Supportively, her ferritin is not excessively elevated which I would expect at this point. We will follow the trend. The elevation albeit not significantly high may portend a better prognosis. We will need to provide vigilance for protection during pronating. Is been ineffective treatment for SARS, 2-CoViD19. I also had a discussion with the patient regarding her goals of care. She did agree to intubation but declined resuscitation if she had a cardiac arrest. Has been was updated and notified as well. Unfortunately he is unable to be here secondary to the confines of the SARS, 2-CoViD19 pandemic. Significant amount time was spent with the patient because of her hypoxia after intubation. She was placed on 100% FiO2 and PEEP increased to 16 to recruit. This was quite successful and FiO2 has been now weaning. Given the complex nature of her case and the constant requirement for airway management during pronating patient's care required a significant amount of critical care time. Bedside ultrasound of her heart lungs were done as well Critical Time Critical Time (minutes): 60 - includes prone to supine positioning Level of Care: ICU -: 1. The care of a critical patient is a dynamic process. This note is a telephone sales representative synopsis but static in nature. The timeframe for treatments given in order is not necessarily the actual time these treatments may have been done. 2. This patient requires critical care secondary to ongoing requirements for therapy not offered or safe outside the critical care environment. Transfer to a lower level of care will result in altered life or limb morbidity and mortality. 3. Multidisciplinary rounds completed. 4. ABCDE bundle addressed.
[2020-01-12] MEDS: MONTELUKAST SODIUM 10 MG TABLET PO SCH (23:45)
[2020-01-12] MEDS: PHARMACY COMMUNICATION ORDER MC SCH (23:45)
[2020-01-13] MEDS: MINERAL OIL/PETROLATUM,WHITE OPH OINT 3.5 GM OU SCH ×4 (02:03→21:39)
[2020-01-13] MEDS: LEVOTHYROXINE SODIUM 0.112 MG TABLET PO SCH (06:33)
[2020-01-13] MEDS: HEPARIN SOD (PORCINE) 5,000 UNIT/ML 1 ML VIAL SUBCUT SCH ×3 (06:33→21:39)
[2020-01-13] MEDS: LEVOTHYROXINE SODIUM 0.025 MG TABLET PO SCH (06:33)
[2020-01-13] MEDS: THIAMINE HCL 250 MG in NORMAL SALINE 250 ML IV SCH ×2 (06:34→18:12)
[2020-01-13 07:15] LABS: ARTERIAL BLOOD BASE EXCESS -0.1 mmol/L; ARTERIAL BLOOD FIO2 60%; ARTERIAL BLOOD H2CO3 1.06 mmol/L (1.05-1.35); ARTERIAL BLOOD HCO3 23.7 mmol/L (20-24); ARTERIAL BLOOD O2 SATURATION 96.7 % (94-98); ARTERIAL BLOOD PCO2 35.1 mmHg (35-45); ARTERIAL BLOOD PH 7.45 (7.35-7.45); ARTERIAL BLOOD PO2 83.5 mmHg (80-100); ARTERIAL BLOOD TOTAL CO2 24.8 mmol/L (21-25); HEMATOCRIT 22.3 % (36.0-47.0); MEAN CORPUSCULAR HEMOGLOBIN 31.4 pg (27.0-33.4); MEAN CORPUSCULAR HGB CONC 33.7 g/dL (32.0-36.0); MEAN CORPUSCULAR VOLUME 93 fl (80-97); PLATELET COUNT 262 10^3/uL (150-450); RED BLOOD COUNT 2.39 10^6/uL (3.72-5.28); RED CELL DISTRIBUTION WIDTH 19.5 % (11.5-14.0); WHITE BLOOD COUNT 24.3 10^3/uL (4.0-10.5)
[2020-01-13 07:18] LABS: HEMOGLOBIN 7.5 g/dL (12.0-15.5)
[2020-01-13 07:22] LABS: ALBUMIN 2.8 g/dL (3.5-5.0); ALKALINE PHOSPHATASE 47 U/L (38-126); ANION GAP 6 (5-19); ASPARTATE AMINO TRANSFERASE 26 U/L (14-36); BILIRUBIN,DIRECT 0.5 mg/dL (0.0-0.4); BILIRUBIN,TOTAL 1.1 mg/dL (0.2-1.3); BLOOD UREA NITROGEN 97 mg/dL (7-20); CALCIUM 7.2 mg/dL (8.4-10.2); CARBON DIOXIDE 29 mmol/L (22-30); CHLORIDE 108 mmol/L (98-107); GLUCOSE 140 mg/dL (75-110)
[2020-01-13 08:04] LABS: ABSOLUTE LYMPHOCYTES# (MANUAL) 0.2 10^3/uL (0.5-4.7); ABSOLUTE MONOCYTES # (MANUAL) 1.7 10^3/uL (0.1-1.4); BASOPHILS % (MANUAL) 0 % (0-2); EOSINOPHILS % (MANUAL) 0 % (0-6); LYMPHOCYTES % (MANUAL) 1 % (13-45); MONOCYTES % (MANUAL) 7 % (3-13); NUCLEATED RED BLOOD CELLS 2 /100 WBC (0); SEGMENTED NEUTROPHILS % (MAN) 92 % (42-78); TOTAL CELLS COUNTED 100
[2020-01-13 08:10] LABS: POLYCHROMASIA 1+
[2020-01-13 08:17] LABS: ANISOCYTOSIS 1+
[2020-01-13 08:18] LABS: PLATELET COMMENT ADEQUATE
[2020-01-13] MEDS ORDERED: FAMOTIDINE 20 MG TABLET PO SCH (10:15)
[2020-01-13] MEDS: FOLIC ACID 1 MG TABLET PO SCH (11:39)
[2020-01-13] MEDS: ASPIRIN 81 MG TABLET, ENT COATED PO SCH (11:39)
[2020-01-13] MEDS: LINEZOLID 600 MG/300 ML RTUPB IV SCH ×2 (11:39→22:55)
[2020-01-13] MEDS: POLYETHYLENE GLYCOL 3350 POWDER 17 GM/1 PACKET PO SCH ×3 (11:39→18:12)
[2020-01-13] MEDS: MEROPENEM 1 GM in NORMAL SALINE 50 ML IV SCH ×2 (11:39→22:15)
[2020-01-13] MEDS: CLOPIDOGREL BISULFATE 75 MG TABLET PO SCH (11:39)
[2020-01-13] MEDS: DOCUSATE SODIUM 100 MG CAPSULE PO SCH ×2 (11:40→18:12)
[2020-01-13] MEDS: PROPOFOL 1,000 MG/100 ML INFUS..BTL IV PRN ×2 (11:48→21:44)
[2020-01-13] MEDS ORDERED: HYDROMORPHONE HCL 30 MG/60 ML RTUINJ IV PRN (16:23)
--- NOTE | 2020-01-13 19:02 | PDOC CRITICAL CARE PROG REPORT ---
General Date:: 01/13/20 ICU Day:: 3 Ventilator Day:: 3 Hospital Day:: 16 Resuscitation Status: Do Not Resuscitate Medical Power of Stock Sheets Cleaner Inspector: Events in the past 12 to 24 Hours:: 01.13.2020: Patient continues to improve and FiO2 has been reduced to 50%. PEEP is now at 10. He is mildly tachycardic but much improved. Color is improved. 01.12.2020: Patient was admitted yesterday and had significant hypoxia. She was placed in prone position with significant improvement in her overall condition. Urgent elevation has not been significantly elevated but it is high. She was placed in supine position this afternoon with mild hypoxia. Review of systems relevant to events:: 01.13.2020: SARS, 2-CoViD19 testing is still pending. Inflammatory markers: Neutrophil lymphocyte ratio is air at 112 from 103. D-dimer higher at 3.73, fortunately ferritin has improved. 01.12.2020: Patient's hemodynamics have stabilized and she is not on vasopressor therapy. She is appropriately sedated. He had frequent bowel movements yesterday but has improved. A bowel management tube had been placed. No significant peak or plateau pressure elevations. She currently is on 50% and 10 of PEEP. Reason for ICU Addmission:: Hypoxic respiratory failure - Medications: Medications reviewed and adjusted accordingly: Yes Physical Exam Vital Signs: Temp Pulse Resp BP Pulse Ox 97.8 F 91 15 151/70 H 100 01/13/20 16:00 01/12/20 16:00 01/13/20 18:00 01/13/20 09:29 01/13/20 18:00 Intake & Output 01/12/20 01/13/20 01/14/20 06:59 06:59 06:59 Intake Total 849.5 1405.0 742.5 Output Total 1325 1752 635 Balance -475.5 -347.0 107.5 Weight 59.4 kg 59.3 kg 59.3 kg Weight/Height Weight 59.3 kg Height 5 ft 4 in General appearance: PRESENT: no acute distress, thin Exam: Intubated ill but less toxic appearing 74-year-old female no active distress Eye exam: PRESENT: conjunctiva pink, PERRLA, other - No pressure sores or skin changes. ABSENT: conjunctival injection, nystagmus Ear exam: PRESENT: normal external ear exam Mouth exam: PRESENT: moist, neck supple Neck exam: ABSENT: JVD, lymphadenopathy, thyromegaly, tracheal deviation Respiratory exam: PRESENT: unlabored, other - Lung sounds not auscultated secondary to the confines of PPE and poor auditory capability of disposable stethoscope. ABSENT: accessory muscle use, tachypnea Cardiovascular exam: PRESENT: tachycardia, other - Heart sounds not auscultated secondary to the confines of PPE and poor auditory capability of disposable stethoscope. ABSENT: irregular rhythm Pulses: PRESENT: +1 pedal pulses bilateral Vascular exam: PRESENT: normal capillary refill. ABSENT: pallor GI/Abdominal exam: PRESENT: soft, other - Gastric sounds not auscultated secondary to the confines of PPE and poor auditory capability of disposable stethoscope. ABSENT: ascites, guarding, organolmegaly, rebound, rigid, tenderness Rectal exam: PRESENT: deferred Gentrourinary exam: PRESENT: indwelling catheter Extremities exam: ABSENT: pedal edema Musculoskeletal exam: ABSENT: deformity, dislocation Neurological exam: PRESENT: altered - Fully sedated secondary to intubated state Psychiatric exam: PRESENT: appropriate affect Focused psych exam: ABSENT: restlessness Skin exam: PRESENT: dry, intact, normal color, warm. ABSENT: cyanosis, mottled, pallor, rash Tubes/Lines: PRESENT: Endotracheal Tube, Central Line, Arterial Catheter - Orogastric tube, Taylor type urinary catheter Laboratory/Radiographs Laboratory Results: 01/13/20 06:00 01/13/20 06:00 01/13/20 01/13/20 01/13/20 06:00 06:00 06:00 WBC 24.3 H RBC 2.39 L Hgb 7.5 L Hct 22.3 L MCV 93 MCH 31.4 MCHC 33.7 RDW 19.5 H Plt Count 262 Seg Neutrophils % Not Reportable Carbonic Acid 1.06 HCO3/H2CO3 Ratio 22:1 ABG pH 7.45 ABG pCO2 35.1 ABG pO2 83.5 ABG HCO3 23.7 ABG O2 Saturation 96.7 ABG Base Excess -0.1 FiO2 60% Sodium 143.0 Potassium 4.0 Chloride 108 H Carbon Dioxide 29 Anion Gap 6 BUN 97 H Creatinine 2.14 H Est GFR ( Amer) 27 L Glucose 140 H Calcium 7.2 L Phosphorus 4.0 Magnesium 3.7 H Ferritin 752.00 H Total Bilirubin 1.1 AST 26 Alkaline Phosphatase 47 Total Protein 5.0 L Albumin 2.8 L 12/27/19 12/28/19 12/28/19 23:14 00:18 05:47 Creatine Kinase CK-MB (CK-2) Troponin I 0.102 0.110 0.134 NT-Pro-B Natriuret Pep 77576 H 12/28/19 12/29/19 12/31/19 11:52 21:57 00:00 Creatine Kinase 40 CK-MB (CK-2) Troponin I 0.129 0.190 NT-Pro-B Natriuret Pep 12/31/19 12/31/19 12/31/19 00:00 05:46 05:46 Creatine Kinase 35 CK-MB (CK-2) 0.45 0.47 Troponin I 0.154 0.145 NT-Pro-B Natriuret Pep 12/31/19 12/31/19 01/05/20 12:17 12:17 05:00 Creatine Kinase 39 CK-MB (CK-2) 0.56 Troponin I 0.125 NT-Pro-B Natriuret Pep 5790 H 01/06/20 01/07/20 01/08/20 07:32 08:27 08:54 Creatine Kinase CK-MB (CK-2) Troponin I NT-Pro-B Natriuret Pep 6760 H 6690 H 6090 H 01/11/20 06:24 Creatine Kinase < 20 L CK-MB (CK-2) Troponin I NT-Pro-B Natriuret Pep Impressions: Abdomen/Pelvis CT 12/30/19 00:00 IMPRESSION: Small right effusion with patchy basilar airspace disease right greater than left. Prior cholecystectomy. Internal biliary drainage catheter is in place. Small atrophic left kidney. Chest CT 01/04/20 00:00 IMPRESSION: Bilateral ground-glass opacities with focal areas of consolidation findings are consistent with a history of congestive heart failure. There are s mall bilateral pleural effusions. Probable reactive mediastinal adenopathy. Findings can be seen with infectious or inflammatory processes as well. Clinical correlation is needed. Chest X-Ray 01/11/20 16:33 IMPRESSION: Tubes and lines in good positioning. No change in appearance of the lungs. No pleural effusion or pneumothorax. All labs, radiographs, diagnostic studies and EKGs were personally reviewed: Yes In addition, reports of radiographic and diagnostic studies were read: Yes Assessment and Plan - Diagnosis (1) Acute respiratory failure with hypoxia Is this a current diagnosis for this admission?: Yes (2) Suspected COVID-19 virus infection Is this a current diagnosis for this admission?: Yes (3) Acute kidney injury superimposed on chronic kidney disease Is this a current diagnosis for this admission?: Yes (4) CKD (chronic kidney disease) stage 3, GFR 30-59 ml/min Is this a current diagnosis for this admission?: Yes (5) Oxygen dependency at home Is this a current diagnosis for this admission?: Yes (6) Mitral valve regurgitation Qualifiers: Cardiac valve disease etiology: etiology unspecified Qualified Code(s): I34.0 - Nonrheumatic mitral (valve) insufficiency Is this a current diagnosis for this admission?: Yes Plan Summary: 01.13.2020: Patient is improving in an acceptable trajectory. She has been prone for approximately 18 hours and in the supine state has remained stable. We will slowly wean PEEP as well as FiO2. Given her d-dimer elevation the new standard is for full anticoagulation however patient has been on Plavix. Given the possibility of bleeding and diffuse alveolar hemorrhage I am reticent to place her on this. At this time, we await her SARS, 2-CoViD19 results. If they are positive we may be forced to at least start IV heparin on the off chance that she bleeds on Plavix. Of import, her SARS, 2-CoViD19 status is essential to be determined. She may not be a candidate for Plaquenil given her react status but will need to consider it based on inflammatory parameters. Started enteral nutrition Given her improve renal status will start low-dose vitamin C and added zinc Will follow her renal function. If creatinine improves without fluid and will continue that process. Have added free water to flushes. 01.12.2020: Patient has had no bleeding from her endotracheal tube. We will continue subcutaneous heparin. If her d-dimer continues to increase then we will be forced to strongly consider anticoagulation. We will place the patient supine and if she continues to worsen will need to re- pronate her. We will continue supportive care including nutritional support. Continue to follow ferritin, CRP and d-dimer. Follow vent settings to prevent elevated alveolar pressures Appears to have responded to PEEP recruitment making her a "H" type genotype for this lung disease. Still awaiting respiratory pathogen profile and SARS, 2-CoViD19 Patient continues to be DNR but intubation acceptable. To new antibiotics we are unable to de-escalate therapy secondary to the inability to obtain procalcitonin Will review chest x-rays as needed but for the time being are limiting chest x- ray secondary to reducing exposure to healthcare providers 01.11.2020:Patient's chest x-ray shows abnormal interstitial changes with mixed alveolar pattern. Her ultrasound shows significant B-lines with an ejection fraction that is not diminished. Although mitral regurgitation can present like this this appears to be an infectious source. Have sent SARS, 2-CoViD19 panel as well as respiratory viral panel. Influenza screen is negative however these tests are extremely insensitive. I have placed her on broad-spectrum antibiotics. Continue to follow indirect parameters such as ferritin, d-dimer and CRP. Have sent procalcitonin but the levels are not returning in a timely fashion to de- escalate therapy. His hypoxia necessitated prone positioning. Due diligence was maintained to protect pressure areas as well as to protect the confines of the ET tube with a surgical based head cushion. We will start Plaquenil and have started meropenem and Linezolid in case this is an infectious etiology from bacteria. We will need to follow QT interval. 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 Given the pandemic's unknown lab characteristics as far as ANCA I am not sure how testing will help. That being said she may be a candidate for steroid therapy. Supportively, her ferritin is not excessively e levated which I would expect at this point. We will follow the trend. The elevation albeit not significantly high may portend a better prognosis. We will need to provide vigilance for protection during pronating. Is been ineffective treatment for SARS, 2-CoViD19. I also had a discussion with the patient regarding her goals of care. She did agree to intubation but declined resuscitation if she had a cardiac arrest. Has been was updated and notified as well. Unfortunately he is unable to be h ere secondary to the confines of the SARS, 2-CoViD19 pandemic. Significant amount time was spent with the patient because of her hypoxia after intubation. She was placed on 100% FiO2 and PEEP increased to 16 to recruit. This was quite successful and FiO2 has been now weaning. Given the complex nature of her case and the constant requirement for airway management during pronating patient's care required a significant amount of critical care time. Bedside ultrasound of her heart lungs were done as well Critical Time Critical Time (minutes): 48 Level of Care: ICU -: 1. The care of a critical patient is a dynamic process. This note is a outbound sales representative synopsis but static in nature. The timeframe for treatments given in order is not necessarily the actual time these treatments may have been done. 2. This patient requires critical care secondary to ongoing requirements for therapy not offered or safe outside the critical care environment. Transfer to a lower level of care will result in altered life or limb morbidity and mortality. 3. Multidisciplinary rounds completed. 4. ABCDE bundle addressed.
[2020-01-13] MEDS: MONTELUKAST SODIUM 10 MG TABLET PO SCH (21:39)
[2020-01-13] MEDS: ZINC SULFATE 220 MG CAPSULE PO SCH (21:39)
[2020-01-13] MEDS: ASCORBIC ACID 500 MG TABLET PO SCH (21:39)
[2020-01-13] MEDS: PHARMACY COMMUNICATION ORDER MC SCH (21:40)
[2020-01-14] MEDS: PROPOFOL 1,000 MG/100 ML INFUS..BTL IV PRN ×3 (04:30→19:45)
[2020-01-14] MEDS ORDERED: THIAMINE HCL INJ 200 MG/2 ML VIAL ONE (06:27)
[2020-01-14] MEDS: HEPARIN SOD (PORCINE) 5,000 UNIT/ML 1 ML VIAL SUBCUT SCH ×3 (06:40→22:05)
[2020-01-14] MEDS: LEVOTHYROXINE SODIUM 0.112 MG TABLET PO SCH (06:41)
[2020-01-14] MEDS: LEVOTHYROXINE SODIUM 0.025 MG TABLET PO SCH (06:41)
[2020-01-14] MEDS: MINERAL OIL/PETROLATUM,WHITE OPH OINT 3.5 GM OU SCH ×3 (06:41→22:06)
[2020-01-14] MEDS: THIAMINE HCL 250 MG in NORMAL SALINE 250 ML IV SCH ×2 (06:41→19:45)
[2020-01-14 07:16] LABS: PROTHROMBIN TIME 17.3 SEC (11.4-15.4)
[2020-01-14 07:17] LABS: PARTIAL THROMBOPLASTIN TIME 30.6 SEC (23.5-35.8)
[2020-01-14 07:19] LABS: D-DIMER 2.87 ug/mL (0.00-0.50)
[2020-01-14 07:26] LABS: HEMATOCRIT 20.6 % (36.0-47.0); MEAN CORPUSCULAR HEMOGLOBIN 31.4 pg (27.0-33.4); MEAN CORPUSCULAR HGB CONC 33.1 g/dL (32.0-36.0); MEAN CORPUSCULAR VOLUME 95 fl (80-97); PLATELET COUNT 189 10^3/uL (150-450); RED BLOOD COUNT 2.17 10^6/uL (3.72-5.28); RED CELL DISTRIBUTION WIDTH 19.9 % (11.5-14.0); WHITE BLOOD COUNT 15.3 10^3/uL (4.0-10.5)
[2020-01-14 07:33] LABS: BLOOD UREA NITROGEN 99 mg/dL (7-20); C-REACTIVE PROTEIN 83.4 mg/L (<10.0); GLUCOSE 133 mg/dL (75-110); POTASSIUM 4.2 mmol/L (3.6-5.0)
[2020-01-14 07:35] LABS: CARBON DIOXIDE 29 mmol/L (22-30); CHLORIDE 110 mmol/L (98-107)
[2020-01-14 07:38] LABS: ABSOLUTE LYMPHOCYTES# (MANUAL) 0.2 10^3/uL (0.5-4.7); ABSOLUTE MONOCYTES # (MANUAL) 0.5 10^3/uL (0.1-1.4); BAND NEUTROPHILS % (MANUAL) 1 % (3-5); BASOPHILS % (MANUAL) 0 % (0-2); EOSINOPHILS % (MANUAL) 0 % (0-6); LYMPHOCYTES % (MANUAL) 1 % (13-45); MONOCYTES % (MANUAL) 3 % (3-13); NUCLEATED RED BLOOD CELLS 1 /100 WBC (0); SEGMENTED NEUTROPHILS % (MAN) 95 % (42-78); TOTAL CELLS COUNTED 100
[2020-01-14 07:40] LABS: ANISOCYTOSIS 2+; OVALOCYTES SLIGHT; POIKILOCYTOSIS 1+; POLYCHROMASIA 1+; SCHISTOCYTES SLIGHT; TOXIC GRANULATION SLIGHT
[2020-01-14 07:41] LABS: HEMOGLOBIN 6.8 g/dL (12.0-15.5)
[2020-01-14 07:42] LABS: PLATELET COMMENT ADEQUATE
[2020-01-14 07:58] LABS: ANION GAP 4 (5-19); CALCIUM 6.5 mg/dL (8.4-10.2)
[2020-01-14] MEDS: POLYETHYLENE GLYCOL 3350 POWDER 17 GM/1 PACKET PO SCH ×3 (10:20→19:45)
[2020-01-14] MEDS: LINEZOLID 600 MG/300 ML RTUPB IV SCH ×2 (10:20→22:08)
[2020-01-14] MEDS: CALCITRIOL 0.25 MCG CAPSULE PO SCH (10:20)
[2020-01-14] MEDS: ASCORBIC ACID 500 MG TABLET PO SCH ×2 (10:20→19:45)
[2020-01-14] MEDS: MEROPENEM 1 GM in NORMAL SALINE 50 ML IV SCH ×2 (10:20→22:06)
[2020-01-14] MEDS: ASPIRIN 81 MG TABLET, ENT COATED PO SCH (10:20)
[2020-01-14] MEDS: CLOPIDOGREL BISULFATE 75 MG TABLET PO SCH (10:20)
[2020-01-14] MEDS: DOCUSATE SODIUM 100 MG CAPSULE PO SCH ×2 (10:20→19:46)
[2020-01-14] MEDS: ZINC SULFATE 220 MG CAPSULE PO SCH (10:20)
[2020-01-14] MEDS: FOLIC ACID 1 MG TABLET PO SCH (10:39)
[2020-01-14] MEDS: FAMOTIDINE 20 MG TABLET PO SCH (10:39)
[2020-01-14 10:45] LABS: ARTERIAL BLOOD BASE EXCESS -1.9 mmol/L; ARTERIAL BLOOD H2CO3 1.24 mmol/L (1.05-1.35); ARTERIAL BLOOD HCO3 23.2 mmol/L (20-24); ARTERIAL BLOOD O2 SATURATION 96.8 % (94-98); ARTERIAL BLOOD PCO2 41.2 mmHg (35-45); ARTERIAL BLOOD PH 7.37 (7.35-7.45); ARTERIAL BLOOD PO2 91.3 mmHg (80-100); ARTERIAL BLOOD TOTAL CO2 24.5 mmol/L (21-25)
[2020-01-14 10:48] LABS: HEMATOCRIT 20.6 % (36.0-47.0); MEAN CORPUSCULAR HEMOGLOBIN 31.7 pg (27.0-33.4); MEAN CORPUSCULAR HGB CONC 32.8 g/dL (32.0-36.0); MEAN CORPUSCULAR VOLUME 97 fl (80-97); PLATELET COUNT 189 10^3/uL (150-450); RED BLOOD COUNT 2.14 10^6/uL (3.72-5.28); RED CELL DISTRIBUTION WIDTH 19.7 % (11.5-14.0); WHITE BLOOD COUNT 16.2 10^3/uL (4.0-10.5)
[2020-01-14 10:50] LABS: ARTERIAL BLOOD FIO2 50%
[2020-01-14 10:53] LABS: HEMOGLOBIN 6.8 g/dL (12.0-15.5)
[2020-01-14 11:18] LABS: ALBUMIN 2.5 g/dL (3.5-5.0); ALKALINE PHOSPHATASE 43 U/L (38-126); ANION GAP 5 (5-19); ASPARTATE AMINO TRANSFERASE 16 U/L (14-36); BILIRUBIN,DIRECT 0.2 mg/dL (0.0-0.4); BILIRUBIN,TOTAL 0.8 mg/dL (0.2-1.3); BLOOD UREA NITROGEN 100 mg/dL (7-20); CARBON DIOXIDE 28 mmol/L (22-30); CHLORIDE 111 mmol/L (98-107); GLUCOSE 128 mg/dL (75-110); POTASSIUM 4.4 mmol/L (3.6-5.0); TOTAL PROTEIN 4.7 g/dL (6.3-8.2)
[2020-01-14 11:32] LABS: CALCIUM 6.4 mg/dL (8.4-10.2)
[2020-01-14] MEDS ORDERED: NORMAL SALINE 250 ML IV PRN ×2 (16:14)
--- NOTE | 2020-01-14 20:47 | PDOC CRITICAL CARE PROG REPORT ---
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 Weaning FiO2 and PEEP now. No hemodynamic instability however has developed atrial fibrillation with a controlled rate 01.13.2020: Patient continues to improve and FiO2 has been reduced to 50%. PEEP is now at 10. He is mildly tachycardic but much improved. Color is improved. 01.12.2020: Patient was admitted yesterday and had significant hypoxia. She was placed in prone position with significant improvement in her overall condition. Urgent elevation has not been significantly elevated but it is high. She was placed in supine position this afternoon with mild hypoxia. Review of systems relevant to events:: 01.14.2020: No hypotension. No adverse skin reaction or pressure changes from proning. 01.13.2020: SARS, 2-CoViD19 testing is still pending. Inflammatory markers: Neutr ophil lymphocyte ratio is air at 112 from 103. D-dimer higher at 3.73, fortunately ferritin has improved. 01.12.2020: Patient's hemodynamics have stabilized and she is not on vasopressor therapy. She is appropriately sedated. He had frequent bowel movements yesterday but has improved. A bowel management tube had been placed. No significant peak or plateau pressure elevations. She currently is on 50% and 10 of PEEP. Reason for ICU Addmission:: Hypoxic respiratory failure - Medications: Medications reviewed and adjusted accordingly: Yes Physical Exam Vital Signs: Temp Pulse Resp BP Pulse Ox 97.4 F 107 H 18 99/60 L 100 01/14/20 19:49 01/14/20 19:13 01/14/20 19:13 01/14/20 19:13 01/14/20 19:13 Intake & Output 01/13/20 01/14/20 01/15/20 06:59 06:59 06:59 Intake Total 1405.0 1505.0 802.5 Output Total 1752 1712 1115 Balance -347.0 -207.0 -312.5 Weight 59.3 kg 59.4 kg 60.2 kg Weight/Height Weight 60.2 kg Height 5 ft 4 in General appearance: PRESENT: no acute distress, thin Head exam: PRESENT: atraumatic, normocephalic Eye exam: PRESENT: conjunctiva pink, PERRLA. ABSENT: conjunctival injection, n ystagmus Ear exam: PRESENT: normal external ear exam Mouth exam: PRESENT: moist, neck supple Neck exam: ABSENT: carotid bruit, JVD, lymphadenopathy, tenderness, thyromegaly, tracheal deviation Respiratory exam: PRESENT: clear to auscultation rodney. ABSENT: accessory muscle use, rales, rhonchi, wheezes Cardiovascular exam: PRESENT: irregular rhythm, +S1, +S2. ABSENT: gallop Pulses: PRESENT: +1 pedal pulses bilateral Vascular exam: PRESENT: normal capillary refill GI/Abdominal exam: PRESENT: normal bowel sounds, soft. ABSENT: ascites, distended, guarding, mass, organolmegaly, rebound, tenderness Rectal exam: PRESENT: deferred Gentrourinary exam: PRESENT: indwelling catheter Extremities exam: ABSENT: pedal edema Musculoskeletal exam: ABSENT: deformity, dislocation Neurological exam: PRESENT: altered - Heavily sedated and concern for SARS, 2- CoViD19 and removal of tubes Skin exam: PRESENT: dry, intact, normal color, warm. ABSENT: abrasion, cyanosis, mottled, rash Tubes/Lines: PRESENT: Endotracheal Tube, Central Line, Arterial Catheter - Taylor type urinary catheter, orogastric tube Laboratory/Radiographs Laboratory Results: 01/14/20 10:25 01/14/20 10:25 01/14/20 01/14/20 01/14/20 06:50 06:50 06:50 WBC 15.3 H RBC 2.17 L Hgb 6.8 L Hct 20.6 L MCV 95 MCH 31.4 MCHC 33.1 RDW 19.9 H Plt Count 189 Seg Neutrophils % Not Reportable Carbonic Acid HCO3/H2CO3 Ratio ABG pH ABG pCO2 ABG pO2 ABG HCO3 ABG O2 Saturation ABG Base Excess FiO2 Sodium 143.2 Potassium 4.2 Chloride 110 H Carbon Dioxide 29 Anion Gap 4 L BUN 99 H Creatinine 2.14 H Est GFR ( Amer) 27 L Glucose 133 H Calcium 6.5 L* Phosphorus 5.0 H Magnesium 4.1 H Ferritin 643.00 H Total Bilirubin AST Alkaline Phosphatase Ammonia 10.5 C-Reactive Protein 83.4 H Total Protein Albumin Blood Type Antibody Screen 01/14/20 01/14/2001/13/20 10:25 10:25 10:25 WBC 16.2 H RBC 2.14 L Hgb 6.8 L Hct 20.6 L MCV 97 MCH 31.7 MCHC 32.8 RDW 19.7 H Plt Count 189 Seg Neutrophils % Carbonic Acid 1.24 HCO3/H2CO3 Ratio 18:1 ABG pH 7.37 ABG pCO2 41.2 ABG pO2 91.3 ABG HCO3 23.2 ABG O2 Saturation 96.8 ABG Base Excess -1.9 FiO2 50% Sodium 144.2 Potassium 4.4 Chloride 111 H Carbon Dioxide 28 Anion Gap 5 BUN 100 H Creatinine 2.15 H Est GFR ( Amer) 27 L Glucose 128 H Calcium 6.4 L* Phosphorus Magnesium Ferritin Total Bilirubin 0.8 AST 16 Alkaline Phosphatase 43 Ammonia C-Reactive Protein Total Protein 4.7 L Albumin 2.5 L Blood Type Antibody Screen 01/14/20 16:40 WBC RBC Hgb Hct MCV MCH MCHC RDW Plt Count Seg Neutrophils % Carbonic Acid HCO3/H2CO3 Ratio ABG pH ABG pCO2 ABG pO2 ABG HCO3 ABG O2 Saturation ABG Base Excess FiO2 Sodium Potassium Chloride Carbon Dioxide Anion Gap BUN Creatinine Est GFR ( Amer) Glucose Calcium Phosphorus Magnesium Ferritin Total Bilirubin AST Alkaline Phosphatase Ammonia C-Reactive Protein Total Protein Albumin Blood Type A POSITIVE Antibody Screen NEGATIVE 12/27/19 12/28/19 12/28/19 23:14 00:18 05:47 Creatine Kinase CK-MB (CK-2) Troponin I 0.102 0.110 0.134 NT-Pro-B Natriuret Pep 12289 H 12/28/19 12/29/19 12/31/19 11:52 21:57 00:00 Creatine Kinase 40 CK-MB (CK-2) Troponin I 0.129 0.190 NT-Pro-B Natriuret Pep 12/31/19 12/31/19 12/31/19 00:00 05:46 05:46 Creatine Kinase 35 CK-MB (CK-2) 0.45 0.47 Troponin I 0.154 0.145 NT-Pro-B Natriuret Pep 12/31/19 12/31/19 01/05/20 12:17 12:17 05:00 Creatine Kinase 39 CK-MB (CK-2) 0.56 Troponin I 0.125 NT-Pro-B Natriuret Pep 5790 H 01/06/20 01/07/20 01/08/20 07:32 08:27 08:54 Creatine Kinase CK-MB (CK-2) Troponin I NT-Pro-B Natriuret Pep 6760 H 6690 H 6090 H 01/11/20 06:24 Creatine Kinase < 20 L CK-MB (CK-2) Troponin I NT-Pro-B Natriuret Pep Impressions: Abdomen/Pelvis CT 12/30/19 00:00 IMPRESSION: Small right effusion with patchy basilar airspace disease right greater than left. Prior cholecystectomy. Internal biliary drainage catheter is in place. Small atrophic left kidney. Chest CT 01/04/20 00:00 IMPRESSION: Bilateral ground-glass opacities with focal areas of consolidation findings are consistent with a history of congestive heart failure. There are small bilateral pleural effusions. Probable reactive mediastinal adenopathy. Findings can be seen with infectious or inflammatory processes as well. Cl inical correlation is needed. Chest X-Ray 01/11/20 16:33 IMPRESSION: Tubes and lines in good positioning. No change in appearance of the lungs. No pleural effusion or pneumothorax. All labs, radiographs, diagnostic studies and EKGs were personally reviewed: Yes In addition, reports of radiographic and diagnostic studies were read: Yes Assessment and Plan - Diagnosis (1) Acute respiratory failure with hypoxia Is this a current diagnosis for this admission?: Yes (2) Bacterial pneumonia, unspecified Is this a current diagnosis for this admission?: Yes (3) Acute kidney injury superimposed on chronic kidney disease Is this a current diagnosis for this admission?: Yes (4) CKD (chronic kidney disease) stage 3, GFR 30-59 ml/min Is this a current diagnosis for this admission?: Yes (5) Oxygen dependency at home Is this a current diagnosis for this admission?: Yes (6) Mitral valve regurgitation Qualifiers: Cardiac valve disease etiology: etiology unspecified Qualified Code(s): I34.0 - Nonrheumatic mitral (valve) insufficiency Is this a current diagnosis for this admission?: Yes (7) Suspected COVID-19 virus infection Is this a current diagnosis for this admission?: Yes Plan: Negative Plan Summary: 01.14.2020: Patient continues to improve in the expected trajectory. Will start weaning now that the SARS, 2-CoViD19 nesting is negative. She is extremely weak and appears to have had bacterial pneumonia although cultures have been negative. Recrudescence of infiltrates or interstitial pattern occurs this may represent mitral valve disease. He has had a significant improvement overall and expect to liberate from the vent within the next 24 hours. Continue supportive care. Continue antibiotics Follow for atrial fibrillation with rapid response I am unable to start heparin secondary to dark blood that had been noted on tracheal aspirates. Will reevaluate in the morning to determine whether this is been a continued process. She is on aspirin and Plavix and we may need to discontinue Plavix. 01.13.2020: Patient is improving in an acceptable trajectory. She has been prone for approximately 18 hours and in the supine state has remained stable. We will slowly wean PEEP as well as FiO2. Given her d-dimer elevation the new standard is for full anticoagulation however patient has been on Plavix. Given the possibility of bleeding and diffuse alveolar hemorrhage I am reticent to place her on this. At this time, we await her SARS, 2-CoViD19 results. If they are positive we may be forced to at least start IV heparin on the off chance that she bleeds on Plavix. Of import, her SARS, 2-CoViD19 status is essential to be determined. She may not be a candidate for Plaquenil given her react status but will need to consider it based on inflammatory parameters. Started enteral nutrition Given her improve renal status will start low-dose vitamin C and added zinc Will follow her renal function. If creatinine improves without fluid and will continue that process. Have added free water to flushes. 01.12.2020: Patient has had no bleeding from her endotracheal tube. We will continue subcutaneous heparin. If her d-dimer continues to increase then we will be forced to strongly consider anticoagulation. We will place the patient supine and if she continues to worsen will need to re- pronate her. We will continue supportive care including nutritional support. Continue to follow ferritin, CRP and d-dimer. Follow vent settings to prevent elevated alveolar pressures Appears to have responded to PEEP recruitment making her a "H" type genotype for this lung disease. Still awaiting respiratory pathogen profile and SARS, 2-CoViD19 Patient continues to be DNR but intubation acceptable. To new antibiotics we are unable to de-escalate therapy secondary to the inability to obtain procalcitonin Will review chest x-rays as needed but for the time being are limiting chest x- ray secondary to reducing exposure to healthcare providers 01.11.2020:Patient's chest x-ray shows abnormal interstitial changes with mixed alveolar pattern. Her ultrasound shows significant B-lines with an ejection fraction that is not diminished. Although mitral regurgitation can present like this this appears to be an infectious source. Have sent SARS, 2-CoViD19 panel as well as respiratory viral panel. Influenza screen is negative however these tests are extremely insensitive. I have placed her on broad-spectrum antibiotics. Continue to follow indirect parameters such as ferritin, d-dimer and CRP. Have sent procalcitonin but the levels are not returning in a timely fashion to de- escalate therapy. His hypoxia necessitated prone positioning. Due diligence was maintained to protect pressure areas as well as to protect the confines of the ET tube with a surgical based head cushion. We will start Plaquenil and have started meropenem and Linezolid in case this is an infectious etiology from bacteria. We will need to follow QT interval. 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 Given the pandemic's unknown lab characteristics as far as ANCA I am not sure how testing will help. That being said she may be a candidate for steroid therapy. Supportively, her ferritin is not excessively elevated which I would expect at this point. We will follow the trend. The elevation albeit not significantly high may portend a better prognosis. We will need to provide vigilance for protection during pronating. Is been ineffective treatment for SARS, 2-CoViD19. I also had a discussion with the patient regarding her goals of care. She did agree to intubation but declined resuscitation if she had a cardiac arrest. Has been was updated and notified as well. Unfortunately he is unable to be here secondary to the confines of the SARS, 2-CoViD19 pandemic. Significant amount time was spent with the patient because of her hypoxia after intubation. She was placed on 100% FiO2 and PEEP increased to 16 to recruit. This was quite successful and FiO2 has been now weaning. Given the complex nature of her case and the constant requirement for airway management during pronating patient's care required a significant amount of critical care time. Bedside ultrasound of her heart lungs were done as well Critical Time Critical Time (minutes): 40 Level of Care: ICU -: 1. The care of a critical patient is a dynamic process. 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 The timeframe for treatments given in order is not necessarily the actual time these treatments may have been done. 2. This patient requires critical care secondary to ongoing requirements for therapy not offered or safe outside the critical care environment. Transfer to a lower level of care will result in altered life or limb morbidity and mortality. 3. Multidisciplinary rounds completed. 4. ABCDE bundle addressed.
[2020-01-14] MEDS: PHARMACY COMMUNICATION ORDER MC SCH (21:58)
[2020-01-14] MEDS: MONTELUKAST SODIUM 10 MG TABLET PO SCH (22:06)
[2020-01-15] MEDS: HEPARIN SOD (PORCINE) 5,000 UNIT/ML 1 ML VIAL SUBCUT SCH ×3 (06:22→21:29)
[2020-01-15] MEDS: THIAMINE HCL 250 MG in NORMAL SALINE 250 ML IV SCH ×3 (06:22→21:28)
[2020-01-15 06:23] LABS: HEMATOCRIT 29.2 % (36.0-47.0); MEAN CORPUSCULAR HEMOGLOBIN 31.2 pg (27.0-33.4); MEAN CORPUSCULAR HGB CONC 33.7 g/dL (32.0-36.0); PLATELET COUNT 155 10^3/uL (150-450); RED BLOOD COUNT 3.16 10^6/uL (3.72-5.28); RED CELL DISTRIBUTION WIDTH 17.5 % (11.5-14.0); WHITE BLOOD COUNT 17.5 10^3/uL (4.0-10.5)
[2020-01-15] MEDS: MINERAL OIL/PETROLATUM,WHITE OPH OINT 3.5 GM OU SCH ×3 (06:23→21:25)
[2020-01-15] MEDS: LEVOTHYROXINE SODIUM 0.025 MG TABLET PO SCH (06:23)
[2020-01-15] MEDS: LEVOTHYROXINE SODIUM 0.112 MG TABLET PO SCH (06:23)
[2020-01-15 06:24] LABS: HEMOGLOBIN 9.9 g/dL (12.0-15.5); MEAN CORPUSCULAR VOLUME 93 fl (80-97)
[2020-01-15 06:25] LABS: ARTERIAL BLOOD BASE EXCESS -2.2 mmol/L; ARTERIAL BLOOD H2CO3 1.22 mmol/L (1.05-1.35); ARTERIAL BLOOD HCO3 22.9 mmol/L (20-24); ARTERIAL BLOOD O2 SATURATION 98.8 % (94-98); ARTERIAL BLOOD PCO2 40.4 mmHg (35-45); ARTERIAL BLOOD PH 7.37 (7.35-7.45); ARTERIAL BLOOD PO2 143.6 mmHg (80-100); ARTERIAL BLOOD TOTAL CO2 24.1 mmol/L (21-25)
[2020-01-15 06:28] LABS: ARTERIAL BLOOD FIO2 50%
--- NOTE | 2020-01-15 06:38 | RADIOLOGY REPORT (SQ) ---
EXAM: XR Chest, 1 View EXAM DATE/TIME: 01/15/2020 5:55 AM CLINICAL HISTORY: The patient is 74 years old and is Female; Pneumonia TECHNIQUE: Frontal view of the chest. COMPARISON: Chest radiograph from 01/11/2020 FINDINGS: LUNGS: There has been interval improvement in the ill-defined opacities visualized in the lungs on the prior study. These are now mild and remain slightly more prominent on the left. PLEURAL SPACE: Unremarkable. No pneumothorax. HEART: Stable mild enlargement of the cardiac silhouette. MEDIASTINUM: Unremarkable. BONES/JOINTS: The bones are unchanged. Poststernotomy changes. TUBES, LINES AND DEVICES: Spinal cord stimulator in place. Right internal jugular central venous catheter terminates in the SVC. Enteric tube terminates in the proximal stomach with the distal side-port at the gastroesophageal junction. Endotracheal tube terminates approximately 1.5 cm above the lindsay. IMPRESSION: 1. Significant interval improvement in interstitial opacity seen in the lungs on the prior study. 2. Endotracheal tube terminates approximately 1.5 cm above the lindsay. Consider 1-2 cm retraction.
[2020-01-15 06:39] LABS: ABSOLUTE MONOCYTES # (MANUAL) 1.8 10^3/uL (0.1-1.4); ANION GAP 5 (5-19); BASOPHILS % (MANUAL) 0 % (0-2); BLOOD UREA NITROGEN 107 mg/dL (7-20); CARBON DIOXIDE 26 mmol/L (22-30); CHLORIDE 113 mmol/L (98-107); EOSINOPHILS % (MANUAL) 2 % (0-6); GLUCOSE 112 mg/dL (75-110); LYMPHOCYTES % (MANUAL) 0 % (13-45); MONOCYTES % (MANUAL) 10 % (3-13); NUCLEATED RED BLOOD CELLS 1 /100 WBC (0); PHOSPHORUS 4.3 mg/dL (2.5-4.5); POTASSIUM 4.6 mmol/L (3.6-5.0); SEGMENTED NEUTROPHILS % (MAN) 88 % (42-78); TOTAL CELLS COUNTED 100; TRIGLYCERIDES 229 mg/dL (<150)
[2020-01-15 06:40] LABS: ANISOCYTOSIS 1+; PLATELET COMMENT ADEQUATE
[2020-01-15 06:45] LABS: CALCIUM 6.1 mg/dL (8.4-10.2)
[2020-01-15] MEDS: PROPOFOL 1,000 MG/100 ML INFUS..BTL IV PRN (08:08)
[2020-01-15] MEDS: ASPIRIN 81 MG TABLET, ENT COATED PO SCH (10:07)
[2020-01-15] MEDS: LINEZOLID 600 MG/300 ML RTUPB IV SCH ×2 (10:08→21:31)
[2020-01-15] MEDS: MEROPENEM 1 GM in NORMAL SALINE 50 ML IV SCH ×2 (10:08→21:25)
[2020-01-15] MEDS: POLYETHYLENE GLYCOL 3350 POWDER 17 GM/1 PACKET PO SCH ×4 (10:09→17:32)
[2020-01-15] MEDS: DOCUSATE SODIUM 100 MG CAPSULE PO SCH ×2 (10:10→17:32)
[2020-01-15] MEDS: FAMOTIDINE 20 MG TABLET PO SCH (10:10)
[2020-01-15] MEDS: CLOPIDOGREL BISULFATE 75 MG TABLET PO SCH (10:10)
[2020-01-15] MEDS: FOLIC ACID 1 MG TABLET PO SCH (10:10)
[2020-01-15] MEDS: ZINC SULFATE 220 MG CAPSULE PO SCH (10:10)
[2020-01-15] MEDS: ASCORBIC ACID 500 MG TABLET PO SCH ×2 (10:13→18:18)
[2020-01-15] MEDS ORDERED: THIAMINE HCL INJ 200 MG/2 ML VIAL IV SCH (12:00)
[2020-01-15] MEDS ORDERED: DEXAMETHASONE SOD PHOS INJ 10 MG/1 ML VIAL IV ONE (12:02)
--- NOTE | 2020-01-15 12:03 | PDOC CRITICAL CARE PROG REPORT ---
General Date:: 01/15/20 ICU Day:: 5 Ventilator Day:: 5 Hospital Day:: 18 Resuscitation Status: Do Not Resuscitate Medical Power of Lubricator Granulator: Events in the past 12 to 24 Hours:: 01.15.2020: Patient has been taken off SARS, 2-CoViD19 cautions. She still has some elevation of inflammatory parameters but not to the degree we would expect with this novel coronavirus. Her chest x-ray is dramatically improved and this appears to be a multifocal bacterial pneumonia whose cultures are still negative. She developed atrial fib/flutter but not a high ventricular rate. She was not started on the coagulation secondary to some bleeding that is been noted from her ET tube. 01.14.2020: Officially SARS, 2-CoViD19 additive. Weaning FiO2 and PEEP now. No hemodynamic instability however has developed atrial fibrillation with a controlled rate 01.13.2020: Patient continues to improve and FiO2 has been reduced to 50%. PEEP is now at 10. He is mildly tachycardic but much improved. Color is improved. 01.12.2020: Patient was admitted yesterday and had significant hypoxia. She was placed in prone position with significant improvement in her overall condition. Urgent elevation has not been significantly elevated but it is high. She was pl aced in supine position this afternoon with mild hypoxia. Review of systems relevant to events:: 01.15.2020: Chest x-ray improved. She still has an elevated neutrophil to lym phocyte ratio at 15 however her ferritin and d-dimer are improved. Bleeding from ET tube 01.14.2020: No hypotension. No adverse skin reaction or pressure changes from proning. 01.13.2020: SARS, 2-CoViD19 testing is still pending. Inflammatory markers: Neutrophil lymphocyte ratio is air at 112 from 103. D-dimer higher at 3.73, fortunately ferritin has improved. 01.12.2020: Patient's hemodynamics have stabilized and she is not on vasopressor therapy. She is appropriately sedated. He had frequent bowel movements yesterday but has improved. A bowel management tube had been placed. No significant peak or plateau pressure elevations. She currently is on 50% and 10 of PEEP. Reason for ICU Addmission:: Hypoxic respiratory failure - Medications: Medications reviewed and adjusted accordingly: Yes Physical Exam Vital Signs: Temp Pulse Resp BP Pulse Ox 99.1 F 111 H 18 99/82 L 100 01/15/20 07:52 01/15/20 07:52 01/15/20 07:52 01/15/20 07:52 01/15/20 07:52 Intake & Output 01/14/20 01/15/20 01/16/20 06:59 06:59 06:59 Intake Total 1505.0 1655.0 Output Total 1712 2540 70 Balance -207.0 -885.0 -70 Weight 59.4 kg 59.3 kg Weight/Height Weight 59.3 kg Height 5 ft 4 in General appearance: PRESENT: no acute distress, well-nourished Exam: Intubated thin elderly nontoxic but ill-appearing 74-year-old female no active distress Head exam: PRESENT: atraumatic, normocephalic Eye exam: PRESENT: conjunctiva pink, PERRLA. ABSENT: conjunctival injection, nystagmus Mouth exam: PRESENT: moist Neck exam: ABSENT: carotid bruit, JVD, lymphadenopathy, thyromegaly, tracheal deviation Respiratory exam: PRESENT: clear to auscultation rodney, unlabored. ABSENT: acc essory muscle use, rales, rhonchi, tachypnea, wheezes Cardiovascular exam: PRESENT: irregular rhythm, +S1, +S2. ABSENT: tachycardia Vascular exam: PRESENT: normal capillary refill, pallor GI/Abdominal exam: PRESENT: ascites, normal bowel sounds, soft. ABSENT: distended, guarding, mass, organolmegaly, rebound, tenderness Rectal exam: PRESENT: deferred Gentrourinary exam: PRESENT: indwelling catheter Extremities exam: ABSENT: pedal edema Musculoskeletal exam: ABSENT: deformity, dislocation Neurological exam: PRESENT: altered - Heavily sedated to prevent self extubation, other - Minimal movement with noxious stimulus but she is on propofol and Dilaudid Psychiatric exam: PRESENT: appropriate affect Skin exam: PRESENT: dry, intact, pallor, warm. ABSENT: cyanosis, rash Tubes/Lines: PRESENT: Endotracheal Tube, Central Line, Arterial Catheter - Oral gastric tube, Taylor type urinary catheter Laboratory/Radiographs Laboratory Results: 01/15/20 06:00 01/15/20 06:00 01/14/20 01/14/20 01/14/20 10:25 10:25 10:25 WBC 16.2 H RBC 2.14 L Hgb 6.8 L Hct 20.6 L MCV 97 MCH 31.7 MCHC 32.8 RDW 19.7 H Plt Count 189 Seg Neutrophils % Carbonic Acid 1.24 HCO3/H2CO3 Ratio 18:1 ABG pH 7.37 ABG pCO2 41.2 ABG pO2 91.3 ABG HCO3 23.2 ABG O2 Saturation 96.8 ABG Base Excess -1.9 FiO2 50% Sodium 144.2 Potassium 4.4 Chloride 111 H Carbon Dioxide 28 Anion Gap 5 BUN 100 H Creatinine 2.15 H Est GFR ( Amer) 27 L Glucose 128 H Calcium 6.4 L* Phosphorus Magnesium Total Bilirubin 0.8 AST 16 Alkaline Phosphatase 43 Ammonia Total Protein 4.7 L Albumin 2.5 L Triglycerides Blood Type Antibody Screen 01/14/20 01/15/20 01/15/20 16:40 06:00 06:00 WBC RBC Hgb Hct MCV MCH MCHC RDW Plt Count Seg Neutrophils % Carbonic Acid 1.22 HCO3/H2CO3 Ratio 18:1 ABG pH 7.37 ABG pCO2 40.4 ABG pO2 143.6 H ABG HCO3 22.9 ABG O2 Saturation 98.8 H ABG Base Excess -2.2 FiO2 50% Sodium Potassium Chloride Carbon Dioxide Anion Gap BUN Creatinine Est GFR ( Amer) Glucose Calcium Phosphorus Magnesium Total Bilirubin AST Alkaline Phosphatase Ammonia 10.0 Total Protein Albumin Triglycerides Blood Type A POSITIVE Antibody Screen NEGATIVE 01/15/20 01/15/20 06:00 06:00 WBC 17.5 H RBC 3.16 L Hgb 9.9 L D Hct 29.2 L MCV 93 D MCH 31.2 MCHC 33.7 RDW 17.5 H Plt Count 155 Seg Neutrophils % Not Reportable Carbonic Acid HCO3/H2CO3 Ratio ABG pH ABG pCO2 ABG pO2 ABG HCO3 ABG O2 Saturation ABG Base Excess FiO2 Sodium 144.0 Potassium 4.6 Chloride 113 H Carbon Dioxide 26 Anion Gap 5 BUN 107 H Creatinine 1.96 H Est GFR ( Amer) 30 L Glucose 112 H Calcium 6.1 L* Phosphorus 4.3 Magnesium 3.8 H Total Bilirubin AST Alkaline Phosphatase Ammonia Total Protein Albumin Triglycerides 229 H Blood Type Antibody Screen 12/27/19 12/28/19 12/28/19 23:14 00:18 05:47 Creatine Kinase CK-MB (CK-2) Troponin I 0.102 0.110 0.134 NT-Pro-B Natriuret Pep 75328 H 12/28/19 12/29/19 12/31/19 11:52 21:57 00:00 Creatine Kinase 40 CK-MB (CK-2) Troponin I 0.129 0.190 NT-Pro-B Natriuret Pep 12/31/19 12/31/19 12/31/19 00:00 05:46 05:46 Creatine Kinase 35 CK-MB (CK-2) 0.45 0.47 Troponin I 0.154 0.145 NT-Pro-B Natriuret Pep 12/31/19 12/31/19 01/05/20 12:17 12:17 05:00 Creatine Kinase 39 CK-MB (CK-2) 0.56 Troponin I 0.125 NT-Pro-B Natriuret Pep 5790 H 01/06/20 01/07/20 01/08/20 07:32 08:27 08:54 Creatine Kinase CK-MB (CK-2) Troponin I NT-Pro-B Natriuret Pep 6760 H 6690 H 6090 H 01/11/20 06:24 Creatine Kinase < 20 L CK-MB (CK-2) Troponin I NT-Pro-B Natriuret Pep Impressions: Abdomen/Pelvis CT 12/30/19 00:00 IMPRESSION: Small right effusion with patchy basilar airspace disease right greater than left. Prior cholecystectomy. Internal biliary drainage catheter is in place. Small atrophic left kidney. Chest CT 01/04/20 00:00 IMPRESSION: Bilateral ground-glass opacities with focal areas of consolidation findings are consistent with a history of congestive heart failure. There are small bilateral pleural effusions. Probable reactive mediastinal adenopathy. Findings can be seen with infectious or inflammatory processes as well. Clinical correlation is needed. Chest X-Ray 01/15/20 06:00 IMPRESSION: 1. Significant interval improvement in interstitial opacity seen in the lungs on the prior study. 2. Endotracheal tube terminates approximately 1.5 cm above the lindsay. Consider 1-2 cm retraction. All labs, radiographs, diagnostic studies and EKGs were personally reviewed: Yes In addition, reports of radiographic and diagnostic studies were read: Yes Assessment and Plan - Diagnosis (1) Acute respiratory failure with hypoxia Is this a current diagnosis for this admission?: Yes (2) Bacterial pneumonia, unspecified Is this a current diagnosis for this admission?: Yes (3) Atrial fibrillation and flutter Is this a current diagnosis for this admission?: Yes Plan: Persistent, without rapid ventricular response (4) Acute kidney injury superimposed on chronic kidney disease Is this a current diagnosis for this admission?: Yes (5) CKD (chronic kidney disease) stage 3, GFR 30-59 ml/min Is this a current diagnosis for this admission?: Yes (6) Oxygen dependency at home Is this a current diagnosis for this admission?: Yes (7) Mitral valve regurgitation Qualifiers: Cardiac valve disease etiology: etiology unspecified Qualified Code(s): I34.0 - Nonrheumatic mitral (valve) insufficiency Is this a current diagnosis for this admission?: Yes (8) Suspected COVID-19 virus infection Is this a current diagnosis for this admission?: Yes Plan: Negative Plan Summary: 01.15.2020: Patient has had no hemodynamic instability other than slight tachycardia associated with her atrial fibrillation and flutter. She has no history of this. She has a known history of coronary artery disease which is why she is on Plavix and aspirin and multiple other medications. 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 Fortunately none are available today. Given her [id number] score of 5 she has a greater than 7% chance of a cerebral incident in the next year. Will continue to monitor closely. Fortunately she is on heparin prophylaxis and full dose with some degree of renal dysfunction in addition to dual antiplatelet therapy. We will continue to consider on a daily basis given her situation. Patient has a known history of vocal cord dysfunction, unilateral. This may add to the complete picture of why she became so ill. Appears that she has multifocal lobar pneumonia which may have been bacterial however and pneumonitis caused by aspiration needs to also be considered. Added to this is the possibility of mitral valve disease. I am suspicious that this was infection related given the fact that she is improved with antibiotics and has had no recrudescence of disease. If this were mitral valve I would expected to have a different course than she has had. Consideration for aspiration pneumonia after pneumonitis is also second on my list of differential given her history of left vocal cord dysfunction. Notably we will need to watch for this after liberation from the ventilator and will place her on Decadron to prevent any inflammation. We will attempt to wean and liberate from the ventilator in the next 24 hours. Have started dexmedetomidine to help facilitate this. My hope is this will help slow her heart rate down somewhat. Although her heart rate is not significantly elevated she has been off her carvedilol and will attempt to restart. If held her medication secondary to her renal failure and low normal blood pressure. Patient is extremely frail, underweight and has significant comorbidities which may contribute to morbidity and mortality. Judicious and close monitoring of every treatment will be necessary. Continue antibiotics. Await viral PCR studies 01.14.2020: Patient continues to improve in the expected trajectory. Will start weaning now that the SARS, 2-CoViD19 nesting is negative. She is extremely weak and appears to have had bacterial pneumonia although cultures have been negative. Recrudescence of infiltrates or interstitial pattern occurs this may represent mitral valve disease. He has had a significant improvement overall and expect to liberate from the vent within the next 24 hours. Continue supportive care. Continue antibiotics Follow for atrial fibrillation with rapid response I am unable to start heparin secondary to dark blood that had been noted on tracheal aspirates. Will reevaluate in the morning to determine whether this is been a continued process. She is on aspirin and Plavix and we may need to discontinue Plavix. 01.13.2020: Patient is improving in an acceptable trajectory. She has been prone for approximately 18 hours and in the supine state has remained stable. We will slowly wean PEEP as well as FiO2. Given her d-dimer elevation the new standard is for full anticoagulation however patient has been on Plavix. Given the possibility of bleeding and diffuse alveolar hemorrhage I am reticent to place her on this. At this time, we await her SARS, 2-CoViD19 results. If they are positive we may be forced to at least start IV heparin on the off chance that she bleeds on Plavix. Of import, her SARS, 2-CoViD19 status is essential to be determined. She may not be a candidate for Plaquenil given her react status but will need to consider it based on inflammatory parameters. Started enteral nutrition Given her improve renal status will start low-dose vitamin C and added zinc Will follow her renal function. If creatinine improves without fluid and will continue that process. Have added free water to flushes. 01.12.2020: Patient has had no bleeding from her endotracheal tube. We will continue sub cutaneous heparin. If her d-dimer continues to increase then we will be forced to strongly consider anticoagulation. We will place the patient supine and if she continues to worsen will need to re-pronate her. We will continue supportive care including nutritional support. Continue to follow ferritin, CRP and d-dimer. Follow vent settings to prevent elevated alveolar pressures Appears to have responded to PEEP recruitment making her a "H" type genotype for this lung disease. Still awaiting respiratory pathogen profile and SARS, 2-CoViD19 Patient continues to be DNR but intubation acceptable. To new antibiotics we are unable to de-escalate therapy secondary to the inability to obtain procalcitonin Will review chest x-rays as needed but for the time being are limiting chest x- ray secondary to reducing exposure to healthcare providers 01.11.2020:Patient's chest x-ray shows abnormal interstitial changes with mixed alveolar pattern. Her ultrasound shows significant B-lines with an ejection fraction that is not diminished. Although mitral regurgitation can present like this this appears to be an infectious source. Have sent SARS, 2-CoViD19 panel as well as respiratory viral panel. Influenza screen is negative however these tests are extremely insensitive. I have placed her on broad-spectrum antibiotics. Continue to follow indirect parameters such as ferritin, d-dimer and CRP. Have sent procalcitonin but the levels are not returning in a timely fashion to de- escalate therapy. His hypoxia necessitated prone positioning. Due diligence was maintained to protect pressure areas as well as to protect the confines of the ET tube with a surgical based head cushion. We will start Plaquenil and have started meropenem and Linezolid in case this is an infectious etiology from bacteria. We will need to follow QT interval. 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 Given the pandemic's unknown lab characteristics as far as ANCA I am not sure how testing will help. That being said she may be a candidate for steroid therapy. Supportively, her ferritin is not excessively elevated which I would expect at this point. We will follow the trend. The elevation albeit not significantly high may portend a better prognosis. We will need to provide vigilance for protection during pronating. Is been ineffective treatment for SARS, 2-CoViD19. I also had a discussion with the patient regarding her goals of care. She did agree to intubation but declined resuscitation if she had a cardiac arrest. Has been was updated and notified as well. Unfortunately he is unable to be here secondary to the confines of the SARS, 2-CoViD19 pandemic. Significant amount time was spent with the patient because of her hypoxia after intubation. She was placed on 100% FiO2 and PEEP increased to 16 to recruit. This was quite successful and FiO2 has been now weaning. Given the complex nature of her case and the constant requirement for airway management during pronating patient's care required a significant amount of critical care time. Bedside ultrasound of her heart lungs were done as well Critical Time Critical Time (minutes): 40 Level of Care: ICU -: 1. The care of a critical patient is a dynamic process. This note is a repr esentative synopsis but static in nature. The timeframe for treatments given in order is not necessarily the actual time these treatments may have been done. 2. This patient requires critical care secondary to ongoing requirements for therapy not offered or safe outside the critical care environment. Transfer to a lower level of care will result in altered life or limb morbidity and mortality. 3. Multidisciplinary rounds completed. 4. ABCDE bundle addressed.
[2020-01-15] MEDS ORDERED: THIAMINE HCL 250 MG in NORMAL SALINE 250 ML IV SCH (13:00)
[2020-01-15] MEDS ORDERED: DEXAMETHASONE SOD PHOSPHATE INJ 4 MG/1 ML VIAL ONE (14:19)
[2020-01-15] MEDS: DEXMEDETOMIDINE IN 0.9 % NACL 400 MCG/100 ML RTUPB IV PRN ×2 (14:23→19:58)
[2020-01-15] MEDS: ACETAMINOPHEN 325 MG TABLET PO PRN (18:18)
[2020-01-15] MEDS: (PENDING PHARMACY ID) (Liraglutide [Victoza 2-Pak] 0.6 MG) SQ SCH ×5 (20:46→20:53)
[2020-01-15] MEDS: (PENDING PHARMACY ID) (Azelastine/Fluticasone [Dymista Nasal Spray] 1 SPRAY) NS SCH ×5 (20:46→20:52)
[2020-01-15] MEDS: LIDOCAINE 5% (700 MG) TRANSDERMAL ADH..PATCH TOP SCH (20:47)
[2020-01-15] MEDS: FLUTICASONE NASAL SPRAY 50 MCG/SPRY 120 SPRAY/16 GM NASL SCH (20:47)
[2020-01-15] MEDS: FLUTICASONE/VILANTEROL 100-25 MCG/DOSE IH SCH (20:49)
[2020-01-15] MEDS: PHARMACY COMMUNICATION ORDER MC SCH (21:28)
[2020-01-15] MEDS: MONTELUKAST SODIUM 10 MG TABLET PO SCH (21:31)
[2020-01-16] MEDS: DEXMEDETOMIDINE IN 0.9 % NACL 400 MCG/100 ML RTUPB IV PRN ×2 (02:03→11:00)
[2020-01-16] MEDS: ACETAMINOPHEN 325 MG TABLET PO PRN ×2 (02:03→12:11)
[2020-01-16] MEDS: HEPARIN SOD (PORCINE) 5,000 UNIT/ML 1 ML VIAL SUBCUT SCH ×2 (05:11→15:09)
[2020-01-16] MEDS: LEVOTHYROXINE SODIUM 0.025 MG TABLET PO SCH (05:12)
[2020-01-16] MEDS: MINERAL OIL/PETROLATUM,WHITE OPH OINT 3.5 GM OU SCH ×2 (05:12→15:10)
[2020-01-16] MEDS: LEVOTHYROXINE SODIUM 0.112 MG TABLET PO SCH (05:13)
[2020-01-16 05:34] LABS: ARTERIAL BLOOD BASE EXCESS -3.2 mmol/L; ARTERIAL BLOOD H2CO3 0.66 mmol/L (1.05-1.35); ARTERIAL BLOOD O2 SATURATION 94.5 % (94-98); ARTERIAL BLOOD PCO2 21.9 mmHg (35-45); ARTERIAL BLOOD PH 7.53 (7.35-7.45); ARTERIAL BLOOD PO2 61.5 mmHg (80-100); ARTERIAL BLOOD TOTAL CO2 18.6 mmol/L (21-25)
[2020-01-16 05:36] LABS: ARTERIAL BLOOD FIO2 30%
[2020-01-16 05:42] LABS: HEMATOCRIT 31.8 % (36.0-47.0); HEMOGLOBIN 10.5 g/dL (12.0-15.5); MEAN CORPUSCULAR HGB CONC 33.2 g/dL (32.0-36.0); MEAN CORPUSCULAR VOLUME 93 fl (80-97); RED CELL DISTRIBUTION WIDTH 17.2 % (11.5-14.0); WHITE BLOOD COUNT 19.6 10^3/uL (4.0-10.5)
[2020-01-16 06:01] LABS: ANION GAP 6 (5-19); BLOOD UREA NITROGEN 109 mg/dL (7-20); CARBON DIOXIDE 23 mmol/L (22-30); CHLORIDE 117 mmol/L (98-107); GLUCOSE 168 mg/dL (75-110); PHOSPHORUS 3.4 mg/dL (2.5-4.5); PLATELET COUNT 97 10^3/uL (150-450); POTASSIUM 4.6 mmol/L (3.6-5.0)
[2020-01-16 06:06] LABS: ABSOLUTE LYMPHOCYTES# (MANUAL) 0.6 10^3/uL (0.5-4.7); ABSOLUTE MONOCYTES # (MANUAL) 2.2 10^3/uL (0.1-1.4); BASOPHILS % (MANUAL) 0 % (0-2); EOSINOPHILS % (MANUAL) 0 % (0-6); LYMPHOCYTES % (MANUAL) 2 % (13-45); MONOCYTES % (MANUAL) 11 % (3-13); NUCLEATED RED BLOOD CELLS 2 /100 WBC (0); SEGMENTED NEUTROPHILS % (MAN) 86 % (42-78); TOTAL CELLS COUNTED 100
[2020-01-16 06:11] LABS: CALCIUM 5.8 mg/dL (8.4-10.2)
[2020-01-16 06:13] LABS: ANISOCYTOSIS 1+; OVALOCYTES SLIGHT; PLATELET COMMENT ADEQUATE; POIKILOCYTOSIS 1+; TEAR DROP CELLS SLIGHT; TOXIC GRANULATION 1+; TOXIC VACUOLATION PRESENT
--- NOTE | 2020-01-16 06:49 | RADIOLOGY REPORT (SQ) ---
Chest one view on 01/16/2020 at 5:48 AM CLINICAL INDICATION: Pneumonia COMPARISON: 01/15/2020 FINDINGS: ET tube tip is in the lower thoracic trachea only approximately 1.5 cm above the level the lindsay. Would recommend retraction of the ET tube back 2 cm for more optimal positioning. NG tube extends below the diaphragm and below the level of this film. Right IJ catheter tip is in the SVC. The patient is status post median sternotomy and CABG. There is elevation of the right hemidiaphragm. There has been slight improvement in bilateral opacities consistent with improved edema and/or pneumonia. Differential diagnosis would include viral infections. IMPRESSION: 1. Slight improvement in bilateral edema and/or pneumonia. 2. ET tube tip in the lower thoracic trachea, consider retraction as above.
[2020-01-16] MEDS ORDERED: HYDROMORPHONE HCL INJ/PF 2 MG/ML AMPULE ONE (07:49)
[2020-01-16] MEDS ORDERED: HYDROMORPHONE HCL INJ/PF 2 MG/ML AMPULE IV ONE (08:15)
[2020-01-16] MEDS: DOCUSATE SODIUM 100 MG CAPSULE PO SCH ×2 (10:21→20:02)
[2020-01-16] MEDS: POLYETHYLENE GLYCOL 3350 POWDER 17 GM/1 PACKET PO SCH ×2 (10:22→15:10)
[2020-01-16 10:36] VITALS: BP 126/64
[2020-01-16] MEDS ORDERED: ESMOLOL HCL/SOD CL 2,500 MG/250 ML RTUINJ IV ONE (10:43)
[2020-01-16] MEDS: ASPIRIN 81 MG TABLET, ENT COATED PO SCH (12:09)
[2020-01-16] MEDS: ZINC SULFATE 220 MG CAPSULE PO SCH (12:10)
[2020-01-16] MEDS: FOLIC ACID 1 MG TABLET PO SCH (12:11)
[2020-01-16] MEDS: FAMOTIDINE 20 MG TABLET PO SCH (12:11)
[2020-01-16] MEDS: ASCORBIC ACID 500 MG TABLET PO SCH (12:11)
[2020-01-16] MEDS: MEROPENEM 1 GM in NORMAL SALINE 50 ML IV SCH (12:15)
[2020-01-16] MEDS: LINEZOLID 600 MG/300 ML RTUPB IV SCH (12:16)
[2020-01-16] MEDS: CLOPIDOGREL BISULFATE 75 MG TABLET PO SCH (12:16)
[2020-01-16] MEDS ORDERED: NOREPINEPHRINE BITARTRATE INJ/PF 4 MG/4 ML SDV IV ONE ×2 (12:32→15:23)
[2020-01-16] MEDS: THIAMINE HCL 250 MG in NORMAL SALINE 250 ML IV SCH (12:40)
[2020-01-16] MEDS ORDERED: LORAZEPAM INJ 2 MG/1 ML VIAL ONE (12:48)
[2020-01-16] MEDS ORDERED: HYDROCORTISONE SOD SUCCINATE INJ/PF 100 MG/2 ML SDV ONE (12:58)
[2020-01-16] MEDS ORDERED: PHENYLEPHRINE HCL INJ/PF 10 MG/1 ML SDV ONE ×3 (12:59→14:32)
[2020-01-16] MEDS ORDERED: EPINEPHRINE INJ 1 MG/10 ML DISP.SYRIN ONE (12:59)
[2020-01-16] MEDS ORDERED: SODIUM BICARBONATE 8.4% INJ 50 MEQ/50 ML DISP.SYRIN ONE (13:03)
[2020-01-16] MEDS ORDERED: AMIODARONE HCL INJ 150 MG/3 ML VIAL IV ONE (13:15)
[2020-01-16] MEDS ORDERED: ADENOSINE INJ/PF 6 MG/2 ML SDV IV ONE (13:17)
[2020-01-16 13:19] LABS: INTERNATIONAL RATION (INR) 2.05; PROTHROMBIN TIME 23.4 SEC (11.4-15.4)
[2020-01-16 13:22] LABS: D-DIMER 3.37 ug/mL (0.00-0.50); FIBRINOGEN 343 mg/dL (209-497)
[2020-01-16 13:32] LABS: HEMATOCRIT 30.2 % (36.0-47.0); HEMOGLOBIN 9.9 g/dL (12.0-15.5); MEAN CORPUSCULAR HEMOGLOBIN 30.7 pg (27.0-33.4); MEAN CORPUSCULAR HGB CONC 32.9 g/dL (32.0-36.0); MEAN CORPUSCULAR VOLUME 94 fl (80-97); RED BLOOD COUNT 3.23 10^6/uL (3.72-5.28); RED CELL DISTRIBUTION WIDTH 17.3 % (11.5-14.0); WHITE BLOOD COUNT 26.7 10^3/uL (4.0-10.5)
[2020-01-16 13:38] LABS: ALBUMIN 2.2 g/dL (3.5-5.0); ALKALINE PHOSPHATASE 26 U/L (38-126); ANION GAP 7 (5-19); ASPARTATE AMINO TRANSFERASE 92 U/L (14-36); BILIRUBIN,DIRECT 0.2 mg/dL (0.0-0.4); BILIRUBIN,TOTAL 0.8 mg/dL (0.2-1.3); CARBON DIOXIDE 16 mmol/L (22-30); CHLORIDE 124 mmol/L (98-107); GLUCOSE 196 mg/dL (75-110); POTASSIUM 4.5 mmol/L (3.6-5.0); TOTAL PROTEIN 4.4 g/dL (6.3-8.2)
[2020-01-16 13:42] LABS: PARTIAL THROMBOPLASTIN TIME 67.4 SEC (23.5-35.8)
[2020-01-16 13:43] LABS: CREATINE KINASE MB < 0.22 ng/mL (<4.55)
[2020-01-16 14:01] LABS: PLATELET COUNT 59 10^3/uL (150-450)
[2020-01-16 14:03] LABS: ABSOLUTE LYMPHOCYTES# (MANUAL) 1.3 10^3/uL (0.5-4.7); ABSOLUTE MONOCYTES # (MANUAL) 0.8 10^3/uL (0.1-1.4); BASOPHILS % (MANUAL) 0 % (0-2); EOSINOPHILS % (MANUAL) 0 % (0-6); LYMPHOCYTES % (MANUAL) 5 % (13-45); MONOCYTES % (MANUAL) 3 % (3-13); NUCLEATED RED BLOOD CELLS 7 /100 WBC (0); SEGMENTED NEUTROPHILS % (MAN) 92 % (42-78); TOTAL CELLS COUNTED 100
[2020-01-16 14:10] LABS: BLOOD UREA NITROGEN 128 mg/dL (7-20)
[2020-01-16 14:11] LABS: ANISOCYTOSIS 1+; CALCIUM 5.3 mg/dL (8.4-10.2); HOWELL-JOLLY BODIES PRESENT; PAPPENHEIMER BODIES PRESENT; PLATELET COMMENT DECREASED; PLATELET GIANT PRESENT; POLYCHROMASIA 1+; TOXIC GRANULATION SLIGHT; TOXIC VACUOLATION PRESENT
[2020-01-16] MEDS ORDERED: CALCIUM GLUCONATE 1000 MG/10 ML INJ IV ONE (15:09)
[2020-01-16] MEDS ORDERED: NORMAL SALINE 250 ML IV PRN ×2 (15:28)
[2020-01-16] MEDS ORDERED: VANCOMYCIN HCL 0 MG in DEXTROSE 5%-WATER 250 ML IV NR (15:30)
[2020-01-16] MEDS ORDERED: PHYTONADIONE INJ 10 MG/1 ML AMPULE IV ONE (15:32)
--- NOTE | 2020-01-16 16:26 | RADIOLOGY REPORT (SQ) ---
EXAM DESCRIPTION: CHEST SINGLE VIEW IMAGES COMPLETED DATE/TIME: 01/16/2020 4:16 pm REASON FOR STUDY: hypoxia COMPARISON: None. EXAM PARAMETERS: NUMBER OF VIEWS: One view. TECHNIQUE: Single frontal radiographic view of the chest acquired. RADIATION DOSE: NA LIMITATIONS: None. 01/16/2020 0544 hours FINDINGS: LUNGS AND PLEURA: Vague parenchymal opacities. Predominantly right upper lobe. MEDIASTINUM AND HILAR STRUCTURES: No masses. Contour normal. HEART AND VASCULAR STRUCTURES: CABG hardware. BONES: No acute findings. HARDWARE: ETT in good position. Venous access catheter unchanged. NG tube tip just into the stomach . Spine stimulator. OTHER: No other significant finding. IMPRESSION: Stable appearance of the chest radiograph with vague opacities most prominent right uppe r lobe. Support devices unchanged. TECHNICAL DOCUMENTATION: JOB ID: [id number] 2010 [employer]- All Rights Reserved Reading location - IP/workstation name: [email or web address]
[2020-01-16 17:04] LABS: ARTERIAL BLOOD H2CO3 0.54 mmol/L (1.05-1.35); ARTERIAL BLOOD O2 SATURATION 99.7 % (94-98); ARTERIAL BLOOD PO2 417.5 mmHg (80-100); ARTERIAL BLOOD TOTAL CO2 6.5 mmol/L (21-25)
[2020-01-16 17:06] LABS: ARTERIAL BLOOD FIO2 100%
[2020-01-16 17:07] LABS: ARTERIAL BLOOD PCO2 17.8 mmHg (35-45); ARTERIAL BLOOD PH 7.15 (7.35-7.45)
[2020-01-16 17:09] LABS: HEMATOCRIT 29.1 % (36.0-47.0); HEMOGLOBIN 8.9 g/dL (12.0-15.5); MEAN CORPUSCULAR HEMOGLOBIN 31.1 pg (27.0-33.4); MEAN CORPUSCULAR HGB CONC 30.6 g/dL (32.0-36.0); RED BLOOD COUNT 2.86 10^6/uL (3.72-5.28); WHITE BLOOD COUNT 17.8 10^3/uL (4.0-10.5)
--- NOTE | 2020-01-16 17:17 | PDOC CRITICAL CARE PROG REPORT ---
General Date:: 01/16/20 ICU Day:: 6 Ventilator Day:: 6 Hospital Day:: 19 Resuscitation Status: Do Not Resuscitate Medical Power of Ict Programmer: Events in the past 12 to 24 Hours:: 01.16.2020: Patient has had a dramatic course this morning. She had an abrupt rise in temperature to above 105. She became hypotensive requiring high-dose Zackary-Synephrine and Levophed. Tachycardia with atrial fib and atrial flutter culminated in denies cardioversion to no avail. Adenosine was given x2 followed by amiodarone when the adenosine was not effective. She became agonal in her breathing despite being on the ventilator. At one point she was absent a pulse and high-dose Zackary-Synephrine was attempted with epinephrine. She became agonal and breathing despite being on ventilator Her white blood cell count is elevated but she had been given steroids in preparation for full vent liberation. Her chest x-ray much improved. 01.15.2020: Patient has been taken off SARS, 2-CoViD19 cautions. She still has some elevation of inflammatory parameters but not to the degree we would expect with this novel coronavirus. Her chest x-ray is dramatically improved and this appears to be a multifocal bacterial pneumonia whose cultures are still negative. She developed atrial fib/flutter but not a high ventricular rate. She was not started on the coagulation secondary to some bleeding that is been noted from her ET tube. 01.14.2020: Officially SARS, 2-CoViD19 additive. Weaning FiO2 and PEEP now. No hemodynamic instability however has developed atrial fibrillation with a controlled rate 01.13.2020: Patient continues to improve and FiO2 has been reduced to 50%. PEEP is now at 10. He is mildly tachycardic but much improved. Color is improved. 01.12.2020: Patient was admitted yesterday and had significant hypoxia. She was placed in prone position with significant improvement in her overall condition. Urgent elevation has not been significantly elevated but it is high. She was placed in supine position this afternoon with mild hypoxia. Review of systems relevant to events:: 01.16.2020: Patient has been extremely ill as noted above. Hypocalcemia has been treated. We have reinstituted SARS, 2-CoViD19 protection. 01.15.2020: Chest x-ray improved. She still has an elevated neutrophil to lymphocyte ratio at 15 however her ferritin and d-dimer are improved. Bleeding from ET tube 01.14.2020: No hypotension. No adverse skin reaction or pressure changes from proning. 01.13.2020: SARS, 2-CoViD19 testing is still pending. Inflammatory markers: Neutrophil lymphocyte ratio is air at 112 from 103. D-dimer higher at 3.73, fortunately ferritin has improved. 01.12.2020: Patient's hemodynamics have stabilized and she is not on vasopressor therapy. She is appropriately sedated. He had frequent bowel movements yesterday but has improved. A bowel management tube had been placed. No significant peak or plateau pressure elevations. She currently is on 50% and 10 of PEEP. Reason for ICU Addmission:: Hypoxic respiratory failure - Medications: Medications reviewed and adjusted accordingly: Yes Vasopressors:: neosynephrine, vasopressin Sedation:: Discontinued Physical Exam Vital Signs: Temp Pulse Resp BP Pulse Ox 103.6 F H 156 H 22 H 126/64 H 98 01/16/20 10:00 01/16/20 10:00 01/16/20 10:00 01/16/20 10:00 01/16/20 10:00 Intake & Output 01/15/20 01/16/20 01/17/20 06:59 06:59 06:59 Intake Total 2105.0 3906.5 289 Output Total 2540 1630 135 Balance -435.0 2276.5 154 Weight 59.3 kg 59.8 kg Weight/Height Weight 59.8 kg Height 5 ft 4 in General appearance: PRESENT: no acute distress, well-developed, well-nourished Exam: Comatose toxic ill 74-year-old female responsive. During hypotensive process cyanotic with occasional agonal breathing Head exam: PRESENT: atraumatic, normocephalic Eye exam: PRESENT: conjunctival injection, conjunctiva pink, other - He was mid range slow to react. ABSENT: nystagmus Mouth exam: PRESENT: dry mucosa Teeth exam: PRESENT: edentulous Neck exam: PRESENT: other - Central venous internal jugular catheter sites clean dry and intact dressing intact. ABSENT: JVD, lymphadenopathy Respiratory exam: PRESENT: clear to auscultation rodney, other - Terminal agonal breathing noted during hypotensive and pulseless event. ABSENT: accessory muscle use Cardiovascular exam: PRESENT: irregular rhythm, tachycardia Pulses: ABSENT: normal dorsalis pedis pul GI/Abdominal exam: PRESENT: diminished bowel sounds. ABSENT: ascites, mass, organolmegaly Rectal exam: PRESENT: deferred Gentrourinary exam: PRESENT: indwelling catheter Extremities exam: ABSENT: pedal edema Musculoskeletal exam: ABSENT: deformity, dislocation Neurological exam: PRESENT: awake, other - Comatose, [place] Coma Scale 3T Skin exam: PRESENT: mottled, pallor Tubes/Lines: PRESENT: Endotracheal Tube, Central Line, Arterial Catheter, Other - Orogastric tube, Taylor type urinary catheter Laboratory/Radiographs Laboratory Results: 01/16/20 13:00 01/16/20 13:00 01/16/20 01/16/20 01/16/20 05:22 05:22 05:22 WBC 19.6 H RBC 3.40 L Hgb 10.5 L Hct 31.8 L MCV 93 MCH 31.0 MCHC 33.2 RDW 17.2 H Plt Count 97 L Seg Neutrophils % Not Reportable Carbonic Acid 0.66 L HCO3/H2CO3 Ratio 27:1 ABG pH 7.53 H ABG pCO2 21.9 L ABG pO2 61.5 L ABG HCO3 18.0 L ABG O2 Saturation 94.5 ABG Base Excess -3.2 FiO2 30% Sodium 146.1 H Potassium 4.6 Chloride 117 H Carbon Dioxide 23 Anion Gap 6 BUN 109 H Creatinine 2.10 H Est GFR ( Amer) 28 L Glucose 168 H Calcium 5.8 L* Phosphorus 3.4 Magnesium 4.1 H Ferritin Total Bilirubin AST Alkaline Phosphatase Total Protein Albumin 01/16/20 01/16/20 13:00 13:00 WBC 26.7 H RBC 3.23 L Hgb 9.9 L Hct 30.2 L MCV 94 MCH 30.7 MCHC 32.9 RDW 17.3 H Plt Count 59 L Seg Neutrophils % Not Reportable Carbonic Acid HCO3/H2CO3 Ratio ABG pH ABG pCO2 ABG pO2 ABG HCO3 ABG O2 Saturation ABG Base Excess FiO2 Sodium 147.3 H Potassium 4.5 Chloride 124 H Carbon Dioxide 16 L Anion Gap 7 BUN 128 H Creatinine 2.58 H Est GFR ( Amer) 22 L Glucose 196 H Calcium 5.3 L* Phosphorus Magnesium 4.1 H Ferritin 2320.00 H Total Bilirubin 0.8 AST 92 H Alkaline Phosphatase 26 L Total Protein 4.4 L Albumin 2.2 L 04/07/20 15:34 Bronchial Washings Gram Stain - Final 01/11/20 15:34 Bronchial Washings Bronchial Washings Culture - Final C.albicans/C.dubliniensis Normal Sayra 12/27/19 12/28/19 12/28/19 23:14 00:18 05:47 Creatine Kinase CK-MB (CK-2) Troponin I 0.102 0.110 0.134 NT-Pro-B Natriuret Pep 62513 H 12/28/19 12/29/19 12/31/19 11:52 21:57 00:00 Creatine Kinase 40 CK-MB (CK-2) Troponin I 0.129 0.190 NT-Pro-B Natriuret Pep 12/31/19 12/31/19 12/31/19 00:00 05:46 05:46 Creatine Kinase 35 CK-MB (CK-2) 0.45 0.47 Troponin I 0.154 0.145 NT-Pro-B Natriuret Pep 12/31/19 12/31/19 01/05/20 12:17 12:17 05:00 Creatine Kinase 39 CK-MB (CK-2) 0.56 Troponin I 0.125 NT-Pro-B Natriuret Pep 5790 H 01/06/20 01/07/20 01/08/20 07:32 08:27 08:54 Creatine Kinase CK-MB (CK-2) Troponin I NT-Pro-B Natriuret Pep 6760 H 6690 H 6090 H 01/11/20 01/16/20 01/16/20 06:24 13:00 13:00 Creatine Kinase < 20 L 138 H CK-MB (CK-2) < 0.22 Troponin I 1.530 NT-Pro-B Natriuret Pep Impressions: Abdomen/Pelvis CT 12/30/19 00:00 IMPRESSION: Small right effusion with patchy basilar airspace disease right greater than left. Prior cholecystectomy. Internal biliary drainage catheter is in place. Small atrophic left kidney. Chest CT 01/04/20 00:00 IMPRESSION: Bilateral ground-glass opacities with focal areas of consolidation findings are consistent with a history of congestive heart failure. There are small bilateral pleural effusions. Probable reactive mediastinal adenopathy. Findings can be seen with infectious or inflammatory processes as well. Clinical correlation is needed. Chest X-Ray 01/16/20 06:00 IMPRESSION: 1. Slight improvement in bilateral edema and/or pneumonia. 2. ET tube tip in the lower thoracic trachea, consider retraction as above. All labs, radiographs, diagnostic studies and EKGs were personally reviewed: Yes In addition, reports of radiographic and diagnostic studies were read: Yes Assessment and Plan - Diagnosis (1) Suspected COVID-19 virus infection Is this a current diagnosis for this admission?: Yes Plan: Previously negative (3) Septic shock Is this a current diagnosis for this admission?: Yes (4) Cardiac arrest Is this a current diagnosis for this admission?: Yes (5) Acute respiratory failure with hypoxia Is this a current diagnosis for this admission?: Yes (6) Bacterial pneumonia, unspecified Is this a current diagnosis for this admission?: Yes (7) Atrial fibrillation and flutter Is this a current diagnosis for this admission?: Yes (8) Acute kidney injury superimposed on chronic kidney disease Is this a current diagnosis for this admission?: Yes (9) CKD (chronic kidney disease) stage 3, GFR 30-59 ml/min Is this a current diagnosis for this admission?: Yes (10) Oxygen dependency at home Is this a current diagnosis for this admission?: Yes (11) Mitral valve regurgitation Qualifiers: Cardiac valve disease etiology: etiology unspecified Qualified Code(s): I34.0 - Nonrheumatic mitral (valve) insufficiency Is this a current diagnosis for this admission?: Yes Plan Summary: 01.15.2020: Patient has had no hemodynamic instability other than slight tachycardia associated with her atrial fibrillation and flutter. She has no history of this. She has a known history of coronary artery disease which is why she is on Plavix and aspirin and multiple other medications. Given her frailness I am reticent to start heparin without discussion with her spindle tester. Fortunately none are available today. Given her [id number] score of 5 she has a greater than 7% chance of a cerebral i ncident in the next year. Will continue to monitor closely. Fortunately she is on heparin prophylaxis and full dose with some degree of renal dysfunction in addition to dual antiplatelet therapy. We will continue to consider on a daily basis given her situation. Patient has a known history of vocal cord dysfunction, unilateral. This may add to the complete picture of why she became so ill. Appears that she has multifocal lobar pneumonia which may have been bacterial however and pneumonitis caused by aspiration needs to also be considered. Added to this is the possibility of mitral valve disease. I am suspicious that this was infection related given the fact that she is improved with antibiotics and has had no recrudescence of disease. If this were mitral valve I would expected to have a different course than she has had. Consideration for aspiration pneumonia after pneumonitis is also second on my list of differential given her history of left vocal cord dysfunction. Notably we will need to watch for this after liberation from the ventilator and will place her on Decadron to prevent any inflammation. We will attempt to wean and liberate from the ventilator in the next 24 hours. Have started dexmedetomidine to help facilitate this. My hope is this will help slow her heart rate down somewhat. Although her heart rate is not significantly elevated she has been off her carvedilol and will attempt to restart. If held her medication secondary to her renal failure and low normal blood pressure. Patient is extremely frail, underweight and has significant comorbidities which may contribute to morbidity and mortality. Judicious and close monitoring of every treatment will be necessary. Continue antibiotics. Await viral PCR studies 01.16.2020: Patient is extremely ill and moribund. I am concerned about her abrupt rise and fever. It was not associated with any clonus or hyperreflexia that would reflect a medication induced syndrome. That being said I have discontinued nasal lid on the off chance that a serotonin MAOI process may have occurred. Discontinue any medications that would have interacted as well. She is on meropenem and Vanco my syndrome at this point. Cultures have been sent and re- initiation of SARS, 2-CoViD19 precautions have been undertaken. Have taken repeat viral PCR and SARS, 2-CoViD19 PCR Had a long lengthy discussion with the patient's family regarding her case and care. She has significant mitral valve disease which is complicating this process. She has atrial fibrillation and flutter but I am on able to anticoagulate her secondary to her coagulopathy. She previous to today's events had declared itself DNR. Has responded to high-dose Zackary-Synephrine but I am concerned about her neurological status. I am unable to find a source for sepsis at this point but will be continually vigilant to find a source. Patient has a very poor prognosis and had a week cardiovascular system prior to these events. I portend a dismal outcome. Given her high fever I have elected to start her on Solu-Cortef. However Plaquenil may be dangerous for her given the need for amiodarone and today's events We will continue to follow her labs. Her renal function is worsened she is not requiring dialysis at this time. Have sent labs to follow her metabolic and pH profile. She has been made DNR at time of admission to the ICU and the family has confirmed this. There will be no escalation of care. Was given 1 dose of Ativan in concern for serotonin-like syndrome or neuroleptic malignant syndrome--there was no legitimate improvement in her overall condition. Various labs have been sent. Ferritin is extremely elevated. Neutrophil to lymphocyte ratio is extremely high however patient has been given steroids Troponin is 1.5 with a CK-MB unremarkable. UA has been sent She is also developed blood from her OG tube and Protonix has been started twice daily. Her platelets are low and heparin has been stopped as well a HIT panel has been sent. She appears to be in DIC with a more bleeding component then thrombotic component. All intents and purposes this appears to be a SARS, 2-CoViD19 type illness. 01.16.2020: Patient is moribund and in septic shock with cardiogenic shock. Her prognosis is dismal and I expect she will not recover and make it through the day. Family has been contacted and screened for symptoms themselves. Patient has been domiciled at home with only one other family member visiting who is symptom-free. Another possible source could be GI however her abdominal exam is benign. Being said she would not survive surgery. Repeat examination showed fixed and dilated pupils. This could be a neurologic process such as encephalitis and/or meningitis. Family has elected to not escalate care and we expect her to pass while on the ventilator. They are aware and at bedside in full protective PPE 01.14.2020: Patient continues to improve in the expected trajectory. Will start weaning now that the SARS, 2-CoViD19 nesting is negative. She is extremely weak and appears to have had bacterial pneumonia although cultures have been negative. Recrudescence of infiltrates or interstitial pattern occurs this may represent mitral valve disease. He has had a significant improvement overall and expect to liberate from the vent within the next 24 hours. Continue supportive care. Continue antibiotics Follow for atrial fibrillation with rapid response I am unable to start heparin secondary to dark blood that had been noted on tracheal aspirates. Will reevaluate in the morning to determine whether this is been a continued process. She is on aspirin and Plavix and we may need to discontinue Plavix. 01.13.2020: Patient is improving in an acceptable trajectory. She has been prone for approximately 18 hours and in the supine state has remained stable. We will slowly wean PEEP as well as FiO2. Given her d-dimer elevation the new standard is for full anticoagulation however patient has been on Plavix. Given the possibility of bleeding and diffuse alveolar hemorrhage I am reticent to place her on this. At this time, we await her SARS, 2-CoViD19 results. If they are positive we may be forced to at least start IV heparin on the off chance that she bleeds on Plavix. Of import, her SARS, 2-CoViD19 status is essential to be determined. She may not be a candidate for Plaquenil given her react status but will need to c onsider it based on inflammatory parameters. Started enteral nutrition Given her improve renal status will start low-dose vitamin C and added zinc Will follow her renal function. If creatinine improves without fluid and will continue that process. Have added free water to flushes. 01.12.2020: Patient has had no bleeding from her endotracheal tube. We will continue subcu taneous heparin. If her d-dimer continues to increase then we will be forced to strongly consider anticoagulation. We will place the patient supine and if she continues to worsen will need to re-pronate her. We will continue supportive care including nutritional support. Continue to follow ferritin, CRP and d-dimer. Follow vent settings to prevent elevated alveolar pressures Appears to have responded to PEEP recruitment making her a "H" type genotype for this lung disease. Still awaiting respiratory pathogen profile and SARS, 2-CoViD19 Patient continues to be DNR but intubation acceptable. To new antibiotics we are unable to de-escalate therapy secondary to the inability to obtain procalcitonin Will review chest x-rays as needed but for the time being are limiting chest x- ray secondary to reducing exposure to healthcare providers 01.11.2020:Patient's chest x-ray shows abnormal interstitial changes with mixed alveolar pattern. Her ultrasound shows significant B-lines with an ejection fraction that is not diminished. Although mitral regurgitation can present like this this appears to be an infectious source. Have sent SARS, 2-CoViD19 panel as well as respiratory viral panel. Influenza screen is negative however these tests are extremely insensitive. I have placed her on broad-spectrum antibiotics. Continue to follow indirect parameters such as ferritin, d-dimer and CRP. Have sent procalcitonin but the levels are not returning in a timely fashion to de- escalate therapy. His hypoxia necessitated prone positioning. Due diligence was maintained to protect pressure areas as well as to protect the confines of the ET tube with a surgical based head cushion. We will start Plaquenil and have started meropenem and Linezolid in case this is an infectious etiology from bacteria. We will need to follow QT interval. 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 Given the pandemic's unknown lab characteristics as far as ANCA I am not sure how testing will help. That being said she may be a candidate for steroid therapy. Supportively, her ferritin is not excessively elevated which I would expect at this point. We will follow the trend. The elevation albeit not significantly high may portend a better prognosis. We will need to provide vigilance for protection during pronating. Is been ineffective treatment for SARS, 2-CoViD19. I also had a discussion with the patient regarding her goals of care. She did agree to intubation but declined resuscitation if she had a cardiac arrest. Has been was updated and notified as well. Unfortunately he is unable to be here secondary to the confines of the SARS, 2-CoViD19 pandemic. Significant amount time was spent with the patient because of her hypoxia after intubation. She was placed on 100% FiO2 and PEEP increased to 16 to recruit. This was quite successful and FiO2 has been now weaning. Given the complex nature of her case and the constant requirement for airway management during pronating patient's care required a significant amount of critical care time. Bedside ultrasound of her heart lungs were done as well Critical Time Critical Time (minutes): 120 Level of Care: ICU Anticipated discharge: Other - Within: within 24 hours -: 1. The care of a critical patient is a dynamic process. This note is a business services representative synopsis but static in nature. The timeframe for treatments given in order is not necessarily the actual time these treatments may have been done. 2. This patient requires critical care secondary to ongoing requirements for therapy not offered or safe outside the critical care environment. Transfer to a lower level of care will result in altered life or limb morbidity and mortality. 3. Multidisciplinary rounds completed. 4. ABCDE bundle addressed.
[2020-01-16 17:28] LABS: MEAN CORPUSCULAR VOLUME 102 fl (80-97); PLATELET COUNT 38 10^3/uL (150-450)
[2020-01-16 17:33] LABS: D-DIMER 9.49 ug/mL (0.00-0.50)
[2020-01-16 17:39] LABS: C-REACTIVE PROTEIN 20.6 mg/L (<10.0)
--- NOTE | 2020-01-16 17:51 | Death Summary ---
Summary Date : 01/16/20 Time of :: 17:30 Autopsy: No Resuscitation Status: Do Not Resuscitate Consulting Provider: Nephrology. Critical Care - Final Diagnosis (1) Suspected COVID-19 virus infection Is this a current diagnosis for this admission?: Yes (2) Cardiogenic shock Is this a current diagnosis for this admission?: Yes (3) Septic shock Is this a current diagnosis for this admission?: Yes (4) Cardiac arrest Is this a current diagnosis for this admission?: Yes (5) Acute respiratory failure with hypoxia Is this a current diagnosis for this admission?: Yes (6) Bacterial pneumonia, unspecified Is this a current diagnosis for this admission?: Yes (7) Atrial fibrillation and flutter Is this a current diagnosis for this admission?: Yes (8) Acute kidney injury superimposed on chronic kidney disease Is this a current diagnosis for this admission?: Yes (9) CKD (chronic kidney disease) stage 3, GFR 30-59 ml/min Is this a current diagnosis for this admission?: Yes (10) Oxygen dependency at home Is this a current diagnosis for this admission?: Yes (11) Mitral valve regurgitation Is this a current diagnosis for this admission?: Yes Hospital Course:: Patient had lengthy hospital course meeting in extensive by lobar pneumonia. She had been domiciled in the hospital but because of the ongoing SARS, 2- CoViD19 pandemic she was placed in isolation in the ICU pending studies. Was extremely hypoxic on admission to the ICU. Had been treated for what appeared to be CHF without any improvement. Oblique she had severe mitral valve disease which complicated her case. First SARS, 2-CoViD19 testing was negative however on the day of her she developed a temperature elevation of 105 followed by obtundation. This did not appear to be a serotonin or neuroleptic malignant type syndrome but all medications that could be involved were discontinued and she was transitioned to vancomycin. She at 1 point developed severe atrial fibrillation which was followed by loss of blood pressure it even though she was DNR and attempt at cardioversion in a synchronized fashion was done. This was not effective and adenosine was tried x2. This was not effective and amiodarone was begun which help achieve control of atrial fibrillation and flutter. Patient at one point lost a pulse and due to her DNR status was not initially resuscitated. High-dose levo and Zackary-Synephrine had been started and were increased which allowed for a pulse. She continued to decline despite maximal efforts including replacement of calcium and bicarbonate. Family elected not to escalate care but to continue conservative measures. Antibiotics were changed She continued to decline and had agonal respirations. She eventually succumbed to her illness and was declared at 1730 hrs.
[2020-01-16] MEDS ORDERED: VANCOMYCIN HCL 750 MG in DEXTROSE 5%-WATER 250 ML IV SCH (18:00)
[2020-01-16] MEDS ORDERED: HYDROCORTISONE SOD SUCCINATE INJ/PF 100 MG/2 ML SDV IV SCH (18:00)
[2020-01-16] MEDS ORDERED: VANCOMYCIN HCL INJ 500 MG VIAL PO SCH (18:00)
[2020-01-16] MEDS ORDERED: METRONIDAZOLE 500 MG/NS RTU 500 MG/100 ML RTUPB IV SCH (18:00)
[2020-01-16] MEDS ORDERED: THIAMINE HCL INJ 200 MG/2 ML VIAL IV SCH (22:00)
[2020-01-16] MEDS ORDERED: THIAMINE HCL 250 MG in NORMAL SALINE 250 ML IV SCH (22:00)
[2020-01-17] MEDS ORDERED: ERGOCALCIFEROL (VITAMIN D2) 50000 UNIT (1.25 MG) CAPSULE PO SCH (10:00)
[2020-01-18 18:36] LABS: RES PRO RESPIR SYNCYTIAL VIRUS Not Detected (Not Detect); RES PRO RHINOVIRUS/ENTEROVIRUS Not Detected (Not Detect); RESP PRO CHLAMYDOPHILA PNEUMON Not Detected (Not Detect); RESP PRO INFLUENZA A/H1-2009 Not Detected (Not Detect); RESP PROF BORDETELLA PERTUSSIS Not Detected (Not Detect); RESP PROF CORONAVIRUS 229E Not Detected (Not Detect); RESP PROF CORONAVIRUS HKU1 Not Detected (Not Detect); RESP PROF CORONAVIRUS NL63 Not Detected (Not Detect); RESP PROF CORONAVIRUS OC43 Not Detected (Not Detect); RESP PROF INFLUENZA A/H1 Not Detected (Not Detect); RESP PROF INFLUENZA A/H3 Not Detected (Not Detect); RESP PROF METAPNEUMOVIRUS Not Detected (Not Detect); RESP PROF PARAINFLUENZA 1 Not Detected (Not Detect); RESP PROF PARAINFLUENZA 2 Not Detected (Not Detect); RESP PROF PARAINFLUENZA 3 Not Detected (Not Detect); RESP PROF PARAINFLUENZA 4 Not Detected (Not Detect); RESPIRATORY PROF INFLUENZA A Not Detected (Not Detect); RESPIRATORY PROF INFLUENZA B Not Detected (Not Detect)
[2020-01-19 08:25] LABS: RESP PRO MYCOPLASMA PNEUMONIAE Not Detected (Not Detect)
== END 2020-01-16 22:30 | DRG 291 ==
LOC: ER 23:12 → EH 12-28 00:53 → 3S 12-28 03:15 → ICU 01-11 14:44
PROVIDERS: ADMIT Internal Medicine Critical Care Medicine; ATTEND Internal Medicine Critical Care Medicine
PROC: 30233N1 Transfusion of Nonautologous Red Blood Cells into Peripheral Vein, Percutaneous Approach (ICD-10-PCS; principal; 2020-01-07)
PROC: 30233N1 Transfusion of Nonautologous Red Blood Cells into Peripheral Vein, Percutaneous Approach (ICD-10-PCS; 2020-01-10)
PROC: 02HV33Z Insertion of Infusion Device into Superior Vena Cava, Percutaneous Approach (ICD-10-PCS; 2020-01-11)
PROC: 03H533Z Insertion of Infusion Device into Right Axillary Artery, Percutaneous Approach (ICD-10-PCS; 2020-01-11)
PROC: 0BH17EZ Insertion of Endotracheal Airway into Trachea, Via Natural or Artificial Opening (ICD-10-PCS; 2020-01-11)
PROC: 5A1945Z Respiratory Ventilation, 24-96 Consecutive Hours (ICD-10-PCS; 2020-01-11)
PROC: 30233N1 Transfusion of Nonautologous Red Blood Cells into Peripheral Vein, Percutaneous Approach (ICD-10-PCS; 2020-01-14)
DX: I11.0 Hypertensive heart disease with heart failure (principal); J96.01 Acute respiratory failure with hypoxia; J81.0 Acute pulmonary edema; J15.9 Unspecified bacterial pneumonia; A41.9 Sepsis, unspecified organism; R65.21 Severe sepsis with septic shock; N17.9 Acute kidney failure, unspecified; I48.92 Unspecified atrial flutter; I50.33 Acute on chronic diastolic (congestive) heart failure; I48.91 Unspecified atrial fibrillation; E83.51 Hypocalcemia; R57.0 Cardiogenic shock; E78.5 Hyperlipidemia, unspecified; J45.909 Unspecified asthma, uncomplicated; I34.0 Nonrheumatic mitral (valve) insufficiency; K59.00 Constipation, unspecified; F32.9 Major depressive disorder, single episode, unspecified; Z99.81 Dependence on supplemental oxygen; Z03.818 Encounter for observation for suspected exposure to other biological agents ruled out; Z79.82 Long term (current) use of aspirin; Z79.51 Long term (current) use of inhaled steroids; Z79.899 Other long term (current) drug therapy
CPT/HCPCS: 31500; 36415; 36430; 36556; 36600; 36620; 71045; 71046; 71250; 74176; 80048; 80053; 80061; 81001; 82140; 82272; 82550; 82553; 82607; 82728; 82746; 82803; 82962; 83540; 83550; 83605; 83615; 83735; 83880; 84100; 84145; 84443; 84478; 84484; 85025; 85027; 85045; 85379; 85384; 85610; 85730; 86022; 86140; 86141; 86850; 86900; 86901; 86920; 87040; 87070; 87205; 87252; 87486; 87581; 87633; 87635; 87798; 87804; 93005; 93010; 93306; 94002; 94003; 94660; 99291; 99292; C1758; J0153; J0171; J0282; J1100; J1170; J1200; J1642; J1644; J1720; J1940; J1956; J2020; J2060; J2185; J2270; J2370; J2405; J2704; J2920; J3010; J3411; J3490; J7030; J7050; P9016; Q5106